=== PATIENT | male | born 1950 | race Caucasian/White ===

== ENCOUNTER 2020-04-17 09:10 | Outpatient (REF) | payer OTHER, SELFPAY ==
[2020-04-17 10:14] LABS: MANUAL DIFF FLAG NO
[2020-04-17 10:16] LABS: Basophils Absolute Auto 0.1 X10*3/uL (0.0-0.2); Basophils Percent Auto 1.1 % (0-2); Eosinophils Absolute Auto 0.2 X10*3/uL (0.0-0.4); Hematocrit 45.9 % (42-52); Hemoglobin 14.8 g/dl (14.0-18.0); Imm Gran Abs Auto 0.05 X10*3/uL (0.00-0.03); Imm Gran Pct Auto 0.6 % (0.0-0.4); Lymphocytes Absolute Auto 2.2 X10*3/uL (1.2-4.9); Lymphocytes Percent Auto 26.3 % (20-40); Mean Corpuscular HGB Conc 32.2 g/dl (31.0-36.0); Mean Platelet Volume 11.9 fL (9.4-12.4); Monocytes Absolute Auto 0.7 X10*3/uL (0.1-1.2); Monocytes Percent Auto 8.4 % (2-11); Neutrophils Absolute Auto 5.1 X10*3/uL (2.0-8.3); Neutrophils Percent Auto 61.6 % (45-73); Platelet Count 199 X10*3/uL (160-400); White Blood Count 8.3 X10*3/uL (4.8-10.8)
[2020-04-17 10:29] LABS: Estimated Average Glucose 128 mg/dL; Hemoglobin A1c % 6.1 %
[2020-04-17 10:37] LABS: Glucose Urine UA NEG (NEG); Leukocyte Esterase Urine NEG (NEG); Nitrite Urine NEG (NEG); PH 5.5 (5.0-8.0); Specific Gravity - Urine 1.025 (1.005-1.025); Urine Blood TRACE (NEG); Urine Ketones NEG (NEG); Urine Protein NEG (NEG-TRACE)
[2020-04-17 10:43] LABS: Appearance Urine CLEAR; Color Urine YELLOW
[2020-04-17 10:47] LABS: Alanine Aminotransferase 17 U/L (0-40); Albumin Level 4.2 g/dL (3.5-5.0); Alkaline Phosphatase 43 U/L (39-117); Anion Gap 12 (12-20); Aspartate Amino Transferase 17 U/L (5-37); Bilirubin Total 0.5 mg/dL (0.0-1.0); Blood Urea Nitrogen 12 mg/dL (9-16); Calcium 9.1 mg/dL (8.4-10.2); Carbon Dioxide 24 mmol/L (22-29); Chloride 106 mmol/L (96-108); Cholesterol 178 mg/dL; Estimated Glomerular Filt Rate > 60; Glucose Fasting 119 mg/dL (60-99); HDL Cholesterol 33 mg/dL; LDL Cholesterol Calculated 111 mg/dl; Potassium 4.4 mmol/l (3.3-5.1); Sodium 138 mmol/L (135-145); Total Protein 7.3 g/dL (6.5-8.0); Triglycerides 172 mg/dL
[2020-04-17 10:48] LABS: Creatinine Urine 141.78 mg/dL; Microalbum/Creatinine Ratio Ur 5.6 ug/mg cr
[2020-04-17 11:05] LABS: RBC Urine 0 /HPF (0); WBC Urine 0 /HPF (0-4)
[2020-04-17 11:06] LABS: Squamous Epithelial Cell Urine TRACE /LPF
[2020-04-17 11:12] LABS: Prostate Specific Antigen 2.71 ng/mL (<0.05-4.0)
== END 2020-04-17 09:11 | disposition home or self-care (01) ==
LOC: HO.LAB 09:10
PROVIDERS: PCP Internal Medicine; Visit Provider Internal Medicine
DX: Z00.00 Encounter for general adult medical examination without abnormal findings (principal); E11.40 Type 2 diabetes mellitus with diabetic neuropathy, unspecified; E78.6 Lipoprotein deficiency; G62.9 Polyneuropathy, unspecified
CPT/HCPCS: 36415; 80053; 80061; 81001; 82043; 83036; 84153; 85025

== ENCOUNTER → 2021-01-03 08:18 | Outpatient (REF) | payer OTHER, SELFPAY ==
--- NOTE | 2021-01-03 08:22 | CA_ITS ---
Transthoracic Echocardiogram Patient (Last, First, Middle): Howard Muniz F Gender: Male Date of : 1950 Age: 70 Procedure Date: 01/03/2021 Procedure Type: Transthoracic Echocardiogram Location: OP Height: 177.8 cm Weight: 86.64 kg BSA: 2.05 m2 Heart Rate: bpm BP: 118 / 60 mmHg Echometer Engineer: Referring MD: Gurjit Gloria MD Roller Coaster Designer: Vinnie Moore MD Symptoms: R01.1 NEWLY RECOGNIZED MURMUR Study Quality: Fair ECG Rhythm: Sinus Conclusions: - 1. Normal LV systolic function with mild LVH with impaired relaxation filling pattern 2. At least mildly dilated left atrium 3. Mild aortic stenosis 4. Mildly dilated ascending aorta and aortic root 5. No gross pericardial effusion Findings Left Ventricle Normal left ventricular size and systolic function. There is mildly increased left ventricular wall thickness. The visually estimated ejection fraction is between 60-65%. Spectral Doppler is indicative of an impaired relaxation filling pattern. E/E prime ratio is between 8 and 15 consistent with indeterminate filling pressures. Right Ventricle Normal right ventricular cavity size and systolic function. Atria The left atrium is mildly dilated. Interatrial shunt cannot be excluded. The right atrium was not well visualized. Aortic Valve The aortic valve was not well visualized. There is mild calcification of the aortic valve. There is mild aortic valve stenosis. There is mild aortic valve regurgitation. Mitral Valve Likely normal mitral valve structure and function. There is trace mitral valve regurgitation. There is no mitral valve stenosis. Pulmonic Valve The pulmonic valve was not well visualized. Tricuspid Valve The tricuspid valve was not well visualized. Tricuspid regurgitation envelope is inadequate for calculation of right ventricular systolic pressure. Great Vessels The pulmonary artery was not well visualized. There is mild dilatation of the sinuses of Valsalva measuring 4.20 cm and mild dilatation of the ascending aorta measuring 3.80 cm. Venous The inferior vena cava is normal in size and collapses greater than 50% with inspiration. Pericardium/Pleural There is no evidence of pericardial effusion. Prior Study Comparison No prior study available for comparison. Measurements 2D Linear Measurements IVSd: 1.28 0.6-0.9/0.6-1.0 cm LVIDd: 5.04 3.9-5.3/4.2-5.9 cm LVIDs: 3.35 2.0-3.6 cm LVPWd: 1.30 0.7-1.1 cm Ao Root: 4.00 2.1-3.5 cm LV Mass: 324.94 67-162/88-224 g LVOT Diam: 2.45 3.0+(-)1.3 cm Mitral Valve MV Pk E: 0.73 MV PK A: 0.87 MV Decel Time: 213.10 E/A: 0.84 E'Lateral: 0.09 E'Medial: 0.05 Decel [place]: 3.45 Aortic Valve AoV Pk [place]aye: 2.55 AoV Mn [place]aye: 1.82 AoV VTI: 0.59 AoV Pk Grad: 26.05 Aov Mn Grad: 14.93 LVOT LVOT Pk [place]: 0.90 LVOT Mn [place]aye: 0.59 LVOT VTI: 0.21 LVOT Pk Grad: 3.22 LVOT Mn Grad: 1.61 LVOT Diam: 2.45 LVOT Area: 4.73 Diastolic Function MV Pk E: 0.73 MV Pk A: 0.87 E/A: 0.84 E'Medial: 0.05 E' Laterial: 0.09 Tricuspid Valve TR Pk [place]aye: 2.10 TR Pk Grad: 17.67 RA Press: 3.00 Great Vessels Aorta Ao Root-2D: 4.00 2.0-3.7 cm Sinus of Valsalva: 4.20 2.0-3.5 cm Ao Asc: 3.80 2.1-3.4 cm Pulmonary Valve PV Pk Tesfaye: 0.90 Peak PV Grad: 3.22 Updated in Other Vendor System with Status of Final Vinnie Moore MD electronically signed on 01/03/2021 5:35:55 PM with status of Final
== END ==
LOC: HO.CARD 08:18
PROVIDERS: PCP Internal Medicine; Visit Provider Internal Medicine
DX: R01.1 Cardiac murmur, unspecified (principal)
CPT/HCPCS: 93306

== ENCOUNTER 2021-04-24 10:33 | Outpatient (REF) | payer OTHER, SELFPAY ==
[2021-04-24 10:36] LABS: MANUAL DIFF FLAG NO
[2021-04-24 10:59] LABS: Basophils Absolute Auto 0.1 X10*3/uL (0.0-0.2); Basophils Percent Auto 1.2 % (0-2); Eosinophils Absolute Auto 0.2 X10*3/uL (0.0-0.4); Eosinophils Percent Auto 2.8 % (0-4); Hemoglobin 14.3 g/dl (14.0-18.0); Imm Gran Abs Auto 0.04 X10*3/uL (0.00-0.03); Imm Gran Pct Auto 0.5 % (0.0-0.4); Lymphocytes Absolute Auto 2.2 X10*3/uL (1.2-4.9); Lymphocytes Percent Auto 30.1 % (20-40); Mean Corpuscular HGB Conc 32.5 g/dl (31.0-36.0); Mean Corpuscular Hemoglobin 29.1 pg (27.0-33.0); Mean Corpuscular Volume 89.6 fL (80-98); Mean Platelet Volume 12.2 fL (9.4-12.4); Monocytes Absolute Auto 0.7 X10*3/uL (0.1-1.2); Monocytes Percent Auto 9.5 % (2-11); Neutrophils Absolute Auto 4.2 X10*3/uL (2.0-8.3); Neutrophils Percent Auto 55.9 % (45-73); Platelet Count 178 X10*3/uL (160-400); Red Blood Count 4.91 X10*6/uL (4.60-5.80); Red Cell Distribution Width 12.9 % (11.0-16.0); White Blood Count 7.5 X10*3/uL (4.8-10.8)
[2021-04-24 11:15] LABS: Estimated Average Glucose 137 mg/dL; Hemoglobin A1c % 6.4 %
[2021-04-24 11:16] LABS: Alanine Aminotransferase 13 U/L (0-40); Albumin Level 3.9 g/dL (3.5-5.0); Alkaline Phosphatase 38 U/L (39-117); Anion Gap 11 (12-20); Aspartate Amino Transferase 15 U/L (5-37); Bilirubin Total 0.5 mg/dL (0.0-1.0); Blood Urea Nitrogen 10 mg/dL (9-16); Calcium 8.7 mg/dL (8.4-10.2); Carbon Dioxide 25 mmol/L (22-29); Chloride 108 mmol/L (96-108); Cholesterol 169 mg/dL; Estimated Glomerular Filt Rate > 60; Glucose Fasting 143 mg/dL (60-99); HDL Cholesterol 29 mg/dL; LDL Cholesterol Calculated 107 mg/dl; Potassium 4.2 mmol/L (3.3-5.1); Sodium 140 mmol/L (135-145); Total Protein 6.7 g/dL (6.5-8.0); Triglycerides 167 mg/dL
[2021-04-24 11:32] LABS: Appearance Urine CLEAR; Color Urine YELLOW; Glucose Urine UA NEG (NEG); Leukocyte Esterase Urine NEG (NEG); Nitrite Urine NEG (NEG); PH 5.5 (5.0-8.0); Specific Gravity - Urine >= 1.030 (1.005-1.025); Urine Blood NEG (NEG); Urine Ketones NEG (NEG); Urine Protein NEG (NEG-TRACE)
[2021-04-24 11:37] LABS: PSA,Total (Free>4and<10) 2.07 ng/mL (0.00-4.00)
[2021-04-24 11:38] LABS: Creatinine Urine 256.39 mg/dL
== END 2021-04-24 10:34 | disposition home or self-care (01) ==
LOC: HO.LNP 10:33
PROVIDERS: Visit Provider Internal Medicine
DX: Z00.00 Encounter for general adult medical examination without abnormal findings (principal); Z12.5 Encounter for screening for malignant neoplasm of prostate; R97.20 Elevated prostate specific antigen [PSA]; E11.40 Type 2 diabetes mellitus with diabetic neuropathy, unspecified; E78.6 Lipoprotein deficiency
CPT/HCPCS: 80053; 80061; 81003; 82043; 83036; 84153; 85025

== ENCOUNTER 2021-08-02 10:31 | Outpatient (REF) | payer OTHER, SELFPAY ==
[2021-08-02 11:37] LABS: Estimated Average Glucose 134 mg/dL; Hemoglobin A1c % 6.3 %
[2021-08-02 11:58] LABS: Alanine Aminotransferase 13 U/L (0-40); Albumin Level 3.9 g/dL (3.5-5.0); Alkaline Phosphatase 46 U/L (39-117); Aspartate Amino Transferase 15 U/L (5-37); Bilirubin Direct 0.4 mg/dL (0.0-0.5); Bilirubin Total 1.1 mg/dL (0.0-1.0); Cholesterol 133 mg/dL; Glucose Fasting 145 mg/dL (60-99); HDL Cholesterol 31 mg/dL; LDL Cholesterol Calculated 74 mg/dl; Total Protein 7.1 g/dL (6.5-8.0); Triglycerides 144 mg/dL
[2021-08-02 12:37] LABS: Reflex LDLD? No
== END 2021-08-02 10:32 | disposition home or self-care (01) ==
LOC: HO.LNP 10:31
PROVIDERS: Visit Provider Internal Medicine
DX: E11.40 Type 2 diabetes mellitus with diabetic neuropathy, unspecified (principal); E78.6 Lipoprotein deficiency
CPT/HCPCS: 80061; 80076; 82947; 83036

== ENCOUNTER 2021-09-13 08:49 | Outpatient (REF) | payer OTHER, MEDICARE, SELFPAY ==
--- NOTE | ~2021-09-13 | XR_ITS ---
EXAMINATION: XR SHOULDER, LEFT CLINICAL INFORMATION: Shoulder pain COMPARISON: None TECHNIQUE: Left shoulder is imaged in 3 views. FINDINGS: There is fine linear and small rounded calcification in region of distal rotator cuff likely involving the infraspinatus and the conjoined tendon. There is mild spurring from the greater tuberosity. There is no fracture or dislocation or destructive process. The glenohumeral joint is unremarkable. The acromioclavicular alignment is normal. XR/XR shoulder LT min 2V IMPRESSION: Calcific tendinosis distal superior rotator cuff.
== END 2021-09-13 08:50 | disposition home or self-care (01) ==
LOC: HO.HOSX 08:49
PROVIDERS: PCP Internal Medicine; Visit Provider Physician Assistant
DX: M12.812 Other specific arthropathies, not elsewhere classified, left shoulder (principal)
CPT/HCPCS: 73030

== ENCOUNTER 2021-10-19 14:00 | Outpatient (RCR) | payer OTHER, MEDICARE, SELFPAY ==
--- NOTE | 2021-09-14 14:50 | MHC.PT.EP ---
[facility] [place] Office [place] Office [place] Office [address] Loki Fierro [address] [phone] F: [phone] F: [phone] F: [phone] F: [phone] Physical Therapy Plan of Care Date of Evaluation: Date of Surgery: n/a Diagnosis: rotator cuff arthropathy of L shoulder Assessment: Patient is a 71 year old male presenting to PT with complaints of pain in his L shoulder. Pt reports onset of pain began 6-7 weeks ago shortly after his covid booster. He presents today with impairments in pain, ROM, and posture. Pt's current occupation is retired, with baseline physical activities including reaching, ADLs, and tennis. 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 Clinical presentation today is most consistent with signs and sx associated with x-ray findings of calcific tendinosis with possible contribution from the RC and pt will benefit from skilled PT to address the following problems and impairments noted upon evaluation: pain, ROM, and posture. These problems limit the patient with the following functional activities: reaching and ADLs. The prescribed treatment plan of care is medically necessary. Co-morbidities of ? of a murmur were identified and taken into considerations of plan of care. Pt was educated on HEP, role of PT, prognosis, POC. Frequency and Duration: The patient will be seen 2 x week x 5 weeks Short Term Goals: Pt will demonstrate improved L flexion and abd AROM by 20 degrees in 3 weeks. Pt will demonstrate improved ER ROM to his spinous process in 3 weeks. Pt will demonstrate improved L shoulder MMT by 1/3 grade in 3 weeks. Pt will demonstrate improved postural awareness by sitting with biomechanically correct posture without cues throughout session to improve overall postural function in 3 weeks. Auto Cleaner Goals: Pt will demonstrate ability to reach [place] in 5 weeks for ability to complete insurance claims representative. Pt will demonstrate ability to complete all ADLs with min to no ROM limitations in 5 weeks for return to PLOF. Treatment Plan: Modalities to reduce pain, spasms and effusion. Manual therapy to restore motion and function. Therapeutic exercise to improve strength and flexibility. Neuromuscular re-education for posture and balance. Therapeutic activities to return to functional activities of daily living. Electronically signed by: Louise Blancas, PT, DPT, ATC Please sign and return to therapist. Thank you for your referral.
--- NOTE | 2021-11-20 10:19 | MHC.PT.DC ---
[facility] [place] Office [place] Office [place] Office [address] Loki Fierro [address] [phone] F: [phone] F: [phone] F: [phone] F: [phone] Physical Therapy Discharge Report Diagnosis: rotator cuff arthropathy of L shoulder Date of Surgery: n/a Date of Evaluation: 09/14/21 Date of Discharge: 11/20/21 Treatments to Date: 11 Cancellations to Date: 0 No Shows to Date: 0 Discharge Status: Independent with HEP Discharge Summary: Pt has completed 30 day hold and has not called to be scheduled. At last appointment he was independent in his HEP and understood to follow up with referring provider if he continues to feel limitations. Electronically signed by: Louise Blancas, PT, DPT, ATC Please sign and return to therapist. Thank you for your referral.
== END 2021-11-20 10:19 | disposition home or self-care (01) ==
LOC: HO.PTCHIC 14:00
PROVIDERS: PCP Internal Medicine; Visit Provider Physician Assistant
DX: M12.812 Other specific arthropathies, not elsewhere classified, left shoulder (principal)
CPT/HCPCS: 97110; 97140; 97161

== ENCOUNTER 2021-11-09 08:14 | Day surgery (SDC) | payer OTHER, MEDICARE, SELFPAY ==
[2021-11-05 11:02] VITALS: BMI 26.6
--- NOTE | 2021-11-08 09:57 | P.CONAN_ITS ---
Documented by User: Jacy Mayes NP 11/08/21 09:59 HPI - Anesthesia Eval Consult details Narrative: 71yo M for Colonoscopy PMFSH Active Problems Active Problems: All Active Problems (Updated 11/05/21 @ 11:02 by Carla Browne RN) Rotator cuff arthropathy of left shoulder (Acute) Past Medical History Medical History (Updated 11/05/21 @ 11:02 by Carla Browne RN) COVID-19 vaccine series completed Diabetes Diabetic neuropathy Elevated cholesterol Glaucoma Surgical History Surgical History (Updated 11/09/21 @ 09:13 by Keshia Diana MD) H/O colonoscopy Hx of hand surgery Social History Social History (Updated 09/13/21 @ 09:10 by NOE Méndez) Are you a primary resident care director to a significant other at home: No Do you presently have visiting nurse or other home services: No Patient Tobacco Use Status: Never used Tobacco Use of substances other than those prescribed or required for medical reasons: No Have you been hit, kicked, punched, or otherwise hurt by someone within the past year? If so, by whom?: No Are you DNR?: No Advance Directives: No Advance Directives Information Provided: Yes (brochure mailed) Advance Directives on File: No Recently lost weight without trying: No Eating poorly because of decreased appetite: No Nutrition Risks: No Nutritional Risk Poor oral hygiene: No Current occupational status: retired Current occupation: rt hand / Meds Allergies Allergy/AdvReac Type Severity Reaction Status Date / Time No Known Allergies Allergy Verified 09/13/21 09:09 Home Medications Medication Instructions Recorded Confirmed Last Taken Type metformin 500 mg tablet 500 mg PO BID 09/13/21 11/05/21 Unknown History atorvastatin 20 mg tablet 1 tab PO DAILY 11/05/21 11/05/21 Unknown History dorzolamide 22.3 mg-timolol 6.8 1 drp OPHTHALMIC (EYE) BID 11/05/21 11/05/21 Unknown History mg/mL eye drops tafluprost (PF) 0.0015 % eye drops 1 drp OPHTHALMIC (EYE) BEDTIME 11/05/21 11/05/21 Unknown History in a dropperette (Zioptan (PF)) Exam Exam Date and Time: November 08, 2021 0957 Height,Weight and Vital Signs: Height 5 ft 11 in Weight 86.636 kg Pertinent Lab Results Pertinent Lab Results: Laboratory Tests 04/24/21 04/24/21 07:10 07:10 WBC 7.5 Hgb 14.3 Hct 44.0 Plt Count 178 Sodium 140 Potassium 4.2 Chloride 108 Carbon Dioxide 25 BUN 10 Creatinine 0.99 Narrative Narrative: ECHO 12/2020 Conclusions: - 1. Normal LV systolic function with mild LVH with impaired ? ? relaxation filling pattern ? 2. At least mildly dilated left atrium ? 3. Mild aortic stenosis? 4. Mildly dilated ascending aorta and aortic root? 5. No gross pericardial effusion ?? Assessment and Plan Assessment Anesthesia Assessment: Chart Reviewed Documented by User: Keshia Diana MD 11/09/21 09:34 [facility] Active Problems Active Problems: All Active Problems (Updated 11/05/21 @ 11:02 by Carla Browne RN) Rotator cuff arthropathy of left shoulder (Acute). Never had rotator cuff surgery. Undergoing physical therapy for now with some improvement in function Denies SOB, chest pain or dizziness Past Medical History Medical History (Updated 11/05/21 @ 11:02 by Carla Browne RN) COVID-19 vaccine series completed Diabetes Diabetic neuropathy Elevated cholesterol Glaucoma Family History Family history of problems with anesthesia: No Surgical History Surgical History (Updated 11/09/21 @ 09:13 by Keshia Diana MD) H/O colonoscopy Hx of hand surgery History of Problems with Anesthesia: No Social History Social History (Updated 09/13/21 @ 09:10 by NOE Méndez) Are you a primary resident care director to a significant other at home: No Do you presently have visiting nurse or other home services: No Patient Tobacco Use Status: Never used Tobacco Use of substances other than those prescribed or required for medical reasons: No Have you been hit, kicked, punched, or otherwise hurt by someone within the past year? If so, by whom?: No Are you DNR?: No Advance Directives: No Advance Directives Information Provided: Yes (brochure mailed) Advance Directives on File: No Recently lost weight without trying: No Eating poorly because of decreased appetite: No Nutrition Risks: No Nutritional Risk Poor oral hygiene: No Current occupational status: retired Current occupation: rt hand / Meds Allergies Allergy/AdvReac Type Severity Reaction Status Date / Time No Known Allergies Allergy Verified 09/13/21 09:09 Home Medications Medication Instructions Recorded Confirmed Last Taken Type metformin 500 mg tablet 500 mg PO BID 09/13/21 11/05/21 Unknown History atorvastatin 20 mg tablet 1 tab PO DAILY 11/05/21 11/05/21 Unknown History dorzolamide 22.3 mg-timolol 6.8 1 drp OPHTHALMIC (EYE) BID 11/05/21 11/05/21 Unknown History mg/mL eye drops tafluprost (PF) 0.0015 % eye drops 1 drp OPHTHALMIC (EYE) BEDTIME 11/05/21 11/05/21 Unknown History in a dropperette (Zioptan (PF)) Exam Height,Weight and Vital Signs: Height 5 ft 11 in Weight 86.636 kg Vital Signs Temp Pulse Resp BP Pulse Ox 11/09/21 08:17 96.9 F 96 17 141/87 H 97 Pertinent Lab Results Pertinent Lab Results: Laboratory Tests 04/24/21 04/24/21 07:10 07:10 WBC 7.5 Hgb 14.3 Hct 44.0 Plt Count 178 Sodium 140 Potassium 4.2 Chloride 108 Carbon Dioxide 25 BUN 10 Creatinine 0.99 Lab Results 11/09/21 Range/Units 08:26 POC Glucose 141 H (60-115) mg/dL Narrative Narrative: ECHO 12/2020 Conclusions: - 1. Normal LV systolic function with mild LVH with impaired ? ? relaxation filling pattern ? 2. At least mildly dilated left atrium ? 3. Mild aortic stenosis? 4. Mildly dilated ascending aorta and aortic root? 5. No gross pericardial effusion ?? EKG 11/09/21 NSR 79 RBBB LAFB Bifascicular block. Cannot r/o IMI masked by fascicular block. No old EKG available to view but stress test from 2004 documents bifascicular block. Stress test 2004 was negative for ischemia. Airway Mallampati Class: III TM Dist: >3cm Neck ROM: Full Loose/Missing/Broken Teeth: Yes (Some broken) Heart: RRR + systolic murmur Lungs: CTAB Assessment and Plan Assessment Anesthesia Assessment: Anesthesia Plan Discussed Final Anesthetic Review Family History of Problems with Anesthesia: No History of Problems with Anesthesia: No NPO: Yes ASA Class: III Final Preanesthetic Review: No Changes in Pt Med Stat, Meds/Allgs Chart Reviewed, Consent Obtained/Reviewed and Anes Risks/Benef Reviewed Patient Risk: Intermediate Procedure Risk: Low Assessment/Block/Sedation in SS: Assess/Block/Sedation-SS Anesthetic Plan Anesthetic Plan: MAC: Disposition: Standard PACU
--- NOTE | 2021-11-09 | ECG_ITS ---
Test Reason : RHYTHM CHANGE Blood Pressure : / mmHG Vent. Rate : 079 BPM Atrial Rate : 079 BPM P-R Int : 182 ms QRS Dur : 140 ms QT Int : 410 ms P-R-T Axes : 006 -56 -20 degrees QTc Int : 470 ms Normal sinus rhythm Right bundle branch block Left anterior fascicular block Bifascicular block Cannot rule out Inferior infarct (masked by fascicular block?) , age undetermined Abnormal ECG No previous ECGs available Referred By: Keshia Diana Electronically Signed By:CANDI LOZANO
[2021-11-09 08:17] VITALS: BP 141/87; PULSE 96; RESP 17; TEMP 36.1; O2SAT 97
[2021-11-09 08:31] LABS: Glucose, Whole Blood 141 mg/dL (60-115)
[2021-11-09] MEDS: Lactated Ringers 1,000 ML 100 ML IVCONT (08:42)
--- NOTE | 2021-11-09 09:41 | MHC.SHP ---
Pre-Procedural Eval Section A Date of Service: 11/09/21 Section B Chief Complaint: screening Details of Present Illness: see h and p no changes Relevant Family History (Specify if Yes): No Relevant Social History: None Present Medications: see Short Stay Collaborative assessment Medical History: No relevant PMH History of Previous Operations: No relevant previous surgery Allergies: Allergies Allergy/AdvReac Type Severity Reaction Status Date / Time No Known Allergies Allergy Verified 09/13/21 09:09 Review of Systems Sugical H&P ROS: Negative: Constitution, Cardiovascular, Respiratory, Neurological, Psychiatric, Hem-Onc, Allergic/Immunologic, Gastrointestinal, Genitourinary, Musculoskeletal, Integumentary, Endocrine and Eyes/Ears/Nose/Throat Exam Surgical H&P Exam: Normal: HEENT, Normal: Heart, Normal: Lungs, Normal: Extremities, Normal: Abdomen, Normal: Skin and Normal: Neurological Plan I have reviewed the history and physical and performed a pertinent physical examination on my patient. No changes have occurred unless specified.
[2021-11-09 10:11] VITALS: BP 127/75; PULSE 80; RESP 16; TEMP 36.3; O2SAT 98
--- NOTE | 2021-11-09 10:14 | PM.OP ---
Brief Operative Note Date of Service: 11/09/21 Pre-op diagnosis: screening Post-op diagnosis: same (colon polyps) Procedure: colonosocpy Surgeon: Raji Mcclendon Was an Hand Ii Thermal Cutter used for this Procedure?: No Estimated blood loss (mL): 2 Pathology: other (polyps x2) Condition: stable Disposition: PACU
[2021-11-09 10:26] VITALS: BP 118/76; PULSE 81; RESP 18; TEMP 36.6; O2SAT 96
--- NOTE | 2021-11-09 12:09 | OP_ITS ---
SURGEON: Raji Mcclendon MD INDICATIONS: Colon cancer screening. PREOPERATIVE DIAGNOSIS: POSTOPERATIVE DIAGNOSIS: PROCEDURE PERFORMED: Colonoscopy to the terminal ileum with biopsy and snare polypectomy. ESTIMATED BLOOD LOSS: COMPLICATIONS: ANESTHESIA: ASSISTANTS: SPECIMENS: MEDICATIONS: Monitored anesthesia care. DESCRIPTION OF PROCEDURE: History and physical were performed. The risks and benefits of the procedure were explained to the patient. An informed consent was obtained. The patient was placed in the left lateral decubitus position. A digital rectal exam was performed and was found to be normal. The Olympus pediatric video colonoscope was introduced into the rectum and advanced to cecum without difficulty. The cecum was identified by transillumination, palpation, and identification of the ileocecal valve. Examination was performed. The scope was removed. He tolerated the procedure well and returned to recovery area in stable condition. FINDINGS: The terminal ileum was normal. The visualized colonic mucosa was normal. The quality of prep was good. Two polyps were identified. The 1st measured less than 5 mm and was located at 70 cm. This was removed with biopsy forceps. The 2nd was located at 50 cm and measured 6 mm. This was removed with a cold snare. The polyp was not recovered for technical reasons. There was mild sigmoid diverticulosis. Retroflexed examination showed small internal hemorrhoids. IMPRESSION: Colon polyps. RECOMMENDATION: 1. Follow up the biopsy results. 2. Repeat colonoscopy in 7-10 years, pending pathology. MD GURPREET Armendariz/BELLA / [id number]
== END 2021-11-09 11:10 | disposition home or self-care (01) ==
PROVIDERS: PCP Internal Medicine; Visit Provider Internal Medicine Gastroenterology
PROC: 0DJD8ZZ Inspection of Lower Intestinal Tract, Via Natural or Artificial Opening Endoscopic (ICD-10-PCS; CPT 45378; principal; 2021-11-09 09:30)
DX: Z12.11 Encounter for screening for malignant neoplasm of colon (principal); Z86.010 Personal history of colon polyps; Z80.0 Family history of malignant neoplasm of digestive organs; D12.4 Benign neoplasm of descending colon; K63.5 Polyp of colon; K57.30 Diverticulosis of large intestine without perforation or abscess without bleeding; K64.8 Other hemorrhoids; H40.9 Unspecified glaucoma; E78.00 Pure hypercholesterolemia, unspecified; E11.40 Type 2 diabetes mellitus with diabetic neuropathy, unspecified; Z79.84 Long term (current) use of oral hypoglycemic drugs; Z79.899 Other long term (current) drug therapy
CPT/HCPCS: 45385; 45380; 82947; 88305; 93005

== ENCOUNTER → 2021-12-27 10:40 | Outpatient (BNVA) | payer OTHER, MEDICARE, SELFPAY | PROVIDERS: PCP Internal Medicine; Visit Provider Orthopaedic Surgery | DX: M25.612 Stiffness of left shoulder, not elsewhere classified (principal); M12.812 Other specific arthropathies, not elsewhere classified, left shoulder; E11.9 Type 2 diabetes mellitus without complications | CPT/HCPCS: 20610; J1100 ==

== ENCOUNTER 2022-01-01 10:26 | Outpatient (REF) | payer OTHER, MEDICARE, SELFPAY ==
[2022-01-01 10:46] LABS: Alanine Aminotransferase 15 U/L (0-40); Albumin Level 3.9 g/dL (3.5-5.0); Alkaline Phosphatase 45 U/L (39-117); Aspartate Amino Transferase 15 U/L (5-37); Bilirubin Direct 0.3 mg/dL (0.0-0.5); Bilirubin Total 0.7 mg/dL (0.0-1.0); Cholesterol 133 mg/dL; Glucose Fasting 157 mg/dL (60-99); HDL Cholesterol 32 mg/dL; LDL Cholesterol Calculated 68 mg/dl; Total Protein 6.7 g/dL (6.5-8.0); Triglycerides 166 mg/dL
[2022-01-01 11:06] LABS: Reflex LDLD? No
[2022-01-01 11:07] LABS: Estimated Average Glucose 148 mg/dL; Hemoglobin A1c % 6.8 %
== END 2022-01-01 10:27 | disposition home or self-care (01) ==
LOC: HO.LNP 10:26
PROVIDERS: PCP Internal Medicine; Visit Provider Internal Medicine
DX: E11.40 Type 2 diabetes mellitus with diabetic neuropathy, unspecified (principal); E78.6 Lipoprotein deficiency
CPT/HCPCS: 80061; 80076; 82947; 83036

== ENCOUNTER 2022-01-07 07:15 | Outpatient (REF) | payer OTHER, MEDICARE, SELFPAY ==
--- NOTE | ~2022-01-07 | MR_ITS ---
EXAMINATION: MRI SHOULDER WITHOUT CONTRAST, LEFT CLINICAL INFORMATION: Left shoulder pain and stiffness. COMPARISON: Left shoulder radiographs dated 09/13/2021. TECHNIQUE: Multisequence MR imaging of the left shoulder was obtained without contrast on a high field strength scanner. FINDINGS: ROTATOR CUFF: Moderate supraspinatus tendinosis with irregular bursal surface partial tearing measuring approximately 1.3 x 1.8 cm (AP by ML). Mild subscapularis tendinosis. No full-thickness rotator cuff tendon tear. No significant muscle atrophy. BICEPS: Flattening of the proximal long head biceps tendon as it drapes over the lesser tuberosity, indicating longitudinal partial tearing. No transverse tendon tear or tendon retraction. CORACOACROMIAL ARCH: The undersurface of the acromion is curved with no subacromial spur. Moderate acromioclavicular osteoarthritis. LABRUM/CAPSULE: Linear fluid signal extending to the undersurface of the anterior and anterior-inferior labrum consistent with a nondisplaced undersurface tear. Intact joint capsule. GLENOHUMERAL JOINT/MARROW: Mild glenohumeral articular cartilage signal heterogeneity with tiny marginal osteophytes. MR/MR shoulder LT wo con IMPRESSION: 1. Moderate supraspinatus tendinosis with irregular bursal surface partial tearing measuring 1.3 x 1.8 cm. Mild subscapularis tendinosis. Previously seen calcific tendinitis not well visualized on MRI examination. 2. Flattening/longitudinal partial tearing of the proximal long head biceps tendon as it drapes over the lesser tuberosity. 3. Moderate acromioclavicular osteoarthritis. 4. Nonspecific undersurface tear of the anterior and anteroinferior labrum. 5. Mild glenohumeral osteoarthritis.
== END 2022-01-07 07:16 | disposition home or self-care (01) ==
LOC: HO.MRI 07:15
PROVIDERS: Visit Provider Orthopaedic Surgery
DX: M25.612 Stiffness of left shoulder, not elsewhere classified (principal); M12.812 Other specific arthropathies, not elsewhere classified, left shoulder
CPT/HCPCS: 73221

== ENCOUNTER 2022-04-25 11:16 | Outpatient (REF) | payer MEDICARE, OTHER, SELFPAY ==
[2022-04-25 11:21] LABS: MANUAL DIFF FLAG NO
[2022-04-25 11:50] LABS: Basophils Absolute Auto 0.1 X10*3/uL (0.0-0.2); Basophils Percent Auto 0.9 % (0-2); Eosinophils Absolute Auto 0.2 X10*3/uL (0.0-0.4); Eosinophils Percent Auto 2.7 % (0-4); Hematocrit 42.5 % (42.0-52.0); Hemoglobin 13.8 g/dl (14.0-18.0); Imm Gran Abs Auto 0.03 X10*3/uL (0.00-0.03); Imm Gran Pct Auto 0.4 % (0.0-0.4); Lymphocytes Absolute Auto 2.6 X10*3/uL (1.2-4.9); Lymphocytes Percent Auto 32.5 % (20-40); Mean Corpuscular HGB Conc 32.5 g/dl (31.0-36.0); Mean Corpuscular Hemoglobin 29.1 pg (27.0-33.0); Mean Corpuscular Volume 89.5 fL (80.0-98.0); Mean Platelet Volume 12.1 fL (9.4-12.4); Monocytes Absolute Auto 0.9 X10*3/uL (0.1-1.2); Monocytes Percent Auto 10.9 % (2-11); Neutrophils Absolute Auto 4.3 x10*3/uL (2.0-8.3); Neutrophils Percent Auto 52.6 % (45-73); Platelet Count 181 X10*3/uL (160-400); Red Blood Count 4.75 X10*6/uL (4.60-5.80); White Blood Count 8.1 X10*3/uL (4.8-10.8)
[2022-04-25 11:51] LABS: Appearance Urine Clear; Color Urine Yellow; Glucose Urine UA Negative (Negative); Leukocyte Esterase Urine Negative (Negative); Nitrite Urine Negative (Negative); PH 5.5 (5.0-9.0); Urine Blood Negative (Negative); Urine Ketones Negative (Negative); Urine Protein Negative (Neg-Trace)
[2022-04-25 11:55] LABS: Bacteria Urine None Seen (None Seen); Hyaline Casts Urine 0-2 /LPF (0-2); RBC Urine 0-2 /HPF (0-2); Squamous Epithelial Cell Urine 0-2 /HPF (0-2); WBC Urine 0-5 /HPF (0-5)
[2022-04-25 11:57] LABS: Estimated Average Glucose 148 mg/dL; Hemoglobin A1c % 6.8 %
[2022-04-25 12:03] LABS: Alanine Aminotransferase 17 U/L (0-40); Albumin Level 3.8 g/dL (3.5-5.0); Alkaline Phosphatase 44 U/L (39-117); Anion Gap 14 (12-20); Aspartate Amino Transferase 19 U/L (5-37); Bilirubin Total 0.8 mg/dL (0.0-1.0); Blood Urea Nitrogen 12 mg/dL (9-16); Calcium 8.7 mg/dL (8.4-10.2); Carbon Dioxide 24 mmol/L (22-29); Chloride 107 mmol/L (96-108); Cholesterol 120 mg/dL; Estimated Glomerular Filt Rate > 60; Glucose Fasting 160 mg/dL (60-99); HDL Cholesterol 29 mg/dL; LDL Cholesterol Calculated 62 mg/dl; Potassium 4.2 mmol/L (3.3-5.1); Sodium 141 mmol/L (135-145); Total Protein 6.6 g/dL (6.5-8.0); Triglycerides 146 mg/dL
[2022-04-25 12:18] LABS: Creatinine Urine 190.93 mg/dL; Microalbum/Creatinine Ratio Ur 4.7 ug/mg cr
[2022-04-25 12:25] LABS: PSA,Total (Free>4and<10) 0.85 ng/mL (0.00-4.00)
== END 2022-04-25 11:17 | disposition home or self-care (01) ==
LOC: HO.LNP 11:16
PROVIDERS: Visit Provider Internal Medicine
DX: E11.40 Type 2 diabetes mellitus with diabetic neuropathy, unspecified (principal); E78.6 Lipoprotein deficiency; R97.20 Elevated prostate specific antigen [PSA]; Z12.5 Encounter for screening for malignant neoplasm of prostate
CPT/HCPCS: 80053; 80061; 81001; 82043; 83036; 84153; 85025

== ENCOUNTER 2022-10-17 12:04 | Emergency (ER) | payer OTHER, MEDICARE, SELFPAY ==
--- NOTE | ~2022-10-17 | CT_ITS ---
EXAMINATION: CT HEAD WITHOUT CONTRAST CLINICAL INFORMATION: Status post fall with head strike. COMPARISON: None available. TECHNIQUE: Contiguous axial imaging was performed from the skull base to vertex without intravenous administration of contrast. Coronal and sagittal reformatted images were obtained. This CT examination was performed using dose optimization techniques as appropriate, variously including the following: *Automated exposure control *Adjustment of mA and/or kV according to patient size (this includes techniques or standardized protocols for targeted exams where dose is matched to indication/reason for exam; i.e. extremities or head) *Use of iterative reconstruction technique DLP: 697 mGy-cm FINDINGS: There is mild widening of the cortical sulci and associated ventriculomegaly. Mild periventricular microvascular changes are seen, most pronounced in the right parietal region. The lateral ventricles are symmetrical. The third and fourth ventricles are in their normal midline position. Mild encephalomalacia is seen in the left occipital occipital lobe. The basilar and prepontine cisterns are unremarkable. There is no acute intra or extracerebral abnormality. There is no mass effect or midline shift. Sections through the bony calvarium are unremarkable. The orbits are intact. The paranasal sinuses are clear. The mastoid air cells are clear. Mild mid nasal septal deviation with right apical spur. CT/CT head/brain wo IV con IMPRESSION: No acute intracranial pathology.
--- NOTE | ~2022-10-17 | XR_ITS ---
EXAMINATION: XR KNEE, LEFT CLINICAL INFORMATION: Left knee pain status post fall. COMPARISON: None available. TECHNIQUE: Four views of the left knee. FINDINGS: Mild tricompartmental degenerative joint changes are seen. There is no acute fracture or dislocation. The soft tissues are unremarkable. Moderate to severe atherosclerosis is noted XR/XR knee LT 4V IMPRESSION: Mild tricompartmental degenerative joint changes suggesting osteoarthritis. No acute fracture.
[2022-10-17 12:16] VITALS: BP 138/75; PULSE 74; RESP 20; TEMP 36.8; O2SAT 97; BMI 27.7
--- NOTE | 2022-10-17 12:16 | ED_ITS ---
HPI - Extremity Injury (Lower) General Chief Complaint: Fall <VIDYA Pugh - Last Filed: 10/17/22 12:21> Stated Complaint: l leg inj fall <VIDYA Pugh - Last Filed: 10/17/22 12:21> Time Seen by Provider: 10/17/22 13:21 <VIDYA Pugh - Last Filed: 10/17/22 12:21> Source: patient <Luis M Zavala - Last Filed: 10/17/22 14:47> Limitations: no limitations <Luis M Zavala - Last Filed: 10/17/22 14:47> History of Present Illness HPI Narrative: 72-year-old male presents with his son complaining of feeling off balance in left knee pain. Patient is followed by his PCP was sent in for CT scan of the head to rule out intracranial pathology secondary to her fall 1 month prior. One month prior patient states he slipped on the ice in the back and fell on his back hitting his head. There was no loss of conscious at that time patient was not evaluated. Patient feels like ever since the fall things have seemed to be going down hill from the left knee pain which she denied injury in the fall to feeling off balance at time. Patient has a history of diabetes which he takes metformin for also has a history of hypercholesterolemia. At this time patient denies chest pain shortness of breath fever chills. Patient denies feeling that the room spinning he just at times feels off balance. Patient does not describe the knee discomfort as pain but rather just not feeling right. <Luis M Zavala - Last Filed: 10/17/22 14:47> Related Data Home Medications: Home Medications Medication Instructions Recorded Confirmed metformin 500 mg tablet 500 mg PO BID 09/13/21 11/05/21 atorvastatin 20 mg tablet 1 tab PO DAILY 11/05/21 11/05/21 dorzolamide 22.3 mg-timolol 6.8 1 drp ophthalmic (eye) BID 11/05/21 11/05/21 mg/mL eye drops tafluprost (PF) 0.0015 % eye drops 1 drp ophthalmic (eye) BEDTIME 11/05/21 11/05/21 in a dropperette (Zioptan (PF)) <VIDYA Pugh - Last Filed: 10/17/22 12:21> Allergies/Adverse Reactions: Allergies Allergy/AdvReac Type Severity Reaction Status Date / Time No Known Allergies Allergy Verified 09/13/21 09:09 <VIDYA Pugh - Last Filed: 10/17/22 12:21> Review of Systems Constitutional: Constitutional: Denies chills, Denies fever(s), Denies headache(s) and Denies malaise <Luis M Zavala - Last Filed: 10/17/22 14:47> Eyes: Eyes: Denies diplopia <Luis M Zavala - Last Filed: 10/17/22 14:47> ENT: Reports dizziness, Denies headache(s), Denies neck pain and Reports other ( Patient states feeling off balance) <Luis M Zavala - Last Filed: 10/17/22 14:47> Cardiovascular: Cardiovascular: Denies chest pain, Denies dyspnea and Reports dyspnea on exertion <Luis M Zavala - Last Filed: 10/17/22 14:47> Respiratory: Respiratory: Denies dyspnea and Reports dyspnea on exertion <Luis M Zavala - Last Filed: 10/17/22 14:47> Gastrointestinal: Gastrointestinal: Denies abdominal pain, Denies nausea and Denies vomiting <Luis M Zavala - Last Filed: 10/17/22 14:47> Genitourinary: Genitourinary: Reports no additional male genitourinary complaints <Luis M Zavala Last Filed: 10/17/22 14:47> Musculoskeletal: Musculoskeletal: Denies neck pain <Luis M Zavala - Last Filed: 10/17/22 14:47> Comments: knee discomfort not feeling right <Luis M Zavala - Last Filed: 10/17/22 14:47> Neurologic: Reports dizziness and Denies headache(s) <Luis M Zavala Last Filed: 10/17/22 14:47> Hematologic/Lymphatic: Hematologic/Lymphatic: Reports no additional hematologic/lymphatic complaints <Luis M Zavala Last Filed: 10/17/22 14:47> PMFSH Past Medical History Attestation statement: The following information was validated with the patient. <Luis M Zavala Last Filed: 10/17/22 14:47> Medical History: Medical History COVID-19 vaccine series completed Diabetes Diabetic neuropathy Elevated cholesterol Glaucoma <VIDYA Pugh - Last Filed: 10/17/22 12:21> Surgical History: Surgical History H/O colonoscopy Hx of hand surgery <VIDYA Pugh - Last Filed: 10/17/22 12:21> Social History Social History: Social History Are you a primary childcare center director to a significant other at home: No Do you presently have visiting nurse or other home services: No Patient Tobacco Use Status: Never used Tobacco Advance Directives: No Current occupational status: retired Current occupation: rt hand / <VIDYA Pugh - Last Filed: 10/17/22 12:21> Physical Exam Vital Signs: Vital Signs: Last Vital Signs Temp 98.3 F 10/17/22 12:16 Pulse 78 10/17/22 13:52 Resp 20 10/17/22 12:16 BP 135/77 10/17/22 13:52 Pulse Ox 97 10/17/22 12:16 O2 Del Method Room Air 10/17/22 12:16 BMI result Body Mass Index 27.7 <VIDYA Pugh - Last Filed: 10/17/22 12:21> Vital Signs: Last Vital Signs Temp 98.3 F 10/17/22 12:16 Pulse 78 10/17/22 13:52 Resp 20 10/17/22 12:16 BP 135/77 10/17/22 13:52 Pulse Ox 97 10/17/22 12:16 O2 Del Method Room Air 10/17/22 12:16 BMI result Body Mass Index 27.7 <Luis M Zavala - Last Filed: 10/17/22 14:47> Const: General: cooperative, well developed, alert, awake and Physically active <Luis M Zavala - Last Filed: 10/17/22 14:47> HEENT: Head: Yes normal to inspection, Yes normocephalic, Yes atraumatic and No abrasion <Luis M Zavala - Last Filed: 10/17/22 14:47> Mouth: Normal oral and palatal mucosa present and moist mucous membranes <Luis M Zavala - Last Filed: 10/17/22 14:47> Eyes: Other: pupils equal round reactive extraocular moves intact visual nava are intact bilaterally <Luis M Zavala Last Filed: 10/17/22 14:47> General: appearance normal, both eyes and all related structures <Luis M Zavala Last Filed: 10/17/22 14:47> Neck: Neck: Yes full ROM, Yes no meningeal signs and Yes trachea midline <Luis M Zavala Last Filed: 10/17/22 14:47> Chest: Chest palpation & inspection: normal inspection of the chest <Luis M Zavala Last Filed: 10/17/22 14:47> Resp: Effort & Inspection: normal respiratory effort <Luis M Zavala Last Filed: 10/17/22 14:47> Auscultation: clear to auscultation bilaterally <Luis M Zavala [facility] Filed: 10/17/22 14:47> Cardio: Rate: regular rate <Luis M Zavala Last Filed: 10/17/22 14:47> Rhythm: regular rhythm <Luis M Zavala Last Filed: 10/17/22 14:47> GI: Inspection: Yes normal to inspection <Luis M Zavala [facility] Filed: 10/17/22 14:47> Back/Spine/Pelvis: Other: full range of motion of the back <Luis M Zavala Last Filed: 10/17/22 14:47> Skin: General skin exam: no rashes or lesions noted and no ecchymosis <Luis M Zavala Last Filed: 10/17/22 14:47> Neuro: Other: Patient alert oriented x3 speech is intact no obvious focal deficit 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 No pronator drift patient walks with a slightly unsteady gait. [id number] touch is intact bilaterally <Luis M Zavala Last Filed: 10/17/22 14:47> General: no meningeal signs <Luis M Zavala Last Filed: 10/17/22 14:47> Coordination: [id number] test normal <Luis M Zavala [place] Last Filed: 10/17/22 14:47> Course Course Course Narrative: RME - 72 yo male presents to the ER from his PCP's office for evaluation of left knee pain after a fall a month ago. He also reports when he fell he hit the back of his head. He is not on blood thinners. He was never evaluated at the time. His doctor is worried he may have had a subdural hematoma. He denies any current or past headache. He does report some balance issues and now walks with a cane. The left knee is slower to move since the fall. Plan: XR left knee and CT head although clinical suspicion is low <VIDYA Pugh - Last Filed: 10/17/22 12:21> Medical Decision Making Medical Decision Making [facility] Narrative: Close head injury Subdural hematoma Left knee pain Left knee arthritis Underlying ligament injury to the left knee Anemia 72-year-old male who was sent in by PCP for CT scan of the head and x-ray of the left knee. CT scan of the head and left knee x-ray are pending. Patient states since a fall about a month ago when he fell on the ice in the backyard things have seemed to change from mother was balance with the knee pain. Patient did not originally injured the knee. Patient is nonorthostatic. Point of care is to overall 5. Case discussed with Dr. Jacobson will get a CBC CMP and wait on imaging results. plan to discharge patient home with follow-up PCP if CT scan of the head and blood work is negative. x-ray left knee IMPRESSION: Mild tricompartmental degenerative joint changes suggesting osteoarthritis. No acute fracture. FINDINGS: There is mild widening of the cortical sulci and associated ventriculomegaly. Mild periventricular microvascular changes are seen, most pronounced in the right parietal region. The lateral ventricles are symmetrical. The third and fourth ventricles are in their normal midline position. Mild encephalomalacia is seen in the left occipital occipital lobe. The basilar and prepontine cisterns are unremarkable. There is no acute intra or extracerebral abnormality. There is no mass effect or midline shift. Sections through the bony calvarium are unremarkable. The orbits are intact. The paranasal sinuses are clear. The mastoid air cells are clear. Mild mid nasal septal deviation with right apical spur. CT/CT head/brain wo IV con IMPRESSION: No acute intracranial pathology. CBC is stable no signs of anemia <Luis M Zavala - Last Filed: 10/17/22 14:47> Lab Data Result Diagrams: 10/17/22 14:12 10/17/22 14:12 <VIDYA Pugh - Last Filed: 10/17/22 12:21> Labs: Lab Results 10/17/22 10/17/22 10/17/22 Range/Units 13:45 14:12 14:12 WBC 7.6 (4.8-10.8) X10*3/uL RBC 5.05 (4.60-5.80) X10*6/uL Hgb 14.9 (14.0-18.0) g/dl Hct 44.3 (42.0-52.0) % MCV 87.7 (80.0-98.0) fL MCH 29.5 (27.0-33.0) pg MCHC 33.6 (31.0-36.0) g/dl RDW 12.9 (11.0-16.0) % Plt Count 171 (160-400) X10*3/uL MPV 12.0 (9.4-12.4) fL Immature Gran % (Auto) 0.4 (0.0-0.4) % Neut % (Auto) 63.0 (45-73) % Lymph % (Auto) 24.3 (20-40) % [place] % (Auto) 9.8 (2-11) % Eos % (Auto) 1.6 (0-4) % Baso % (Auto) 0.9 (0-2) % Lymph # (Auto) 1.8 (1.2-4.9) X10*3/uL [place] # (Auto) 0.7 (0.1-1.2) X10*3/uL Eos # (Auto) 0.1 (0.0-0.4) X10*3/uL Baso # (Auto) 0.1 (0.0-0.2) X10*3/uL Abs Immat Gran (auto) 0.03 (0.00-0.03) X10*3/uL Absolute Neuts (auto) 4.8 (2.0-8.3) x10*3/uL Absolute Nucleated RBC 0.000 (0.0-0.012) X10*3/uL Nucleated RBC % (auto) 0.0 (0.0-0.2) /100WBC Sodium 142 (135-145) mmol/L Potassium 4.4 (3.3-5.1) mmol/L Chloride 110 H (96-108) mmol/L Carbon Dioxide 25 (22-29) mmol/L Anion Gap 11 L (12-20) BUN 15 (9-16) mg/dL Creatinine 0.88 (0.5-1.4) mg/dL Estim Creat Clear Calc 85.7 Estimated GFR > 60 POC Glucose 205 H (60-115) mg/dL Random Glucose 186 H (60-115) mg/dL Calcium 9.4 D (8.4-10.2) mg/dL Total Bilirubin 0.8 (0.0-1.0) mg/dL AST 25 (5-37) U/L ALT 20 (0-40) U/L Alkaline Phosphatase 42 (39-117) U/L Total Protein 6.7 (6.5-8.0) g/dL Albumin 3.8 (3.5-5.0) g/dL <VIDYA Pugh - Last Filed: 10/17/22 12:21> Lab Results 10/17/22 10/17/22 10/17/22 Range/Units 13:45 14:12 14:12 WBC 7.6 (4.8-10.8) X10*3/uL RBC 5.05 (4.60-5.80) X10*6/uL Hgb 14.9 (14.0-18.0) g/dl Hct 44.3 (42.0-52.0) % MCV 87.7 (80.0-98.0) fL MCH 29.5 (27.0-33.0) pg MCHC 33.6 (31.0-36.0) g/dl RDW 12.9 (11.0-16.0) % Plt Count 171 (160-400) X10*3/uL MPV 12.0 (9.4-12.4) fL Immature Gran % (Auto) 0.4 (0.0-0.4) % Neut % (Auto) 63.0 (45-73) % Lymph % (Auto) 24.3 (20-40) % [place] % (Auto) 9.8 (2-11) % Eos % (Auto) 1.6 (0-4) % Baso % (Auto) 0.9 (0-2) % Lymph # (Auto) 1.8 (1.2-4.9) X10*3/uL [place] # (Auto) 0.7 (0.1-1.2) X10*3/uL Eos # (Auto) 0.1 (0.0-0.4) X10*3/uL Baso # (Auto) 0.1 (0.0-0.2) X10*3/uL Abs Immat Gran (auto) 0.03 (0.00-0.03) X10*3/uL Absolute Neuts (auto) 4.8 (2.0-8.3) x10*3/uL Absolute Nucleated RBC 0.000 (0.0-0.012) X10*3/uL Nucleated RBC % (auto) 0.0 (0.0-0.2) /100WBC Sodium 142 (135-145) mmol/L Potassium 4.4 (3.3-5.1) mmol/L Chloride 110 H (96-108) mmol/L Carbon Dioxide 25 (22-29) mmol/L Anion Gap 11 L (12-20) BUN 15 (9-16) mg/dL Creatinine 0.88 (0.5-1.4) mg/dL Estim Creat Clear Calc 85.7 Estimated GFR > 60 POC Glucose 205 H (60-115) mg/dL Random Glucose 186 H (60-115) mg/dL Calcium 9.4 D (8.4-10.2) mg/dL Total Bilirubin 0.8 (0.0-1.0) mg/dL AST 25 (5-37) U/L ALT 20 (0-40) U/L Alkaline Phosphatase 42 (39-117) U/L Total Protein 6.7 (6.5-8.0) g/dL Albumin 3.8 (3.5-5.0) g/dL <Luis M Zavala - Last Filed: 10/17/22 14:47> Discharge Plan Discharge Clinical Impression: Knee osteomyelitis, left <VIDYA Pugh - Last Filed: 10/17/22 12:21> Patient Disposition: Home, Self-Care <VIDYA Pugh - Last Filed: 10/17/22 12:21> Instructions: Knee Pain (ED) <VIDYA Pugh - Last Filed: 10/17/22 12:21> Additional Instructions: X-ray of the knee shows osteoarthritis tricompartmental follow-up with orthopedics for management of underlying knee discomfort is recommended. CT scan of the head shows no intracranial pathology. CBC shows no signs of anemia Electrolytes within normal limits your blood sugar is slightly elevated in the 160s <VIDYA Pugh - Last Filed: 10/17/22 12:21> Prescriptions: No Action atorvastatin 20 mg tablet 1 tab PO DAILY dorzolamide-timolol 22.3-6.8 mg/mL drops 1 drp ophthalmic (eye) BID Zioptan (PF) 0.0015 % dropperette 1 drp ophthalmic (eye) BEDTIME metformin 500 mg tablet 500 mg PO BID <VIDYA Pugh - Last Filed: 10/17/22 12:21>
--- OUTSIDE RECORDS SUMMARY | 2022-10-17 13:19 | XMS_ITS ---
Author Name Raji Mcclendon Jr Address [address] [place] [address] Organization [facility] Address [address] [place] [address] Care Team Providers Care Melting Supervisor Name Role Phone Raji Mcclendon Jr Unavailable PROBLEMS Type Condition ICD9-CM Code AJD90-RO Code Onset Dates Condition Status SNOMED Code Problem Colon cancer screening Z12.11 Active 443834665 Problem half-way (current) use of oral hypoglycemic drugs Z79.84 Active 833363920 Problem Abnormal findings in stool R19.5 Active [id number] ALLERGIES Substance Reaction Event Type Date Status seasonal Unknown Non Drug Allergy 14 Aug, 2021 Active ENCOUNTERS Encounter Location Date Diagnosis [facility] [address] [place] [phone] November, [facility] Outpatient [address] [place] [id number] Oct, Colon cancer screening Z12.11 and Colon polyp K63.5 [facility] [address] [place] [phone] Sep, [facility] [address] [place] [phone] Aug, [facility] [address] [place] [phone] Aug, [facility] [address] [place] [phone] Jul, Colon cancer screening Z12.11 and half-way (current) use of oral hypoglycemic drugs Z79.84 [facility] Outpatient [address], [place] [phone] Mar, [facility] [address] [place] [address] Mar, Abnormal findings in stool R19.5 IMMUNIZATIONS Vaccine Route Administration Date Status Influenza Unknown May 30, 2021 Administered SOCIAL HISTORY Qualifiers Date Never Smoker REASON FOR REFERRAL FUNCTIONAL STATUS PLAN OF CARE Activity Details VITAL SIGNS Weight 191 lbs 2021-08-08 Weight 207 lbs 2017-04-03 Height 71 in 2021-08-08 Height 71 in 2017-04-03 BMI 26.64 kg/m2 2021-08-08 BMI 28.87 kg/m2 2017-04-03 Heart Rate 84 /min 2017-04-03 Temperature 97.7 degrees Fahrenheit Blood pressure systolic 000 mm Hg Blood pressure diastolic 00 mm Hg 2021-07 MEDICATIONS Medication Instructions Dosage Frequency Start Date End Date Duration Status Colyte with Flavor Packs 240 GM Orally Over the specified time. As directed 1 day(s) Active Latanoprost 0.005 % Ophthalmic Once a day INSTILL 1 DROP INTO BOTH EYES AT BEDTIME DIRECTED 24h Active MiraLax (colon prep) 17 GM/SCOOP Orally begin at 5:00 p.m. the day before the procedure mixed with Gatorade or Crystal Light Jul, 1 day Active Dorzolamide HCl-Timolol Mal 22.3-6.8 MG/ML 90 Activ e metFORMIN HCl 500 MG Oral Once a day TAKE 1 TABLET BY MOUTH TWICE A DAY WITH MEALS 24h Active Atorvastatin Calcium 20 MG 90 Active Zioptan 0.0015 % 30 Active PROCEDURES Procedure Date Ordered Result Body Site DOC RSN FOR NOT SCREEN/REC F/U HBP Aug 08, 2021 INTRVL 3+YRS PTS CLNSCP DOCD November 09, 2021 Pt scrn tbco id as non user Aug 08, 2021 COLONOSCOPY AND BIOPSY November 09, 2021 COLORECTAL CA SCREEN DOC REV Aug 08, 2021 LESION REMOVAL COLONOSCOPY November 09, 2021 RESULTS Name Result Date Reference Range Glucose, Whole Blood 2021-11-09 Glucose, Whole Blood 141 60-115 Pathology 2021-11-09 GI BIOPSY 2017-04-11 G.I. BIOPSY REASON FOR VISIT pathology, screening, screening, r/s september 25 appt to november 09. , screening, Please lock ov note, R/S procedure, Patient presents today for a colon screening, heme + stools, Patient presents today for positive stool cards Insurance Providers Health Insurance Type Health Plan Insurance Address Health Plan Insurance Phone Health Plan Insurance Name Health Plan Coverage Dates Member ID Patient Relationship to Subscriber Patient Address Patient Phone Patient Name Patient Date of Subscriber ID Subscriber Name Subscriber Date of Group [facility] [address] [facility] [place] [phone] [place] [address] JEFF ARMENTA [id number] MEDICARE OF [place] [address] [facility] [address] MED[place]ARE OF [place] sven ARMENTA [id number]
[2022-10-17 13:46] VITALS: BP 119/69; PULSE 67
[2022-10-17 13:49] LABS: Glucose, Whole Blood 205 mg/dL (60-115)
[2022-10-17 13:51] VITALS: BP 139/73; PULSE 72
[2022-10-17 13:52] VITALS: BP 135/77; PULSE 78
[2022-10-17 14:23] LABS: MANUAL DIFF FLAG NO
[2022-10-17 14:26] LABS: Basophils Absolute Auto 0.1 X10*3/uL (0.0-0.2); Basophils Percent Auto 0.9 % (0-2); Eosinophils Absolute Auto 0.1 X10*3/uL (0.0-0.4); Eosinophils Percent Auto 1.6 % (0-4); Hematocrit 44.3 % (42.0-52.0); Hemoglobin 14.9 g/dl (14.0-18.0); Imm Gran Abs Auto 0.03 X10*3/uL (0.00-0.03); Imm Gran Pct Auto 0.4 % (0.0-0.4); Lymphocytes Absolute Auto 1.8 X10*3/uL (1.2-4.9); Lymphocytes Percent Auto 24.3 % (20-40); Mean Corpuscular HGB Conc 33.6 g/dl (31.0-36.0); Mean Corpuscular Hemoglobin 29.5 pg (27.0-33.0); Mean Corpuscular Volume 87.7 fL (80.0-98.0); Monocytes Absolute Auto 0.7 X10*3/uL (0.1-1.2); Monocytes Percent Auto 9.8 % (2-11); Neutrophils Absolute Auto 4.8 x10*3/uL (2.0-8.3); Platelet Count 171 X10*3/uL (160-400); Red Blood Count 5.05 X10*6/uL (4.60-5.80); Red Cell Distribution Width 12.9 % (11.0-16.0); White Blood Count 7.6 X10*3/uL (4.8-10.8)
[2022-10-17 14:42] LABS: Alanine Aminotransferase 20 U/L (0-40); Albumin Level 3.8 g/dL (3.5-5.0); Alkaline Phosphatase 42 U/L (39-117); Anion Gap 11 (12-20); Aspartate Amino Transferase 25 U/L (5-37); Bilirubin Total 0.8 mg/dL (0.0-1.0); Blood Urea Nitrogen 15 mg/dL (9-16); Calcium 9.4 mg/dL (8.4-10.2); Carbon Dioxide 25 mmol/L (22-29); Chloride 110 mmol/L (96-108); Creatinine Clr Calc Pharmacy 85.7; Estimated Glomerular Filt Rate > 60; Glucose Random 186 mg/dL (60-115); Potassium 4.4 mmol/L (3.3-5.1); Sodium 142 mmol/L (135-145); Total Protein 6.7 g/dL (6.5-8.0)
[2022-10-17 14:50] VITALS: BP 129/83; PULSE 67; RESP 19; TEMP 36.6; O2SAT 97
== END 2022-10-17 15:00 | disposition home or self-care (01) ==
PROVIDERS: Physician Assistant; Emergency Provider Emergency Medicine; PCP Internal Medicine
DX: M86.662 Other chronic osteomyelitis, left tibia and fibula (principal); M25.562 Pain in left knee; R51.9 Headache, unspecified; M54.2 Cervicalgia; Z79.899 Other long term (current) drug therapy
CPT/HCPCS: 36415; 70450; 73564; 80053; 82947; 85025; 99283; 99284

== ENCOUNTER 2022-10-25 08:55 | Inpatient (IN) | payer MEDICARE, OTHER, SELFPAY ==
--- NOTE | ~2022-10-25 | MR_ITS ---
EXAMINATION: BRAIN MRI WITHOUT CONTRAST CLINICAL INFORMATION: Question cerebrovascular accident. Ataxia. COMPARISON: CT head 10/18/2019. TECHNIQUE: Multiplanar MR imaging of the brain was performed without contrast. FINDINGS: There are multiple tiny foci of restricted diffusion primarily distributed between the major vascular territories of both cerebral hemisphere best visualized on axial image 24 of 64 series 4. In addition to these acute findings there are a few small foci of cortical encephalomalacia for instance within the right parietal lobe and the left occipital lobe and scattered chronic small vessel ischemic changes within the periventricular white matter. No pathological magnetic susceptibility artifact. The right internal carotid artery vascular flow void is absent indicating slow flow or occlusion of blood within the vessel. There is no intracranial mass effect or midline shift. No abnormal extra-axial collection. Lateral and third ventricles are normal. No hydrocephalus. Midline structures including the cervicomedullary junction are normal. No acute bone marrow signal changes. There is no mastoid or middle ear effusion. Trivial mucosal thickening within ethmoid air cells. Globes and orbits are symmetric. MR/MR head/brain wo con IMPRESSION: There are acute watershed infarcts between the major vascular territories of both cerebral hemispheres. These findings are superimposed upon chronic changes including a relatively small old cortical infarct within the right parietal lobe and the left occipital lobe. Numerous chronic small vessel ischemic changes are visualized within the periventricular white matter. Of note there is either slow flow or occlusion of blood within the right internal carotid artery. A dedicated CT angiogram of the neck can be obtained for better anatomic characterization of the vascular anatomy.
--- NOTE | ~2022-10-25 | CT_ITS ---
EXAMINATION: CT angio head neck CLINICAL INFORMATION: Stroke on MRI. COMPARISON: Brain MRI 10/25/2022. TECHNIQUE: Audiovisual Tech images were obtained. A CT angiogram of the head and neck was performed in the arterial phase after the intravenous administration of 70 mL Omnipaque 350. Delayed postcontrast images of the head were also obtained. MIP reconstructions were generated in multiple orientations at the acquisition workstation. Multiple three-dimensional surface rendered images and maximum intensity projection images were generated on a dedicated 3-D lab workstation. Arterial stenoses are measured in accordance with NASCET criteria or similar method if applicable. This CT examination was performed using dose optimization techniques as appropriate, including one or more of the following: Automated exposure control, iterative reconstruction, and adjustment of technique factors (mA and/or kVp) according to patient size (this includes techniques or standardized protocols for targeted exams where dose is matched to indication/reason for exam). Fleischner Society criteria for the followup of incidental pulmonary nodules was implemented if appropriate. Total exam dose-length product 1537 mGy-cm FINDINGS: Head: Postcontrast images reveal no abnormal intracranial mass or enhancement. Again there are chronic cortical infarct within the right parietal lobe and the left occipital lobe. Numerous chronic small vessel ischemic changes are also visualized within the periventricular white matter. Acute white matter infarcts are better demonstrated on recent MR imaging of the brain. There is no intracranial mass effect or midline shift. No abnormal extra-axial collection. Lateral and third ventricles are normal. No hydrocephalus. The calvarium and skull base are intact. Mastoid air cells and middle ear cavities are well aerated. Incidentally there is a perforation of the membranous nasal septum measuring approximately 1.[address] angiogram neck: The aortic arch apex is normal. Origins of the major aortic branches are widely patent. Common carotid arteries are normal. Partially calcified atheromatous plaque involves both carotid bifurcations. The right internal carotid arteries. Occluded at its origin and there is eccentric plaque causing 90% stenosis of the left internal carotid artery at its origin. Cervical vertebral arteries are patent. CT angiogram head: There is atheromatous calcification involving the left cavernous internal carotid artery. The left intracranial internal carotid artery is otherwise normal. There is reconstitution of the occluded right internal carotid artery within the supraclinoid segment that appears to be at least partially related to retrograde filling via the ophthalmic vein. The intradural vertebral artery segments and basilar artery are widely patent. Anterior, middle, and posterior cerebral artery complexes are normal. No intracranial large vessel occlusion. The timing of contrast injection provides adequate opacification of the dural venous sinuses which are patent. Other: Soft tissues of the neck including the thyroid gland are normal. Grossly no pathologically enlarged cervical lymph nodes. Lung apices are clear. No acute osseous finding. Specifically no worrisome lytic or blastic osseous lesion. CT/CT angio head neck IMPRESSION: The right internal carotid artery is occluded at its origin and there is eccentric plaque causing 90% stenosis of the left internal carotid artery at its origin. The left intracranial internal carotid artery is patent with no evidence of tandem stenosis. There is reconstitution of the occluded right internal carotid artery within the supraclinoid segment that appears to be at least partially related to retrograde filling via the ophthalmic vein. Otherwise no intracranial large vessel occlusion. The posterior circulation including the vertebrobasilar system are widely patent. Again there are chronic cortical infarcts within the right parietal lobe and the left occipital lobe. Numerous chronic small vessel ischemic changes are also visualized within the periventricular white matter. No intracranial mass or enhancement.
[2022-10-25 09:00] VITALS: BP 140/89; PULSE 82; RESP 18; TEMP 36.4; O2SAT 96; BMI 34.9
[2022-10-25 09:14] VITALS: BP 125/70; PULSE 71; RESP 18; TEMP 36.4; O2SAT 99
--- NOTE | 2022-10-25 09:16 | ECG_ITS ---
Test Reason : WEAKNESS Blood Pressure : / mmHG Vent. Rate : 070 BPM Atrial Rate : 070 BPM P-R Int : 180 ms QRS Dur : 148 ms QT Int : 442 ms P-R-T Axes : 009 -58 -23 degrees QTc Int : 477 ms Normal sinus rhythm Right bundle branch block Left anterior fascicular block Bifascicular block T wave abnormality, consider lateral ischemia Abnormal ECG When compared with ECG of 09-NOV-2021 09:19, Inverted T waves have replaced nonspecific T wave abnormality in Anterolateral leads Referred By: Luis M Jacobson Electronically Signed By:KI GAR MD
--- NOTE | 2022-10-25 09:18 | ED_ITS ---
HPI - General Adult General Chief complaint: Weakness Stated complaint: Unsteady on Feet Time Seen by Provider: 10/25/22 09:04 Source: patient and family Mode of arrival: ambulatory Limitations: no limitations History of Present Illness HPI narrative: Pt was referred by PCP because unsteady gait,was sen [address] negative ,denies fever/vomiting/SOB any other systemic symtoms Onset (ago): week(s) (1) Location: head Radiation: non-radiation Severity: mild Related Data Home Medications Medication Instructions Recorded Confirmed metformin 500 mg tablet 500 mg PO BID 09/13/21 10/25/22 atorvastatin 20 mg tablet 1 tab PO DAILY 11/05/21 10/25/22 dorzolamide 22.3 mg-timolol 6.8 1 drp ophthalmic (eye) BID 11/05/21 10/25/22 mg/mL eye drops tafluprost (PF) 0.0015 % eye drops 1 drp ophthalmic (eye) BEDTIME 11/05/21 10/25/22 in a dropperette (Zioptan (PF)) Allergies Allergy/AdvReac Type Severity Reaction Status Date / Time No Known Allergies Allergy Verified 09/13/21 09:09 Review of Systems Constitutional: Constitutional: Reports no additional constitutional complaints ENT: Reports system reviewed and no additional complaints, except as documented Cardiovascular: Cardiovascular: Reports no additional cardiovascular complaints Neurologic: Reports system reviewed and no additional complaints, except as documented [facility] Past Medical History Medical History COVID-19 vaccine series completed Diabetes Diabetic neuropathy Elevated cholesterol Glaucoma Surgical History H/O colonoscopy Hx of hand surgery Social History Social History Are you a primary pet care associate to a significant other at home: No Do you presently have visiting nurse or other home services: No Patient Tobacco Use Status: Never used Tobacco Advance Directives: No Current occupational status: retired Current occupation: rt hand / Physical Exam ED Vital Signs: Vital Signs - 24 hr 10/25/22 09:00 10/25/22 09:14 10/25/22 12:12 Temperature 97.6 F 97.6 F Pulse Rate 82 71 71 Respiratory Rate 18 18 16 Blood Pressure 140/89 H 125/70 122/64 Pulse Oximetry 96 99 99 Oxygen Delivery Method Room Air Room Air Room Air BMI result Body Mass Index 34.9 Const General: cooperative Nutritional Appearance: average body habitus and well nourished Orientation/consciousness: patient oriented x3 HENMT Head: Yes normal to inspection Ears: hearing grossly normal bilaterally General nose exam: Normal external nose present Face and sinus: Yes normal facial exam Mouth: Normal oral and palatal mucosa present Teeth and gingiva: dentition normal Throat: Yes posterior oropharynx normal Neck Neck: Yes normal visual inspection and Yes full ROM Carotids: normal carotid upstroke Chest Chest palpation & inspection: normal inspection of the chest Resp Effort & Inspection: normal respiratory effort Auscultation: clear to auscultation bilaterally Cardio Palpation: normal PMI Rhythm: regular rhythm GI Inspection: Yes normal to inspection Palpation (GI): Soft to palpation, not firm, nontender and no guarding Percussion: Yes normal to percussion Auscultation: normal bowel sounds Skin General skin exam: no rashes or lesions noted Lesions: no lesions Rashes: no rashes Wounds: no wounds Neuro General: patient oriented x3 Cranial nerves: Yes CN's II-XII intact bilaterally Course Reevaluation(s) Reevaluation #1: MRI showed acute cva will admit out of window for TPA,spoke with Dr Hernandez neurology Time: 12:30 Reevaluation #2: spoke with Dr Nuñez because 90 % stenosis rt carotid artery ,he reccomend to add plavix Time: 14:32 Medications Administered Discontinued Medications Generic Name Dose Route Start Last Admin Trade Name Clarita PRN Reason Stop Dose Admin Aspirin 324 mg 10/25/22 12:12 10/25/22 12:18 Aspirin 81 Mg Tab.Chew PO 10/25/22 12:13 324 mg ONCE ONE Administration Aspirin 81 mg 10/25/22 13:43 10/25/22 14:13 Aspirin 81 Mg Tab.Chew PO 10/25/22 13:44 Not Given DAILY ONE Iohexol 70 ml 10/25/22 13:03 10/25/22 13:04 Iohexol 350 Mg/Ml 100 Ml Infus..Btl IV 10/25/22 13:04 70 ml ONCE ONE Administration Medical Decision Making Medical Decision Making MDM Narrative: pt presented with unsteady gait,he already phan ct head 1 Week ago will do MRI Differential Diagnosis Differential Diagnoses: The differential diagnosis associated with the presentation includes CVA/ lytes abnormalities Consult Healthcare Provider Management of the patient was discussed with: Hospitalist and Auditing Clerk spoke with Dr Nuñez and neurologist Dr Hernandez Lab Data MDM Lab Attestation statement: I reviewed the patient's lab results. 10/25/22 09:29 10/25/22 09:29 Labs: Lab Results 10/25/22 10/25/22 10/25/22 Range/Units 09:29 09:29 09:29 WBC 9.2 (4.8-10.8) X10*3/uL RBC 5.15 (4.60-5.80) X10*6/uL Hgb 15.0 (14.0-18.0) g/dl Hct 44.8 (42.0-52.0) % MCV 87.0 (80.0-98.0) fL MCH 29.1 (27.0-33.0) pg MCHC 33.5 (31.0-36.0) g/dl RDW 12.7 (11.0-16.0) % Plt Count 160 (160-400) X10*3/uL MPV 11.9 (9.4-12.4) fL Immature Gran % (Auto) 0.3 (0.0-0.4) % Neut % (Auto) 67.8 (45-73) % Lymph % (Auto) 20.9 (20-40) % [place] % (Auto) 9.5 (2-11) % Eos % (Auto) 0.8 (0-4) % Baso % (Auto) 0.7 (0-2) % Lymph # (Auto) 1.9 (1.2-4.9) X10*3/uL [place] # (Auto) 0.9 (0.1-1.2) X10*3/uL Eos # (Auto) 0.1 (0.0-0.4) X10*3/uL Baso # (Auto) 0.1 (0.0-0.2) X10*3/uL Abs Immat Gran (auto) 0.03 (0.00-0.03) X10*3/uL Absolute Neuts (auto) 6.3 (2.0-8.3) x10*3/uL Absolute Nucleated RBC 0.000 (0.0-0.012) X10*3/uL Nucleated RBC % (auto) 0.0 (0.0-0.2) /100WBC Sodium 141 (135-145) mmol/L Potassium 4.1 (3.3-5.1) mmol/L Chloride 111 H (96-108) mmol/L Carbon Dioxide 23 (22-29) mmol/L Anion Gap 11 L (12-20) BUN 18 H (9-16) mg/dL Creatinine 1.04 (0.5-1.4) mg/dL Estim Creat Clear Calc 58.9 Estimated GFR > 60 Random Glucose 161 H (60-115) mg/dL Calcium 9.1 (8.4-10.2) mg/dL Total Bilirubin 1.0 (0.0-1.0) mg/dL AST 24 (5-37) U/L ALT 23 (0-40) U/L Alkaline Phosphatase 43 (39-117) U/L Total Creatine Kinase 87 (38-174) U/L Troponin I High Sens 14.6 (<3.5-35.0) ng/L Total Protein 6.5 (6.5-8.0) g/dL Albumin 3.8 (3.5-5.0) g/dL Independent Interpretation I performed an independent interpretation of an: EKG Radiology Impression Discussion of test interpretation with radiology: I have reviewed the radiologist's reading. Radiologist Impression: ry vascular flow void is absent indicating slow flow or occlusion of blood within the vessel. There is no intracranial mass effect or midline shift. No abnormal extra-axial collection. Lateral and third ventricles are normal. No hydrocephalus. Midline structures including the cervicomedullary junction are normal. No acute bone marrow signal changes. There is no mastoid or middle ear effusion. Trivial mucosal thickening within ethmoid air cells. Globes and orbits are symmetric. MR/MR head/brain wo con IMPRESSION: There are acute watershed infarcts between the major vascular territories of both cerebral hemispheres. These findings are superimposed upon chronic changes including a relatively small old cortical infarct within the right parietal lobe and the left occipital lobe. Numerous chronic small vessel ischemic changes are visualized within the periventricular white matter. Of note there is either slow flow or occlusion of blood within the right internal carotid artery. A dedicated CT angiogram of the neck can be obtained for better anatomic characterization of the vascular anatomy. Independent Historian Clinical information obtained from an independent historian. History obtained from or confirmed by: Spouse and Other (PCP DR Gloria) External Record Review External record reviewed: Inpatient record Discharge Plan Discharge Clinical Impression: Acute CVA (cerebrovascular accident), Carotid artery stenosis Patient Disposition: Admitted As Inpatient
[2022-10-25 09:41] LABS: MANUAL DIFF FLAG NO
[2022-10-25 09:50] LABS: Basophils Absolute Auto 0.1 X10*3/uL (0.0-0.2); Basophils Percent Auto 0.7 % (0-2); Eosinophils Absolute Auto 0.1 X10*3/uL (0.0-0.4); Eosinophils Percent Auto 0.8 % (0-4); Hematocrit 44.8 % (42.0-52.0); Imm Gran Abs Auto 0.03 X10*3/uL (0.00-0.03); Imm Gran Pct Auto 0.3 % (0.0-0.4); Lymphocytes Absolute Auto 1.9 X10*3/uL (1.2-4.9); Lymphocytes Percent Auto 20.9 % (20-40); Mean Corpuscular HGB Conc 33.5 g/dl (31.0-36.0); Mean Corpuscular Hemoglobin 29.1 pg (27.0-33.0); Mean Platelet Volume 11.9 fL (9.4-12.4); Monocytes Absolute Auto 0.9 X10*3/uL (0.1-1.2); Monocytes Percent Auto 9.5 % (2-11); Neutrophils Absolute Auto 6.3 x10*3/uL (2.0-8.3); Neutrophils Percent Auto 67.8 % (45-73); Platelet Count 160 X10*3/uL (160-400); Red Blood Count 5.15 X10*6/uL (4.60-5.80); Red Cell Distribution Width 12.7 % (11.0-16.0); White Blood Count 9.2 X10*3/uL (4.8-10.8)
[2022-10-25 10:06] LABS: Alanine Aminotransferase 23 U/L (0-40); Albumin Level 3.8 g/dL (3.5-5.0); Alkaline Phosphatase 43 U/L (39-117); Anion Gap 11 (12-20); Aspartate Amino Transferase 24 U/L (5-37); Blood Urea Nitrogen 18 mg/dL (9-16); Calcium 9.1 mg/dL (8.4-10.2); Carbon Dioxide 23 mmol/L (22-29); Chloride 111 mmol/L (96-108); Creatinine Clr Calc Pharmacy 58.9; Estimated Glomerular Filt Rate > 60; Glucose Random 161 mg/dL (60-115); Potassium 4.1 mmol/L (3.3-5.1); Sodium 141 mmol/L (135-145); Total Protein 6.5 g/dL (6.5-8.0)
[2022-10-25 10:13] LABS: Troponin-I High Sensitivity 14.6 ng/L (<3.5-35.0)
[2022-10-25 12:12] VITALS: BP 122/64; PULSE 71; RESP 16; O2SAT 99
[2022-10-25] MEDS: Aspirin 81 MG TAB.CHEW 324 MG PO (12:18)
--- NOTE | 2022-10-25 12:43 | PHA.MEDREC ---
Pharmacy Consult ? Medication Reconciliation Pharmacy has completed the medication reconciliation.
[2022-10-25] MEDS: iohexoL 350 MG/ML 100 ML INFUS..BTL 70 ML IV (13:04)
--- NOTE | 2022-10-25 14:25 | PM.IMHP ---
History of Present Illness Date of Service: 10/25/22 Chief Complaint: Ataxia 72-year-old male presents with 2-3 weeks of ataxic gait worse this a.m.. He also noticed changes in his fine motor skills (writing) over the last several days. Seen in ER this a.m. (sent from PCP office); MRI consistent with acute watershed infarcts between the major vascular territories of both cerebral hemispheres these findings were superimposed on chronic changes including small cortical infarcts and right parietal lobe and occipital lobe. CTA of the head and neck demonstrated a total occlusion of the right carotid at its origin and a 90% stenosis of the left carotid at its origin. Review of Systems Review of Systems: Denies chest pain Denies shortness of breath Denies nausea vomiting diarrhea Denies fever chills Admits to difficulty ambulation and difficulty with writing [facility] Medical History COVID-19 vaccine series completed Diabetes Diabetic neuropathy Elevated cholesterol Glaucoma Surgical History H/O colonoscopy Hx of hand surgery Social History Are you a primary health care recruiter to a significant other at home: No Do you presently have visiting nurse or other home services: No Patient Tobacco Use Status: Never used Tobacco Advance Directives: No Current occupational status: retired Current occupation: rt hand / Meds Allergies Allergy/AdvReac Type Severity Reaction Status Date / Time No Known Allergies Allergy Verified 09/13/21 09:09 Active Medications: Current Medications Acetaminophen (Acetaminophen 325 Mg Tablet) 650 mg PO Q6H PRN PRN Reason: Pain, Mild (Pain Scale 1-3) Atorvastatin Calcium (Atorvastatin Calcium 80 Mg Tablet) 80 mg PO DAILY GERARDO Dorzolamide/Timolol (Dorzolamide/Timolo 2.23%/0.68% 10 Ml Drbtl) 1 drop EYE-BOTH BID GERARDO Glucose (Glucose Gel 15 Gm Gel..Gram.) 15 gm PO Q15M PRN; Protocol PRN Reason: per Hypoglycemia Standing Ord. Dextrose (D10) 250 mls @ 750 mls/hr IV Q15M PRN; Protocol PRN Reason: per Hypoglycemia Standing Ord. Insulin Human Lispro (Insulin Lispro 100 Unit/Ml 3 Ml Vial) 0 unit SUBCUT QIDACHS [facility]; Protocol Metformin HCl (Metformin Hcl 500 Mg Tablet) 500 mg PO BID [facility] Non-Formulary Medication (Tafluprost (Pf) [Zioptan (Pf)]) 1 drop EYE-BOTH BEDTIME [facility] Pharmacy Consult (Consult Rx Perform Med Rec) 1 each MISCELLANE ONCE PRN PRN Reason: Consult order Sodium Chloride (0.9 % Sodium Chloride Flush 3 Ml Syringe) 3 ml IVFLUSH QSHIFT [facility] Home Medications Medication Instructions Recorded Confirmed Last Taken Type metformin 500 mg tablet 500 mg PO BID 09/13/21 10/25/22 Unknown History atorvastatin 20 mg tablet 1 tab PO DAILY 11/05/21 10/25/22 Unknown History dorzolamide 22.3 mg-timolol 6.8 1 drp ophthalmic (eye) BID 11/05/21 10/25/22 Unknown History mg/mL eye drops tafluprost (PF) 0.0015 % eye drops 1 drp ophthalmic (eye) BEDTIME 11/05/21 10/25/22 Unknown History in a dropperette (Zioptan (PF)) Physical Exam Vital Signs and Narrative: Vital Signs: Last Vital Signs Temp 97.6 F 10/25/22 09:14 Pulse 71 10/25/22 12:12 Resp 16 10/25/22 12:12 BP 122/64 10/25/22 12:12 Pulse Ox 99 10/25/22 12:12 O2 Del Method Room Air 10/25/22 12:12 BMI result Body Mass Index 34.9 Const: Other: Awake alert; difficulty with word finding Resp: Other: Clear to auscultation bilaterally no rales rhonchi wheezes Cardio: Other: No S4; positive S1-S2; no S3 murmurs rubs or gallops GI: Other: Soft nontender nondistended normoactive bowel sounds x4 Neuro: Other: Cranial nerves 2-12 grossly intact as tested. Motor is 5/5 all extremities. Sensation is intact. Gait ataxic. Mild confusion (discussed baseline with PCP) Extrem: Other: No edema bilaterally Results Labs 10/25/22 09:29 10/25/22 09:29 Labs: Laboratory Results - last 24 hr 10/25/22 10/25/22 10/25/22 09:29 09:29 09:29 MCV 87.0 MCH 29.1 MCHC 33.5 RDW 12.7 Plt Count 160 MPV 11.9 Immature Gran % (Auto) 0.3 Neut % (Auto) 67.8 Lymph % (Auto) 20.9 [place] % (Auto) 9.5 Eos % (Auto) 0.8 Baso % (Auto) 0.7 Lymph # (Auto) 1.9 [place] # (Auto) 0.9 Eos # (Auto) 0.1 Baso # (Auto) 0.1 Abs Immat Gran (auto) 0.03 Absolute Neuts (auto) 6.3 Absolute Nucleated RBC 0.000 Nucleated RBC % (auto) 0.0 Anion Gap 11 L Estim Creat Clear Calc 58.9 Estimated GFR > 60 Random Glucose 161 H Calcium 9.1 Total Bilirubin 1.0 AST 24 ALT 23 Alkaline Phosphatase 43 Total Creatine Kinase 87 Troponin I High Sens 14.6 Total Protein 6.5 Albumin 3.8 Imaging Radiologist's Impressions: Impressions Brain MRI 10/25/22 11:29 IMPRESSION: There are acute watershed infarcts between the major vascular territories of both cerebral hemispheres. These findings are superimposed upon chronic changes including a relatively small old cortical infarct within the right parietal lobe and the left occipital lobe. Numerous chronic small vessel ischemic changes are visualized within the periventricular white matter. Of note there is either slow flow or occlusion of blood within the right internal carotid artery. A dedicated CT angiogram of the neck can be obtained for better anatomic characterization of the vascular anatomy. Head/Neck CTA 10/25/22 13:08 IMPRESSION: The right internal carotid artery is occluded at its origin and there is eccentric plaque causing 90% stenosis of the left internal carotid artery at its origin. The left intracranial internal carotid artery is patent with no evidence of tandem stenosis. There is reconstitution of the occluded right internal carotid artery within the supraclinoid segment that appears to be at least partially related to retrograde filling via the ophthalmic vein. Otherwise no intracranial large vessel occlusion. The posterior circulation including the vertebrobasilar system are widely patent. Again there are chronic cortical infarcts within the right parietal lobe and the left occipital lobe. Numerous chronic small vessel ischemic changes are also visualized within the periventricular white matter. No intracranial mass or enhancement. Assessment and Plan (1) Acute CVA (cerebrovascular accident): Status: Acute (2) Carotid artery stenosis: Status: Acute Plan 72-year-old male presents from PCPs office with worsening ataxia. Discussed with PCP who states symptoms presented approximately /; sent to ER where CT of the head was unremarkable as well as x-ray of knee. Patient returned to PCPs office today for follow-up and noted to be more ataxic holding onto salmon with cane. Sent to ER for evaluation; MRI demonstrated acute watershed infarcts between the major vascular territories of both cerebral hemispheres. Subsequent CTA of head and neck demonstrated 100% occlusion of the right internal carotid at the origin as well as 90% of the left internal carotid at origin 1. Acute CVA (acute watershed infarcts of both hemispheres) -admit telemetry -neurology and vascular surgery consult -ASA/high dose statin/Plavix -PT/OT consult 2. Bilateral carotid stenosis -ASA/high-dose statin/Plavix -vascular consult 3. DMII -will hold metformin for 48 hours given contrast load -restart when appropriate -lispro correctional scale -adjust as indicated Full code Patient will require 2 midnights going forward of inpatient stay for vascular consult with likely carotid intervention. This can not be achieved a lesser acute facility Time Spent With Patient Time: Total time managing care of this patient today ____ minutes. Quality Stroke Does the patient have a stroke diagnosis?: Yes Reason for No Anti-thrombotic by Day Two: N/A - Med Ordered VTE Prior VTE?: No VTE Risk Level:: Medical - moderate - high VTE Device Contraindication: N/A - Device Ordered VTE Drug Contraindication: Patient Refused
[2022-10-25 14:30] VITALS: BP 113/59; PULSE 80; RESP 12; O2SAT 96
[2022-10-25] MEDS: 0.9 % Sodium Chloride Flush 3 ML SYRINGE IVFLUSH (14:42)
[2022-10-25] MEDS: Clopidogrel Bisulfate 75 MG TABLET PO ×2 (14:42)
[2022-10-25] MEDS: Atorvastatin Calcium 80 MG TABLET PO (14:42)
--- NOTE | 2022-10-25 15:00 | MHC.STROKE ---
10/25/22 0855 WALK-IN, ADVISED TO COME IN BY HIS PCP. SEEN BY PROVIDER AT 0904, NIHSS = 2 ATAXIA. MRI DONE AT 1107, + FOR ACUTE ISCHEMIC STROKES (SEE REPORT), DR. TOURE NOTIFIED, HE IS RECOMMENDING A CTA H/N. DONE AT 1255. (SEE REPORT). PATIENT WILL BE ADMITTED, SEE DR. CADENA'S NOTE AND DR. PEÑA'S NOTE, NEUROLOGY AND VASCULAR IS CONSULTED. AVOID HYPOTENSION. I WILL CHECK WITH DR. TOURE TO OBTAIN BP PARAMETERS. I PERFORMED NURSING SWALLOW SCREEN PRIOR TO HIS PO ASPIRIN AND HE PASSED. I HAVE INITIATED STROKE EDUCATION WITH THE PATIENT AND HIS . SHE IS A NURSE. I REVIEWED HIS MRI RESULTS AND BRIEFLY DISCUSSED THE CAROTID STENOSIS. I ADVISED THE PATIENT TO NOTIFY THE NURSE IF ANY SYMPTOMS RETURN. I REVIEWED THE PLAN OF CARE AND EXPLAINED THAT HE WILL REMAIN IN THE HOSPITAL FOR SEVERAL DAYS. I ANSWERED ALL OF THEIR QUESTIONS.
--- NOTE | 2022-10-25 15:48 | PM.EVENT ---
Event Note Date of Service: 10/25/22 Event Note: CT scan reviewed along with MRI. High-grade carotid stenosis with carotid occlusion noted on CTA. MRI notes to have areas of stroke in watershed areas. Will need full workup. No acute surgical intervention required. Will follow with you. Case discussed with the ER and hospitalist staff. Time Spent With Patient Time: Total time managing care of this patient today ____ minutes.
--- NOTE | 2022-10-25 16:21 | PC.NURSE ---
PLAN FOR PT TO BE TRANSFERRED TO [facility] FOR [facility]
--- NOTE | 2022-10-25 16:30 | PM.DS ---
DS: Providers Provider Date of Service: 10/25/22 Date of admission: 10/25/22 13:38 Date of discharge: 10/25/22 Primary care physician: Gurjit Gloria MD Consults: 10/25/22 14:24 Consult to Vascular Surgery Routine Consulting Provider: [facility] Reason for consultation: carotid stenosis Has provider been notified: Yes DS: Transfer Hospital Acceptance Reason for Transfer: Severe carotid stenosis Name of Facility: [facility] Accepting Provider: Dr. Verma DS: Diagnosis Discharge Diagnosis (1) Acute CVA (cerebrovascular accident): Status: Acute (2) Carotid artery stenosis: Status: Acute DS: Summary Hospital Course Hospital Course: 72-year-old male presents with 2-3 weeks of ataxic gait worse this a.m..? He also noticed changes in his fine motor skills (writing) over the last several days.? Seen in ER this a.m. (sent from PCP office); MRI consistent with acute watershed infarcts between the major vascular territories of both cerebral hemispheres these findings were superimposed on chronic changes including small cortical infarcts and right parietal lobe and occipital lobe.? CTA of the head and neck demonstrated a total occlusion of the right carotid at its origin and a 90% stenosis of the left carotid at its origin. Discussed with Neurology; discussed with PCP. Case discussed with Dr. Verma who has accepted patient. Patient is medically acceptable for transfer and will be transferred [place] [address] room 64. Family inpatient updated in agreement Time Spent with Patient Time attestation: Total time managing care of this patient today ____ minutes. Discharge coordination time: Greater than 30 minutes Quality: Safe Use of Opioids Does Pt have an Active Cancer Diagnosis on the Problem List?: No Quality: Stroke Does the patient have a stroke diagnosis?: Yes Reason for No Anti-thrombotic at DC: N/A - Med Ordered Reason for No Anticoagulant at DC: N/A - Med Ordered Reason Not Initiating IV-Tpa: Not indicated Reason for No Anti-thrombotic by Day Two: N/A - Med Ordered Reason for No Statin at DC: N/A - Med Ordered Physical Exam Vital Signs: Vital Signs: Last Vital Signs Temp 97.6 F 10/25/22 09:14 Pulse 80 10/25/22 14:30 Resp 12 10/25/22 14:30 BP 113/59 L 10/25/22 14:30 Pulse Ox 96 10/25/22 14:30 O2 Del Method Room Air 10/25/22 14:30 BMI result Body Mass Index 34.9 Const: Other: Awake alert; difficulty with word finding Resp: Other: Clear to auscultation bilaterally no rales rhonchi wheezes Cardio: Other: No S4; positive S1-S2; no S3 murmurs rubs or gallops GI: Other: Soft nontender nondistended normoactive bowel sounds x4 Neuro: Other: Cranial nerves 2-12 grossly intact as tested. Motor is 5/5 all extremities. Sensation is intact. Gait ataxic. Mild confusion (discussed baseline with PCP) Extrem: Other: No edema bilaterally DS: Data Data Completed and Pending Labs on day of discharge: Laboratory Results - last 24 hr 10/25/22 10/25/22 10/25/22 09:29 09:29 09:29 WBC 9.2 RBC 5.15 Hgb 15.0 Hct 44.8 MCV 87.0 MCH 29.1 MCHC 33.5 RDW 12.7 Plt Count 160 MPV 11.9 Immature Gran % (Auto) 0.3 Neut % (Auto) 67.8 Lymph % (Auto) 20.9 [place] % (Auto) 9.5 Eos % (Auto) 0.8 Baso % (Auto) 0.7 Lymph # (Auto) 1.9 [place] # (Auto) 0.9 Eos # (Auto) 0.1 Baso # (Auto) 0.1 Abs Immat Gran (auto) 0.03 Absolute Neuts (auto) 6.3 Absolute Nucleated RBC 0.000 Nucleated RBC % (auto) 0.0 Sodium 141 Potassium 4.1 Chloride 111 H Carbon Dioxide 23 Anion Gap 11 L BUN 18 H Creatinine 1.04 Estim Creat Clear Calc 58.9 Estimated GFR > 60 Random Glucose 161 H Calcium 9.1 Total Bilirubin 1.0 AST 24 ALT 23 Alkaline Phosphatase 43 Total Creatine Kinase 87 Troponin I High Sens 14.6 Total Protein 6.5 Albumin 3.8 Discharge Plan Discharge Anticipated Discharge Date/Time: 10/25/22 16:35 Patient Disposition: Xfer Acute Care Hospital Discharge Diagnosis: Acute CVA with critical bilateral carotid stenosis Referrals: Gurjit Gloria MD [Primary Care Provider] - 1 Week Discharge Medications: New atorvastatin 80 mg Tablet 80 mg PO DAILY Qty: 30 0RF clopidogrel 75 mg Tablet 75 mg PO DAILY Qty: 30 0RF Continued atorvastatin 20 mg tablet 1 tab PO DAILY dorzolamide-timolol 22.3-6.8 mg/mL drops 1 drp ophthalmic (eye) BID tafluprost (PF) [Zioptan (PF)] 0.0015 % dropperette 1 drp ophthalmic (eye) BEDTIME Held metformin 500 mg tablet 500 mg PO BID Hold Instructions: Resume on 10/27/22. Received IV contrast. Held for 48 hours Discharge Orders: Discharge Order (Routine); Ordered 10/25/22 Ordered By: Alexis Campos Diet: Advance to usual diet Activity on Discharge: As tolerated Stand Alone Forms: Patient Portal Discharge page Care Plan Goals: As per the receiving team Health Concerns: As per receiving team Plan of Treatment: As per receiving team Assessment: See discharge summary
[2022-10-25 16:37] VITALS: BP 138/82; PULSE 79; RESP 18; TEMP 36.8; O2SAT 97
--- NOTE | 2022-10-25 16:39 | PC.NURSE ---
ATTEMPT TO GIVE REPORT X 2 TO MARK
--- NOTE | 2022-10-25 17:06 | PC.NURSE ---
report given to chato
== END 2022-10-25 18:10 | disposition short-term general hospital (02) | DRG 66 ==
LOC: HO.ED 12:20 → HO.EDOVER 13:43 → HO.IMC 15:07 → HO.EDOVER 16:25
PROVIDERS: Admitting Provider Hospitalist; Emergency Provider Emergency Medicine; PCP Internal Medicine; Visit Provider Hospitalist
DX: I63.233 Cerebral infarction due to unspecified occlusion or stenosis of bilateral carotid arteries (principal); R29.702 NIHSS score 2; R26.0 Ataxic gait; E11.40 Type 2 diabetes mellitus with diabetic neuropathy, unspecified; E78.00 Pure hypercholesterolemia, unspecified; Z79.02 Long term (current) use of antithrombotics/antiplatelets; Z79.84 Long term (current) use of oral hypoglycemic drugs; Z79.899 Other long term (current) drug therapy
CPT/HCPCS: 36415; 70496; 70498; 70551; 80053; 80061; 80076; 82550; 82947; 83036; 84484; 85025; 93005; 99285; Q9967

== ENCOUNTER 2022-10-25 11:43 | Outpatient (REF) | payer MEDICARE, OTHER, SELFPAY ==
[2022-10-25 12:02] LABS: Alanine Aminotransferase 23 U/L (0-40); Alkaline Phosphatase 46 U/L (39-117); Aspartate Amino Transferase 25 U/L (5-37); Bilirubin Direct 0.3 mg/dL (0.0-0.5); Bilirubin Total 0.9 mg/dL (0.0-1.0); Cholesterol 115 mg/dL; Glucose Fasting 170 mg/dL (60-99); HDL Cholesterol 28 mg/dL; LDL Cholesterol Calculated 66 mg/dl; Total Protein 6.8 g/dL (6.5-8.0); Triglycerides 105 mg/dL
[2022-10-25 12:35] LABS: Estimated Average Glucose 160 mg/dL; Hemoglobin A1c % 7.2 %
[2022-10-25 14:57] LABS: Reflex LDLD? No
== END 2022-10-25 11:44 | disposition home or self-care (01) ==
LOC: HO.LNP 11:43
PROVIDERS: Visit Provider Internal Medicine
DX: Z13.89 Encounter for screening for other disorder (principal)
CPT/HCPCS: 80061; 80076; 82947; 83036

== ENCOUNTER → 2023-01-27 14:35 | Outpatient (REF) | payer OTHER, MEDICARE, SELFPAY ==
--- NOTE | 2023-01-27 14:40 | CA_ITS ---
Transthoracic Echocardiogram Patient (Last, First, Middle): Howard Muniz F Gender: Male Date of : 1950 Age: 72 Procedure Date: 01/27/2023 Procedure Type: Transthoracic Echocardiogram Location: OP Height: 180.34 cm Weight: 79.38 kg BSA: 1.99 m2 Heart Rate: bpm BP: 110 / 65 mmHg Marble Polisher Hand: MARQUEZ Referring MD: Gurjit Gloria MD Administrative And Program Specialist: Vinnie Moore MD Symptoms: I35.0 MID AORTIC STENOSIS Study Quality: Fair ECG Rhythm: Sinus Conclusions: - 1. Normal LV ejection fraction 55-60% with upper limits of normal wall thickness with grade 1 diastolic dysfunction 2. Mildly dilated left atrium 3. Mild aortic stenosis and regurgitation 4. Mildly dilated ascending aorta at 4.1 cm 5. Normal RV systolic pressure 6. No pericardial effusion Findings Left Ventricle Normal left ventricular size, thickness, and systolic function. The visually estimated ejection fraction is between 55-60%. Spectral Doppler is indicative of an impaired relaxation filling pattern. E/E prime ratio is <8, consistent with normal filling pressures. Evidence suggests grade I (mild) diastolic dysfunction. Right Ventricle Normal right ventricular cavity size and systolic function. Atria The left atrium is mildly dilated. Interatrial shunt cannot be excluded. The right atrium is normal in size. Aortic Valve There is mild calcification of the aortic valve. There is moderate thickening of the aortic valve. There is mild aortic valve stenosis. The peak aortic gradient is 32 mmHg.The mean gradient is 20 mmHg. The aortic valve area is 1.49 cm2. There is mild aortic valve regurgitation. Mitral Valve There is mild anterior and posterior mitral leaflet thickening. There is mild mitral annular calcification. There is trace mitral valve regurgitation. There is no mitral valve stenosis. Pulmonic Valve The pulmonic valve was not well visualized. Tricuspid Valve Likely normal tricuspid valve structure and function. There is trace tricuspid valve regurgitation. The right ventricular systolic pressure is normal. The right ventricular systolic pressure is 18 mmHg. Normal right atrial pressure. There is no evidence of pulmonary hypertension. Great Vessels The pulmonary artery was not well visualized. There is mild dilatation of the ascending aorta measuring 4.10 cm. Venous The inferior vena cava is normal in size and collapses greater than 50% with inspiration. Pericardium/Pleural There is no evidence of pericardial effusion. Prior Study Comparison No significant change compared to prior study dated: 01/03/2021. Measurements 2D Linear Measurements IVSd: 1.07 0.6-0.9/0.6-1.0 cm LVIDd: 5.10 3.9-5.3/4.2-5.9 cm LVIDd Index: 2.56 2.4-3.2/2.2-3.1 cm/m2 LVIDs: 3.70 2.0-3.6 cm LVPWd: 0.99 0.7-1.1 cm LA Diam: 3.50 2.7-3.8/3.0-4.0 cm LAIDs Index: 1.76 1.5-2.3 cm/m2 LV Mass: 244.27 67-162/88-224 g LV Mass Index: 122.75 43-95/49-115 g/m2 LVOT Diam: 2.50 3.0+(-)1.3 cm 2D Systolic Function EF 4C: 55.70 >55% Mitral Valve MV Pk E: 0.40 MV PK A: 1.02 MV Decel Time: 229.00 E/A: 0.40 E'Lateral: 5.87 E'Medial: 4.13 E/E' Med: 9.80 E/E' Lat: 6.90 PHT: 67.00 MVA PHT: 3.28 Decel Kinney: 1.76 Aortic Valve AoV Pk Tesfaye: 2.84 AoV Mn Tesfaye: 2.16 AoV VTI: 0.64 AoV Pk Grad: 32.00 Aov Mn Grad: 20.00 JUANITA Cont.VTI: 1.49 LVOT LVOT Pk Tesfaye: 0.90 LVOT Mn Tesfaye: 0.60 LVOT VTI: 0.19 LVOT Pk Grad: 3.00 LVOT Mn Grad: 2.00 LVOT Diam: 2.50 LVOT Area: 4.91 Diastolic Function MV Pk E: 0.40 MV Pk A: 1.02 E/A: 0.40 E'Medial: 4.13 E/E' Med: 9.80 E' Laterial: 5.87 E/E' Lat: 6.90 Right Ventricle TAPSE (mm): 21.70 TVS' Tesfaye: 9.90 Tricuspid Valve TR Pk Tesfaye: 1.93 TR Pk Grad: 15.00 RA Press: 3.00 RVSP: 18.00 Great Vessels Aorta Sinus of Valsalva: 4.83 2.0-3.[address] Ridge: 3.58 1.7-3.4 cm Ao Asc: 4.10 2.1-3.4 cm Updated in Other Vendor System with Status of Final Vinnie Moore MD electronically signed on 01/27/2023 4:38:00 PM with status of Final
== END ==
LOC: HO.CARD 14:35
PROVIDERS: PCP Internal Medicine; Visit Provider Internal Medicine
DX: I35.0 Nonrheumatic aortic (valve) stenosis (principal)
CPT/HCPCS: 93306

== ENCOUNTER → 2023-01-27 14:40 | Outpatient (BNV) | payer OTHER, MEDICARE, SELFPAY | PROVIDERS: PCP Internal Medicine; Visit Provider Internal Medicine Cardiovascular Disease | DX: I35.0 Nonrheumatic aortic (valve) stenosis (principal) | CPT/HCPCS: 93306 ==

== ENCOUNTER 2023-04-29 11:30 | Outpatient (REF) | payer OTHER, MEDICARE, SELFPAY ==
[2023-04-29 11:35] LABS: MANUAL DIFF FLAG NO
[2023-04-29 12:27] LABS: Basophils Absolute Auto 0.1 X10*3/uL (0.0-0.2); Basophils Percent Auto 1.1 % (0-2); Eosinophils Absolute Auto 0.2 X10*3/uL (0.0-0.4); Hemoglobin 13.6 g/dl (14.0-18.0); Imm Gran Abs Auto 0.04 X10*3/uL (0.00-0.03); Imm Gran Pct Auto 0.6 % (0.0-0.4); Lymphocytes Percent Auto 26.9 % (20-40); Mean Corpuscular HGB Conc 31.6 g/dl (31.0-36.0); Mean Corpuscular Hemoglobin 29.5 pg (27.0-33.0); Mean Corpuscular Volume 93.3 fL (80.0-98.0); Mean Platelet Volume 11.9 fL (9.4-12.4); Monocytes Absolute Auto 0.7 X10*3/uL (0.1-1.2); Monocytes Percent Auto 9.9 % (2-11); Neutrophils Absolute Auto 4.2 x10*3/uL (2.0-8.3); Neutrophils Percent Auto 58.5 % (45-73); Platelet Count 161 X10*3/uL (160-400); Red Blood Count 4.61 X10*6/uL (4.60-5.80); Red Cell Distribution Width 13.2 % (11.0-16.0); White Blood Count 7.2 X10*3/uL (4.8-10.8)
[2023-04-29 12:35] LABS: Appearance Urine Clear; Color Urine Yellow; Glucose Urine UA Negative (Negative); Leukocyte Esterase Urine Negative (Negative); Nitrite Urine Negative (Negative); PH 6.5 (5.0-9.0); Specific Gravity - Urine 1.015 (1.005-1.025); Urine Blood Negative (Negative); Urine Ketones Negative (Negative); Urine Protein Negative (Neg-Trace)
[2023-04-29 12:41] LABS: Bacteria Urine None Seen (None Seen); Hyaline Casts Urine 0-2 /LPF (0-2); RBC Urine 0-2 /HPF (0-2); Squamous Epithelial Cell Urine 0-2 /HPF (0-2); WBC Urine 0-5 /HPF (0-5)
[2023-04-29 12:46] LABS: Estimated Average Glucose 126 mg/dL
[2023-04-29 13:01] LABS: Alanine Aminotransferase 15 U/L (0-40); Albumin Level 3.8 g/dL (3.5-5.0); Alkaline Phosphatase 37 U/L (39-117); Anion Gap 10 (12-20); Aspartate Amino Transferase 19 U/L (5-37); Bilirubin Total 0.6 mg/dL (0.0-1.0); Blood Urea Nitrogen 9 mg/dL (9-16); Calcium 8.8 mg/dL (8.4-10.2); Carbon Dioxide 24 mmol/L (22-29); Chloride 109 mmol/L (96-108); Cholesterol 98 mg/dL (<200); Estimated Glomerular Filt Rate > 60; Glucose Fasting 137 mg/dL (60-99); HDL Cholesterol 35 mg/dL (>40); LDL Cholesterol Calculated 47 mg/dL (<100); Potassium 4.4 mmol/L (3.3-5.1); Sodium 139 mmol/L (135-145); Total Protein 6.6 g/dL (6.5-8.0); Triglycerides 83 mg/dL (<150)
[2023-04-29 13:14] LABS: Creatinine Urine 137.33 mg/dL; Microalbum/Creatinine Ratio Ur 3.6 ug/mg cr (<30); PSA,Total (Free>4and<10) 1.02 ng/mL (0.00-4.00)
== END 2023-04-29 11:31 | disposition home or self-care (01) ==
LOC: HO.LNP 11:30
PROVIDERS: Visit Provider Internal Medicine
DX: Z12.5 Encounter for screening for malignant neoplasm of prostate (principal); E11.40 Type 2 diabetes mellitus with diabetic neuropathy, unspecified; E78.6 Lipoprotein deficiency; R97.20 Elevated prostate specific antigen [PSA]
CPT/HCPCS: 80053; 80061; 81001; 82043; 82570; 83036; 84153; 85025

== ENCOUNTER 2023-10-31 10:44 | Outpatient (REF) | payer OTHER, MEDICARE, SELFPAY ==
[2023-10-31 12:00] LABS: Alanine Aminotransferase 14 U/L (0-40); Albumin Level 3.9 g/dL (3.5-5.0); Alkaline Phosphatase 36 U/L (39-117); Aspartate Amino Transferase 19 U/L (5-37); Bilirubin Direct 0.3 mg/dL (0.0-0.5); Bilirubin Total 0.6 mg/dL (0.0-1.0); Cholesterol 86 mg/dL (<200); Glucose Fasting 137 mg/dL (60-99); HDL Cholesterol 29 mg/dL (>40); LDL Cholesterol Calculated 42 mg/dL (<100); Total Protein 6.8 g/dL (6.5-8.0); Triglycerides 78 mg/dL (<150)
[2023-10-31 12:12] LABS: Estimated Average Glucose 134 mg/dL; Hemoglobin A1c % 6.3 % (<6.0)
[2023-10-31 14:16] LABS: Reflex LDLD? No
== END 2023-10-31 10:45 | disposition home or self-care (01) ==
LOC: HO.LNP 10:44
PROVIDERS: Visit Provider Internal Medicine
DX: E11.40 Type 2 diabetes mellitus with diabetic neuropathy, unspecified (principal); E78.6 Lipoprotein deficiency
CPT/HCPCS: 80061; 80076; 82947; 83036

== ENCOUNTER 2024-05-04 11:43 | Outpatient (REF) | payer OTHER, MEDICARE, SELFPAY ==
[2024-05-04 11:47] LABS: MANUAL DIFF FLAG NO
[2024-05-04 11:58] LABS: Basophils Absolute Auto 0.1 X10*3/uL (0.0-0.2); Basophils Percent Auto 1.1 % (0-2); Eosinophils Absolute Auto 0.3 X10*3/uL (0.0-0.4); Eosinophils Percent Auto 3.4 % (0-4); Hematocrit 42.6 % (42.0-52.0); Imm Gran Abs Auto 0.03 X10*3/uL (0.00-0.03); Imm Gran Pct Auto 0.4 % (0.0-0.4); Lymphocytes Absolute Auto 2.1 X10*3/uL (1.2-4.9); Lymphocytes Percent Auto 27.8 % (20-40); Mean Corpuscular HGB Conc 32.9 g/dl (31.0-36.0); Mean Corpuscular Volume 91.2 fL (80.0-98.0); Mean Platelet Volume 12.3 fL (9.4-12.4); Monocytes Absolute Auto 0.7 X10*3/uL (0.1-1.2); Monocytes Percent Auto 8.6 % (2-11); Neutrophils Absolute Auto 4.5 x10*3/uL (2.0-8.3); Neutrophils Percent Auto 58.7 % (45-73); Platelet Count 174 X10*3/uL (160-400); Red Blood Count 4.67 X10*6/uL (4.60-5.80); Red Cell Distribution Width 13.4 % (11.0-16.0); White Blood Count 7.6 X10*3/uL (4.8-10.8)
[2024-05-04 12:11] LABS: Estimated Average Glucose 131 mg/dL; Hemoglobin A1C 151.0368 umol/L; Hemoglobin A1c % 6.2 % (<6.0); Total Hemoglobin (HGBA1C) 3391.7581 umol/L
[2024-05-04 12:28] LABS: Alanine Aminotransferase 12 U/L (0-40); Albumin Level 3.8 g/dL (3.5-5.0); Alkaline Phosphatase 35 U/L (39-117); Anion Gap 10 (12-20); Aspartate Amino Transferase 22 U/L (5-37); Bilirubin Total 0.7 mg/dL (0.0-1.0); Blood Urea Nitrogen 15 mg/dL (9-16); Calcium 9.2 mg/dL (8.4-10.2); Carbon Dioxide 26 mmol/L (22-29); Chloride 110 mmol/L (96-108); Cholesterol 92 mg/dL (<200); Estimated Glomerular Filt Rate > 60; Glucose Fasting 135 mg/dL (60-99); HDL Cholesterol 32 mg/dL (>40); LDL Cholesterol Calculated 43 mg/dL (<100); Potassium 4.3 mmol/L (3.3-5.1); Sodium 142 mmol/L (135-145); Total Protein 6.5 g/dL (6.5-8.0); Triglycerides 88 mg/dL (<150)
[2024-05-04 12:56] LABS: PSA,Total (Free>4and<10) 1.07 ng/mL (0.00-4.00)
== END 2024-05-04 11:44 | disposition home or self-care (01) ==
LOC: HO.LNP 11:43
PROVIDERS: Visit Provider Internal Medicine
DX: Z00.00 Encounter for general adult medical examination without abnormal findings (principal); E11.40 Type 2 diabetes mellitus with diabetic neuropathy, unspecified; E78.6 Lipoprotein deficiency; R97.20 Elevated prostate specific antigen [PSA]; I25.10 Atherosclerotic heart disease of native coronary artery without angina pectoris; Z12.5 Encounter for screening for malignant neoplasm of prostate
CPT/HCPCS: 80053; 80061; 83036; 84153; 85025

== ENCOUNTER 2024-05-11 11:53 | Outpatient (REF) | payer OTHER, MEDICARE, SELFPAY ==
[2024-05-11 12:22] LABS: Appearance Urine Clear; Color Urine Yellow; Glucose Urine UA Negative (Negative); Leukocyte Esterase Urine Negative (Negative); Nitrite Urine Negative (Negative); Urine Blood Negative (Negative); Urine Ketones Negative (Negative); Urine Protein Negative (Neg-Trace)
[2024-05-11 12:27] LABS: Bacteria Urine None Seen (None Seen); Hyaline Casts Urine 0-2 /LPF (0-2); RBC Urine 0-2 /HPF (0-2); Squamous Epithelial Cell Urine 0-2 /HPF (0-2); WBC Urine 0-5 /HPF (0-5)
[2024-05-11 12:47] LABS: Creatinine Urine 63.33 mg/dL; Microalbumin Urine < 5.0 mg/L
== END 2024-05-11 11:54 | disposition home or self-care (01) ==
LOC: HO.LNP 11:53
PROVIDERS: Visit Provider Internal Medicine
DX: E11.40 Type 2 diabetes mellitus with diabetic neuropathy, unspecified (principal)
CPT/HCPCS: 81001; 82043; 82570

== ENCOUNTER 2024-10-26 11:14 | Outpatient (REF) | payer OTHER, MEDICARE, SELFPAY ==
[2024-10-26 11:45] LABS: Alanine Aminotransferase 12 U/L (0-40); Albumin Level 3.9 g/dL (3.5-5.0); Alkaline Phosphatase 39 U/L (39-117); Aspartate Amino Transferase 21 U/L (5-37); Bilirubin Direct 0.5 mg/dL (0.0-0.5); Cholesterol 107 mg/dL (<200); Glucose Fasting 141 mg/dL (60-99); HDL Cholesterol 29 mg/dL (>40); LDL Cholesterol Calculated 50 mg/dL (<100); Total Protein 6.7 g/dL (6.5-8.0); Triglycerides 141 mg/dL (<150)
[2024-10-26 11:55] LABS: Estimated Average Glucose 131 mg/dL; Hemoglobin A1C 167.0128 umol/L; Hemoglobin A1c % 6.2 % (<6.0)
--- OUTSIDE RECORDS SUMMARY | 2024-10-26 13:52 | XMS_ITS ---
Author Organization Gurjit Gloria MD Address [address] [place], [place] [id number] Care Team Providers Care Transit Operator Name Role Phone Gurjit Gloria Primary Care Provider Allergies Allergen (clinical drug ingredient) Drug/Non Drug Allergy documented on EMR Reaction Allergy Type Onset Date Status brimonidine / timolol Combigan blood shot eyes Drug Allergy Active Results Component Value Reference Range Notes Microalbumin, Random Reviewed date:05/11/2024 04:23:31 PM Interpretation: Performing Lab:[facility], [address] [place] [phone] Notes/Report: Creatinine Urine 63.33 Microalbumin Urine < 5.0 Microalbum/Creatinine Ratio Ur TNP <30 ug/mg cr Unable to calculate albumin/creatinine ratio due to low microalbumin or creatinine result. UA ClnCatch+Micro w/rflx Cul t Reviewed date:05/11/2024 12:37:07 PM Interpretation: Performing Lab:[facility], [address] [place] [phone] Notes/Report: Urine, Clean Catch Color Urine Yellow Appearance Urine Clear PH 6.0 5.0-9.0 Glucose Urine UA Negative Negative mg/dL Urine Blood Negative Negative Specific [place] - Urine 1.010 1.005-1.025 Urine Protein Negative [...] Location Date Provider Diagnosis Gurjit Gloria MD [address] [place] [address] Drive [address] [place], [place] [phone] 05/11/2024 Gurjit Gloria Type 2 diabetes mellitus [...] Moderate aortic stenosis (ICD-10 - I35.0) sees returned materials inspector in [facility] 05/11/2024 Cerebrovascular accident (CVA) due [...] Moderate aortic stenosis sees cardiologi st in [facility] Cerebrovascular accident (CV A) due to occlusion of right carotid artery doing well with good recovery. sees the surgeon Low HDL (under 40) stable, will continu e current regiment Colon cancer screening guaiac negative Depression screening negative screen Next Appt Details Follow Up: 6 Months, Reason: Provider Name:Gurjit almazan, 11/02/2024 09:00:00 AM, [address] [place] [address], [address], [place], [place], [phone], Provider Name:Gurjit almazan, 05/06/2025 08:00:00 AM, [address] [place] [address], [address], [place], [place], [phone], Provider Name:Gurjit almazan, 05/13/2025 09:30:00 AM, [address] [place] [address], [address], [place], [phone], Progress Notes * Howard MUNIZ FDOB:[birth year] (73 yo M)Acc No.[id number]:05/11/2024 Progress Notes Patient:Howard Turner Provider:?Gurjit Gloria MD :1950???Age:73 Y???Sex:Male Adam e:05/11/2024 Address:[address] [place] [address] [address] [id number] Subjective: * Chief Complaints: * ???Annual visit * HPI: ???Depression Screening:?PHQ-9?Little interest or pleasure in doing things?Not at all,?Feeling down, depressed, or hopeless?Not at all,?Trouble falling or staying asleep, or sleeping too much?Not at all,?Feeling tired or having little energy?Not at all,?Poor appetite or overeating?Not at all,?Feeling bad about yourself or that you are a failure, or have let yourself or your family down?Not at all,?Trouble concentrating on things, such as reading the newspaper or watching television?Not at all,?Moving or speaking so slowly that other people could have noticed; or the opposite, being so fidgety or restless that you have been moving around a lot more than usual?Not at all,?Thoughts that you would be better off or of hurting yourself in some way?Not at all,?Total Score?0.?Interpretation and Intervention?Depression Screening Findings?Negative,?Follow-Up for Depression?: review of PHQ-9 found negative result, no follow-up needed.?Communication Needs:?Communication Needs?Does the patient have a hearing impairment?No,?Does the patient have a vision impairment??Yes,?If yes, what is the vision impairment??Glasses,?Does the patient have a cognition impairment??No.?Fall Risk:?History?Have you had any falls with injury in the past year??No,?Have you had two or more falls in the past year??No.?SDOH Questions:?SDOH Questions?In the past year have you been worried about losing housing??No,?In the past year have you or any family members you live with been unable to get any of the following when it was really needed? Check all that apply:?None.?Symptom(s):? patient is a 73 yo male here for annual follow up with review of recent labs and follow up of chronic issues. . still left leg doesn't work well. balance still off. is year and half since stroke. * ROS:?General/Constitutional:?Change in appetite?denies.?Chills?denies.?Fever?denies.?Ophthalmologic:?Blurred vision?denies.?Discharge?denies.?Pain?denies.?ENT:?Decreased hearing?denies.?Sore throat?denies.?Swollen glands?denies.?Endocrine:?Cold intolerance?denies.?Excessive thirst?denies.?Heat intolerance?denies.?Weight loss?denies.?Respiratory:?Cough?denies.?Shortness of breath at rest?denies.?Shortness of breath with exertion?denies.?Wheezing?denies.?Cardiovascular:?Chest pain at rest?denies.?Chest pain with exertion?denies.?Irregular heartbeat?denies.?Shortness of breath?denies.?Gastrointestinal:?Abdominal pain?denies.?Change in bowel habits?denies.?Diarrhea?denies.?Nausea?denies.?Rectal bleeding?denies.?Vomiting?denies .?Genitourinary:?Blood in urine?denies.?Difficulty urinating?denies.?Frequent urination?denies.?Musculoskeletal:?Painful joints?denies.?Weakness?denies.?Skin:?Dry skin?denies.?Itching?denies.?Denies?Mole(s),? changes in moles, new moles or any lesions of concern.?Denies?Photosensitivity.?Rash?denies.?Neurologic:?Dizziness?denies.?Fainting?denies.?Headache?denies.? * Medical History:? * Surgical History:? * Hospitalization/Major Diagno stic Procedure:? * Family History:?Father: dece ased, colon cancer, diagnosed with Cancer.?Mother: , colon cancer, diagnosed with Cancer.?1 son(s) , 1 daughter(s) . .? Father- unknown Mother- unknown, Denies mental health/substance abuse family history, Denies mental health/substance abuse family history, Denies mental health Father was an alcoholic. * Social History:?Tobacco Use:?Tobacco Use/Smoking?Patient is a?nonsmoker,?Additional Findings: Tobacco Non-User?Current non-smoker, currently using no form of tobacco.?Drugs/Alcohol:?Alcohol Screen?Did you have a drink containing alcohol in the past year??No,?Points?0,?Interpretation?Negative.?Miscellaneous:?Caffeine: yes, iced tea. Children: yes. no Community involvements. Exercise: yes, yard work. Housing: owning. Living with: spouse, and one adult child. Marital status: . Occupation: retired. Pets: bird. no Travel outside of the [place]. * Medications:?TakingZioptan 0 .0015 % Solution 1 drop into affected eye [...] reviewed and reconciled with the patient * Allergies:?Combigan: blood s hot eyes - Side Effectsyes[Allergies Verified] Objective: * Vitals:?Ht: 70, BP:90/60. * ???Past Orders: ???Lab:Complete Blood Count Auto Diff (Order Date - 05/04/2024) (Collection Date - 05/04/2024) ? Value Reference Range ?White Blood Count 7.6 4. 8-10.8 - X10*3/uL ?Red Blood Count 4.67 4.60 -5.80 - X10*6/uL ?Hemoglobin 14.0 14.0-18.0 - g/dl ?Hematocrit 42.6 42.0-52.0 - % ?Mean Corpuscular Volume 91.2 80.0-98.0 - fL ?Mean Corpuscular Hemoglobin 30.0 27.0-33.0 - pg ?Mean Corpuscular HGB Conc 32.9 31.0-36.0 - g/dl ?Red Cell Distribution Width 13.4 11.0-16.0 - % ?Platelet Count 174 160-4 00 - X10*3/uL ?Mean Platelet Volume 12.3 9.4-12.4 - fL ?Neutrophils Percent Auto 58.7 45-73 - % ?Imm Gran Pct Auto 0.4 0. 0-0.4 - % ?Lymphocytes Percent Auto 27.8 20-40 - % ?Monocytes Percent Auto 8.6 2-11 - % ?Eosinophils Percent Auto 3.4 0-4 - % ?Basophils Percent Auto 1.1 0-2 - % ?NRBC Pct Auto 0.0 0.0-0. 2 - /100WBC ?Neutrophils Absolute Auto 4.5 2.0-8.3 - x10*3/uL ?Imm Gran Abs Auto 0.03 0. 00-0.03 - X10*3/uL ?Lymphocytes Absolute Auto 2.1 1.2-4.9 - X10*3/uL ?Monocytes Absolute Auto 0.7 0.1-1.2 - X10*3/uL ?Eosinophils Absolute Auto 0.3 0.0-0.4 - X10*3/uL ?Basophils Absolute Auto 0.1 0.0-0.2 - X10*3/uL ?NRBC Abs Auto 0.000 0.0-0. 012 - X10*3/uL ???Lab:Comprehensive [place]. P roxann Fast (Order Date - 05/04/2024) (Collection Date - 05/04/2024) ? Value Reference Range ?Sodium 142 135-145 - mmo l/L ?Bilirubin Total 0.7 0.0- 1.0 - mg/dL ?Aspartate Amino Transferase 22 5-37 - U/L ?Alanine Aminotransferase 12 0-40 - U/L ?Total Protein 6.5 6.5-8. 0 - g/dL ?Albumin Level 3.8 3.5-5. 0 - g/dL ?Alkaline Phosphatase 35 L 39-117 - U/L ?Potassium 4.3 3.3-5.1 - mmol/L ?Chloride 110 H 96-108 - mm ol/L ?Carbon Dioxide 26 22-29 - mmol/L ?Anion Gap 10 L 12-20 - ?Blood Urea Nitrogen 15 9-16 - mg/dL ?Creatinine 0.88 0.5-1.4 - mg/dL ?Estimated Glomerular Filt Rate > 60 - ?Glucose Fasting 135 H 60-9 9 - mg/dL ?Calcium 9.2 8.4-10.2 - m g/dL ???Lab:Lipid Panel (Order Da 05/04/2024) (Collection Date - 05/04/2024) ? Value Reference Range ?Triglycerides 88 <150 - mg/dL ?Cholesterol 92 <200 - m g/dL ?LDL Cholesterol Calculated 43 <100 - mg/dL ?HDL Cholesterol 32 L >40 - mg/dL ???Lab:PSA,Total (Free>4and< 10) (Order Date 05/04/2024) (Collection Date - 05/04/2024) ? Value Reference Range ?PSA,Total (Free>4and<10) 1.07 0.00-4.00 - ng/mL ???Lab:Hemoglobin A1c (Order Date - 05/04/2024) (Collection Date - 05/04/2024) ? Value Reference Range ?Hemoglobin A1c % 6.2 H <6. 0 - % ?Estimated Average Glucose 131 - mg/dL * Examination: ???General Examination: ?GENERAL APPEARANCE:?well developed, well nourished, in no acute distress.?HEAD:?normocephalic, atraumatic.?EYES:?pupils equal, round, reactive to light and accommodation, sclera non-icteric.?EARS:?normal.?ORAL CAVITY:?mucosa moist.?THROAT:?clear.?NECK/THYROID:?neck supple, full range of motion, no cervical lymphadenopathy, no bruits.?SKIN:?warm and dry, no suspicious lesions.?HEART:?regular rate and rhythm, S1, S2 normal, , abnormal 2/6 PATY heard over the entire precordium.?LUNGS:?clear to auscultation bilaterally.?ABDOMEN:?soft, nontender, nondistended, bowel sounds present, normal, no organomegaly , no masses palpable.?RECTAL EXAM:?normal tone, no external hemorrhoids, no masses palpable, prostate normal, stool guaiac negative.?MALE GENITOURINARY:?abnormal left testical atrophied.?EXTREMITIES:?no clubbing, cyanosis, or edema.?NEUROLOGIC:?nonfocal, motor strength normal upper and lower extremities, sensory exam intact.?PODIATRIC:?diminished pinprick, normal pulse, normal light touch.?FOOT EXAM:?.? Assessment: * Assessment: 1.?Annual physical exam - Z0 0.00 (Primary)?2.?Type 2 diabetes mellitus with diabetic neuropathy - E11.40?3.?Rising PSA level - R97.20?4.?Moderate aortic stenosis - I35.0?5.?Cerebrovascular accident (CVA) due to occlusion of right carotid artery - I63.231?6.?Low HDL (under 40) - E78.6?7.?Colon cancer screening - Z12.11?8.?Depression screening - Z13.31? Plan: * Treatment: 2.?Type 2 diabetes mellitus with diabetic neuropathy? Continue metFORMIN HCl Tablet, 500 MG, TAKE 2 TABLETS BY MOUTH TWICE A DAY.?LAB: Microalbumin, Random ?LAB: UA ClnCatch+Micro w/rflx Cult Notes: doing well with good a1c, will continue currentregiment?? 3.?Rising PSA level? Notes: is good at present, will continue to monitor?? 4.?Moderate aortic stenosis? Notes: sees returned materials inspector in [place]?? 5.?Cerebrovascular accident (CVA) due to occlusion of right carotid artery? Notes: doing well with good recovery. sees the surgeon?? 6.?Low HDL (under 40)? Continue Atorvastatin Calcium Tablet, 80 MG, TAKE 1 TABLET BY MOUTH EVERY DAY FOR 90 DAYS.?? Notes: stable, will continue current regiment?? 7.?Colon cancer screening? Notes: guaiac negative?? 8.?Depression screening? Notes: negative screen?? * Procedure Codes:? * Preventive Medicine:? ??Counseling:?Care goal follow-up plan:?Counseling for abnormal BMI provided?Yes,?Above Normal BMI Follow-up?Giving encouragement to exercise.? ??Diabetes Care Plan:?Patient Lifestyle Goals?Needs to maintain diet control.?Treatment Goals?A1C< 7.?Barriers ?No specific barriers, doing well.?Self-Managment Plan?Increase light exercise to 3 times a week for 30 minutes.? * Follow Up:?6 Months * * Sign off status: Completed true * Provider:?Gurjit Gloria MD Date:?1 Generated for Janel del cid/Judd/Wilma on:?10/26/2024 01:52 PM EDT History and Physical Notes * [...] had two or more falls in the st year?: No Communication Needs Communication Needs Does the patient have a hearing impairment: No Does the patient have a vision impairmen t?: Yes ?If yes, what is the vision impairment?: Glasses [...]
--- OUTSIDE RECORDS SUMMARY | 2024-10-26 13:52 | XMS_ITS | Patient Health Record ---
Author Organization [facility] Address [address] [place] [address] Care Team Providers Care Case Planner Name Role Phone Juani HEREDIA, Gurjit Primary Care Provider Raji Loya Jr Unavailable Allergies Allergen (clinical drug ingredient) Drug/Non Drug Allergy documented on EMR Reaction Allergy Type Onset Date Status seasonal (uncoded) Unknown Allergy A ctive Reason For Referral No Information Medications Medication SIG (Take, Route, Frequency, Duration) Notes Start Date End Date Status MiraLax (colon prep) 17 GM/SCOOP mixed with Gatorade or Crystal Light Orally begin at 5:00 p.m. the day before the procedure for 1 day 08/08/2021 Active Atorvastatin Calcium 20 MG Oral for 90 Active Colyte with Flavor Packs 240 GM As directed Orally Over the specified time. for 1 day(s) Active Latanoprost 0.005 % INSTILL 1 DROP INTO BOTH EYES AT BEDTIME DIRECTED Ophthalmic Once a day Active Zioptan 0.0015 % Ophthalmic for 30 Active Dorzolamide HCl-Timolol Mal 22.3-6.8 MG/ML Ophthalmic for 90 Active metFORMIN HCl 500 MG TAKE 1 TABLET BY [facility] TWICE A DAY WITH MEALS Oral Once a day Active Immunizations Vaccine Route Administration Date Status Comme nts Influenza Unknown 05/30/2021 Administered Social History Tobacco Use: Social History Observation Description Date Details (start date - stop date) Never Smoker NA - NA Tobacco Use/Smoking Question Answer Notes Patient is a nonsmoker Alcohol Screen Question Answer Notes Did you have a drink containing alcohol in the p ast year? No Points 0 Interpretation Negative Problems Problem Type SNOMED Code ICD Code Onset Dates Problem Status W/U Status Risk Notes Problem 785817735 Colon cancer screening (Z12.11) Active confirmed Problem 939738890 Abnormal findings in stool (R19.5) Active confirmed Problem 993776236468505 half-way (current) use of oral hypoglycemic drugs (Z79.84) Active confirmed Plan Of Treatment Future Test Test Name Order Date COLONOSCOPY 04/03/2017 COLONOSCOPY 08/08/2021 Insurance Providers Payer Name Payer Address Payer Phone Subscriber Number Group Number Insured Name Patient Relationship to Insured Coverage Start Date Coverage End Date [facility] [address] [place] [phone] [id number] JEFF ARMENTA Self - patient is the insured MEDICARE OF [place] [address] [facility] [place] [id number] JEFF ARMENTA Self - patient is the insured Medical (General) History Medical History History ICD Code diabetes mellitus diabetic neuropathy glaucoma Elevated cholesterol Surgical History Surgery Date(Month/Year) Left index finger tendon repair 1979 Rotator cuff surgery, or left
--- OUTSIDE RECORDS SUMMARY | 2024-10-26 13:53 | XMS_ITS ---
Author Organization Gurjit Gloria MD Address [address] [place] [phone] Care Team Providers Care Automotive Quality Manager Name Role Phone Gurjit Gloria Primary Care Provider Results Component Value Reference Range Notes Hemoglobin A1c Reviewed date:10/26/2024 01:06:24 PM Interpretation: Performing Lab:[facility], [address] [place] [phone] Notes/Report: Hemoglobin A1c % 6.2 <6.0 % [...] average glucose, using the formula of the [id number] Average Glucose study (ADAG), Diabetes Care, Vol.31,#8, Feb. 2007 REASON FOR VISIT fasting lipids Encounters Encounter Location Date Provider Diagnosis Gurjit Gloria MD [address] [place] [phone] 10/26/2024 Gurjit Gloria Type 2 diabetes mellitus with diabetic neuropathy E11.40 and Arteriosclerotic coronary artery disease I25.10 Assessments Encounter Date Diagnosis (ICD Code) Assessment Notes Treatment Notes Treatment Clinical Notes Section Notes 10/26/2024 Type 2 diabetes mellitus with diabetic neuropathy (ICD-10 - E11.40) 10/26/2024 Arteriosclerotic coronary artery disease (ICD-10 - I25.10) Plan Of Treatment Pending Test Test Name Order Date Liver Panel 10/26/2024 Glucose Fasting 10/26/2024 Lipid Panel with Reflex 10/26/2024 Next Appt Details Provider Name:Gurjit Suggs ier, 11/02/2024 09:00:00 AM, [address] [place] [address], [address], [place], [place], [phone], Provider Name:Gurjit Suggs ier, 05/06/2025 08:00:00 AM, [address] [place] [address], [address], [place], [place], [phone], Provider Name:Gurjit Suggs ier, 05/13/2025 09:30:00 AM, [address] [place] [address], [address], [place], [place], [phone], Progress Notes * Howard MUNIZ FDOB:[birth year] (74 yo M)Acc No.[id number]:10/26/2024 Progress Note Patient:?GEOVANYIrvinHoward David Provider:?Gurjit Gloria MD :1950???Age:74 Y???Sex:Male Adam e:10/26/2024 Address:[address] [place], [place] [phone] Subjective: * Chief Complaints: * ???1. Fasting lipids. * Medical History:? Objective: * Vitals:? Assessment: * Assessment: 1.?Type 2 diabetes mellitus with diabetic neuropathy - E11.40 (Primary)???2.?Arteriosclerotic coronary artery disease - I25.10??? Plan: * Treatment: 2.?Arteriosclerotic coronary artery disease?LAB: Liver Panel ?LAB: Glucose Fasting ?LAB: Lipid Panel with Reflex ?LAB: Hemoglobin A1c (Collection Date & Time - 10/26/2024 07:45 AM) * Procedure Codes:?00834 VENIP UNCT, ROUTINE* * * The named appointment provid er may or may not be the originator of this progress note, and it is not deemed complete until electronically signed by the appointment provider. Sign off status: Pending * Provider:?Gurjit Gloria MD Date:?0 10/26/2024 Generated for Janel del cid/Judd/Carlositting on:?10/26/2024 01:53 PM EDT
--- OUTSIDE RECORDS SUMMARY | 2024-10-26 13:53 | XMS_ITS | Clinical Summary ---
Author Organization [facility] Address [address] [place] [address] Care Team Providers Care Shear Operator Helper Name Role Phone Gurjit Gloria MD Primary Care Provider [phone] Paige Colbert MD Unavailable [phone] Allergies Active Allergy Reactions Criticality Noted Date Comments Brimonidine Tartrate-Timolol Other (See Comments) 11/18/2022 Medications Medication Sig Dispensed Refills Start Date End Date Status dorzolamide-timolo l (COSOPT) 22.3-6.8 MG/ML ophthalmic solution 1 drop into affected eye Active latanoprost (XALATAN) 0.005 % ophthalmic solution 1 drop into affected eye in the evening Active metFORMIN (GLUCOPHAGE) 500 MG tablet Take 2 tablets (1,000 mg total) by mouth 2 (two) times a day with meals. Active tafluprost (ZIOPTAN) 0.0015 % Solution INSTILL 1 DROP INTO BOTH EYES AT BEDTIME DIRECTED 10/07/2022 Active atorvastatin (LIPITOR) 80 MG tabletIndications: Stroke determined by clinical assessment ([facility]) Take 1 tablet (80 mg total) by mouth nightly. 30 tablet 10/30/2022 07/09/2025 Active acetaminophen (TYLENOL) 325 MG tabletIndications: Stroke determined by clinical assessment ([facility]) Take 3 tablets (975 mg total) by mouth 4 times daily (every 6 hours) as needed for mild pain, moderate pain, fever or headaches. 10/30/2022 07/09/2025 Active aspirin 81 MG chewable tabletIndications: Stroke determined by clinical assessment ([facility]) Chew 1 tablet (81 mg total) daily. Do not start before October 31, 2022. 10/31/2022 Active timolol (TIMOPTIC) 0.5 % ophthalmic solutionIndication s:Stroke determined by clinical assessment ([facility]) Administer 1 drop to both eyes 2 (two) times a day. 10/30/2022 07/09/2025 Active clopidogrel (PLAVIX) 75 MG tabletIndications: Stroke determined by clinical assessment ([facility]) Take 1 tablet (75 mg total) by mouth daily. 30 tablet 3 12/02/2022 Active Rocklatan 0.02-0.005 % Solution INSTILL 1 DROP INTO BOTH EYES EVERY NIGHT AT BEDTIME DIRECTED 11/03/2023 Active dorzolamide (TRUSOPT) 2 % ophthalmic solution INSTILL 1 DROP INTO BOTH EYES TWICE A DAY DIRECTED 12/15/2023 Active Active Problems Problem Noted Date Diagnosed Date Diabetes mellitus due to und erlying condition with hyperglycemia, without long-term current use of insulin 12/30/2023 Carotid stenosis, left 12/02/2022 Stroke determined by clinical assessment 023 T2DM (type 2 diabetes mellitus) Family History Medical History Relation Name Comments Cancer, colon Other Relation Name Status Comments Other Alive Social History Tobacco Use Types Packs/Day Years Used Date Smoking Tobacco: Never Smokeless Tobacco: Never Tobacco Cessation:Counseling Given: Yes Alcohol Use Standard Drinks/Week Comments Not Currently 0 (1 standard drink = 0.6 oz pur e alcohol) AUDIT-C Answer Date Recorded Q1: How often do you have a drink containing alcohol? Never 10/25/2022 Q2: How many drinks containi ng alcohol do you have on a typical day when you are drinking? Patient does not drink Q3: How often do you have si x or more drinks on one occasion? Never 10/25/2022 Hunger Vital Sign Answer Date Recorded Within the past 12 months, y ou worried that your food would run out before you got the money to buy more. Never true 10/29/19 23 Within the past 12 months, t he food you bought just didn't last and you didn't have money to get more. Never true 10/28/2022 Housing Stability Vital Sign Answer Adam e Recorded In the last 12 months, was t here a time when you were not able to pay the mortgage or rent on time? No 10/28/2022 Number of Places Lived in the Last Year Not on f ile 10/28/2022 In the last 12 months, was t here a time when you did not have a steady place to sleep or slept in a [place] [facility] [place] (including now)? No 10/28/2022 Sex and Gender Information Value Date Recorded Sex Assigned at Male 10/26/2022 1:24 PM EDT Gender Identity Male 10/26/2022 1:24 PM EDT Sexual Orientation Heterosexual (straight) 10/26 1:24 PM EDT Last Filed Vital Signs Vital Sign Reading Time Taken Comments Blood Pressure 112/72 12/30/2023 11:18 AM EDT Pulse 70 12/30/2023 11:18 AM EDT Temperature 36.8 ??C (98.3 ??F) 10/30/2022 3:06 PM ED T Respiratory Rate 18 12/24/2022 1:36 PM EDT Oxygen Saturation 96% 12/30/2023 11:18 AM EDT Inhaled Oxygen Concentration - - Weight 82.1 kg (181 lb) 12/30/2023 11:18 AM EDT Height 180.3 cm (5' 11 ) 12/30/2023 11:18 AM EDT Body Mass Index 25.24 12/30/2023 11:18 AM EDT Plan of Treatment Upcoming Encounters Date Type Department Care Team (Late st Contact Info) Description 11/05/2024 10:00 AM EDT Ancillary Procedure [facility] [address] [place] [phone] Fabian Galindo MD [address] [place] [id number] 11/05/2024 10:30 AM EDT Office Visit [facility] [address] [place] [address] Fabian Galindo MD [address] [place] [phone] 12/29/2024 11:40 AM EDT Office Visit [facility] [address] [place] [address] Paige Colbert MD [address] [place] [phone] 12/29/2024 1:30 PM EDT Appointment [facility] [address] [address] Paige Colbert MD [address] [place] [phone] Health Maintenance Due Date Last Done Comments Hepatitis C Virus Screening 1950 Foot Exam 1960 Ophthalmology Exam 1960 Microalbumin/Creatinine Rati o Urine 1968 DTaP/Tdap/Td Vaccines (1 - Tdap) 1969 Pneumococcal Vaccines 50+ (1 of 2 - PCV) 1969 Colonoscopy 1995 Zoster (Shingles) Vaccine (1 of 2) 2000 RSV Vaccine 60 years and old er and Patients (1 - Risk 60-74 years 1-dose series) 2010 Hemoglobin A1C 04/27/2023 10/26/2022 Lipid Panel 10/27/2023 10/26/2022 Creatinine with GFR 10/30/2023 10/29/2022, 10/27/2022 Influenza Vaccine 02/12/2024 07/18/2014, 06/03/2013 COVID-19 Vaccine (3 - 2023-2 5 season) 2024 07/31/2021, 11/14/2020 Hepatitis B Vaccines Aged Out No long er eligible based on patient's age to complete this topic Medical Devices Implanted Type Area Sales Route Driver Helper Device Identifier Shelf Expiration Date Model / Serial / Lot [id number] Patch Vasc 8x.8cm Xenosure Bvn Pericard Tissue Sterl - [id number] Implanted:Qty : 1 on 10/29/2022 by Fabian Galindo MD at [facility] Tissue Left: Neck [employer] [id number] 05/10/2028 E0.8P8 / 0000 / [id number] Procedures Procedure Name Priority Date/Time Associated Diagnosis Comments BASIC METABOLIC PANEL Routine 10/29/2022 7:28 AM EDT HEMOGLOBIN A1C WITH ESTIMATED AVERAGE GLUCOSE Routine 10/26/2022 7:09 AM EDT LIPID PANEL Routine 10/26/2022 7:09 AM EDT from Last 3 Months or Most Recently Relevant to Health Maintenance Results * (ABNORMAL) Basic Metabolic Panel (Early AM) (10/29/2022 7:28 AM EDT) Glucose 148(H) 65 - 99 mg/dL 10/29/2022 8:26 AM [facility] Comment:Fasting: <100 mg/dL, Non-Fasting: <200 mg/dL (ADA 2004) Blood Urea Nitrogen (BUN) 12 8 - 21 mg/dL 10/29/2022 8:26 AM [facility] Creatinine 0.9 0.5 - 1.3 mg/dL 10/29/2022 8:26 AM [facility] eGFR >90 >59 10/29/2022 8:26 AM [facility] Comment: CKD-EPI (2020) in mL/min/1.73 sq meters. Reported eGFR is based on the CKD-EPI equation that does not use a race coefficient as of 09/17/2022 Sodium 140 136 - 145 mmol/L 10/29/2022 8:26 AM [facility] Potassium 4.4 3.4 - 5.3 mmol/L 10/29/2022 8:26 AM [facility] Chloride 105 98 - 107 mmol/L 10/29/2022 8:26 AM [facility] CO2 24 22 - 33 mmol/L 10/29/2022 8:26 AM [facility] Anion Gap 11 7 - 17 10/29/2022 8:26 AM [facility] Calcium 9.9 8.7 - 10.5 mg/dL 10/29/2022 8:26 AM [facility] BUN/Creatinine Ratio 13 10.0 - 25.0 Ratio 10/29/2022 8:26 AM EDT [facility] Blood specimen (specimen) (Plasma/Serum) 10/29/2022 7:28 AM EDT 10/29/2022 7:34 AM EDT Philip Anderson PA-C LAB BLOOD ORDERA BLES Performing Organization Address [facility] Co de Phone Number HOSPITAL LAB See Below [address] [address] * (ABNORMAL) Hemoglobin A1c with Estimated Average Glucose (10/26/2022 7:09 AM EDT) Hemoglobin A1C 7.5(H) <5.7 % 10/26/2022 10:49 AM EDT [facility] Comment: A1c% ? Interpretation 5.7 - 6.0 ?Increase risk of diabetes 6.1 - 6.4 ?Higher risk of diabetes > or = 6.5 ?? Consistent with diabetes Diabetes Care, 33(Supp 1):S1-S61, 2009 Estimated Average Glucose 169 mg/dL 10/26/2022 10:49 AM EDT [facility] Blood specimen (specimen) Blood specimen / Unknown 10/26/2022 7:09 AM EDT 10/26/2022 8:26 AM EDT Corwin Verma DO LAB BLOOD ORDERABLES Performing Organization Address [facility] Co de Phone Number HOSPITAL LAB See Below [facility] [address] [place] [address] * (ABNORMAL) Lipid Panel (10/26/2022 7:09 AM EDT) Cholesterol, Total 96 <200 mg/dL 2022 8:59 AM EDT [facility] Triglycerides 158(H) <150 mg/dL 10/26/2022 8:59 AM EDT [facility] Cholesterol, HDL 27(L) >39 mg/dL 10/27/19 8:59 AM EDT [facility] Estimated LDL 37 <130 mg/dL 10/26/2022 8:59 AM EDT [facility] Comment: NCEP Guidelines: ?< 100 mg/dL ??Optimal 100 - 129 mg/dL ??Near Optimal/Above Optimal 130 - 159 mg/dL ??Borderline High 160 - 189 mg/dL ??High ??>/= 190 mg/dL ??Very High Cholesterol/HDL Ratio 3.6 0.0 - 5.0 Ratio 10/26/2022 8:59 AM EDT [facility] Comment: Relative Risk ? Ratio - Male ? Ratio - Female ?0.5 ?3.4 ?3.3 ?1.0 ?5.0 ?4.4 ?2.0 ?9.6 ?7.1 ?3.0 ? 23.4 ? 11.0 Blood specimen (specimen) (Plasma/Serum) 10/26/2022 7:09 AM EDT 10/26/2022 8:26 AM EDT Corwin Verma DO LAB BLOOD ORDERABLES HOSPITAL LAB See Below [facility] [address] [place] [address] from Last 3 Months or Most Recently Relevant to Health Maintenance Advance Directives * Full Code (Latest Code Status on File) Date Activated Date Inactivated Comments 10/29/2022 5:56 PM * Full Code Date Activated Date Inactivated Comments 10/25/2022 7:09 PM 10/29/2022 5:56 PM Healthcare Agents on File Name Relationship Healthcare Agent Peng marie Communication Marie Muniz Spouse 4. Next of Kin ( Spouse, Adult Child, Parent, Adult Sibling, Grandparent) Care Teams Shear Operator Helper Relationship Specialty Start Date End Date Gurjit Gloria MD [address] [place] [address] [place] [address] PCP - General Internal Medicine 10/25/22 Paige Colbert MD [address] [place] [address] Primary Activity Specialist Cardiovascular Disease 12/04/22
--- OUTSIDE RECORDS SUMMARY | 2024-10-26 13:53 | XMS_ITS ---
Author Organization Gurjit Gloria MD Address [address] [place], [place] [id number] Care Team Providers Care Retail Loan Originator Name Role Phone Gurjit Gloria Primary Care Provider Results Component Value Reference Range Notes Complete Blood Count Auto Di ff Reviewed date:05/04/2024 08:43:48 PM Interpretation: Performing Lab:[facility], [address] [place] [phone] Notes/Report: White Blood Count 7.6 4.8-10.8 X10*3/uL [...] NRBC Abs Auto 0.000 0.0-0.012 X10*3/uL Comprehensive [place]. Panel Fa st Reviewed date:05/04/2024 08:44:07 PM Interpretation: Performing Lab:[facility], [address] [place] [phone] Notes/Report: Sodium 142 135-145 mmol/L Potassium 4.3 3.3-5.1 mmol/L Chloride 110 96-108 mmol/L Carbon Dioxide 26 22-29 mmol/L Anion Gap 10 12-20 Blood Urea Nitrogen 15 9-16 mg/dL Creatinine 0.88 0.5-1.4 mg/dL Estimated Glomerular Filt Rate > 60 NOTE: For -Irish individuals, multiply the result by 1.210. Chronic [...] Panel Reviewed date:05/04/2024 08:34:21 PM Interpretation: Performing Lab:[address] [address] Notes/Report: Triglycerides 88 <150 mg/dL Desirable Triglyceride: [...] (Free>4and<10) Reviewed date:05/04/2024 08:35:01 PM Interpretation: Performing Lab:[address] [address] Notes/Report: PSA,Total (Free>4and<10) 1.07 0.00-4.00 ng/mL A [...] A1c Reviewed date:05/04/2024 08:35:20 PM Interpretation: Performing Lab:[address] [address] Notes/Report: Hemoglobin A1c % 6.2 <6.0 % [...] average glucose, using the formula of the Q9Y-Eaclknd Average Glucose study (ADAG), Diabetes Care, Vol.31,#8, Feb. 2007 REASON FOR VISIT yearly fasting labs Immunizations Vaccine Route Administration Date Status Comme nts Influenza High Dose IM Intramuscular 05/04/2024 Administer ed Encounters Encounter Location Date Provider Diagnosis Gurjit Gloria MD [address] [place] [address] [place] [phone] 05/04/2024 Gurjit Gloria Blood tests for rout [...] Treatment Pending Test Test Name Order Date Microalbumin, Random 05/04/2024 UA ClnCatch+Micro w/rflx Cult 05/04/2024 Next Appt Details Provider Name:Gurjit almazan, 11/02/2024 09:00:00 AM, [address] [place] [address], [place] [address], [place], [place], [phone], Provider Name:Gurjit almazan, 05/06/2025 08:00:00 AM, [address] [place] [address], [address], [phone], Provider Name:Gurjit almazan, 05/13/2025 09:30:00 AM, [address] [facility], [address], [place], [place], [phone], Progress Notes * Howard MUNIZ FDOB:[birth year] (73 yo M)Acc No.[id number]:05/04/2024 Progress Note Patient:?Howard Muniz Provider:?Gurjit Gloria MD :1950???Age:73 Y???Sex:Male Adam e:05/04/2024 Address:[address] [place] [address] [facility] Subjective: * Chief Complaints: * ???Yearly fasting labs * Medical History:? * Surgical History:? * Hospitalization/Major Diagno stic Procedure:? * Medications:? Objective: Assessment: * Assessment: 1.?Encounter for immunizatio n - Z23 (Primary)?2.?Blood tests for routine general physical examination - Z00.00?3.?Type 2 diabetes mellitus with diabetic neuropathy - E11.40?4.?Low HDL (under 40) - E78.6?5.?Rising PSA level - R97.20?6.?Arteriosclerotic coronary artery disease - I25.10? Plan: * Treatment: 2.?Type 2 diabetes mellitus with diabetic neuropathy?LAB: Microalbumin, Random ?LAB: UA ClnCatch+Micro w/rflx Cult ?LAB: Complete Blood Count Auto Diff ?LAB: Comprehensive [place]. Panel Fast ?LAB: Lipid Panel ?LAB: PSA,Total (Free>4and<10) ?LAB: Hemoglobin A1c 3.?Low HDL (under 40)?LAB: Microalbumin, Random ?LAB: UA ClnCatch+Micro w/rflx Cult ?LAB: Complete Blood Count Auto Diff ?LAB: Comprehensive [place]. Panel Fast ?LAB: Lipid Panel ?LAB: PSA,Total (Free>4and<10) ?LAB: Hemoglobin A1c 4.?Rising PSA level?LAB: Microalbumin, Random ?LAB: UA ClnCatch+Micro w/rflx Cult ?LAB: Complete Blood Count Auto Diff ?LAB: Comprehensive [place]. Panel Fast ?LAB: Lipid Panel ?LAB: PSA,Total (Free>4and<10) ?LAB: Hemoglobin A1c 5.?Arteriosclerotic coronary artery disease?LAB: Microalbumin, Random ?LAB: UA ClnCatch+Micro w/rflx Cult ?LAB: Complete Blood Count Auto Diff ?LAB: Comprehensive [place]. Panel Fast ?LAB: Lipid Panel ?LAB: PSA,Total (Free>4and<10) ?LAB: Hemoglobin A1c * Immunizations:? Influenza High Dose : 0.5 mL (Dose No:1) (Route: Intramuscular) given by Ela Graham on Left Deltoid * Procedure Codes:?44378 FLU V ACC PRSV FREE INC [id number] IMMUNIZATION [id number] VENIPUNCT, ROUTINE* * * Sign off status: Completed true * Provider:?Gurjit Gloria MD Date:?1 Generated for Janel del cid/Judd/eTransmitting on:?10/26/2024 01:52 PM EDT
--- OUTSIDE RECORDS SUMMARY | 2024-10-26 13:53 | XMS_ITS | Patient Health Record ---
Author Organization Gurjit Gloria MD Address [address] [place], [place] [id number] Care Team Providers Care Payloader Operator Name Role Phone Gurjit Gloria Primary Care Provider Allergies Allergen (clinical drug ingredient) Drug/Non Drug Allergy documented on EMR Reaction Allergy Type Onset Date Status brimonidine / timolol Combigan blood shot eyes Drug Allergy Active Results Component Value Reference Range Notes Liver Panel Reviewed date:10/31/2023 04:45:13 PM Interpretation: Performing Lab:[facility], [address] [place] [phone] Notes/Report: Bilirubin Total 0.6 0.0-1.0 mg/dL Bilirubin Direct 0.3 0.0-0.5 mg/dL Aspartate Amino Transferase 19 5-37 U/L Alanine Aminotransferase 14 0-40 U/L Total Protein 6.8 6.5-8.0 g/dL Albumin Level 3.9 3.5-5.0 g/dL Alkaline Phosphatase 36 39-117 U/L Glucose Fasting Reviewed date:10/31/2023 04:45:22 PM Interpretation: Performing Lab:[facility], [address] [place] [phone] Notes/Report: Glucose Fasting 137 60-99 mg/dL A fasting glucose of 126 mg/dl or greater on more than one occasion is considered diagnostic of diabetes. Lipid Panel with Reflex Reviewed date:10/31/2023 04:51:53 PM Interpretation: Performing Lab:[facility], [address] [place] [phone] Notes/Report: Triglycerides 78 <150 mg/dL Desirable Triglyceride: less than 150 mg/dL Borderline High Triglyceride 150-199 mg/dL High Triglyceride: 200-499 mg/dL Very High Triglyceride: greater than or equal to 5OO mg/dL Cholesterol 86 <200 mg/dL Desirable Cholesterol: less than 200 mg/dL Borderline High Cholesterol: 200-239 mg/dL High Cholesterol: greater than 239 mg/dL LDL Cholesterol Calculated 42 <100 mg/dL Desirable LDL: less than 100 mg/dL Near Optimal/Above Optimal LDL: 110-129 mg/dL Borderline High LDL: 130-159 mg/dL High LDL: 160-189 mg/dL Very High LDL: greater than or equal to 190 mg/dL HDL Cholesterol 29 >40 mg/dL Desirable HDL: greater than 40 mg/dL Note: This HDL assay may give artificially low results in patients with liver disease. Hemoglobin A1c Reviewed date:10/31/2023 12:43:13 PM Interpretation: Performing Lab:[facility], [address] [place] [phone] Notes/Report: Hemoglobin A1c % 6.3 <6.0 % Hemoglobin A1C Reference Range Adults: 4.8 - 6.0 % Non diabetic: < 6.0 % Goal: < 7.0 % Additional Action Suggested: > 8.0 % Note: Hemoglobin A1c results are invalid for patients with abnormal amounts of HbF. Blood transfusions may impact the HbA1c concentration in the patient sample. Estimated Average Glucose 134 eAG = Estimated average glucose which is %A1C expressed as average glucose, using the formula of the W3N-Iepjrsm Average Glucose study (ADAG), Diabetes Care, Vol.31,#8, Feb. 2007 Hemoglobin A1c Reviewed date:10/26/2024 01:06:24 PM Interpretation: Performing Lab:[facility], [address] [place] [phone] Notes/Report: Hemoglobin A1c % 6.2 <6.0 % [...] average glucose, using the formula of the D2A-Xitfcgu Average Glucose study (ADAG), Diabetes Care, Vol.31,#8, Feb. 2007 Complete Blood Count Auto Di ff Reviewed date:05/04/2024 08:43:48 PM Interpretation: Performing Lab:[facility], [address] [place] [phone] Notes/Report: White Blood Count 7.6 4.8-10.8 X10*3/uL [...] NRBC Abs Auto 0.000 0.0-0.012 X10*3/uL Comprehensive [place]. Panel Fa Reviewed date:05/04/2024 08:44:07 PM Interpretation: Performing Lab:[facility], [address] [place] [address] Notes/Report: Sodium 142 135-145 mmol/L Potassium 4.3 3.3-5.1 mmol/L Chloride 110 96-108 mmol/L Carbon Dioxide 26 22-29 mmol/L Anion Gap 10 12-20 Blood Urea Nitrogen 15 9-16 mg/dL Creatinine 0.88 0.5-1.4 mg/dL Estimated Glomerular Filt Rate > 60 NOTE: For -[place] individuals, multiply the result by 1.210. Chronic [...] Panel Reviewed date:05/04/2024 08:34:21 PM Interpretation: Performing Lab:[facility], [address] [place] [phone] Notes/Report: Triglycerides 88 <150 mg/dL Desirable Triglyceride: [...] (Free>4and<10) Reviewed date:05/04/2024 08:35:01 PM Interpretation: Performing Lab:[address] [phone] Notes/Report: PSA,Total (Free>4and<10) 1.07 0.00-4.00 ng/mL A [...] A1c Reviewed date:05/04/2024 08:35:20 PM Interpretation: Performing Lab:[address] [phone] Notes/Report: Hemoglobin A1c % 6.2 <6.0 % [...] average glucose, using the formula of the H8L-Warrfmm Average Glucose study (ADAG), Diabetes Care, Vol.31,#8, Feb. 2007 Microalbumin, Random Reviewed date:05/11/2024 04:23:31 PM Interpretation: Performing Lab:[address] [phone] Notes/Report: Creatinine Urine 63.33 Microalbumin Urine < 5.0 Microalbum/Creatinine Ratio Ur TNP <30 ug/mg cr Unable to calculate albumin/creatinine ratio due to low microalbumin or creatinine result. UA ClnCatch+Micro w/rflx Cul t Reviewed date:05/11/2024 12:37:07 PM Interpretation: Performing Lab:[facility], [address] [place] [phone] Notes/Report: Urine, Clean Catch Color Urine Yellow Appearance Urine Clear PH 6.0 5.0-9.0 Glucose Urine UA Negative Negative mg/dL Urine Blood Negative Negative Specific [place] - Urine 1.010 1.005-1.025 Urine Protein Negative Neg-Trace mg/dL Urine Ketones Negative Negative mg/dL Nitrite Urine Negative Negative Leukocyte Esterase Urine Negative Negative RBC Urine 0-2 0-2 /HPF WBC Urine 0-5 0-5 /HPF Squamous Epithelial Cell Urine 0-2 0-2 /HPF Bacteria Urine None Seen None Seen Hyaline Casts Urine 0-2 0-2 /LPF Sarita Bean Reviewed date:10/31/2023 12:43:05 PM Interpretation: Performing Lab:[facility], [address] [place] [phone] Notes/Report: Sarita Bean See Note Specimen held untested for 24 hours; Call to request Chemistry testing. Sarita Bean Reviewed date:10/26/2024 01:05:01 PM Interpretation: Performing Lab:[facility], [address] [place] [phone] Notes/Report: Sarita Bean See Note Specimen held untested for 24 hours; Call to request Chemistry testing. Reason For Referral No Information Medications Medication SIG (Take, Route, Frequency, Duration) Notes Start Date End Date Status Atorvastatin Calcium 80 MG TAKE 1 TABLET BY MOUTH EVERY DAY for 90 Active Dorzolamide-Timolol [address] 1 drop in both eyes twice a day Not-Taking metFORMIN HCl 500 MG TAKE 2 TABLETS BY M OUTH TWICE A DAY for 90 Active Ventolin HFA * 108 (90 Base) [...] the evening Ophthalmic Once a day Active Immunizations Vaccine Route Administration Date Status Comme nts Flu Vaccine IM Intramuscular 06/03/2013 Administered TDaP IM Intramuscular 01/13/2014 Administered Flu Vaccine IM Intramuscular 07/18/2014 Administered PPSV23 (Pnemovax) IM Intramuscular 02/06/2015 Administered Fluarix Quadrivalent IM Intramuscular 05/09/2015 Administe red Fluarix Quadrivalent IM Intramuscular 08/20/2016 Administe red Prevnar 13 IM Intramuscular 02/25/2017 Administered Fluarix Quadrivalent IM Intramuscular 03/20/2017 Administe red Fluarix Quadrivalent IM Intramuscular 04/06/2018 Administe red Fluarix Quadrivalent IM Intramuscular 04/12/2019 Administe red Fluarix Quadrivalent Unknown 04/09/[address] [facility] Fluarix Quadrivalent Unknown 04/09/[address] [facility] Covid Vaccine Unknown 10/17/2020 Administered Moderna SARS-COV-2 Moderna Unknown 11/14/2020 Administered Influenza High Dose Unknown 04/02/2021 Administered SARS-COV-2 Moderna Unknown 07/31/2021 Administered Influenza High Dose IM Intramuscular 04/25/2022 Administer ed Influenza High Dose IM Intramuscular 04/29/2023 Administer ed Influenza High Dose IM Intramuscular 05/04/2024 Administer ed Shingrix Unknown 04/19/2019 Refused Tetanus Unknown 01/13/2014 Pending Social History Tobacco Use: Social History Observation [...] Problem Status W/U Status Risk Notes Problem 916599946 Neuropathy (G62.9) Active confirmed Problem 830601958 Tubular adenoma (D36.9) Active confirmed Problem 25144933 Type 2 diabetes mellitus with diabetic neuropathy (E11.40) Active confirmed Problem 700247434 Low HDL (under 4 0) (E78.6) Active confirmed Problem Ophthalmic migraine (35046574) 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) Active confirmed Problem 28911624 Coronary artery disease involving [place] coronary artery of [place] heart without angina pectoris (I25.10) Active confirmed Problem 350698928 Seborrheic keratosis (L82.1) Active confirmed Problem 782946746 Incoordination (R27.9) Active confirmed Problem 889407220 Rising PSA level (R97.20) Active confirmed Problem 363806451 Moderate aortic stenosis (I35.0) Active confirmed Problem 689293217 Lesion of left ulnar nerve (G56.22) Active confirmed Problem 92590942 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 Problem 40875674169121756 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) Active confirmed Problem 343328368519357 Occlusion of rig ht carotid artery (I65.21) Active confirmed Problem 65857992 Arteriosclerotic coronary artery disease (I25.10) Active confirmed Vital Signs Blood pressure diastolic 60 mm Hg 05/11/2024 Height 70 in 05/11/2024 Blood pressure systolic 90 mm Hg 05/11/2024 Weight 179 lbs 11/07/2023 weight is down 2 pounds since 08-11-23 BMI 25.68 kg/m2 11/07/2023 weight is down 2 pounds since 08-11-23 Encounters Encounter Location Date Provider Diagnosis Gurjit Gloria MD [address] [place] [id number] 10/31/2023 Gurjit Gloria Type 2 diabetes mellitus with diabetic neuropathy E11.40 and Low HDL (under 40) E78.6 Gurjit Gloria MD [address] [place] [id number] 10/26/2024 Gurjit Gloria Type 2 diabetes mellitus with diabetic neuropathy E11.40 and Arteriosclerotic coronary artery disease I25.10 Gurjit Gloria MD [address] [place] [id number] 11/07/2023 Gurjit Gloria Type 2 diabetes mellitus with diabetic neuropathy E11.40 ; Cerebrovascular accident (CVA) due to occlusion of right carotid artery I63.231 ; Arteriosclerotic coronary artery disease I25.10 and Moderate aortic stenosis I35.0 Gurjit Gloria MD [address] [place] [address] Drive [address] [place] [id number] 05/04/2024 Gurjit Gloria Blood tests for rout ine general physical examination Z00.00 ; Encounter for immunization Z23 ; Type 2 diabetes mellitus with diabetic neuropathy E11.40 ; Low HDL (under 40) E78.6 ; Rising PSA level R97.20 and Arteriosclerotic coronary artery disease I25.10 Gurjit Gloria MD [address] [place] [address] Drive [address] [place], [place] [id number] 05/11/2024 Gurjit Gloria Type 2 diabetes mellitus [...] Treatment Notes Treatment Clinical Notes Section Notes 10/31/2023 Type 2 diabetes mellitus with diabetic neuropathy (ICD-10 - E11.40) 10/31/2023 Low HDL (under 40) (ICD-10 - E78.6) 10/26/2024 Type 2 diabetes mellitus with diabetic neuropathy (ICD-10 - E11.40) 11/07/2023 Type 2 diabetes mellitus with diabetic neuropathy (ICD-10 - E11.40) is going to have eval in [place] in one month. is doing well, will continue current regiment 11/07/2023 Cerebrovascular accident (CVA) due to occlusion of right carotid artery (ICD-10 - I63.231) going to be evaluated in [place] next month 05/04/2024 Blood tests for routine general physical examination (ICD-10 - Z00.00) 05/04/2024 Encounter for immunization (ICD-10 - Z23) 05/11/2024 Type 2 diabetes mellitus with diabetic neuropathy (ICD-10 - E11.40) doing well with good a1c, will continue currentregiment 05/11/2024 Annual physical exam (ICD-10 - Z00.00) labs reviewed and discussed with patient 10/26/2024 Arteriosclerotic coronary artery disease (ICD-10 - I25.10) 11/07/2023 Arteriosclerotic coronary artery disease (ICD-10 - I25.10) had a negative stress test, will continue current regiment 05/04/2024 Type 2 diabetes mellitus with diabetic neuropathy (ICD-10 - E11.40) 05/11/2024 Rising PSA level (ICD-10 - R97.20) is good at present, will continue to monitor 11/07/2023 Moderate aortic stenosis (ICD-10 - I35.0) 05/04/2024 Low HDL (under 40) (ICD-10 - E78.6) 05/11/2024 Moderate aortic stenosis (ICD-10 - I35.0) sees brand strategy manager in [place] 05/04/2024 Rising PSA level (ICD-10 - R97.20) 05/11/2024 Cerebrovascular accident (CVA) due to occlusion of right carotid artery (ICD-10 - I63.231) doing well with good recovery. sees the surgeon 05/04/2024 Arteriosclerotic coronary artery disease (ICD-10 - I25.10) 05/11/2024 Low HDL (under 40) (ICD-10 - E78.6) stable, will continue current regiment 05/11/2024 Colon cancer screening (ICD-10 - Z12.11) guaiac negative 05/11/2024 Depression screening (ICD-10 - Z13.31) negative screen Plan Of Treatment Pending Test Test Name Order Date Electrocardiogram (EKG) 02/20/2016 Electrocardiogram (EKG) 03/06/2017 CT BRAIN W&WO CONTRAST 10/17/2022 ECHO 01/25/2021 ECHO 10/26/2020 Liver Panel 10/26/2024 Glucose Fasting 10/26/2024 Lipid Panel with Reflex 10/26/2024 Microalbumin, Random 05/04/2024 UA ClnCatch+Micro w/rflx Cult 05/04/2024 Next Appt Details Provider Name:Gurjit kiddr, 11/02/2024 09:00:00 AM, [address] [place] [address], [address], [phone], Provider Name:Gurjit Suggs ier, 05/06/2025 08:00:00 AM, [address] [place] [address], [place] [address], [place], [place], [phone], Provider Name:Gurjit kiddr, 05/13/2025 09:30:00 AM, [address] [place] [address], [place] [address], [place], [place], [phone], Insurance Providers Payer Name Payer Address Payer Phone Subscriber Number Group Number Insured Name Patient Relationship to Insured Coverage Start Date Coverage End Date [facility] [address] [facility] [address] [facility] [place] [phone] [id number] Howard Muniz Self - patient is the insured MEDICARE [address] [place] [address] [id number] Howard Muniz Self - patient is the insured Medical (General) History Medical History History ICD Code prostate biopsy 2002 psa was 4.6 and inf lammation found refuses colonoscopy 2012; re fused 2013; refused 07/22/15refused 2016 aware of risk with mother and father; colonoscopy done 04/11/[address] Mcclendon; next colonoscopy due 03/2020 Asthmatic bronchitis refuses to be on statins after discussio n as to the need abnormal ecg which goes over 15 years an d had a negative stress test
--- OUTSIDE RECORDS SUMMARY | 2024-10-26 13:53 | XMS_ITS ---
Author Name [facility] Organization Unknown History of Medication Use Medication Directions Dispensed Refills Start Date End Date Stat aspirin 81 MG chewable tablet Chew 1 tablet (81 mg total) daily. Do not start before October 31, 2022. 10/31/2022 active latanoprost (XALATAN) 0.005 % ophthalmic solution 1 drop into affected eye in the evening active Rocklatan 0.02-0.005 % Solution INSTILL 1 DROP INTO BOTH EYES EVERY NIGHT AT BEDTIME DIRECTED 11/03/2023 active atorvastatin (LIPITOR) 80 MG tablet Take 1 tablet (80 mg total) by mouth nightly. 10/30/2022 11/30/2022 active Problems Problem Status Onset Date Problem Type Date of Resoluti on Source T2DM (type 2 diabetes mellitus) active [facility] Carotid stenosis, left active 2022-12-02 ProblemAct [facility] Stroke determined by clinical assessment active 2022-10-25 ProblemAct [facility] Encounters Encounter Type Encounter Reason Primary Diagnosis Location Date Ambulatory Atherosclerotic hear t disease of [place] coronary artery without angina pectoris Atherosclerotic heart disease of [place] coronary artery without angina pectoris [facility] 12/30/2023 Ambulatory Occlusion and stenos is of left carotid artery Occlusion and stenosis of left carotid artery [facility] 11/17/2023 Ambulatory Occlusion and stenos is of left carotid artery Occlusion and stenosis of left carotid artery [facility] 11/17/2023 Ambulatory Occlusion and stenos is of left carotid artery Occlusion and stenosis of left carotid artery [facility] 08/08/2023 Ambulatory Occlusion and stenos is of left carotid artery Occlusion and stenosis of left carotid artery [facility] 07/09/2023 Ambulatory Follow-up Follow-up [facility] 05/19/2023 Ambulatory Occlusion and stenos is of left carotid artery Occlusion and stenosis of left carotid artery [facility] 05/19/2023 Ambulatory Unspecified sequ elae of cerebral infarction [facility] 12/24/2022 Ambulatory Occlusion and stenosis of left carotid artery [facility] 12/10/2022 Ambulatory Occlusion and stenosis of left carotid artery [facility] 12/02/2022 Ambulatory Occlusion and stenosis of left carotid artery [facility] 12/02/2022 Inpatient Cerebral infarct ion, unspecified [facility] 10/25/2022 Ambulatory [facility] 10/25/2022 Ambulatory [facility] 10/25/2022 Care Team Organization Name Specialty Phone Email Start Date End Da te [facility] ALYCIA MICHEL Primary [facility] 12/02/20222024 [facility] MORENO GUERRERO Primary Care 10/25/2022 10/26/19 23 [facility] ALYCIA MICHEL Primary [facility] 10/25/20222022 [facility] MORENO GUERRERO Primary Care 10/25/2022 09/30/19 25
--- OUTSIDE RECORDS SUMMARY | 2024-10-26 13:53 | XMS_ITS | Encounter Summary ---
Author Organization [facility] Address [address] [place] [address] Care Team Providers Care Finishing Pan Operator Name Role Phone Gurjit Gloria MD Primary Care Provider [phone] Paige Colbert MD Unavailable [phone] Reason for Visit * Reason Comments Medication Refill Medication refill/Pl avix 75mg/ Encounter Details Date Type Department Care Team (Late st Contact Info) Description 03/18/2023 Telephone [facility] [address] [place] [phone] Fabian Galindo MD [address] [facility] [place] [address] [place] [phone] Medication Refill (Medication refill/Plavix 75mg/ ) Social History Tobacco Use Types Packs/Day Years Used Date Smoking Tobacco: Never Smokeless Tobacco: Never Alcohol Use Standard Drinks/Week Comments Not Currently [...] place to sleep or slept in a senior care (including now)? No 10/28/2022 Sex and Gender Information Value Date Recorded Sex Assigned at Male 10/26/2022 1:24 PM EDT Gender Identity Male 10/26/2022 1:24 PM EDT Sexual Orientation Heterosexual (straight) 10/26 1:24 PM EDT documented as of this encounter Miscellaneous Notes * Telephone Encounter - Teresa Rosales RN - 03/18/2023 2:02 PM EDT After speaking with Dr. Galindo the patient was informed that he does not need to continue Plavix anymore, and does not require a refill. Informed patient that he should still continue his Aspirin. Patient verbalized understanding. No further questions or concerns. Teresa Rosales RN * Telephone Encounter - Ashvin Wheeler - 03/18/2023 9:37 AM EDTSummary: Medication refill/Plavix 75mg/ Patient called in and is requesting a medication refill on plavix 75mg. Before his request is completed he would like to confirm that wants him to continue the medication documented in this encounter Plan of Treatment Upcoming Encounters Date Type Department Care Team (Late st Contact Info) Description 11/05/2024 10:00 AM EDT Ancillary Procedure [facility] [address] [place] [phone] Fabian Galindo MD [address] [phone] 11/05/2024 10:30 AM EDT Office Visit [facility] [place] [address] [facility] [address] [place] [phone] Fabian Galindo MD [address] [address] 12/29/2024 11:40 AM EDT Office Visit [facility] [place] [address] [place] [phone] Paige Colbert MD [address] [place] [address] 12/29/2024 1:30 PM EDT Appointment [facility] [place] [address] [phone] Paige Colbert MD [address] [place] [phone] documented as of this encounter Visit Diagnoses Not on filedocumented in this encounter Care Teams Finishing Pan Operator Relationship Specialty Start Date End Date Gurjit Gloria MD [address] [place] [address] Dr [address] [place] [id number] PCP - General Internal Medicine 10/25/22 Paige Colbert MD [address] [place] [phone] Primary Male Infertility Specialist Cardiovascular Disease 12/04/22 documented as of this encounter
[2024-10-26 14:40] LABS: Reflex LDLD? No
== END 2024-10-26 11:15 | disposition home or self-care (01) ==
LOC: HO.LNP 11:14
PROVIDERS: Visit Provider Internal Medicine
DX: E11.40 Type 2 diabetes mellitus with diabetic neuropathy, unspecified (principal); I25.10 Atherosclerotic heart disease of native coronary artery without angina pectoris
CPT/HCPCS: 80061; 80076; 82947; 83036

== ENCOUNTER 2025-05-06 11:21 | Outpatient (REF) | payer OTHER, MEDICARE, SELFPAY ==
--- OUTSIDE RECORDS SUMMARY | 2023-11-07 06:00 | XMS_ITS ---
Author Organization Gurjit Gloria MD Address [address] [place], [place] [id number] Care Team Providers Care Chuck Wagon Driver Name Role Phone Gurjit Gloria Primary Care Provider Allergies Allergen (clinical drug ingredient) Drug/Non Drug Allergy documented on EMR Reaction Allergy Type Onset Date Status brimonidine / timolol Combigan blood shot eyes Drug Allergy Active REASON FOR VISIT 6 month, No Covid symptoms Medications Medication SIG (Take, Route, Frequency, Duration) Notes Start Date End Date Status Dorzolamide-Timolol [address] 1 drop in both eyes twice a day Not-Taking metFORMIN HCl 500 MG TAKE 2 TABLETS BY M OUTH TWICE A DAY Active Ventolin HFA * 108 (90 Base) MCG/ACT 2 puffs as needed Inhalation every 4 hrs for 30 day(s) 09/23/2014 Not-Taking Zioptan 0.0015 % 1 drop into affected eye in the evening Ophthalmic Once a day Active Dorzolamide HCl-Timolol Mal 22.3-6.8 MG/ML 1 drop into affected eye Ophthalmic Twice a day Active Atorvastatin Calcium 80 MG TAKE 1 TABLET BY MOUTH EVERY DAY FOR 90 DAYS Active Aspir-Low 81 MG 1 tablet Orally Once a day Active Latanoprost 0.005 % 1 drop into affected eye in the evening Ophthalmic Once a day Active Problems Problem Type SNOMED Code ICD Code Onset Dates Problem Status W/U Status Risk Notes Problem [id number] Arteriosclerotic coronary artery disease (I25.10) Active confirmed Vital Signs Blood pressure systolic 124 mm Hg 11/07/19 Blood pressure diastolic 66 mm Hg 024 Height 70 in 11/07/2023 Weight 179 lbs 11/07/2023 BMI 25.68 kg/m2 11/07/2023 weight is down 2 pounds sin e 08-11-23 Encounters Encounter Location Date Provider Diagnosis Gurjit Gloria MD [address] [place], [place] [id number] 11/07/2023 Gurjit Gloria Type 2 diabetes mellitus with diabetic neuropathy E11.40 ; Cerebrovascular accident (CVA) due to occlusion of right carotid artery I63.231 ; Arteriosclerotic coronary artery disease I25.10 and Moderate aortic stenosis I35.0 Assessments Encounter Date Diagnosis (ICD Code) Assessment Notes Treatment Notes Treatment Clinical Notes Section Notes 11/07/2023 Type 2 diabetes mellitus with diabetic neuropathy (ICD-10 - E11.40) is going to have eval in [place] in one month. is doing well, will continue current regiment 11/07/2023 Cerebrovascular accident (CVA) due to occlusion of right carotid artery (ICD-10 - I63.231) going to be evaluated in [place] next month 11/07/2023 Arteriosclerotic coronary artery disease (ICD-10 - I25.10) had a negative stress test, will continue current regiment 11/07/2023 Moderate aortic stenosis (ICD-10 - I35.0) Plan Of Treatment Medication Medication Name Sig Start Date Stop Date Notes metFORMIN HCl 500 MG TAKE 2 TABLETS BY M OUTH TWICE A DAY Atorvastatin Calcium 80 MG TAKE 1 TABLET BY MOUTH EVERY DAY FOR 90 DAYS Treatment Notes Assessment Notes Type 2 diabetes mellitus wit h diabetic neuropathy is going to have eval in [place] in one month. is doing well, will continue current regiment Cerebrovascular accident (CV A) due to occlusion of right carotid artery going to be evaluated in [place] next month Arteriosclerotic coronary artery disease had a negative stress test, will continue current regiment Next Appt Details Provider Name:Gurjit almazan, 05/13/2025 09:30:00 AM, [address], [address], [place], [place], [id number], Progress Notes * Howard MUNIZ FDOB:[birth year] (73 yo M)Acc No.[id number]:11/07/2023 Progress Notes Patient: Howard Hicks Provider: Jannet Gloria MD :1950 A ge:73 Y S ex:Male Date:11/07/2023 Address[facility] [place], [place] [id number] Subjective: * Chief Complaints: * 6 monthNo Covid symptoms * HPI: S ymptom(s): patient is a 73 yo male here for 6 month follow up of cva. left leg still with limp/ is not getting better. * ROS: G eneral/Constitutional: Denies C hills. D enies F atigue. D enies F ever. D enies H eadache. E NT: Patient denies d ecreased sense of smell , any loss of taste , sore throat. D enies S ore throat. R espiratory: Denies C ough. D enies S hortness of breath at rest. D enies S hortness of breath with exertion. G astrointestinal: Denies D iarrhea. D enies N ausea. M usculoskeletal: Patient denies m uscle aches. P eripheral Vascular: Patient denies r ed and blue toes. * Medical History: * Surgical History: * Hospitalization/Major Diagno stic Procedure: * Medications: T akingZioptan 0.0015 % Solution 1 drop into affected eye in the evening Ophthalmic Once a dayDorzolamide HCl-Timolol Mal 22.3-6.8 MG/ML Solution 1 drop into affected eye Ophthalmic Twice a dayLatanoprost 0.005 % Solution 1 drop into affected eye in the evening Ophthalmic Once a dayAspir-Low 81 MG Tablet Delayed Release 1 tablet Orally Once a dayAtorvastatin Calcium 80 MG Tablet TAKE 1 TABLET BY MOUTH EVERY DAY FOR 90 DAYS metFORMIN HCl 500 MG Tablet TAKE 2 TABLETS BY MOUTH TWICE A DAY Taking Zioptan 0.0015 % Solution 1 drop into affected eye in the evening Ophthalmic Once a dayTaking Dorzolamide HCl-Timolol Mal 22.3-6.8 MG/ML Solution 1 drop into affected eye Ophthalmic Twice a dayTaking Latanoprost 0.005 % Solution 1 drop into affected eye in the evening Ophthalmic Once a dayTaking Aspir-Low 81 MG Tablet Delayed Release 1 tablet Orally Once a dayTaking Atorvastatin Calcium 80 MG Tablet TAKE 1 TABLET BY MOUTH EVERY DAY FOR 90 DAYS Taking metFORMIN HCl 500 MG Tablet TAKE 2 TABLETS BY MOUTH TWICE A DAY Not-Taking/PRNDorzolamide-Timolol drops [address] 1 drop in both eyes twice a dayVentolin HFA * 108 (90 Base) MCG/ACT Aerosol Solution 2 puffs as needed Inhalation every 4 hrsMedication List reviewed and reconciled with the patientNot-Taking/PRN Dorzolamide-Timolol drops [address] 1 drop in both eyes twice a dayNot-Taking/PRN Ventolin HFA * 108 (90 Base) MCG/ACT Aerosol Solution 2 puffs as needed Inhalation every 4 hrsMedication List reviewed and reconciled with the patient * Allergies: C ombigan: blood shot eyes - Side Effectsyes[Allergies Verified] Objective: * Vitals: H t: 70, Wt:179, BMI:25.68, BP:124/66 weight is down 2 pounds since 08-11-23. * P ast Orders: L ab:Liver Panel (Order Date - 10/31/2023) (Collection Date - 10/31/2023) Value Reference Range Bilirubin Total 0.6 0.0-1.0 - mg/dL Bilirubin Direct 0.3 0.0-0.5 - mg/dL Aspartate Amino Transferase 19 5-37 - U/L Alanine Aminotransferase 14 0-40 - U/L Total Protein 6.8 6.5-8.0 - g/dL Albumin Level 3.9 3.5-5.0 - g/dL Alkaline Phosphatase 36 L 39-117 - U/L L ab:Hemoglobin A1c (Order Date - 10/31/2023) (Collection Date - 10/31/2023) Value Reference Range Hemoglobin A1c % 6.3 H <6.0 - % Estimated Average Glucose 134 - mg/dL L ab:Lipid Panel with Reflex (Order Date - 10/31/2023) (Collection Date - 10/31/2023) Value Reference Range Triglycerides 78 <150 - mg/dL Cholesterol 86 <200 - mg/dL LDL Cholesterol Calculated 42 <100 - mg/dL HDL Cholesterol 29 L >40 - mg/dL L ab:Glucose Fasting (Order Date - 10/31/2023) (Collection Date - 10/31/2023) Value Reference Range Glucose Fasting 137 H 60-99 - mg/dL * Examination: G eneral Examination: GENERAL APPEARANCE: alert, well hydrated, in no distress . HEAD: normocephalic. SKIN: good turgor. HEART: grade 3/6 systolic murmur at left sternal border.? LUNGS: no wheezes, rales, rhonchi, good air movement, clear to auscultation bilaterally. Assessment: * Assessment: 1. T ype 2 diabetes mellitus with diabetic neuropathy - E11.40 (Primary) 2 . C erebrovascular accident (CVA) due to occlusion of right carotid artery - I63.231 3 . A rteriosclerotic coronary artery disease - I25.10 4 . M oderate aortic stenosis - I35.0 Plan: * Treatment: 2. C erebrovascular accident (CVA) due to occlusion of right carotid artery Notes: going to be evaluated in [place] next month. 3. A rteriosclerotic coronary artery disease Continue Atorvastatin Calcium Tablet, 80 MG, TAKE 1 TABLET BY MOUTH EVERY DAY FOR 90 DAYS. ? Notes: had a negative stress test, will continue current regiment. * Procedure Codes: * * Sign off status: Completed true * Provider: Jannet Gloria MD Date: 0 11/07/2023 Generated for Janel del cid/Judd/Carlositting on: 1 01:44 PM EDT History and Physical Notes * HPI (History of Present Illness) Category Sub-Category Detail Notes Category Not es Symptom(s) patient is a 73 yo male here for 6 month follow up of cva. left leg still with limp/ is not getting better. Examination Category Sub-Category Detail Notes Category Not es General Examination GENERAL APPEARANCE: alert, w ell hydrated, in no distress HEAD: normocephalic HEART: grade 3/6 systolic m urmur at left sternal border LUNGS: no wheezes, rales, r honchi, good air movement, clear to auscultation bilaterally SKIN: good turgor
--- OUTSIDE RECORDS SUMMARY | 2024-05-04 03:15 | XMS_ITS ---
Author Organization Gurjit Gloria MD Address [address] [place], [place] [id number] Care Team Providers Care Weatherization Field Technician Name Role Phone Gurjit Gloria Primary Care Provider Results Component Value Reference Range Notes Complete Blood Count Auto Di ff Reviewed date:05/04/2024 08:43:48 PM Interpretation: Performing Lab:[facility], [address] [place] [phone] Notes/Report: White Blood Count 7.6 4.8-10.8 X10*3/uL [...] NRBC Abs Auto 0.000 0.0-0.012 X10*3/uL Comprehensive [place]. Panel Fa st Reviewed date:05/04/2024 08:44:07 PM Interpretation: Performing Lab:[facility], [address] [place] [phone] Notes/Report: Sodium 142 135-145 mmol/L Potassium 4.3 3.3-5.1 mmol/L Chloride 110 96-108 mmol/L Carbon Dioxide 26 22-29 mmol/L Anion Gap 10 12-20 Blood Urea Nitrogen 15 9-16 mg/dL Creatinine 0.88 0.5-1.4 mg/dL Estimated Glomerular Filt Rate > 60 NOTE: For -Syrian individuals, multiply the result by 1.210. Chronic [...] Panel Reviewed date:05/04/2024 08:34:21 PM Interpretation: Performing Lab:[address] [phone] Notes/Report: Triglycerides 88 <150 mg/dL Desirable Triglyceride: [...] (Free>4and<10) Reviewed date:05/04/2024 08:35:01 PM Interpretation: Performing Lab:[address] [phone] Notes/Report: PSA,Total (Free>4and<10) 1.07 0.00-4.00 ng/mL A [...] A1c Reviewed date:05/04/2024 08:35:20 PM Interpretation: Performing Lab:[address] [phone] Notes/Report: Hemoglobin A1c % 6.2 <6.0 % [...] average glucose, using the formula of the U9K-Nkkrxld Average Glucose study (ADAG), Diabetes Care, Vol.31,#8, Feb. 2007 REASON FOR VISIT yearly fasting labs Immunizations Vaccine Route Administration Date Status Comme nts Influenza High Dose IM Intramuscular 05/04/2024 Administer ed Encounters Encounter Location Date Provider Diagnosis Gurjit Gloria MD [address] [place] [address] [place] [phone] 05/04/2024 Gurjit Gloria Blood tests for rout [...] Of Treatment Next Appt Details Provider Name:Gurjit Suggs ier, 05/13/2025 09:30:00 AM, [address] [place] [address], Suite [facility], [place], [place], [phone], Progress Notes * GEOVANY Howard FDOB:[birth year] (73 yo M)Acc No.[id number]:05/04/2024 Progress Note Patient: Howard Hicks Provider: Jannet Gloria MD :1950 A ge:73 Y S ex:Male Date:05/04/2024 Address:[address] [place] [address], [id number] Subjective: * Chief Complaints: * Y early [...] Blood Count Auto Diff L AB: Comprehensive [place]. Panel Fast L AB: Lipid Panel L AB: PSA,Total (Free>4and<10) L AB: Hemoglobin A1c 3. L ow HDL (under 40) L AB: Microalbumin, Random L AB: UA ClnCatch+Micro w/rflx Cult L AB: Complete Blood Count Auto Diff L AB: Comprehensive [place]. Panel Fast L AB: Lipid Panel L AB: PSA,Total (Free>4and<10) L AB: Hemoglobin A1c 4. R ising PSA level L AB: Microalbumin, Random L AB: UA ClnCatch+Micro w/rflx Cult L AB: Complete Blood Count Auto Diff L AB: Comprehensive [place]. Panel Fast L AB: Lipid Panel L AB: PSA,Total (Free>4and<10) L AB: Hemoglobin A1c 5. A rteriosclerotic coronary artery disease L AB: Microalbumin, Random L AB: UA ClnCatch+Micro w/rflx Cult L AB: Complete Blood Count Auto Diff L AB: Comprehensive [place]. Panel Fast L AB: Lipid Panel L AB: PSA,Total (Free>4and<10) L AB: Hemoglobin A1c * Immunizations: Influenza High Dose : 0.5 mL (Dose No:1) (Route: Intramuscular) given by Ela Graham on Left Deltoid * Procedure Codes: 9 0662 FLU VACC PRSV FREE INC [id number] IMMUNIZATION [id number] VENIPUNCT, ROUTINE* * * Sign off status: Completed true * Provider: Jannet Gloria MD Date: Generated for Janel del cid/Judd/Wilma on: 01:45 PM EDT
--- OUTSIDE RECORDS SUMMARY | 2024-05-11 05:30 | XMS_ITS ---
Author Organization Gurjit Gloria MD Address [address] [place], [place] [id number] Care Team Providers Care Money Examiner Name Role Phone Gurjit Gloria Primary Care Provider [phone] Allergies Allergen (clinical drug ingredient) Drug/Non Drug Allergy documented on EMR Reaction Allergy Type Onset Date Status brimonidine / timolol Combigan blood shot eyes Drug Allergy Active Results Component Value Reference Range Notes Microalbumin, Random Reviewed date:05/11/2024 04:23:31 PM Interpretation: Performing Lab:[facility], [address] [place] [phone] Notes/Report: Creatinine Urine 63.33 Microalbumin Urine < 5.0 Microalbum/Creatinine Ratio Ur TNP <30 ug/mg cr Unable to calculate albumin/creatinine ratio due to low microalbumin or creatinine result. UA ClnCatch+Micro w/rflx Cul t Reviewed date:05/11/2024 12:37:07 PM Interpretation: Performing Lab:[facility], [address] [place] [phone] Notes/Report: Urine, Clean Catch Color Urine Yellow Appearance Urine Clear PH 6.0 5.0-9.0 Glucose Urine UA Negative Negative mg/dL Urine Blood Negative Negative Specific [place] - Urine 1.010 1.005-1.025 Urine Protein Negative [...] Location Date Provider Diagnosis Gurjit Gloria MD [address] [place] [address] Drive [address] [place], [place] [phone] 05/11/2024 Gurjit Gloria Type 2 diabetes mellitus [...] Moderate aortic stenosis (ICD-10 - I35.0) sees tax services professional in [facility] 05/11/2024 Cerebrovascular accident [...] Up: 6 Months, Reason: Provider Name:Gurjit almazan, 05/13/2025 09:30:00 AM, [address], [address], [place], [place], [phone], Progress Notes * Howard MUNIZ FDOB:[birth year] (73 yo M)Acc No.[id number]:05/11/2024 Progress Notes Patient: Howard Hicks Provider: Jannet Gloria MD :1950 A ge:73 Y S ex:Male Date:05/11/2024 Address:[id number] Subjective: * Chief Complaints: * A nnual [...] Pets: bird. no Travel outside of the [place]. * Medications: T akingZioptan 0.0015 % [...] Auto 0.000 0.0-0.012 - X10*3/uL L ab:Comprehensive [place]. Panel Fast (Order Date - 05/04/2024) (Collection [...] 4. M oderate aortic stenosis Notes: sees tax services professional in [place]. C erebrovascular accident (CVA) [...] plan: C ounseling for abnormal BMI provided?Yes, A anam Normal BMI Follow-up Jannet vinson encouragement to [...] Date: Generated for Janel del cid/Judd/Wilma on: 01:43 PM EDT History and Physical Notes * [...]
--- OUTSIDE RECORDS SUMMARY | 2024-10-26 03:45 | XMS_ITS ---
Author Organization Gurjit Gloria MD Address [address] [place], [place] [phone] Care Team Providers Care Christmas Tree [employer] Crew Boss Name Role Phone Gurjit Gloria Primary Care Provider Results Component Value Reference Range Notes Liver Panel Reviewed date:10/27/2024 11:50:46 AM Interpretation: Performing Lab:[address] [phone] Notes/Report: Bilirubin Total 1.0 0.0-1.0 mg/dL Bilirubin Direct 0.5 0.0-0.5 mg/dL Aspartate Amino Transferase 21 5-37 U/L Alanine Aminotransferase 12 0-40 U/L Total Protein 6.7 6.5-8.0 g/dL Albumin Level 3.9 3.5-5.0 g/dL Alkaline Phosphatase 39 39-117 U/L Glucose Fasting Reviewed date:10/27/2024 11:49:29 AM Interpretation: Performing Lab:[address] [phone] Notes/Report: Glucose Fasting 141 60-99 mg/dL A fasting glucose of 126 mg/dl or greater on more than one occasion is considered diagnostic of diabetes. Lipid Panel with Reflex Reviewed date:10/27/2024 11:51:08 AM Interpretation: Performing Lab:[facility], [address] [place] [phone] Notes/Report: Triglycerides 141 <150 mg/dL Desirable Triglyceride: [...] A1c Reviewed date:10/26/2024 01:06:24 PM Interpretation: Performing Lab:[facility], [address] [place] [phone] Notes/Report: Hemoglobin A1c % 6.2 <6.0 % [...] average glucose, using the formula of the P4W-Xuopzdc Average Glucose study (ADAG), Diabetes Care, Vol.31,#8, Feb. 2007 REASON FOR VISIT fasting lipids Encounters Encounter Location Date Provider Diagnosis Gurjit Gloria MD [address] [place] [address] [address] [place], [place] [phone] 10/26/2024 Gurjit Gloria Type 2 diabetes mellitus [...] Provider Name:Gurjit Suggs ier, 05/13/2025 09:30:00 AM, [address], [address], [place], [place], [phone], Progress Notes * Howard MUNIZ FDOB:[birth year] (74 yo M)Acc No.[id number]:10/26/2024 Progress Note Patient: Howard BECK Provider: Jannet Gloria MD :1950 A ge:74 Y S ex:Male Date:10/26/2024 Address:[address] [place], [place] [phone] Subjective: * Chief Complaints: * 1 . [...] Gloria MD Date: 0 10/26/2024 Generated for Crispini nehemias/Judd/eTransmitting on: 1 01:44 PM EDT
--- OUTSIDE RECORDS SUMMARY | 2024-11-02 05:00 | XMS_ITS ---
Author Organization Gurjit Gloria MD Address [address] [place], [place] [phone] Care Team Providers Care Mushroom Farmer Name Role Phone Gurjit Gloria Primary Care [...] Location Date Provider Diagnosis Gurjit Gloria MD [address] [place] [address] Drive [address] [place], [place] [phone] 11/02/2024 Gurjit Gloria Type 2 diabetes mellitus [...] current regiment Next Appt Details Provider Name:Gurjit Suggs ier, 05/13/2025 09:30:00 AM, [address] [place] [address], [address], [place], [place], [phone], Progress Notes * GEOVANYHoward FDOB:[birth year] (74 yo M)Acc No.[id number]:11/02/2024 Progress Notes Patient: Howard BECK Provider: Jannet Gloria MD :1950 A ge:74 Y S ex:Male Date:11/02/2024 Address:[address] [place] [address] [facility] Subjective: * Chief Complaints: * 6 month [...] Orders: L ab:Liver Panel (Order Date - 10/26/2024) (Collection Date & [...] ab:Lipid Panel with Reflex (Order Date - 10/26/2024) (Collection Date & [...] Date: 0 11/02/2024 Generated for Janel del cid/Judd/Wilma on: 1 01:44 PM EDT History and [...]
--- OUTSIDE RECORDS SUMMARY | 2025-03-31 10:02 | XMS_ITS ---
Author Organization Gurjit Gloria MD Address [address] [place], [place] [phone] Care Team Providers Care Yard Stocker Name Role Phone Gurjit Gloria Primary Care Provider REASON FOR VISIT schedule f/u Encounters Encounter Location Date Provider Diagnosis Gurjit Gloria MD [address] [place], [place] [phone] 03/31/2025 Gurjit Gloria Plan Of Treatment Next Appt Details Provider Name:Gurjit Suggs ier, 05/13/2025 09:30:00 AM, [address], [address], [place], [place], [phone], Progress Notes * Howard MUNIZ FDOB:[birth year] (74 yo M)Acc No.[id number]:03/31/2025 Patient: Howard BECK :1950 A ge:74 Y S ex:Male Address:[place] [address] * true * Date: Generated for Printi ng/Faxing/eTransmitting on: 01:43 PM EDT
--- OUTSIDE RECORDS SUMMARY | 2025-04-04 05:16 | XMS_ITS ---
Author Organization Gurjit Gloria MD Address [address] [place], [place] [phone] Care Team Providers Care Administrative Personal Assistant Name Role Phone Gurjit Gloria Primary Care Provider REASON FOR VISIT Discharge summary rec'd Encounters Encounter Location Date Provider Diagnosis Gurjit Gloria MD [address] [place], [place] [phone] 04/04/2025 Gurjit Gloria Plan Of Treatment Next Appt Details Provider Name:Gurjit Suggs ier, 05/13/2025 09:30:00 AM, [address], [address], [place], [place], [phone], Progress Notes * Howard MUNIZ FDOB:[birth year] (74 yo M)Acc No.[id number]:04/04/2025 Patient: Howard BECK :1950 A ge:74 Y S ex:Male Address:[place] [address] * true * Date: Generated for Printi ng/Faxing/eTransmitting on: 01:45 PM EDT
--- OUTSIDE RECORDS SUMMARY | 2025-04-12 09:45 | XMS_ITS ---
Author Organization Gurjit Gloria MD Address [address] [place], [place] [phone] Care Team Providers Care Youth Leader Name Role Phone Gurjit Gloria Primary Care [...] MD [address] [place], [place] [phone] 04/12/2025 Gurjit Gloria Plan Of Treatment Next Appt Details Provider Name:Gurjit Suggs ier, 05/13/2025 09:30:00 AM, [address], [address], [place], [place], [phone], Progress Notes * Howard MUNIZ FDOB:[birth year] (74 yo M)Acc No.[id number]:04/12/2025 Patient: Howard BECK Provider: Jannet Gloria MD :1950 A ge:74 Y S ex:Male Date:04/12/2025 Address:[address] [place], [place] [address] [facility] Subjective: * Chief Complaints: * 1 . [...] Date: 0 04/12/2025 Generated for Janel del cid/Judd/Wilma on: 01:45 PM EDT History and Physical Notes * HPI (History of Present Illness) Category Sub-Category Detail Notes Category Not es Symptom(s) patient is a 74 yo male here in follow up to recent cardiac surgery
--- OUTSIDE RECORDS SUMMARY | 2025-04-28 09:09 | XMS_ITS ---
Author Organization Gurjit Gloria MD Address [address] [place], [place] [phone] Care Team Providers Care Eligibility Worker Name Role Phone Gurjit Gloria Primary Care Provider [phone] REASON FOR VISIT rectal bleeding Encounters Encounter Location Date Provider Diagnosis Gurjit Gloria MD [address] [place], [place] [phone] 04/28/2025 Gurjit Gloria Plan Of Treatment Next Appt Details Provider Name:Gurjit Suggs ier, 05/13/2025 09:30:00 AM, [address], [address], [place], [place], [phone], Progress Notes * Howard MUNIZ FDOB:[birth year] (74 yo M)Acc No.[id number]:04/28/2025 Patient: Howard BECK :1950 A ge:74 Y S ex:Male Address:[place] [address] * true * Date: Generated for Printi ng/Faxing/eTransmitting on: 01:46 PM EDT
--- OUTSIDE RECORDS SUMMARY | 2025-05-02 12:30 | XMS_ITS | Encounter Summary ---
Author Organization [facility] Address [address] [place] [address] Care Team Providers Care Catapult And Arresting Gear Officer Name Role Phone Gurjit Gloria MD Primary Care Provider [phone] Paige Colbert MD Unavailable [phone] Grace Lo Unavailable [phone] Annie Macdonald MD Unavailable Reason for Referral * Cardiovascular Test (Routine) - Closed Specialty Diagnoses / Procedures Referred By Debra madrigal Referred To Contact Diagnoses Shortness of breath Procedures Echocardiogram (TTE) Limited (Contrast PRN) Annie Macdonald MD [address] [place] [address] Phone: tel: fax: Referral ID Status Reason Start Date Expiration Date Visits Re quested Visits Authorized [id number] Closed 04/01/2025 04/02/2026 1 1 Reason for Visit * Cardiovascular Test (Routine) - Closed Specialty Diagnoses / Procedures Referred By Debra madrigal Referred To Contact Diagnoses Shortness of breath Procedures Echocardiogram (TTE) Limited (Contrast PRN) Annie Macdonald MD [address] [place] [address] Phone: tel: fax: Referral ID Status Reason Start Date Expiration Date Visits Re quested Visits Authorized [id number] Closed 04/01/2025 04/02/2026 1 1 Encounter Details Date Type Department Care Team (Latest Contact Info) Description 05/02/2025 12:30 PM EDT - 05/02/2025 11:59 PM EDT Hospital Encounter [facility] Heart [facility] V[facility] [place] [facility] - Echocardiography Laboratory [address] [place] [address] Annie Macdonald MD 85 [facility] [address] [place] [address] Arrived Discharge Disposition: Home or Self Care Social History Tobacco Use Types Packs/Day Years Used Date Smoking Tobacco: Never Smokeless Tobacco: Never Alcohol Use Standard Drinks/Week Comments Never 0 (1 standard drink = 0.6 oz pur e alcohol) [facility] Utilities Answer Date Recorded In the past 12 months has th e [employer] gas, oil, or water [place] threatened to shut off services in your home? No 03/25/2025 AUDIT-C Answer Date Recorded Q1: How often do you have a drink containing alcohol? Never 03/02/2025 Q2: How many drinks containi ng alcohol do you have on a typical day when you are drinking? Patient does not drink Q3: How often do you have si x or more drinks on one occasion? Never 03/02/2025 Hunger Vital Sign Answer Date Recorded Within the past 12 months, y ou worried that your food would run out before you got the money to buy more. Never true 03/25/20 25 Within the past 12 months, t he food you bought just didn't last and you didn't have money to get more. Never true 03/25/2025 PRAPARE - Transportation Answer Date Re corded In the past 12 months, has l ack of transportation kept you from medical appointments or from getting medications? No 03/14 In the past 12 months, has l ack of transportation kept you from meetings, work, or from getting things needed for daily living? No 03/25/2025 Housing Stability Vital Sign Answer Adam e [...] place to sleep or slept in a mcc (including now)? No 10/28/2022 Housing Stability Vital Sign Answer Adam e Recorded In the last 12 months, was t here a time when you were not able to pay the mortgage or rent on time? No 03/25/2025 In the past 12 months, how m any times have you moved where you were living? 0 03/25/2025 At any time in the past 12 m [facility], were you homeless or living in a mcc (including now)? No 03/25/2025 Sex and Gender Information Value Date Recorded Sex Assigned at Male 10/26/2022 1:24 PM EDT Legal Sex Male 4:00 PM EDT Gender Identity Male 10/26/2022 1:24 PM EDT Sexual Orientation Heterosexual (straight) 10/26 1:24 PM EDT documented as of this encounter Medications at Time of Discharge atorvastatin (LIPITOR) 80 MG tabletIndication s:Stroke determined by clinical assessment (HCC) Take 1 tablet (80 mg total) by mouth nightly. 30 tablet 10/30/2022 5 dorzolamide-swapna lol (COSOPT) 22.3-6.8 MG/ML ophthalmic solution 2 (two) times a day. multivitamin Tab tablet Take 1 tablet by mouth daily. Rocklatan 0.02-0.005 % Solution INSTILL 1 DROP INTO BOTH EYES EVERY NIGHT AT BEDTIME DIRECTED 11/03/2023 amiODARONE (PACERONE) 200 MG tabletIndication s:S/P CABG (coronary artery bypass graft) Take 2 tablets (400 mg total) by mouth this evening on 03/31/25 and then continue to take 1 tablet (200 mg total) by mouth daily starting on Friday04/01/25 30 tablet 1 03/31/2025 apixaban (ELIQUIS) 5 MG tabletIndication s:S/P CABG (coronary artery bypass graft) Take 1 tablet (5 mg total) by mouth every 12 (twelve) hours around the clock. 60 tablet 1 03/31/2025 aspirin enteric coated (ECOTRIN LOW STRENGTH) 81 MG EC tabletIndication s:S/P CABG (coronary artery bypass graft) Take 1 tablet (81 mg total) by mouth daily. 03/31/2025 linagliptin (TRADJENTA) 5 MG TabIndications:S /P CABG (coronary artery bypass graft) Take 1 tablet (5 mg total) by mouth daily. 30 tablet 1 04/01/2025 metFORMIN (GLUCOPHAGE) 1000 MG tabletIndication s:S/P CABG (coronary artery bypass graft) Take 1 tablet (1,000 mg total) by mouth 2 (two) times a day with breakfast and dinner. 60 tablet 1 03/31/2025 metoPROLOL TARTRATE (LOPRESSOR) 25 MG tabletIndication s:S/P CABG (coronary artery bypass graft) Take 1 tablet (25 mg total) by mouth every 12 (twelve) hours around the clock. 60 tablet 1 03/31/2025 documented as of this encounter Progress Notes * Bea Baird APRN - 05/02/2025 1:00 PM EDT Patient will Follow up with kennel aide regarding his TTE results. Patient informed. documented in this encounter Plan of Treatment Upcoming Encounters Date Type Department Care Team (Late st Contact Info) Description 09/09/2025 2:40 PM EST Office Visit [facility] [place] [address] [phone] Paige Colbert MD [address] [place] [address] 12/02/2025 10:00 AM EDT Ancillary Procedure [facility] Vascular & Endovascular Surgery [address] [place] [phone] Fabian Galindo MD [address] [address] 12/02/2025 10:30 AM EDT Office Visit [facility] Vascular & Endovascular Surgery [address] [place] [address] Fabian Galindo MD 85 [facility] [address] [place], [place] [phone] documented as of this encounter Procedures Procedure Name Priority Date/Time Associated Diagnosis Comments ECHOCARDIOGRAM LIMITED WITH CONTRAST Routine 05/02/2025 1:35 PM EDT Shortness of breath documented in this encounter Results * ECHOCARDIOGRAM LIMITED WITH CONTRAST (05/02/2025 1:35 PM EDT) Heart Rate 72 bpm BP Systolic 116 mmHg BP Diastolic 62 mmHg Height 71.00 inches Weight 155.00 lbs BSA 1.89 m2 LV Diastolic Volume 100 mL LV Systolic Volume 63 mL LVOT diameter 2.1 cm LVOT diameter mean 2.1 cm LVOT mn grad mean 1.0 mmHg LVOT VTI MEAN 15.1 cm LVOT mn grad 1.0 mmHg LVOT VTI 15.1 cm LVOT peak brandy 0.8 m/s LVOT peak brandy mean 0.8 m/s AV mean gradient 3.0 mmHg Ao VTI 20.7 cm Ao peak brandy 1.3 m/s Ao peak brandy mean 1.3 m/s Ascending aorta 4.2 cm Ascending aorta mean 4.2 cm Jenkins BP EF (55-75) 37 % LVOT stroke volume 52 mL SVI 28 mL/m2 Left Ventricular Cardiac Index 2.0 L/min/m2 Left Ventricular Cardiac Output 3.8 L/min LV Diastolic Volume Index (F:29-61, M:35-75) 52.8 mL/m2 LV Systolic Volume Index (F:8-24, M:11-31) 33.3 mL/m2 AV LVOT peak gradient 2.6 mmHg AV peak gradient 6.8 mmHg AV area by cont VTI 2.5 cm2 Valve area - Index 1.3 cm2/m2 LVOT area 3.5 cm2 Dimensionless Index 0.73 Ascending aorta Index 2.2 cm/m2 LVOT SI 27.62 mL/m2 Anatomical Region Laterality Modality Heart Ultrasound Narrative 05/02/2025 2:20 PM EDT This was a limited study. Left ventricular systolic function is moderately decreased. The quantitative EF by 2D Jenkins biplane is 37%. Right ventricular systolic function is normal. 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 The calculated valve area is 2.5 cm2, with a peak velocity of 1.3 m/s, a mean gradient of 3.0 mmHg, and a dimensionless index of 0.73. The aortic root is moderately dilated at cm ( cm/m2). Compared to previous study on 03/29/2025, a ROSALIA, LV systolic function has declined. Technical Details Definity contrast was used during the study. Left Ventricle The left ventricle is normal in size. Left ventricular systolic function is moderately decreased. The quantitative EF by 2D Jenkins biplane is 37%. There is global hypokinesis without regional variation. Diastolic function could not be accurately assessed. Right Ventricle The right ventricle is normal in size. Right ventricular systolic function is normal. Left Atrium The left atrial cavity is dilated. Right Atrium Right atrial size is normal. Based on IVC diameter and collapse, right atrial pressure is estimated to be normal (3 mmHg). Mitral Valve There is mild mitral annular calcification. There is no mitral regurgitation. Tricuspid Valve The tricuspid valve is structurally normal. There is no tricuspid regurgitation. The absence of sufficient tricuspid regurgitation precludes estimation of right ventricular systolic pressure. Aortic Valve A 29 mm Inspiris bioprosthetic valve is in place across the aortic annulus. There is no aortic regurgitation. The calculated valve area is 2.5 cm2, with a peak velocity of 1.3 m/s, a mean gradient of 3.0 mmHg, and a dimensionless index of 0.73. Pulmonic Valve The pulmonic valve is structurally normal. There is trace pulmonic regurgitation. Ascending Aorta The aortic root is moderately dilated at cm ( cm/m2). Pericardium There is no pericardial effusion. Prior Study Compared to previous study on 03/29/2025, a ROSALIA, LV systolic function has declined. us Annie Macdonald MD CV ECHO ORDERABLES Final Result documented in this encounter Visit Diagnoses Diagnosis Shortness of breath documented in this encounter Administered Medications Inactive Administered Medications - up to 1 most recent administrations Medication Order MAR Action Action Date Dose Rate Site perflutren lipid microsphere (DEFINITY) 1.3 mL in sodium chloride (NS) 0.9 % 10 mL 0.5-8 mL, Intravenous, Once in imaging, other, Starting on 05/02/25 at 1304, For 1 dose, Document total dose administered per policy Given 05/02/2025 1:35 PM EDT 3 mL documented in this encounter Care Teams Catapult And Arresting Gear Officer Relationship Specialty Start Date End Date Gurjit Gloria MD [address] [place] [address] [place] [address] PCP - General Internal Medicine 10/25/22 Paige Colbert MD [address] [place] [address] Primary Emt Paramedic Cardiovascular Disease 12/04/22 Grace Lo PA [address] [place] [address] Physician Electrical Appliance Repairer Cardiovascular Disease 01/19/25 Annie Macdonald MD [address] [address] Consulting Provider Surgery, Cardiac 02/02/25 documented as of this encounter
--- OUTSIDE RECORDS SUMMARY | 2025-05-06 04:00 | XMS_ITS ---
Author Organization Gurjit Gloria MD Address [address] [place], [place] [phone] Care Team Providers Care Earth Burner Name Role Phone Gurjit Gloria Primary Care Provider Results Component Value Reference Range Notes Lipid Panel (Not yet reviewe d by provider) Interpretation: Performing Lab:[address] [phone] Notes/Report: Triglycerides 94 <150 mg/dL Desirable Triglyceride: [...] low results in patients with liver disease. Complete Blood Count Auto Di ff Reviewed date:05/06/2025 12:20:57 PM Interpretation: Performing Lab:[facility], [address] [place] [phone] Notes/Report: White Blood Count 6.5 4.8-10.8 X10*3/uL [...] 0.000 0.0-0.012 X10*3/uL CORRECTED REPORT CORRECTED REPORT PSA,Total (Free>4and<10) Reviewed date:05/06/2025 01:44:03 PM Interpretation: Performing Lab:[facility], [address] [place] [phone] Notes/Report: PSA,Total (Free>4and<10) 1.17 0.00-4.00 ng/mL A [...] A1c Reviewed date:05/06/2025 12:20:17 PM Interpretation: Performing Lab:[facility], [address] [place] [phone] Notes/Report: Hemoglobin A1c % 5.8 <6.0 % [...] average glucose, using the formula of the T8B-Whbsvwn Average Glucose study (ADAG), Diabetes Care, Vol.31,#8, Feb. 2007 REASON FOR VISIT yearly fasting labs Immunizations Vaccine Route Administration Date Status Comme nts Influenza High Dose IM Intramuscular 05/06/2025 Administer ed Encounters Encounter Location Date Provider Diagnosis Gurjit Gloria MD [address] [place] [address] [place], [place] [phone] 05/06/2025 Gurjit Gloria Blood tests for routine general physical examination Z00.00 ; Type 2 diabetes mellitus with diabetic neuropathy E11.40 ; Low HDL (under 40) E78.6 ; Rising PSA level R97.20 and Encounter for administration of vaccine Z23 Assessments Encounter Date Diagnosis (ICD Code) Assessment Notes Treatment Notes Treatment Clinical Notes Section Notes 05/06/2025 Blood tests for routine general physical examination (ICD-10 - Z00.00) 05/06/2025 Type 2 diabetes mellitus with diabetic neuropathy (ICD-10 - E11.40) 05/06/2025 Low HDL (under 40) (ICD-10 - E78.6) 05/06/2025 Rising PSA level (ICD-10 - R97.20) 05/06/2025 Encounter for administration of vaccine (ICD-10 - Z23) Plan Of Treatment Pending Test Test Name Order Date Comprehensive [place]. Panel Fast Lipid Panel 05/06/2025 Microalbumin, Random 05/06/2025 UA ClnCatch+Micro w/rflx Cult 05/06/2025 Next Appt Details Provider Name:Gurjit Suggs ier, 05/13/2025 09:30:00 AM, [address] [place] [address], [address], [place], [place], [phone], Progress Notes * Howard MUNIZ FDOB:[birth year] (74 yo M)Acc No.[id number]:05/06/2025 Progress Note Patient: Howard BECK Provider: Jannet Gloria MD :1950 A ge:74 Y S ex:Male Date:05/06/2025 Address:[address] [place], [place] [phone] Subjective: * Chief Complaints: * 1 . Yearly fasting labs. * Medical History: Objective: * Vitals: Assessment: * Assessment: 1. B lood tests for routine general physical examination - Z00.00 (Primary) 2 .?Type 2 diabetes mellitus with diabetic neuropathy - E11.40 3 . L ow HDL (under 40) - E78.6 4 . R ising PSA level - R97.20 5 . E ncounter for administration of vaccine - Z23 Plan: * Treatment: 2. T ype 2 diabetes mellitus with diabetic neuropathy L AB: Comprehensive [place]. Panel Fast L AB: Lipid Panel (Collection Date & Time - 05/06/2025 08:00 AM) L AB: Microalbumin, Random L AB: UA ClnCatch+Micro w/rflx Cult L AB: Complete Blood Count Auto Diff (Collection Date & Time - 05/06/2025 08:00 AM) L AB: PSA,Total (Free>4and<10) (Collection Date & Time - 05/06/2025 08:00 AM) L AB: Hemoglobin A1c (Collection Date & Time - 05/06/2025 08:00 AM) 3. L ow HDL (under 40) L AB: Comprehensive [place]. Panel Fast L AB: Lipid Panel (Collection Date & Time - 05/06/2025 08:00 AM) L AB: Microalbumin, Random L AB: UA ClnCatch+Micro w/rflx Cult L AB: Complete Blood Count Auto Diff (Collection Date & Time - 05/06/2025 08:00 AM) L AB: PSA,Total (Free>4and<10) (Collection Date & Time - 05/06/2025 08:00 AM) L AB: Hemoglobin A1c (Collection Date & Time - 05/06/2025 08:00 AM) 4. R ising PSA level L AB: Comprehensive [place]. Panel Fast L AB: Lipid Panel (Collection Date & Time - 05/06/2025 08:00 AM) L AB: Microalbumin, Random L AB: UA [...] * Procedure Codes: 3 6415 VENIPUNCT, ROUTINE*, 07695 FLU VACC PRSV FREE INC ANTIG, 888[address] IMMUNIZATION ADMIN * * The named appointment provid er may or may not be the originator of this progress note, and it is not deemed complete until electronically signed by the appointment provider. Sign off status: Pending * Provider: Jannet Gloria MD Date: Generated for Janel del cid/Judd/Carlositting on: 01:46 PM EDT
[2025-05-06 11:41] LABS: Hematocrit 40.3 % (42.0-52.0); Hemoglobin 12.4 g/dl (14.0-18.0); Imm Gran Abs Auto 0.03 X10*3/uL (0.00-0.03); Imm Gran Pct Auto 0.5 % (0.0-0.4); Lymphocytes Absolute Auto 1.4 X10*3/uL (1.2-4.9); MANUAL DIFF FLAG SCAN; Mean Corpuscular HGB Conc 30.8 g/dl (31.0-36.0); Mean Corpuscular Hemoglobin 27.9 pg (27.0-33.0); Mean Corpuscular Volume 90.6 fL (80.0-98.0); NRBC Abs Auto 0.000 X10*3/uL (0.0-0.012); NRBC Pct Auto 0.0 /100WBC (0.0-0.2); PLT CLUMP 1; Red Blood Count 4.45 X10*6/uL (4.60-5.80); SCAN SMEAR FLAG 1
[2025-05-06 12:06] LABS: Platelet Count 157 X10*3/uL (160-400); White Blood Count 6.5 X10*3/uL (4.8-10.8)
[2025-05-06 12:29] LABS: PSA,Total (Free>4and<10) 1.17 ng/mL (0.00-4.00)
[2025-05-06 12:32] LABS: Alanine Aminotransferase 7 U/L (0-40); Albumin Level 3.5 g/dL (3.5-5.0); Alkaline Phosphatase 52 U/L (39-117); Anion Gap 13 (12-20); Aspartate Amino Transferase 27 U/L (5-37); Blood Urea Nitrogen 16 mg/dL (9-16); Calcium 8.9 mg/dL (8.4-10.2); Carbon Dioxide 22 mmol/L (22-29); Chloride 109 mmol/L (96-108); Cholesterol 113 mg/dL (<200); Estimated Glomerular Filt Rate > 60; HDL Cholesterol 28 mg/dL (>40); Potassium 4.5 mmol/L (3.3-5.1); Sodium 139 mmol/L (135-145); Total Protein 6.9 g/dL (6.5-8.0); Triglycerides 94 mg/dL (<150)
--- OUTSIDE RECORDS SUMMARY | 2025-05-06 13:43 | XMS_ITS | Patient Health Record ---
Author Organization [facility] Address [address] [place] [address] Care Team Providers Care Director Utilization Management Name Role Phone Juani HEREDIA, Gurjit Primary [...] at 5:00 p.m. the day before the procedure; Duration: 1 day 08/08/2021 Active Atorvastatin Calcium 20 MG Oral; Duration: 90 Active Colyte with Flavor Packs 240 GM As directed Orally Over the specified time.; Duration: 1 day(s) Active Latanoprost 0.005 % INSTILL 1 DROP INTO BOTH EYES AT BEDTIME DIRECTED Ophthalmic Once a day Active Zioptan 0.0015 % Ophthalmic; Duration: 30 Active Dorzolamide HCl-Timolol Mal 22.3-6.8 MG/ML Ophthalmic; Duration: 90 A ctive metFORMIN HCl 500 MG TAKE 1 TABLET BY [facility] TWICE A DAY WITH MEALS Oral Once [...] Problem Status W/U Status Risk Notes Problem Colon cancer screening (931129450) Colon cancer screening (Z12.11) Active confirmed Problem Abnormal feces (018294553) Abnormal findings in stool (R19.5) Active confirmed Problem Long-term current use of drug therapy (282846725) longterm (current) use of oral hypoglycemic drugs (Z79.84) Active confirmed Plan Of Treatment Future Test Test Name Order Date COLONOSCOPY 04/03/2017 COLONOSCOPY 08/08/2021 Insurance Providers Payer Name Payer Address Payer Phone Subscriber Number Group Number Insured Name Patient Relationship to Insured Coverage Start Date Coverage End Date [facility] [address] [place] [phone] [id number] JEFF ARMENTA Self - patient is the insured MEDICARE OF [place] [address] [place], [place] [phone] [id number] JEFF ARMENTA Self - patient is the insured Medical (General) History Medical History History ICD Code diabetes mellitus diabetic neuropathy glaucoma Elevated cholesterol Surgical History Surgery Date(Month/Year) Left index finger tendon repair 1979 Rotator cuff surgery, or left
--- OUTSIDE RECORDS SUMMARY | 2025-05-06 13:45 | XMS_ITS | Patient Health Record ---
Author Organization Gurjit Gloria MD Address [address] [place], [place] [id number] Care Team Providers Care Forest Ranger Technician Name Role Phone Gurjit Gloria Primary Care Provider [phone] Allergies Allergen (clinical drug ingredient) Drug/Non Drug Allergy documented on EMR Reaction Allergy Type Onset Date Status brimonidine / timolol Combigan blood shot eyes Drug Allergy Active Results Component Value Reference Range Notes Liver Panel Reviewed date:10/27/2024 11:50:46 AM Interpretation: Performing Lab:[facility], [address] [place] [phone] Notes/Report: Bilirubin Total 1.0 0.0-1.0 mg/dL Bilirubin Direct 0.5 0.0-0.5 mg/dL Aspartate Amino Transferase 21 5-37 U/L Alanine Aminotransferase 12 0-40 U/L Total Protein 6.7 6.5-8.0 g/dL Albumin Level 3.9 3.5-5.0 g/dL Alkaline Phosphatase 39 39-117 U/L Glucose Fasting Reviewed date:10/27/2024 11:49:29 AM Interpretation: Performing Lab:[facility], [address] [place] [phone] Notes/Report: Glucose Fasting 141 60-99 mg/dL A fasting glucose of 126 mg/dl or greater on more than one occasion is considered diagnostic of diabetes. Lipid Panel with Reflex Reviewed date:10/27/2024 11:51:08 AM Interpretation: Performing Lab:[facility], [address] [place] [phone] Notes/Report: Triglycerides 141 <150 mg/dL Desirable Triglyceride: [...] A1c Reviewed date:10/26/2024 01:06:24 PM Interpretation: Performing Lab:[facility], [address] [place] [phone] Notes/Report: Hemoglobin A1c % 6.2 <6.0 % [...] average glucose, using the formula of the P5K-Wtntydl Average Glucose study (ADAG), Diabetes Care, Vol.31,#8, Feb. 2007 Lipid Panel (Not yet reviewe d by provider) Interpretation: Performing Lab:[facility], [address] [place] [phone] Notes/Report: Triglycerides 94 <150 mg/dL Desirable Triglyceride: [...] ff Reviewed date:05/06/2025 12:20:57 PM Interpretation: Performing Lab:[facility], [address] [place] [phone] Notes/Report: White Blood Count 6.5 4.8-10.8 X10*3/uL [...] (Free>4and<10) Reviewed date:05/06/2025 01:44:03 PM Interpretation: Performing Lab:[address] [phone] Notes/Report: PSA,Total (Free>4and<10) 1.17 0.00-4.00 ng/mL A [...] A1c Reviewed date:05/06/2025 12:20:17 PM Interpretation: Performing Lab:[address] [phone] Notes/Report: Hemoglobin A1c % 5.8 <6.0 % [...] average glucose, using the formula of the D2E-Ajmlwnd Average Glucose study (ADAG), Diabetes Care, Vol.31,#8, Feb. 2007 Microalbumin, Random Reviewed date:05/11/2024 04:23:31 PM Interpretation: Performing Lab:[address] [phone] Notes/Report: Creatinine Urine 63.33 Microalbumin Urine < 5.0 Microalbum/Creatinine Ratio Ur TNP <30 ug/mg cr Unable to calculate albumin/creatinine ratio due to low microalbumin or creatinine result. UA ClnCatch+Micro w/rflx Cul t Reviewed date:05/11/2024 12:37:07 PM Interpretation: Performing Lab:[facility], [address] [place] [phone] Notes/Report: Urine, Clean Catch Color Urine Yellow Appearance Urine Clear PH 6.0 5.0-9.0 Glucose Urine UA Negative Negative mg/dL Urine Blood Negative Negative Specific [place] - Urine 1.010 1.005-1.025 Urine Protein Negative Neg-Trace mg/dL Urine Ketones Negative Negative mg/dL Nitrite Urine Negative Negative Leukocyte Esterase Urine Negative Negative RBC Urine 0-2 0-2 /HPF WBC Urine 0-5 0-5 /HPF Squamous Epithelial Cell Urine 0-2 0-2 /HPF Bacteria Urine None Seen None Seen Hyaline Casts Urine 0-2 0-2 /LPF Hold Gold Reviewed date:10/26/2024 01:05:01 PM Interpretation: Performing Lab:[facility], [address] [place] [phone] Notes/Report: Hold Gold See Note Specimen held untested for 24 hours; Call to request Chemistry testing. Comprehensive Met. Panel (No t yet reviewed by provider) Interpretation: Performing Lab:[facility], [address] [place] [phone] Notes/Report: Sodium 139 135-145 mmol/L Potassium 4.5 3.3-5.1 mmol/L Slight Hemolysis.Interpret result with caution. Chloride 109 96-108 mmol/L Carbon Dioxide 22 22-29 mmol/L Anion Gap 13 12-20 Blood Urea Nitrogen 16 9-16 mg/dL Creatinine 0.90 0.5-1.4 mg/dL Estimated Glomerular Filt Rate > 60 Chronic Kidney Disease: Estimated GFR < 60 mL/min/1.73m2 Severe Kidney Disease: Estimated GFR < 15 mL/min/1.73m2 Glucose Random 130 60-115 mg/dL Calcium 8.9 8.4-10.2 mg/dL Bilirubin Total 0.5 0.0-1.0 mg/dL Aspartate Amino Transferase 27 5-37 U/L Slight Hemolysis.Interpret result with caution. Alanine Aminotransferase 7 0-40 U/L Total Protein 6.9 6.5-8.0 g/dL Albumin Level 3.5 3.5-5.0 g/dL Alkaline Phosphatase 52 39-117 U/L SLIDE REVIEW Reviewed date:05/06/2025 12:19:43 PM Interpretation: Performing Lab:[facility], [address] [facility] [place] [address] Notes/Report: SLIDE REVIEW VERIFIED Reason For Referral No Information Medications Medication [...] High Dose IM Intramuscular 05/04/2024 Administer ed Influenza High Dose IM Intramuscular 05/06/2025 Administer ed Shingrix Unknown 04/19/2019 Refused Tetanus [...] Problem Status W/U Status Risk Notes Problem 243535445 Neuropathy (G62.9) Active confirmed Problem 901553976 Tubular adenoma (D36.9) Active confirmed Problem 15875488 Type 2 diabetes mellitus with diabetic neuropathy (E11.40) Active confirmed Problem 701659834 Low HDL (under 4 0) (E78.6) Active confirmed Problem Ophthalmic migraine (02797451) 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) Active confirmed Problem 21323059 Coronary artery disease involving campo coronary artery of campo heart without angina pectoris (I25.10) Active confirmed Problem 052182226 Seborrheic keratosis (L82.1) Active confirmed Problem 237797087 Incoordination (R27.9) Active confirmed Problem 334442288 Rising PSA level (R97.20) Active confirmed Problem 063916012 Moderate aortic stenosis (I35.0) Active confirmed Problem 824037189 Lesion of left ulnar nerve (G56.22) Active confirmed Problem 64076039 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 Problem [id number] 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) Active confirmed Problem 044590818622965 Occlusion of rig ht carotid artery (I65.21) Active confirmed Problem 64661572 Arteriosclerotic coronary artery disease (I25.10) Active confirmed Vital Signs Blood pressure diastolic 66 mm Hg 11/02/2024 Height 70 in 11/02/2024 Blood pressure systolic 104 mm Hg 11/02/2024 Weight 179 lbs 11/02/2024 BMI 25.68 kg/m2 11/02/2024 Encounters Encounter Location Date Provider Diagnosis Gurjit Gloria MD [address] [place] [id number] 10/26/2024 Gurjit Gloria Type 2 diabetes mellitus with diabetic neuropathy E11.40 and Arteriosclerotic coronary artery disease I25.10 Gurjit Gloria MD [address] [place] [id number] 05/06/2025 Gurjit Gloria Blood tests for rout ine general physical examination Z00.00 ; Type 2 diabetes mellitus with diabetic neuropathy E11.40 ; Low HDL (under 40) E78.6 ; Rising PSA level R97.20 and Encounter for administration of vaccine Z23 Gurjit Gloria MD [address] [place] [id number] 05/11/2024 Gurjit Gloria Type 2 diabetes mellitus with diabetic neuropathy E11.40 ; Annual physical exam Z00.00 ; Rising PSA level R97.20 ; Moderate aortic stenosis I35.0 ; Cerebrovascular accident (CVA) due to occlusion of right carotid artery I63.231 ; Low HDL (under 40) E78.6 ; Colon cancer screening Z12.11 and Depression screening Z13.31 Gurjit Gloria MD [address] [place] [id number] 11/02/2024 Gurjit Gloria Type 2 diabetes mellitus with diabetic neuropathy E11.40 and Arteriosclerotic coronary artery disease I25.10 Gurjit Gloria MD [address] [id number] 03/31/2025 Gurjit Gloria MD [address] [place] [address] [address] [id number] 04/04/2025 Gurjit Gloria MD [address] [place] [id number] 04/28/2025 Gurjit Gloria Assessments Encounter Date Diagnosis (ICD Code) Assessment Notes Treatment Notes Treatment Clinical Notes Section Notes 10/26/2024 Type 2 diabetes mellitus with diabetic neuropathy (ICD-10 - E11.40) 05/06/2025 Blood tests for routine general physical examination (ICD-10 - Z00.00) 05/06/2025 Type 2 diabetes mellitus with diabetic neuropathy (ICD-10 - E11.40) 05/11/2024 Type 2 diabetes mellitus with diabetic neuropathy (ICD-10 - E11.40) doing well with good a1c, will continue currentregiment 05/11/2024 Annual physical exam (ICD-10 - Z00.00) labs reviewed and discussed with patient 11/02/2024 Type 2 diabetes mellitus with diabetic neuropathy (ICD-10 - E11.40) is stable and having good a1c's, will continue current regiment 10/26/2024 Arteriosclerotic coronary artery disease (ICD-10 - I25.10) 05/06/2025 Low HDL (under 40) (ICD-10 - E78.6) 05/11/2024 Rising PSA level (ICD-10 - R97.20) is good at present, will continue to monitor 11/02/2024 Arteriosclerotic coronary artery disease (ICD-10 - I25.10) stable, will continue current regiment 05/06/2025 Rising PSA level (ICD-10 - R97.20) 05/11/2024 Moderate aortic stenosis (ICD-10 - I35.0) sees quantometer operator in conn 05/06/2025 Encounter for administration of vaccine (ICD-10 - Z23) 05/11/2024 Cerebrovascular accident (CVA) due to occlusion [...] 03/06/2017 CT BRAIN W&WO CONTRAST 10/17/2022 ECHO 10/26/2020 ECHO 01/25/2021 Comprehensive Met. Panel 05/06/2025 Comprehensive [place]. Panel Fast Lipid Panel 05/06/2025 Microalbumin, Random 05/06/2025 UA ClnCatch+Micro w/rflx Cult 05/06/2025 Next Appt Details Provider Name:Gurjit almazan, 05/13/2025 09:30:00 AM, [address] [facility], [address], [place], [place], [id number], Insurance Providers Payer Name Payer Address Payer Phone Subscriber Number Group Number Insured Name Patient Relationship to Insured Coverage Start Date Coverage End Date [facility] [address] [facility] [facility] [address] [facility] [place] [phone] [id number] Flavio IrvinHoward Self - patient is the insured [employer] [address] [place] [address] [id number] Howard Muniz Self - patient is the [...]
--- OUTSIDE RECORDS SUMMARY | 2025-05-06 13:45 | XMS_ITS | Encounter Summary ---
Author Organization [facility] Address [address] [place] [address] Care Team Providers Care Curriculum And Instruction Director Name Role Phone Gurjit Gloria MD Primary Care Provider [phone] Paige Colbert MD Unavailable [phone] Grace Lo Unavailable [phone] Annie Macdonald MD Unavailable Encounter Details Date Type Department Care Team (Latest Contact Info) Description 05/02/2025 Travel Social History Tobacco Use Types Packs/Day Years Used Date Smoking Tobacco: Never Smokeless Tobacco: Never Alcohol Use Standard Drinks/Week Comments Never 0 (1 standard drink = 0.6 oz pur e alcohol) [facility] Utilities Answer Date Recorded In the past 12 months has [employer], gas, oil, or water [employer] threatened to shut off services in your [...] place to sleep or slept in a usp (including now)? No 10/28/2022 Housing Stability Vital Sign Answer Adam e Recorded In the last 12 months, was t here a time when you were not able to pay the mortgage or rent on time? No 03/25/2025 In the past 12 months, how m any times have you moved where you were living? 0 03/25/2025 At any time in the past 12 m [facility], were you homeless or living in a usp (including now)? No 03/25/2025 Sex and Gender Information Value Date Recorded Sex Assigned at Male 10/26/2022 1:24 PM EDT Legal Sex Male 4:00 PM EDT Gender Identity Male 10/26/2022 1:24 PM EDT Sexual Orientation Heterosexual (straight) 10/26 1:24 PM EDT documented as of this encounter Plan of Treatment Upcoming Encounters Date Type Department Care Team (Late st Contact Info) Description 09/09/2025 2:40 PM EST Office Visit [facility] [place] [address] [place] [phone] Paige Colbert MD [address] [place] [id number] 12/02/2025 10:00 AM EDT Ancillary Procedure [facility] [address] [place] [phone] Fabian Galindo MD [address] [id number] 12/02/2025 10:30 AM EDT Office Visit [facility] [place] [address] [facility] 2nd [address] [place] [phone] Fabian Galindo MD [address] [id number] documented as of this encounter Visit Diagnoses Not on filedocumented in this encounter Care Teams Curriculum And Instruction Director Relationship Specialty Start Date End Date Gurjit Gloria MD [address] [place] [phone] PCP - General Internal Medicine 10/25/22 Paige Colbert MD [address] [place] [address] Primary Manager Business Continuity Cardiovascular Disease 12/04/22 Grace Lo PA [address] [place] [address] Physician Cloth Baler Cardiovascular Disease 01/19/25 Annie Macdonald MD [address] [place] [id number] Consulting Provider Surgery, Cardiac 02/02/25 documented as of this encounter
--- OUTSIDE RECORDS SUMMARY | 2025-05-06 13:45 | XMS_ITS | Clinical Summary ---
Author Organization Formerly [facility] Address [address] [place] [address] Care Team Providers Care Home [facility] [employer] Name Role Phone Alycia Michel MD Primary Care Provider [phone] Paige Colbert MD Unavailable [phone] Grace Lo Unavailable [phone] Annie Macdonald MD Unavailable Allergies Active Allergy Reactions Criticality Noted Date Comments Brimonidine Tartrate-Timolol Other (See Comments) 11/18/2022 Medications dorzolamide-chano olol (COSOPT) 22.3-6.8 MG/ML ophthalmic solution 2 (two) times a day. Active atorvastatin (LIPITOR) 80 MG tabletIndicatio ns:Stroke determined by clinical assessment ([facility]) Take 1 tablet (80 mg total) by mouth nightly. 30 tablet 3 07/09/20 25 Active Rocklatan 0.02-0.005 % Solution INSTILL 1 DROP INTO BOTH EYES EVERY NIGHT AT BEDTIME DIRECTED 4 Active multivitamin Tab tablet Take 1 tablet by mouth daily. Active acetaminophen (TYLENOL) 325 MG tabletIndicatio ns:S/P CABG (coronary artery bypass graft) Take 2 tablets (650 mg total) by mouth 4 times daily (every 6 hours) as needed for moderate pain. 5 Active Additional Information Patient not taking.Reported on 04/15/2025 amiODARONE (PACERONE) 200 MG tabletIndicatio ns:S/P CABG (coronary artery bypass graft) Take 2 tablets (400 mg total) by mouth this evening on 03/31/25 and then continue to take 1 tablet (200 mg total) by mouth daily starting on Friday04/01/25 30 tablet 1 5 Active apixaban (ELIQUIS) 5 MG tabletIndicatio ns:S/P CABG (coronary artery bypass graft) Take 1 tablet (5 mg total) by mouth every 12 (twelve) hours around the clock. 60 tablet 1 5 Active linagliptin (TRADJENTA) 5 MG TabIndications: S/P CABG (coronary artery bypass graft) Take 1 tablet (5 mg total) by mouth daily. 30 tablet 1 5 Active metFORMIN (GLUCOPHAGE) 1000 MG tabletIndicatio ns:S/P CABG (coronary artery bypass graft) Take 1 tablet (1,000 mg total) by mouth 2 (two) times a day with breakfast and dinner. 60 tablet 1 5 Active metoPROLOL TARTRATE (LOPRESSOR) 25 MG tabletIndicatio ns:S/P CABG (coronary artery bypass graft) Take 1 tablet (25 mg total) by mouth every 12 (twelve) hours around the clock. 60 tablet 1 5 05/30/20 25 Active senna (SENOKOT) 8.6 MG Tab tabletIndicatio ns:S/P CABG (coronary artery bypass graft) Take 2 tablets by mouth 2 (two) times a day as needed for constipation. 5 Active aspirin enteric coated (ECOTRIN LOW STRENGTH) 81 MG EC tabletIndicatio ns:S/P CABG (coronary artery bypass graft) Take 1 tablet (81 mg total) by mouth daily. 5 Active Active Problems Problem Noted Date Diagnosed Date Aortic aneurysm, intrathoracic 03/24/2025 Aortic root dilatation 02/24/2025 Diabetes mellitus due to und erlying condition with hyperglycemia, without long-term current use of insulin 12/30/2023 Carotid stenosis, left 12/02/2022 Stroke determined by clinical assessment 023 T2DM (type 2 diabetes mellitus) Encounters Date Type Department Care Team Description 05/02/2025 12:30 PM EDT - 05/02/2025 11:59 PM EDT Hospital Encounter [facility] Heart & V[facility] [place] [facility] - Echocardiography Laboratory [address] [place] [address] Annie Macdonald MD Arrived Discharge Disposition: Home or Self Care 05/02/2025 Travel 04/29/2025 Telephone [facility] Vascular [address] [address] Paige Colbert MD 04/28/2025 Telephone [facility] Vascular [address] [address] Paige Colbert MD Medical Complaint 04/28/2025 Orders Only [facility] Cardiothoracic Surgery [address] [address] Annie Macdonald MD S/P CABG (coronary artery bypass graft) (Primary Dx); S/P AVR 04/28/2025 Telephone [facility] Cardiooracic [address] [address] Annie Macdonald MD 04/15/2025 2:00 PM EDT Office Visit [address] [address] Grace Lo PA Coronary artery disease due to lipid rich plaque (Primary Dx); S/P AVR (aortic valve replacement); Nonrheumatic aortic valve stenosis; Dyslipidemia; Hypotension, unspecified hypotension type 04/15/2025 Travel 04/07/2025 9:30 AM EDT Office Visit [facility] Cardiothoracic [address] [address] Bea Baird APRN S/P AVR (aortic valve replacement) (Primary Dx); S/P CABG x 1 04/07/2025 Orders Only [facility] Cardiothoracic Surgery [address] [address] Bea Baird, RN IV THERAPY S/P AVR (Primary Dx); S/P CABG (coronary artery bypass graft) 04/07/2025 Telephone [facility] Cardiothoracic Surgery [address] [address] Bea Baird, RN IV THERAPY Referral 04/07/2025 Orders Only [facility] Cardiothoracic Surgery [address] [address] Annie Macdonald MD S/P CABG (coronary artery bypass graft) (Primary Dx); S/P AVR 04/07/2025 Travel 04/06/2025 Orders Only [facility] Cardiothoracic Surgery [address] [address] Annie Macdonald MD S/P CABG (coronary artery bypass graft) (Primary Dx); S/P AVR 04/06/2025 Telephone [facility] Cardiothoracic Surgery [address] [address] Annie Macdonald MD 04/01/2025 Telephone [facility] Cardiothoracic Surgery [address] [address] Annie Macdonald MD 03/29/2025 8:49 AM EDT Anesthesia Event [facility] Heart & V[facility] [place] [facility] - Echocardiography Laboratory [address] [place] [address] Alexis Overton MD 03/24/2025 8:30 AM EDT - 03/24/2025 4:30 PM EDT Surgery [facility] Perioperative Surgical Services [address] [place] [address] Annie Macdonald MD [place] REPLACEMENT AORTIC VALVE WITH 29 mm INSPIRUS VALVE 03/24/2025 8:30 AM EDT Anesthesia Event [facility] Perioperative Surgical Services [address] [place] [address] Jermaine Jimenez DO Luong, Lucas M, DO 03/24/2025 6:35 AM EDT - 03/31/2025 12:46 PM EDT Hospital Encounter [facility] [address] [place] [address] Annie Macdonald MD S/P CABG (coronary artery bypass graft) (Primary Dx) Discharge Disposition: Home with Health Care Services 03/24/2025 Travel 03/03/2025 Telephone [facility] Cardiothoracic Surgery [address] [address] Annie Macdonald MD 03/02/2025 Documentation [facility] Cardiothoracic Surgery [address] [address] Edie Gavin, [place] Pre op education session 03/02/2025 Travel 02/24/2025 9:40 AM EDT Office Visit [facility] Heart & [facility] [place] [address] [address] Paige Colbert MD Coronary artery disease due to lipid rich plaque (Primary Dx); Aortic root dilatation; S/P carotid endarterectomy; Ischemic cardiomyopathy ; Carotid stenosis, left; Nonrheumatic aortic valve stenosis; Mixed hyperlipidemia ; PAD (peripheral artery disease) 02/24/2025 Telephone [facility] Cardiothoracic Surgery [address] [address] Bea Baird, ABIGAIL 02/24/2025 Telephone [facility] Cardiothoracic Surgery [address] [address] Annie Macdonald MD 02/24/2025 Travel 02/21/2025 Telephone [facility] Cardiothoracic Surgery [address] [address] Annie Macdonald MD 02/18/2025 Documentation [facility] Cardiothoracic Surgery [address] [address] Trisha Velásquez RN Pre-Op Medication Instructions 02/08/2025 11:00 AM EDT Consult [facility] Cardiothoracic Surgery [address] [address] Annie Macdonald MD Aneurysm of aortic root (Primary Dx); Coronary artery disease involving [place] coronary artery of [place] heart without angina pectoris ; Nonrheumatic aortic valve stenosis 02/08/2025 Telephone [facility] Cardiooracic Surgery [address] [address] Annie Macdonald MD Form Completion 02/08/2025 Orders Only [facility] Cardiothoracic Surgery [address] [address] Annie Macdonald MD Preoperative testing (Primary Dx); Atherosclerosis of [place] coronary artery of [place] heart with angina pectoris ; Aortic root aneurysm 02/08/2025 Travel from Last 3 Months Family History Medical History Relation Name Comments Stroke Mother Briana Muniz Cancer, colon Other Relation Name Status Comments Mother Briana Muniz Alive Other Alive Social History Tobacco Use Types Packs/Day Years Used Date Smoking Tobacco: Never Smokeless Tobacco: Never Tobacco Cessation:Counseling Given: Not Answered Alcohol Use Standard Drinks/Week Comments Never 0 (1 standard drink = 0.6 oz pur e alcohol) [facility] Utilities Answer Date Recorded In the past 12 months has [employer], gas, oil, or water [employer] threatened to shut off services in your [...] place to sleep or slept in a fdc (including now)? No 10/28/2022 Housing Stability Vital [...] in the past 12 m [facility], were you homeless or living in a fdc (including now)? No 03/25/2025 Sex and Gender Information Value Date Recorded Sex Assigned at Male 10/26/2022 1:24 PM EDT Legal Sex Male 4:00 PM EDT Gender Identity Male 10/26/2022 1:24 PM EDT Sexual Orientation Heterosexual (straight) 10/26 1:24 PM EDT Last Filed Vital Signs Vital Sign Reading Time Taken Comments Blood Pressure 112/70 04/15/2025 1:52 PM EDT Pulse 77 04/15/2025 1:52 PM EDT Temperature 35.8 C (96.4 F) 03/31/2025 8:02 AM EDT Respiratory Rate 18 03/31/2025 8:02 AM EDT Oxygen Saturation 98% 04/07/2025 9:17 AM EDT Inhaled Oxygen Concentration - - Weight 72.3 kg (159 lb 6.4 oz) 04/15/2025 1:52 P M EDT Height 180.3 cm (5' 11 ) 04/15/2025 1:52 PM EDT Body Mass Index 22.23 04/15/2025 1:52 PM EDT Plan of Treatment Upcoming Encounters Date Type Department Care Team (Late st Contact Info) Description 09/09/2025 2:40 PM EST Office Visit [facility] Heart [facility] [place] [address] [phone] Paige Colbert MD [address] [place] [address] 12/02/2025 10:00 AM EDT Ancillary Procedure [facility] Vascular & Endovascular Surgery [address] [place] [phone] Fabian Galindo MD [address] [place] [address] 12/02/2025 10:30 AM EDT Office Visit [facility] Vascular & Endovascular Surgery [address] [place] [phone] Fabian Galindo MD [address] [place] [address] Health Maintenance Due Date Last Done Comments Hepatitis C Virus Screening 1950 Foot Exam 1960 Ophthalmology Exam 1960 Microalbumin/Creatinine Ratio Urine 1968 DTaP/Tdap/Td Vaccines (1 - Tdap) 1969 Pneumococcal Vaccines 50+ (1 of 2 - PCV) 1969 Colonoscopy 1995 RSV Vaccine 50 years and older and Patients (1 - Risk 50-74 years 1-dose series) 2000 Zoster (Shingles) Vaccine (1 of 2) 2000 Lipid Panel 10/27/2023 10/26/2022 Influenza Vaccine 02/11/2025 05/04/2024, , 04/25/2022, Additional history exists COVID-19 Vaccine ( season) 2025 07/31/2021, 11/14/2020 Hemoglobin A1C 09/22/2025 03/25/2025, 10/26/2022 Creatinine with GFR 03/31/2026 03/31/2025, 03/30/2025, 03/29/2025, Additional history exists Advance Care Planning Completed 04/01/2025 Hepatitis B Vaccines Aged Out No long er eligible based on patient's age to complete this topic Medical Devices Implanted Type Area [employer]ing [employer] Demonstrator Device Identifier Shelf Expiration Date Model / Serial / Lot E0.8p8 Patch Vasc 8x.8cm Xenosure Bvn Pericard Tissue Sterl - [id number] Implanted:Qty : 1 on 10/29/2022 by Fabian Galindo MD at [facility] Tissue Left: Neck [employer] [id number] 05/10/2028 E0.8P8 / 0000 / [id number] Valve Aortic Inspiris 29mm Resilia - [id number] Implanted:Qty : 1 on 03/24/2025 by Annie Macdonald MD at [facility] Valve N/A: Heart [employer] [id number] 10/06/2029 [id number] / [id number] / Procedures Procedure Name Priority Date/Time Associated Diagnosis Comments ECHOCARDIOGRAM LIMITED WITH CONTRAST Routine 05/02/2025 1:35 PM EDT Shortness of breath ECG 12-LEAD Routine 04/15/2025 1:50 PM EDT Coronary artery disease due to lipid rich plaque ECG 12-LEAD Routine 04/07/2025 10:01 AM EDT S/P AVR S/P CABG (coronary artery bypass graft) POCT GLUCOSE, FINGERSTICK (CHARGE) Routine 03/31/2025 8:05 AM EDT PHOSPHORUS Routine 03/31/2025 6:14 AM EDT MAGNESIUM Routine 03/31/2025 6:14 AM EDT BASIC METABOLIC PANEL Routine 03/31/2025 6:14 AM EDT ECG 12-LEAD Routine 03/31/2025 5:02 AM EDT POCT GLUCOSE, FINGERSTICK (CHARGE) Routine 03/30/2025 8:40 PM EDT XR CHEST 1 VIEW-PORTABLE Routine 025 5:12 PM EDT POCT GLUCOSE, FINGERSTICK (CHARGE) Routine 03/30/2025 4:57 PM EDT POCT GLUCOSE, FINGERSTICK (CHARGE) Routine 03/30/2025 12:14 PM EDT POCT GLUCOSE, FINGERSTICK (CHARGE) Routine 03/30/2025 8:19 AM EDT MAGNESIUM Routine 03/30/2025 6:00 AM EDT COMPLETE BLOOD COUNT, WITHOUT DIFFERENTIAL Routine 03/30/2025 6:00 AM EDT BASIC METABOLIC PANEL Routine 03/30/2025 6:00 AM EDT POCT GLUCOSE, FINGERSTICK (CHARGE) Routine 03/29/2025 8:24 PM EDT POCT GLUCOSE, FINGERSTICK (CHARGE) Routine 03/29/2025 5:05 PM EDT VAS VENOUS DUPLEX ARM (DVT)-RIGHT Routine 03/29/2025 3:47 PM EDT ECG 12-LEAD Routine 03/29/2025 1:59 PM EDT POCT GLUCOSE, FINGERSTICK (CHARGE) Routine 03/29/2025 11:34 AM EDT ECHOCARDIOGRAM TRANSESOPHAGEAL WITH CARDIOVERSION Routine 03/29/2025 9:22 AM EDT POCT GLUCOSE, FINGERSTICK (CHARGE) Routine 03/29/2025 7:52 AM EDT COMPLETE BLOOD COUNT, WITHOUT DIFFERENTIAL Routine 03/29/2025 5:22 AM EDT BASIC METABOLIC PANEL Routine 03/29/2025 5:22 AM EDT MAGNESIUM Routine 03/29/2025 5:22 AM EDT POCT GLUCOSE, FINGERSTICK (CHARGE) Routine 03/28/2025 9:02 PM EDT POCT GLUCOSE, FINGERSTICK (CHARGE) Routine 03/28/2025 5:08 PM EDT POCT GLUCOSE, FINGERSTICK (CHARGE) Routine 03/28/2025 4:48 PM EDT POCT GLUCOSE, FINGERSTICK (CHARGE) Routine 03/28/2025 12:42 PM EDT XR CHEST 2 VIEWS Routine 03/28/2025 10:2 9 AM EDT POCT GLUCOSE, FINGERSTICK (CHARGE) Routine 03/28/2025 8:19 AM EDT MAGNESIUM Routine 03/28/2025 5:12 AM EDT BASIC METABOLIC PANEL Routine 03/28/2025 5:12 AM EDT COMPLETE BLOOD COUNT, WITHOUT DIFFERENTIAL Routine 03/28/2025 5:12 AM EDT POCT GLUCOSE, FINGERSTICK (CHARGE) Routine 03/27/2025 9:48 PM EDT POCT GLUCOSE, FINGERSTICK (CHARGE) Routine 03/27/2025 5:23 PM EDT BASIC METABOLIC PANEL Routine 03/27/2025 12:46 PM EDT POCT GLUCOSE, FINGERSTICK (CHARGE) Routine 03/27/2025 12:21 PM EDT POCT GLUCOSE, FINGERSTICK (CHARGE) Routine 03/27/2025 8:17 AM EDT XR CHEST 1 VIEW-PORTABLE Routine 025 7:42 AM EDT COMPLETE BLOOD COUNT, WITHOUT DIFFERENTIAL Routine 03/27/2025 5:30 AM EDT BASIC METABOLIC PANEL Routine 03/27/2025 5:30 AM EDT MAGNESIUM Routine 03/27/2025 5:30 AM EDT ECG 12-LEAD Routine 03/27/2025 4:15 AM EDT POCT GLUCOSE, FINGERSTICK (CHARGE) Routine 03/27/2025 1:24 AM EDT POCT GLUCOSE, FINGERSTICK (CHARGE) Routine 03/26/2025 8:57 PM EDT XR CHEST 1 VIEW-PORTABLE STAT 025 8:49 PM EDT POCT GLUCOSE, FINGERSTICK (CHARGE) Routine 03/26/2025 5:26 PM EDT POCT GLUCOSE, FINGERSTICK (CHARGE) Routine 03/26/2025 12:02 PM EDT XR CHEST 1 VIEW-PORTABLE Routine 025 8:40 AM EDT POCT GLUCOSE, FINGERSTICK (CHARGE) Routine 03/26/2025 8:16 AM EDT ECG 12-LEAD STAT 03/26/2025 7:13 AM EDT MAGNESIUM Routine 03/26/2025 4:56 AM EDT COMPLETE BLOOD COUNT, WITHOUT DIFFERENTIAL Routine 03/26/2025 4:56 AM EDT BASIC METABOLIC PANEL Routine 03/26/2025 4:56 AM EDT POCT GLUCOSE, FINGERSTICK (CHARGE) Routine 03/25/2025 9:30 PM EDT POCT GLUCOSE, FINGERSTICK (CHARGE) Routine 03/25/2025 5:12 PM EDT ECG 12-LEAD Routine 03/25/2025 12:36 PM EDT POCT GLUCOSE, FINGERSTICK (CHARGE) Routine 03/25/2025 12:28 PM EDT POCT GLUCOSE, FINGERSTICK (CHARGE) Routine 03/25/2025 12:28 PM EDT POCT GLUCOSE, FINGERSTICK (CHARGE) Routine 03/25/2025 8:57 AM EDT XR CHEST 1 VIEW-PORTABLE Routine 025 6:14 AM EDT POCT GLUCOSE, FINGERSTICK (CHARGE) Routine 03/25/2025 5:50 AM EDT POTASSIUM Routine 03/25/2025 5:06 AM EDT POCT GLUCOSE, FINGERSTICK (CHARGE) Routine 03/25/2025 5:05 AM EDT POCT GLUCOSE, FINGERSTICK (CHARGE) Routine 03/25/2025 4:16 AM EDT POCT GLUCOSE, FINGERSTICK (CHARGE) Routine 03/25/2025 3:26 AM EDT POCT GLUCOSE, FINGERSTICK (CHARGE) Routine 03/25/2025 1:47 AM EDT POCT GLUCOSE, FINGERSTICK (CHARGE) Routine 03/25/2025 12:40 AM EDT HEMOGLOBIN A1C WITH ESTIMATED AVERAGE GLUCOSE Routine 03/25/2025 12:38 AM EDT MAGNESIUM Routine 03/25/2025 12:38 AM EDT COMPLETE BLOOD COUNT, WITHOUT DIFFERENTIAL Routine 03/25/2025 12:38 AM EDT BASIC METABOLIC PANEL Routine 03/25/2025 12:38 AM EDT POCT GLUCOSE, FINGERSTICK (CHARGE) Routine 03/24/2025 10:51 PM EDT POCT GLUCOSE, FINGERSTICK (CHARGE) Routine 03/24/2025 9:13 PM EDT BLOOD GAS, ARTERIAL Routine 03/24/2025 7 :19 PM EDT POCT GLUCOSE, FINGERSTICK (CHARGE) Routine 03/24/2025 7:17 PM EDT POTASSIUM Routine 03/24/2025 6:59 PM EDT HEMATOCRIT Routine 03/24/2025 6:59 PM EDT EXTUBATION Routine 03/24/2025 6:34 PM EDT POCT GLUCOSE, FINGERSTICK (CHARGE) Routine 03/24/2025 6:07 PM EDT BLOOD GAS, ARTERIAL Routine 03/24/2025 5 :27 PM EDT POCT GLUCOSE, FINGERSTICK (CHARGE) Routine 03/24/2025 5:01 PM EDT POCT GLUCOSE, FINGERSTICK (CHARGE) Routine 03/24/2025 3:37 PM EDT XR CHEST 1 VIEW-PORTABLE Routine 025 3:24 PM EDT BLOOD GAS, ARTERIAL Routine 03/24/2025 2 :43 PM EDT BASIC METABOLIC PANEL Routine 03/24/2025 2:43 PM EDT COMPLETE BLOOD COUNT, WITHOUT DIFFERENTIAL Routine 03/24/2025 2:43 PM EDT ECG 12-LEAD STAT 03/24/2025 2:39 PM EDT POCT GLUCOSE, FINGERSTICK (CHARGE) Routine 03/24/2025 2:26 PM EDT ISTAT HEMOGLOBIN (ACTIVE) (NO CHARGE) Routine 03/24/2025 1:44 PM EDT ISTAT HEMATOCRIT (ACTIVE) (NO CHARGE) Routine 03/24/2025 1:44 PM EDT ISTAT GLUCOSE (NO CHARGE) Routine 2024 1:44 PM EDT ISTAT ARTERIAL BLOOD GAS (ABG) (NO CHARGE) Routine 03/24/2025 1:44 PM EDT ISTAT CALCIUM, IONIZED (ICA) (NO CHARGE) Routine 03/24/2025 1:44 PM EDT ISTAT POTASSIUM (K) (NO CHARGE) Routine 03/24/2025 1:44 PM EDT ISTAT SODIUM (NA) (NO CHARGE) Routine 03/24/2025 1:44 PM EDT ISTAT ACTIVATED CLOTTING TIME, KAOLIN (CHARGE) Routine 03/24/2025 1:10 PM EDT ISTAT HEMOGLOBIN (ACTIVE) (NO CHARGE) Routine 03/24/2025 1:09 PM EDT ISTAT HEMATOCRIT (ACTIVE) (NO CHARGE) Routine 03/24/2025 1:09 PM EDT ISTAT GLUCOSE (NO CHARGE) Routine 2024 1:09 PM EDT ISTAT ARTERIAL BLOOD GAS (ABG) (NO CHARGE) Routine 03/24/2025 1:09 PM EDT ISTAT CALCIUM, IONIZED (ICA) (NO CHARGE) Routine 03/24/2025 1:09 PM EDT ISTAT POTASSIUM (K) (NO CHARGE) Routine 03/24/2025 1:09 PM EDT ISTAT SODIUM (NA) (NO CHARGE) Routine 03/24/2025 1:09 PM EDT ISTAT ACTIVATED CLOTTING TIME, KAOLIN (CHARGE) Routine 03/24/2025 12:43 PM EDT ISTAT HEMOGLOBIN (ACTIVE) (NO CHARGE) Routine 03/24/2025 12:38 PM EDT ISTAT HEMATOCRIT (ACTIVE) (NO CHARGE) Routine 03/24/2025 12:38 PM EDT ISTAT GLUCOSE (NO CHARGE) Routine 2024 12:38 PM EDT ISTAT ARTERIAL BLOOD GAS (ABG) (NO CHARGE) Routine 03/24/2025 12:38 PM EDT ISTAT CALCIUM, IONIZED (ICA) (NO CHARGE) Routine 03/24/2025 12:38 PM EDT ISTAT POTASSIUM (K) (NO CHARGE) Routine 03/24/2025 12:38 PM EDT ISTAT SODIUM (NA) (NO CHARGE) Routine 03/24/2025 12:38 PM EDT THROMBOELASTOGRAPH (TEG) Routine 025 12:24 PM EDT PLATELET COUNT Routine 03/24/2025 12:24 PM EDT HEMATOCRIT Routine 03/24/2025 12:24 PM EDT ANES LINE - CENTRAL, DOUBLE LUMEN Routine 03/24/2025 12:16 PM EDT ANES ROSALIA Routine 03/24/2025 12:15 PM EDT ANES LINE - ARTERIAL Routine 03/24/2025 12:15 PM EDT ISTAT ACTIVATED CLOTTING TIME, KAOLIN (CHARGE) Routine 03/24/2025 12:07 PM EDT ISTAT HEMOGLOBIN (ACTIVE) (NO CHARGE) Routine 03/24/2025 12:01 PM EDT ISTAT HEMATOCRIT (ACTIVE) (NO CHARGE) Routine 03/24/2025 12:01 PM EDT ISTAT GLUCOSE (NO CHARGE) Routine 2024 12:01 PM EDT ISTAT ARTERIAL BLOOD GAS (ABG) (NO CHARGE) Routine 03/24/2025 12:01 PM EDT ISTAT CALCIUM, IONIZED (ICA) (NO CHARGE) Routine 03/24/2025 12:01 PM EDT ISTAT POTASSIUM (K) (NO CHARGE) Routine 03/24/2025 12:01 PM EDT ISTAT SODIUM (NA) (NO CHARGE) Routine 03/24/2025 12:01 PM EDT ISTAT ACTIVATED CLOTTING TIME, KAOLIN (CHARGE) Routine 03/24/2025 11:36 AM EDT ISTAT HEMOGLOBIN (ACTIVE) (NO CHARGE) Routine 03/24/2025 11:32 AM EDT ISTAT HEMATOCRIT (ACTIVE) (NO CHARGE) Routine 03/24/2025 11:32 AM EDT ISTAT GLUCOSE (NO CHARGE) Routine 2024 11:32 AM EDT ISTAT ARTERIAL BLOOD GAS (ABG) (NO CHARGE) Routine 03/24/2025 11:32 AM EDT ISTAT CALCIUM, IONIZED (ICA) (NO CHARGE) Routine 03/24/2025 11:32 AM EDT ISTAT POTASSIUM (K) (NO CHARGE) Routine 03/24/2025 11:32 AM EDT ISTAT SODIUM (NA) (NO CHARGE) Routine 03/24/2025 11:32 AM EDT ISTAT ACTIVATED CLOTTING TIME, KAOLIN (CHARGE) Routine 03/24/2025 11:18 AM EDT ISTAT HEMOGLOBIN (ACTIVE) (NO CHARGE) Routine 03/24/2025 11:11 AM EDT ISTAT HEMATOCRIT (ACTIVE) (NO CHARGE) Routine 03/24/2025 11:11 AM EDT ISTAT GLUCOSE (NO CHARGE) Routine 2024 11:11 AM EDT ISTAT ARTERIAL BLOOD GAS (ABG) (NO CHARGE) Routine 03/24/2025 11:11 AM EDT ISTAT CALCIUM, IONIZED (ICA) (NO CHARGE) Routine 03/24/2025 11:11 AM EDT ISTAT POTASSIUM (K) (NO CHARGE) Routine 03/24/2025 11:11 AM EDT ISTAT SODIUM (NA) (NO CHARGE) Routine 03/24/2025 11:11 AM EDT ISTAT ACTIVATED CLOTTING TIME, KAOLIN (CHARGE) Routine 03/24/2025 10:56 AM EDT ANES INTUBATION Routine 03/24/2025 10:36 AM EDT ISTAT ACTIVATED CLOTTING TIME, KAOLIN (CHARGE) Routine 03/24/2025 10:29 AM EDT ISTAT HEMOGLOBIN (ACTIVE) (NO CHARGE) Routine 03/24/2025 10:24 AM EDT ISTAT HEMATOCRIT (ACTIVE) (NO CHARGE) Routine 03/24/2025 10:24 AM EDT ISTAT GLUCOSE (NO CHARGE) Routine 2024 10:24 AM EDT ISTAT ARTERIAL BLOOD GAS (ABG) (NO CHARGE) Routine 03/24/2025 10:24 AM EDT ISTAT CALCIUM, IONIZED (ICA) (NO CHARGE) Routine 03/24/2025 10:24 AM EDT ISTAT POTASSIUM (K) (NO CHARGE) Routine 03/24/2025 10:24 AM EDT ISTAT SODIUM (NA) (NO CHARGE) Routine 03/24/2025 10:24 AM EDT ISTAT ACTIVATED CLOTTING TIME, KAOLIN (CHARGE) Routine 03/24/2025 8:45 AM EDT ISTAT HEMOGLOBIN (ACTIVE) (NO CHARGE) Routine 03/24/2025 8:44 AM EDT ISTAT HEMATOCRIT (ACTIVE) (NO CHARGE) Routine 03/24/2025 8:44 AM EDT ISTAT GLUCOSE (NO CHARGE) Routine 2024 8:44 AM EDT ISTAT ARTERIAL BLOOD GAS (ABG) (NO CHARGE) Routine 03/24/2025 8:44 AM EDT ISTAT CALCIUM, IONIZED (ICA) (NO CHARGE) Routine 03/24/2025 8:44 AM EDT ISTAT POTASSIUM (K) (NO CHARGE) Routine 03/24/2025 8:44 AM EDT ISTAT SODIUM (NA) (NO CHARGE) Routine 03/24/2025 8:44 AM EDT THROMBOELASTOGRAPH (TEG) Routine 025 8:40 AM EDT MI NDSC SURG W/VIDEO-ASSISTED HARVEST VEIN CABG 03/24/2025 8:11 AM EDT Ascending aortic aneurysm, unspecified whether ruptured Coronary artery disease involving [place] coronary artery of [place] heart, unspecified whether angina present [place] CORONARY ARTERY BYP W/VEIN & ARTERY GRAFT 1 VEIN 03/24/2025 8:11 AM EDT Ascending aortic aneurysm, unspecified whether ruptured Coronary artery disease involving [place] coronary artery of [place] heart, unspecified whether angina present [place] REPLACEMENT AORTIC VALVE 03/24/2025 8:11 AM EDT Ascending aortic aneurysm, unspecified whether ruptured Coronary artery disease involving [place] coronary artery of [place] heart, unspecified whether angina present TRANSESOPHAGEAL ECHO-ANESTHESIA Routine 03/24/2025 7:59 AM EDT TYPE AND SCREEN Routine 03/24/2025 7:40 AM EDT POCT GLUCOSE, FINGERSTICK (CHARGE) Routine 03/24/2025 7:27 AM EDT PREPARE RBC'S Routine 03/24/2025 7:13 AM EDT PATHOLOGY REPORT Routine 03/24/2025 12:0 0 AM EDT ECG 12-LEAD Routine 02/24/2025 9:25 AM EDT Coronary artery disease due to lipid rich plaque CT THORAX W/O CONTRAST Routine 10:50 AM EDT Atherosclerosis of [place] coronary artery of [place] heart with angina pectoris Aortic root aneurysm Preoperative testing LIPID PANEL Routine 10/26/2022 7:09 AM EDT from Last 3 Months or Most Recently Relevant to Health Maintenance Results * ECHOCARDIOGRAM LIMITED WITH CONTRAST (05/02/2025 [...] a ROSALIA, LV systolic function has declined. Annie Macdonald MD CV ECHO ORDERABLES Final Result * ECG 12 lead (04/15/2025 1:50 PM EDT) Only the most recent of9 resultswithin the time period is included. [facility] Ventricular rate 77 BPM EKG [facility] Atrial rate 77 BPM EKG [facility] P-R interval 226 ms EKG [facility] QRS duration 142 ms [facility] Q-T interval 452 ms [facility] QTC calculation (Bazett) 511 ms EKG [facility] P axis 2 degrees EKG [facility] R axis -76 degrees EKG [facility] T axis -9 degrees [facility] 04/15/2025 1:50 PM EDT Narrative EKG [facility] - 05/03/2025 1:23 PM EDT Sinus rhythm with 1st degree A-V block Left axis deviation Right bundle branch block Abnormal ECG When compared with ECG of 07-Apr-2025 10:01, Sinus rhythm has replaced Atrial fibrillation Criteria for Septal infarct are no longer Present Confirmed by VIDYA Lo Erin () on 05/03/2025 1:23:19 PM Procedure Note Grace Lo PA - 05/03/2025 Sinus rhythm with 1st degree A-V block Left axis deviation Right bundle branch block Abnormal ECG When compared with ECG of 07-Apr-2025 10:01, Sinus rhythm has replaced Atrial fibrillation Criteria for Septal infarct are no longer Present Confirmed by VIDYA Lo Erin () on 05/03/2025 1:23:19 PM Grace DASILVA ECG ORDERABLES Final Result [facility] * (ABNORMAL) POCT Glucose, Fingerstick (03/31/2025 8:05 AM EDT) Only the most recent of42 resultswithin the time period is included. POC Glucose 127(H) 65 - 99 mg/dL 03/31/2025 8:19 AM EDT Blood specimen / Unknown 03/31/2025 8:05 AM EDT 03/31/2025 8:19 AM EDT us Annie Macdonald MD POINT OF CARE TEST ORDERABLES Fi nal Result Performing Organization Address City/[facility]/ZIP Co de Phone Number HOSPITAL LAB See Below * Phosphorus (03/31/2025 6:14 AM EDT) Pathologist [facility] Phosphorus 3.2 2.7 - 4.5 mg/dL 03/31/2025 8:21 AM EDT [facility] Blood Blood specimen / Unknown 03/31/2025 6:14 AM EDT 03/31/2025 7:44 AM EDT Tarsha Michelle APRN LAB BLOOD ORDERABLES Final R esult Performing Organization Address [facility] [place] [address], [place] [address] * Magnesium (03/31/2025 6:14 AM EDT) Only the most recent of7 resultswithin the time period is included. [facility] Magnesium 2.0 1.6 - 2.7 mg/dL 03/31/2025 8:21 AM EDT [facility] Blood Blood specimen / Unknown 03/31/2025 6:14 AM EDT 03/31/2025 7:44 AM EDT Tarsha Michelle RN IV THERAPY LAB BLOOD ORDERABLES Final R esult Performing Organization Address [facility] [place] [address], [place] [address] * (ABNORMAL) Basic Metabolic Panel (03/31/2025 6:14 AM EDT) Only the most recent of9 resultswithin the time period is included. Glucose 105(H) 65 - 99 mg/dL 03/31/2025 8:21 AM [facility] Comment:Fasting: <100 mg/dL, Non-Fasting: <200 mg/dL (ADA 2004) Blood Urea Nitrogen (BUN) 16 8 - 21 mg/dL 03/31/2025 8:21 AM [facility] Creatinine 0.75 0.50 - 1.30 mg/dL 03/31/2025 8:21 AM [facility] eGFR >90 >59 03/31/2025 8:21 AM [facility] Comment:CKD-EPI (2020) in mL /min/1.73 sq meters. Sodium 140 136 - 145 mmol/L 03/31/2025 8:21 AM [facility] Potassium 4.1 3.4 - 5.3 mmol/L 03/31/2025 8:21 AM [facility] Chloride 105 98 - 107 mmol/L 03/31/2025 8:21 AM [facility] CO2 21(L) 22 - 33 mmol/L 03/31/2025 8:21 AM [facility] Anion Gap 14 7 - 17 03/31/2025 8:21 AM [facility] Calcium 8.4(L) 8.7 - 10.5 mg/dL 03/31/2025 8:21 AM [facility] BUN/Creatinine Ratio 21 10.0 - 25.0 Ratio 03/31/2025 8:21 AM [facility] Blood Blood specimen / Unknown 03/31/2025 6:14 AM EDT 03/31/2025 7:44 AM EDT us Tarsha Michelle APRN LAB BLOOD ORDERABLES Final R esult [address] [address], [address] [address] * XR Chest 1 view-Portable (03/30/2025 5:12 PM EDT) Only the most recent of6 resultswithin the time period is included. Anatomical Region Laterality Modality Chest Computed Radiogr aphy 03/30/2025 3:50 PM EDT Impressions 04/02/2025 11:14 AM EDT Improved aeration at the left lung base retrocardiac region compared to last x-ray of 03/28/2025 with persistent streaky opacities favoring atelectasis. No new airspace opacities. Trace right and small left pleural effusions are unchanged. No evidence of pulmonary edema. Narrative 04/02/2025 11:14 AM EDT EXAMINATION: XR CHEST CLINICAL INFORMATION: Shortness of breath COMPARISON: Chest x-rays of 03/28/2025, 03/27/2025, 03/24/[address] of 02/18/2025 TECHNIQUE: Frontal view of the chest was obtained. FINDINGS: Intrathoracic postsurgical changes with intact appearing sternotomy wires, prosthetic cardiac valve and multiple mediastinal surgical clips are new compared to previous CT of 02/18/2025 and similar to chest x-ray of 03/24/2025. Trace right and small left pleural effusions are similar to that seen on the chest x-ray of 03/28/2025. Cardiomediastinal silhouette is stable. Aortic arch calcifications are redemonstrated. Lungs are symmetrically adequately expanded. There is improved aeration at the left lung base retrocardiac region with residual streaky retrocardiac densities. No new airspace opacities are noted. No evidence of changes of pulmonary edema or pneumothorax. Multiple EKG leads and wires overlie the chest and upper abdomen. Procedure Note Kelly Pedersen MD - 04/02/2025 EXAMINATION: XR CHEST CLINICAL INFORMATION: Shortness of breath COMPARISON: Chest x-rays of 03/28/2025, 03/27/2025, 03/24/[address] of 02/18/2025 TECHNIQUE: Frontal view of the chest was obtained. FINDINGS: Intrathoracic postsurgical changes with intact appearing sternotomy wires, prosthetic cardiac valve and multiple mediastinal surgical clips are new compared to previous CT of 02/18/2025 and similar to chest x-ray of 03/24/2025. Trace right and small left pleural effusions are similar to that seen on the chest x-ray of 03/28/2025. Cardiomediastinal silhouette is stable. Aortic arch calcifications are redemonstrated. Lungs are symmetrically adequately expanded. There is improved aeration at the left lung base retrocardiac region with residual streaky retrocardiac densities. No new airspace opacities are noted. No evidence of changes of pulmonary edema or pneumothorax. Multiple EKG leads and wires overlie the chest and upper abdomen. IMPRESSION: Improved aeration at the left lung base retrocardiac region compared to last x-ray of 03/28/2025 with persistent streaky opacities favoring atelectasis. No new airspace opacities. Trace right and small left pleural effusions are unchanged. No evidence of pulmonary edema. Tarsha Michelle APRN IMG DIAGNOSTIC IMAGING ORDER ADRIEN Final Result * (ABNORMAL) COMPLETE BLOOD COUNT, WITHOUT DIFFERENTIAL (03/30/2025 6:00 AM EDT) Only the most recent of7 resultswithin the time period is included. White Blood Cell Count 9.0 4.0 - 11.0 Thou/uL 03/30/2025 8:16 AM [facility] Platelet Count 206 150 - 450 Thou/uL 03/30/2025 8:16 AM [facility] Hemoglobin 10.1(L) 13.0 - 17.7 g/dL 03/30/2025 8:16 AM [facility] Hematocrit 31.2(L) 39.0 - 54.0 % 03/30/2025 8:16 AM [facility] Red Blood Cell Count 3.41(L) 4.50 - 6.20 Mil/uL 03/30/2025 8:16 AM [facility] MCV 92 80 - 100 fL 03/30/2025 8:16 AM [facility] MCH 29.6 27.0 - 31.0 pg 03/30/2025 8:16 AM [facility] MCHC 32.4 30.0 - 36.0 g/dL 03/30/2025 8:16 AM [facility] RDW 13.2 11.5 - 14.5 % 03/30/2025 8:16 AM [facility] MPV 11.7 7.5 - 12.5 fL 03/30/2025 8:16 AM EDT [facility] Blood Blood specimen / Unknown 03/30/2025 6:00 AM EDT 03/30/2025 8:09 AM EDT Aundrea Jose SPANGLER LAB BLOOD ORDERABLES Final Result [address] [address], [address] [address] * VAS VENOUS DUPLEX ARM (DVT)-RIGHT (03/29/2025 3:47 PM EDT) Anatomical Region Laterality Modality Ultrasound 03/29/2025 3:00 PM EDT Narrative 03/29/2025 5:34 PM EDT Table formatting from the original result was not included. Department: [facility] Vascular Lab Patient: [id number] (JEFF MUNIZ) Patient Location: ..[id number] CPT Code: 52998 ICD-9: Referring Physician: AUNDREA RIVERA Impression Right upper extremity venous duplex ultrasound exam demonstrates acute superficial thrombus involving the cephalic vein in the distal forearm to the antecubital fossa. Diagnosis of acute thrombosis is supported by the low level of echogenicity of the thrombus in the distended vein. The cephalic vein becomes patent in the distal upper arm. Indications Right Swelling of Limb [M79.89]. Right Limb Pain [M79.609]. 74 year old male history of stroke, carotid stenosis, T2DM, aortic aneurysm. Presents with right upper extremity pain and swelling. Findings: Right Impression Spont Phasic Compress Internal Jugular Vein Normal Yes Yes Complete Innominate Vein Normal Yes Yes Proximal Subclavian Vein Normal Yes Yes Distal Subclavian Vein Normal Yes Yes Complete Axillary Normal Yes Yes Complete Brachial Normal Complete Cephalic Acute Complete Thrombus Non-compressible Basilic Normal Complete Left Impression Spont Phasic Distal Subclavian Vein Normal Yes Yes Electronically Signed by: Teresa Bailey on 2025-03-29 05:34:13 PM End of Report Procedure Note Teresa Bailey MD - 03/29/2025 Department: [facility] V[facility] Lab Patient: [id number] (JEFF MUNIZ) Patient [id number] CPT Code: 83553 ICD-9: Referring Physician: AUNDREA RIVERA Impression Right upper extremity venous duplex ultrasound exam demonstrates acutesuperficial thrombus involving the cephalic vein in the distal forearm tothe antecubital fossa. Diagnosis of acute thrombosis is supported by thelow level of echogenicity of the thrombus in the distended vein. Thecephalic vein becomes patent in the distal upper arm. Indications Right Swelling of Limb [M79.89]. Right Limb Pain [M79.609]. 74 year old male history of stroke, carotid stenosis, T2DM, aorticaneurysm. Presents with right upper extremity pain and swelling. Findings: Right Impression Spont Phasic Compress Internal Jugular Vein Normal Yes Yes Complete Innominate Vein Normal Yes Yes Proximal Subclavian Vein Normal Yes Yes Distal Subclavian Vein Normal Yes Yes Complete Axillary Normal Yes Yes Complete Brachial Normal Complete Cephalic Acute Complete Thrombus Non-compressible Basilic Normal Complete Left Impression Spont Phasic Distal Subclavian Vein Normal Yes Yes Electronically Signed by: Teresa Bailey on 2025-03-29 05:34:13 PM End of Report Aundrea Garcia PA-C VASCULAR LAB ORDERABLES Fi nal Result * ECHOCARDIOGRAM TRANSESOPHAGEAL WITH CARDIOVERSION (03/29/2025 9:22 AM EDT) LVOT diameter 2.4 cm LVOT diameter mean 2.4 cm Heart Rate 88 bpm BP Systolic 118 mmHg BP Diastolic 65 mmHg Height 71.00 inches Weight 169.00 lbs LVOT area 4.5 cm2 BSA 1.96 m2 LVOT stroke volume 64 mL SVI 33 mL/m2 Left Ventricular Cardiac Index 2.9 L/min/m2 Left Ventricular Cardiac Output 5.6 L/min LVOT peak brandy 0.9 m/s AV LVOT peak gradient 3.2 mmHg Ao peak brandy 1.3 m/s AV peak gradient 6.8 mmHg AV mean gradient 2.8 mmHg Ao VTI 21.9 cm LVOT VTI 14.1 cm AV area by cont VTI 2.9 cm2 Valve area - Index 1.5 cm2/m2 Dimensionless Index 0.64 Sinuses of Valsalva 4.0 cm Sinuses of Valsalva Index 2.0 cm/m2 LVOT SI 32.47 mL/m2 Anatomical Region Laterality Modality Heart Ultrasound Narrative 03/29/2025 12:44 PM EDT Post-procedure the patient was cardioverted to sinus rhythm with 120 joules of biphasic current. The left ventricle is normal in size. Left ventricular systolic function is mildly decreased with an estimated ejection fraction of 45-49%. The right ventricle is mildly dilated. Right ventricular systolic function is mildly reduced. A bioprosthetic valve is in place across the aortic annulus. There is trace transvalvular aortic regurgitation. The gradient recorded across the prosthetic aortic valve is within the expected range. The calculated valve area is 2.9 cm2, with a peak velocity of 1.3 m/s, a mean gradient of 2.8 mmHg, and a dimensionless index of 0.64. The prosthetic aortic valve appears to be functioning normally. Valve leaflet motion is normal. There is mild mitral regurgitation. There is no thrombus in the left atrial appendage. There is a patent foramen ovale with predominant left to right shunting indicated by color Doppler. An atrial septal aneurysm is present. There is a minimal pericardial effusion.There is a left pleural effusion. Compared to previous study on 12/29/2024, s/p AVR-CABG. Technical Details Doppler color flow mapping and pulsed wave and/or continuous wave with spectral doppler interrogation, complete, were performed during the study. Moderate sedation was given. Overall the study quality was adequate. Sedation was performed by anesthesiology. Left Ventricle The left ventricle is normal in size. Left ventricular systolic function is mildly decreased with an estimated ejection fraction of 45-49%. Right Ventricle The right ventricle is mildly dilated. Right ventricular systolic function is mildly reduced. Left Atrium The pulmonary veins exhibit diastolic dominant flow. Appendage velocity is reduced at less than 40 cm/sec. There is no thrombus in the left atrial appendage. Right Atrium There is a patent foramen ovale with predominant left to right shunting indicated by color Doppler. An atrial septal aneurysm is present. Mitral Valve The mitral leaflets are mildly thickened. There is mild mitral regurgitation. Tricuspid Valve The tricuspid valve was not well visualized. There is trace tricuspid regurgitation. The absence of sufficient significant tricuspid regurgitation precludes estimation of right ventricular systolic pressure. Aortic Valve A bioprosthetic valve is in place across the aortic annulus. There is trace transvalvular aortic regurgitation. The gradient recorded across the prosthetic aortic valve is within the expected range. The calculated valve area is 2.9 cm2, with a peak velocity of 1.3 m/s, a mean gradient of 2.8 mmHg, and a dimensionless index of 0.64.The prosthetic aortic valve appears to be functioning normally. Valve leaflet motion is normal. Pulmonic Valve The pulmonic valve is structurally normal. There is mild pulmonic regurgitation. There is no pulmonic valve stenosis. Ascending Aorta The aortic root is mildly dilated at 4.0 cm. The ascending aorta was not well-visualized. Pericardium There is a minimal pericardial effusion.There is a left pleural effusion. Study Details Consent was obtained for transesophageal echocardiography. Sedation was provided by anesthesia (see their flowsheet for details). The transesophageal probe was inserted atraumatically into the esophagus by the kick boxer. With the patient in a supine position the probe was advanced to approximately 40 cm and the echocardiographic examination was completed. At the end of the examination the ROSALIA probe was removed and the patient was then monitored by anesthesia. No apparent complications were noted from the procedure. Post-procedure the patient was cardioverted to sinus rhythm with 120 joules of biphasic current. Prior Study Compared to previous study on 12/29/2024, s/p AVR-CABG.. us Beatriz Méndez PA-C CV ECHO ORDERABLES Final Result * XR Chest 2 views (03/28/2025 10:29 AM EDT) Anatomical Region Laterality Modality Chest Computed Radiogr aphy 03/28/2025 10:2 9 AM EDT Impressions 03/29/2025 11:38 AM EDT 1. Persistent consolidation left lower lung unchanged. 2. Persistent small bilateral pleural effusions. Narrative 03/29/2025 11:38 AM EDT EXAMINATION: XR CHEST CLINICAL INFORMATION: s/p cardiac surgery COMPARISON: Chest x-ray March 27, 2025 TECHNIQUE: PA and lateral radiographs of the chest were obtained. FINDINGS: Postoperative changes with sternotomy wires and valve replacement noted. Cardiac mediastinal silhouette unchanged. Persistent consolidation left lower lung unchanged. Persistent small bilateral pleural effusions. No pneumothorax Procedure Note Solitario Rowley MD - 03/29/2025 EXAMINATION: XR CHEST CLINICAL INFORMATION: s/p cardiac surgery COMPARISON: Chest x-ray March 27, 2025 TECHNIQUE: PA and lateral radiographs of the chest were obtained. FINDINGS: Postoperative changes with sternotomy wires and valve replacement noted. Cardiac mediastinal silhouette unchanged. Persistent consolidation left lower lung unchanged. Persistent small bilateral pleural effusions. No pneumothorax IMPRESSION: 1. Persistent consolidation left lower lung unchanged. 2. Persistent small bilateral pleural effusions. Fransisco Pacheco PA-C IMG DIAGNOSTIC IMAGING OR DERABLES Final Result * Potassium (03/25/2025 5:06 AM EDT) Only the most recent of2 resultswithin the time period is included. Potassium 4.5 3.4 - 5.3 mmol/L 03/25/2025 5:45 AM EDT [facility] Blood Blood specimen / Unknown 03/25/2025 5:06 AM EDT 03/25/2025 5:20 AM EDT Flora Morris PA-C LAB BLOOD ORDERABLES [place] [address], [place] [address] * (ABNORMAL) Hemoglobin A1c with Estimated Average Glucose (Early AM) (03/25/2025 12:38 AM EDT) Hemoglobin A1C 6.5(H) <5.7 % 03/25/2025 1:37 AM EDT [facility] Comment: A1c% Interpretation 5.7 - 6.0 Increase risk of diabetes 6.1 - 6.4 Higher risk of diabetes > or = 6.5 Consistent with diabetes Diabetes Care, 33(Supp 1):S1-S61, 2009 Estimated Average Glucose 140 mg/dL 03/25/2025 1:37 AM EDT [facility] Blood Blood specimen / Unknown 03/25/2025 12:38 AM EDT 03/25/2025 12:54 AM EDT us Everardo Ruiz DO LAB BLOOD ORDERABLES Final Resu lt Performing Organization Address [facility] Co de Phone Number [address] [address], [address] [address] * (ABNORMAL) Blood Gas, Arterial (STAT) (03/24/2025 7:19 PM EDT) Only the most recent of3 resultswithin the time period is included. pH, Arterial 7.33(L) 7.35 - 7.45 03/24/2025 8:09 PM EDT [facility] pCO2, Arterial 40 32 - 45 mmHG 03/24/2025 8:09 PM EDT [facility] pO2, Arterial 120(H) 75 - 95 mmHG 03/24/2025 8:09 PM EDT [facility] CO2, Total 22 22 - 28 mmol/L 03/24/2025 8:09 PM EDT [facility] Respiratory Info NASAL 4 L/MIN 03/24/2025 7:19 PM EDT [facility] Base Deficiency 4.8 mmol/L 8:09 PM EDT [facility] Comment:Reference Range: Neg ative 2 to Positive 3 Blood Blood specimen / Unknown 03/24/2025 7:19 PM EDT 03/24/2025 7:31 PM EDT us Annie Macdonald MD LAB BLOOD ORDERABLES Final Resul t Performing Organization Address City/[facility]/ZIP Co de Phone Number [address] [address], [address] [address] * (ABNORMAL) Hematocrit (03/24/2025 6:59 PM EDT) Only the most recent of2 resultswithin the time period is included. Hematocrit 38.2(L) 39.0 - 54.0 % 03/24/2025 7:56 PM EDT [facility] Blood Blood specimen / Unknown 03/24/2025 6:59 PM EDT 03/24/2025 7:39 PM EDT us Sary Steele PA-C LAB BLOOD ORDERABLES Final Result Performing Organization Address [facility] Co de Phone Number [address] [address], [address] [address] * (ABNORMAL) ISTAT Hemoglobin (03/24/2025 1:44 PM EDT) Only the most recent of8 resultswithin the time period is included. Hemoglobin, I-STAT 10.2(L) 13.0 - 17.7 gm/dL 03/24/2025 7:01 PM EDT Blood specimen / Unknown 03/24/2025 1:44 PM EDT 03/24/2025 7:00 PM EDT us Annie Macdonald MD POCT ORDERABLES - DEVICE Final R esult Performing Organization Address [facility] de Phone Number [facility] LAB See Below * (ABNORMAL) ISTAT Hematocrit (03/24/2025 1:44 PM EDT) Only the most recent of8 resultswithin the time period is included. Hematocrit, I-STAT 30.0(L) 39.0 - 54.0 % 03/24/2025 7:01 PM EDT Blood specimen / Unknown 03/24/2025 1:44 PM EDT 03/24/2025 7:00 PM EDT us Annie Macdonald MD POCT ORDERABLES - DEVICE Final R esult Performing Organization Address [facility] de Phone Number [facility] LAB See Below * (ABNORMAL) ISTAT Calcium, Ionized (ICA) (03/24/2025 1:44 PM EDT) Only the most recent of8 resultswithin the time period is included. Ionized Calcium, I-STAT 1.13(L) 1.17 - 1.33 mmol/L 03/24/2025 7:01 PM EDT Blood specimen / Unknown 03/24/2025 1:44 PM EDT 03/24/2025 7:00 PM EDT us Annie Macdonald MD POINT OF CARE TEST ORDERABLES Fi nal Result Performing Organization Address [facility] LAB See Below * ISTAT Potassium (K) (03/24/2025 1:44 PM EDT) Only the most recent of8 resultswithin the time period is included. Potassium, I-STAT 3.9 3.4 - 5.3 mmol/L 03/24/2025 7:01 PM EDT Blood specimen / Unknown 03/24/2025 1:44 PM EDT 03/24/2025 7:00 PM EDT us Annie Macdonald MD POINT OF CARE TEST ORDERABLES Fi nal Result Performing Organization Address [facility] LAB See Below * ISTAT Sodium (Na) (03/24/2025 1:44 PM EDT) Only the most recent of8 resultswithin the time period is included. Sodium, I-STAT 143 136 - 145 mmol/L 03/24/2025 7:01 PM EDT Blood specimen / Unknown 03/24/2025 1:44 PM EDT 03/24/2025 7:00 PM EDT us Annie Macdonald MD POINT OF CARE TEST ORDERABLES Fi nal Result Performing Organization Address [facility] LAB See Below * (ABNORMAL) ISTAT Glucose (03/24/2025 1:44 PM EDT) Only the most recent of8 resultswithin the time period is included. Glucose, I-STAT 103(H) 65 - 99 mg/dL 03/24/2025 7:01 PM EDT Blood specimen / Unknown 03/24/2025 1:44 PM EDT 03/24/2025 7:00 PM EDT us Annie Macdonald MD POCT ORDERABLES - DEVICE Final R esult Performing Organization Address [facility] de Phone Number HOSPITAL LAB See Below * (ABNORMAL) ISTAT Arterial Blood Gas (ABG) (03/24/2025 1:44 PM EDT) Only the most recent of8 resultswithin the time period is included. PH Arterial, I-STAT 7.31(L) 7.35 - 7.45 03/24/2025 7:01 PM EDT PCO2 Arterial, I-STAT 41.1 32.0 - 45.0 mmHg 03/24/2025 7:01 PM EDT PO2 Arterial, I-STAT 339(H) 75 - 95 mmHg 03/24/2025 7:01 PM EDT HCO3 Arterial, I-STAT 20.5(L) 22.0 - 26.0 mmol/L 03/24/2025 7:01 PM EDT TCO2 Arterial Calc, I-STAT 22 22 - 28 mmol/L 03/24/2025 7:01 PM EDT Base Excess, I-STAT -6 mmol/L 03/24/2025 7:01 PM EDT Comment:Reference Range: Neg ative 2 to Positive 3 SO2, I-STAT 100.0(H) 94.0 - 97.0 % 03/24/2025 7:01 PM EDT Sample Type, I-STAT Arterial 03/24/2025 7:01 PM EDT Blood specimen / Unknown 03/24/2025 1:44 PM EDT 03/24/2025 7:00 PM EDT us Annie Macdonald MD POCT ORDERABLES - DEVICE Final R esult Performing Organization Address City/[facility] Co de Phone Number HOSPITAL LAB See Below * ISTAT Activated Clotting Time, Kaolin (03/24/2025 1:10 PM EDT) Only the most recent of8 resultswithin the time period is included. Activated Clotting Time (Kaolin, I-STAT 118 74 - 137 seconds 03/24/2025 7:00 PM EDT Blood specimen / Unknown 03/24/2025 1:10 PM EDT 03/24/2025 7:00 PM EDT us Annie Macdonald MD POCT ORDERABLES - DEVICE Final R esult HOSPITAL LAB See Below * Thromboelastograph (TEG) (03/24/2025 12:24 PM EDT) Only the most recent of2 resultswithin the time period is included. Reaction Time,Heparinized 8.9 5 - 10 minutes 03/24/2025 2:42 PM EDT [facility] Fibrin Function,Heparin ized 1.7 1 - 3 minutes 03/24/2025 2:42 PM EDT [facility] Angle, Heparinized 66.1 53 - 72 degrees 03/24/2025 2:42 PM EDT [facility] Max Amplitude,Hepari nized 67.8 50 - 70 mm 03/24/2025 2:42 PM EDT [facility] %Lysis 30 min,Heparinized 0.0 0 - 8 % 03/24/2025 2:42 PM EDT [facility] Anticoagulant Information not given 03/24/2025 2:40 PM EDT [facility] 03/24/2025 12:2 4 PM EDT 03/24/2025 12:27 PM EDT us Annie Macdonald MD LAB BLOOD ORDERABLES Final Resul t Performing Organization Address [facility]/ZIP Co de Phone Number [address] [address], [address] [address] * (ABNORMAL) Platelet Count (03/24/2025 12:24 PM EDT) Platelet Count 132(L) 150 - 450 Thou/uL 03/24/2025 12:49 PM EDT [facility] Comment: Test ordered from operating room Called to LR/TRS 1306 Blood specimen / Unknown 03/24/2025 12:24 PM EDT 03/24/2025 12:42 PM EDT Annie Macdonald MD LAB BLOOD ORDERABLES Final Resul t [address] [address], [address] [address] * ANES LINE - CENTRAL, DOUBLE LUMEN (03/24/2025 12:16 PM EDT) Narrative Dimitry Greenwood DO - 03/24/2025 12:16 PM EDT Dimitry Greenwood DO 03/24/2025 12:16 PM Anesthesia Procedure Note - central line Insertion -right internal jugular Patient Name: Jeff Muniz : 1950 Patient location: OR Indications: vascular access, central pressure monitoring, blood gases, frequent lab draws and hemodynamic monitoring Procedure diagnosis: Anesthesia Performed by: Other anesthesia staff DO Dimitry Russell DO Preanesthetic Checklist monitors and equipment checked. Patient's pre-procedure mental status: awake The patient was sedated prior to procedure. Current level of sedation: general anesthesia Procedure Preparation Skin prep: 2% chlorhexidine - completely dried prior to procedure Hand hygeine performed prior to needle/catheter insertion Sterile barriers in place: cap, gloves, gown, large sterile sheet and mask No medical exclusion documented for following all elements of maximal sterile barrier technique Procedure Details Local anesthetic: not applicable Patient position: Trendelenburg Pre-procedure landmarks identified, Ultrasound guidance utilized, sterile gel and probe cover used Catheter: 9 Frdouble lumen Antiseptic used during central venous catheter insertion Number of attempts: 1 Post Procedure Post-procedure care: dressing applied, line sutured and biopatch applied Assessment: blood return through all ports and free fluid flow Guidewire: utilized and removed with entire length intact and undamaged No complications Additional Comments: 9 Luxembourgish double lumen MAC catheter placed with double lumen slick. us Jermaine Jimenez DO [place] ANESTHESIA Final Result * ANES ROSALIA (03/24/2025 12:15 PM EDT) Dimitry Yates DO - 03/24/2025 12:15 PM EDT Dimitry Greenwood DO 03/24/2025 12:16 PM Anesthesia Procedure Note - Transesophageal Echocardiogram (ROSALIA) Procedure Order: Transesophageal Echo-Anesthesia [id number] Patient Name: Jeff Muniz : 1950 Patient location: OR Indications: ischemia detection, volume assessment, regional and global function and valvular function Procedure diagnosis: Anesthesia Performed by: Anesthesiologist and Other anesthesia staff DO Dimitry Russell DO Preanesthetic Checklist monitors and equipment checked. Patient's pre-procedure mental status: awake The patient was sedated prior to procedure. Current level of sedation: general anesthesia Procedure Details A transesophageal echocardiogram procedure for diagnostic and monitoring was performed with doppler guidance. Images were stored appropriately on dining room server. Jermaine Jimenez DO [place] ANESTHESIA Final Result * ANES LINE - ARTERIAL (03/24/2025 12:15 PM EDT) Dimitry Yates DO - 03/24/2025 12:15 PM EDT Dimitry Greenwood DO 03/24/2025 12:15 PM Anesthesia Procedure Note - Arterial Line Insertion- L radial Patient Name: Jeff Muniz : 1950 Patient location: pre-op Indications: hemodynamic monitoring, blood gases, frequent lab draws and vascular access Procedure diagnosis: Anesthesia Performed by: Other anesthesia staff DO Dimitry Russell DO Procedure Preparation Skin prep: 2% chlorhexidine - completely dried prior to procedure Hand hygeine performed prior to needle/catheter insertion Sterile barriers in place: cap, gloves, gown, large sterile sheet and mask Procedure Details Warren's test normal? normal Needle: 20 g Seldinger technique used Number of attempts: 2 Ultrasound guidance utilized, sterile gel and probe cover used Post Procedure Post-procedure: stablization device applied Jermaine Jimenez DO [place] ANESTHESIA Final Result * ANES INTUBATION (03/24/2025 10:36 AM EDT) Dimitry Yates DO - 03/24/2025 10:36 AM EDT Dimitry Greenwood DO 03/24/2025 10:37 AM Anesthesia Procedure Note - Elective intubation Patient Name: Jeff Muniz : 1950 Patient location: OR Procedure indications: airway protection Procedure diagnosis: Anesthesia Performed by: Other anesthesia staff DO Dimitry Russell DO Chart Verification Airway: airway not difficult Preanesthetic Checklist monitors and equipment checked. Patient's pre-procedure mental status: awake The patient was sedated prior to procedure. Current level of sedation: general anesthesia Airway not difficult - NPO status: > 8 hours Procedure Details Intubation route: oral Intubation method: direct laryngoscopy Mac 3 Number of attempts: 1 Patient status for intubation: paralyzed, sedated and unresponsive Patient position: supine Preoxygenation: BVM Quality of BVM: easy, 1 person and oral airway Tube size: 8.0 mm Tube: standard - cuffed, cuff inflated and minimal leak test Cord visualization: Grade IIa Placement confirmation method: chest rise and ETCO2 monitor Breath sounds: equal bilaterally ETT to lip: 24 cm Dentition: same as baseline Complications: no complications us Jermaine Jimenez DO [place] ANESTHESIA Final Result * Transesophageal Echo-Anesthesia (03/24/2025 7:59 AM EDT) LV kaye vol 3D 139.7 mL LV Diastolic Volume 139 mL LV sys vol 3D 81.4 mL LV Systolic Volume 77 mL LVIDD (F:3.8-5.2, M:4.2-5.8) 6.0 cm LVIDD Mean (F:3.8-5.2, M:4.2-5.8) 6.0 cm LVIDS (F:2.2-3.5, M:2.5-4.0) 4.6 cm LVIDS (F:2.2-3.5, M:2.5-4.0) 4.6 cm LVOT diameter 2.5 cm LVOT diameter mean 2.5 cm LVOT mn grad mean 1.0 mmHg LVOT VTI MEAN 16.2 cm LVOT mn grad 1.0 mmHg LVOT VTI 16.2 cm LVOT peak brandy 0.7 m/s LVOT peak brandy mean 0.7 m/s PW (F:0.6-0.9, M:0.6-1.0) 0.7 cm PW Mean (F:0.6-0.9, M:0.6-1.0) 0.7 cm MV E' Lateral Velocity 5.25 cm/s MV E' Lateral Velocity Mean 5.25 cm/s AV P Half Time 458 ms AV P Half Time Mean 458 ms Ao peak brandy 2.4 m/s Ao peak brandy mean 2.4 m/s AV mean gradient mean 14.0 mmHg Ao VTI Mean 59.9 cm AV mean gradient 14.0 mmHg Ao VTI 59.9 cm Ascending aorta 3.8 cm Ascending aorta mean 3.8 cm Vn Nyquist 38.5 cm/s MR PISA Radius 0.3 cm MR PISA Radius Mean 0.3 cm Mitral Regurgitant Velocity Time Integral Mean 178.0 cm MV mean gradient mean 1.0 mmHg MV VTI MEAN 26.2 cm MV mean gradient 1.0 mmHg Mitral Regurgitant Velocity Time Integral 178.0 cm MV VTI 26.2 cm Mr max brandy 4.8 m/s Mr max brandy mean 4.8 m/s MV peak gradient 3.0 mmHg E wave decelartion time 209 ms E wave decelartion time mean 209 ms MV stenosis pressure 1/2 time mean 61 ms MV stenosis pressure 1/2 time 61 ms MV Peak A-Wave 43.9 cm/s MV Peak A-Wave Mean 43.9 cm/s MV Peak E-Wave 86.8 cm/s MV Peak E-Wave Mean 86.8 cm/s MV ERO 0.1 cm2 MR Int Pk Flow PISA 21.9 mL/s Jenkins BP EF (55-75) 45 % EF - 3D Echo 42 % LVOT stroke volume 79 mL LV RWT 0.23 E/A ratio 1.98 E/E' Lateral 16.5 AV LVOT peak gradient 2.0 mmHg AV peak gradient 23.0 mmHg AV area by cont VTI 1.3 cm2 LVOT area 4.9 cm2 Dimensionless Index 0.27 MV valve area p 1/2 method 3.61 cm2 MV valve area by continuity eq 3.0 cm2 MR PISA EROA 0.0 cm2 E/E' ratio 16.53 Anatomical Region Laterality Modality Ultrasound Narrative 05/05/2025 10:53 AM EDT The left ventricle is mildly dilated. Wall thickness is normal. Left ventricular systolic function is mildly decreased. The quantitative EF by 3D imaging is 42%. There is global hypokinesis without regional variation. There is grade 2 diastolic dysfunction, with elevated left atrial filling pressure. The right ventricle is mildly dilated. Right ventricular systolic function is normal. Wall thickness is normal. There is no thrombus in the left atrial appendage. Right atrial size is normal. There is a patent foramen ovale. An atrial septal aneurysm is present. The aortic valve is tricuspid. The aortic valve leaflets are moderately thickened and exhibit moderately reduced excursion.The aortic valve leaflets are moderately calcified. There is mild to moderate aortic regurgitation. The aortic valve pressure half time is 458 ms. There is moderate to severe aortic stenosis. The calculated valve area is 1.3 cm2, with a peak velocity of 2.4 m/s, a mean gradient of 14.0 mmHg, and a dimensionless index of 0.27. The aortic root dimension is normal. There is a sessile atheroma protruding less than 5 mm into the lumen (Grade 3) in the aortic arch and descending aorta. There is no evidence for aortic dissection. The pulmonic valve was not well visualized. There is mild pulmonic regurgitation. POST PROCEDURE CONCLUSIONS S/p CABG x1 with SVG to OM and aortic valve replacement with a 29 mm Inspiris bioprosthetic valve Reduced post-CPB left ventricular function without any visualized new regional wall motion abnormalities. LVEF by Jenkins's biplane method 44.7% on inotropic support. (0.04 mcg/kg/min epinephrine, 2 mcg/min norepinephrine) Right ventricular function is normal, unchanged from pre bypass findings. Bioprosthetic valve visualized in the aortic position. The sewing ring is stable, the leaflets open fully and symmetrically. There is no discernable paravalvular leak. Mean transvalvular gradient is 2 mmHg. All other valves as previously described. No evidence of aortic dissection visualized in the post decannulation aorta. No evidence of pericardial/pleural effusions visualized. Findings discussed with surgeon. Technical Details General anesthesia was given. Overall the study quality was good. Sedation was performed by anesthesiology. Left Ventricle The left ventricle is mildly dilated. Wall thickness is normal. Left ventricular systolic function is mildly decreased. The quantitative EF by 3D imaging is 42%. There is global hypokinesis without regional variation. There is grade 2 diastolic dysfunction, with elevated left atrial filling pressure. Right Ventricle The right ventricle is mildly dilated. Right ventricular systolic function is normal. Wall thickness is normal. Left Atrium Left atrial size is normal. No spontaneous echo contrast present. The left atrial appendage is normal. Appendage velocity is normal at greater than 40 cm/sec. There is no thrombus in the left atrial appendage. Right Atrium Right atrial size is normal. There is a patent foramen ovale. An atrial septal aneurysm is present. Mitral Valve There is Sergio Class 1 mitral regurgitation with normal leaflet mobility.There is no prolapse. There are no flail leaflets. There is trace mitral regurgitation.There is no mitral valve stenosis. Tricuspid Valve The tricuspid valve is structurally normal. The tricuspid valve leaflets exhibit normal excursion. There is trace tricuspid regurgitation. Aortic Valve The aortic valve is tricuspid. The aortic valve leaflets are moderately thickened and exhibit moderately reduced excursion.The aortic valve leaflets are moderately calcified. There is mild to moderate aortic regurgitation. The aortic valve pressure half time is 458 ms.There is moderate to severe aortic stenosis. The calculated valve area is 1.3 cm2, with a peak velocity of 2.4 m/s, a mean gradient of 14.0 mmHg, and a dimensionless index of 0.27. Pulmonic Valve The pulmonic valve was not well visualized. There is mild pulmonic regurgitation. Ascending Aorta The aortic root dimension is normal. There is a sessile atheroma protruding less than 5 mm into the lumen (Grade 3) in the aortic arch and descending aorta. There is no evidence for aortic dissection. Pericardium There is no pericardial effusion.There is no evidence of pleural effusion. Study Details ROSALIA was performed at Dr. Macdonald's request. Prior the procedure, informed consent was discussed with and obtained from the patient. A time-out was done in the operating room to confirm the patient and procedure. After introduction of general anesthesia, endotracheal intubation, and OG decompression, the ROSALIA probe was placed atraumatically in the esophagus. ROSALIA was performed for pre-surgical evaluation of aortic valve disease, Coronary artery disease, cardiac structure, and cardiac function, and post-surgical evaluation of aortic valve replacement, CABG, and ventricular function. Pre- and post-CPB 2D imaging, Doppler, and color flow evaluation were performed. At the end of the surgical procedure the probe was removed, and no apparent complications were noted. The patient was transported to the ICU with oxygen and full ASA monitoring. All pre- and post-bypass echo findings were discussed with the surgeon intraoperatively. Wall Scoring Baseline Score Index: 2.00 The left ventricular wall motion is globally hypokinetic. Flora Morris PA-C CV ECHO ORDERABLES Final Resul t * Type and Screen (03/24/2025 7:40 AM EDT) ABO/Rh A POSITIVE 03/24/2025 9:09 AM [facility] Antibody Screen NEGATIVE 03/24/2025 9:09 AM [facility] Specimen Expiration 03/27/2025 03/24/2025 9:09 AM [facility] Unit Number [id number] 03/24/2025 9:28 AM [facility] Blood Component Type LEUKOREDUCED RED CELLS 03/24/2025 9:28 AM [facility] Unit Division 00 03/24/2025 9:28 AM [facility] Unit Status REL FROM ALLOC 9:51 PM [facility] Transfusion Status OK TO TRANSFUSE 03/24/2025 9:28 AM [facility] Crossmatch Result Electronically Compatible 03/24/2025 9:28 AM [facility] Unit Number [id number] 03/24/2025 9:28 AM [facility] Blood Component Type LEUKOREDUCED RED CELLS 03/24/2025 9:28 AM [facility] Unit Division 00 03/24/2025 9:28 AM [facility] Unit Status REL FROM ALLOC 9:51 PM [facility] Transfusion Status OK TO TRANSFUSE 03/24/2025 9:28 AM [facility] Crossmatch Result Electronically Compatible 03/24/2025 9:28 AM [facility] Blood Blood specimen / Unknown 03/24/2025 7:40 AM EDT 03/24/2025 7:59 AM EDT Comment:Blood Mark DASILVA BLOOD BANK TEST ORDERABLES F inal Result Performing Organization Address [facility] Co de Phone Number HOSPITAL LAB See Below [address] [address] * Prepare RBC's:Prepare in: Units; Number of Units: 2; Transfusion Indications: Hemoglobin less than 7 gm/dl or HCT less than 21% (03/24/2025 7:13 AM EDT) Units Ordered 2 03/24/2025 7:13 AM EDT 03/24/2025 7:13 AM EDT 03/24/2025 9:27 AM EDT us Mark DASILVA BLOOD BANK PRODUCT ORDERABLE S Final Result Performing Organization Address 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 tx/03/31/2025 Electronically Signed Out GITA ZULETA MD COMMENT [id number] Clinical Information and History: Aortic valve stenosis TRT 11:19 A TIF 12:54 A Tissue(s) Submitted: A: AORTIC VALVE LEAFLETS #[id number] Gross Description: Specimen A is received in formalin labeled per the requisition as aortic valve leaflets and consists of 3 panchal-white crescent-shaped valvular tissues ranging from 2.7 x 1.3 x 0.3 cm to 3.0 x 1.5 x 0.2 cm. The leaflets have a reconstructed circumference of 8.7 cm. The surfaces are predominantly panchal-white, smooth, and are remarkable for yellow-white calcifications, some of which abut the valvular free edge. There are no mass lesions or vegetations seen. Sporting Goods Sales Associate sections are submitted in A1. CLS HOSPITAL LAB 03/24/2025 03/24/2025 1:5 7 PM EDT Comment:AORTIC VALVE LEAFLET S #[id number] us Annie Macdonald MD PATHOLOGY/CYTOLOGY ORDERABLES Fi nal Result HOSPITAL LAB See Below * CT Thorax w/o contrast (02/18/2025 10:50 AM EDT) Anatomical Region Laterality Modality Chest Computed Tomogra phy 02/18/2025 11:3 0 AM EDT 02/18/2025 11:30 AM EDT Impressions 02/23/2025 3:31 PM EDT 1. No evidence of aortic aneurysm. 2. Heavily calcified coronary arteries. Fleischner guidelines were followed. Electronically signed by: Caity Muñoz MD 02/23/2025 03:31 PM EDT Thank you for referring your patient to us, Caity Muñoz MD [phone] (Electronically Signed - 02/23/2025 15:31) Copy: ALYCIA MICHEL MD [address] [place] [address] PATIENT , Narrative 02/23/2025 3:31 PM EDT EXAMINATION: CT CHEST WITHOUT CONTRAST CLINICAL INFORMATION: Congenital aneurysmal aorta. Atherosclerotic heart disease. Pre CABG COMPARISON: CT of coronary arteries from January 02, 2023 TECHNIQUE: Multidetector volumetric CT imaging of the chest was done. Axial MIP volume rendering provided. Sagittal and coronal reformatted images were obtained. This CT examination was performed using dose optimization techniques as appropriate, variously including the following: *Automated exposure control *Adjustment of mA and/or kV according to patient size (this includes techniques or standardized protocols for targeted exams where dose is matched to indication/reason for exam; i.e. extremities or head) *Use of iterative reconstruction technique DLP: 139.40mGycm FINDINGS: COMPUTER APPLICATIONS ENGINEER: Unremarkable LUNGS: The lungs are clear with no evidence of inflammation or nodules. MEDIASTINUM: There is no mediastinal or hilar lymphadenopathy seen. Thyroid gland is unremarkable. Ascending aorta is not dilated measured 3.8 x 3.8 cm. There is no pericardial effusion. CORONARY ARTERY CALCIFICATION: Heavily calcified PLEURA: There is no pleural effusion. No pleural mass or thickening. AXILLA: No lymphadenopathy UPPER ABDOMEN: Unremarkable OSSEOUS STRUCTURES: Unremarkable Procedure Note Caity Muñoz MD - 02/23/2025 EXAMINATION: CT CHEST WITHOUT CONTRAST CLINICAL INFORMATION: Congenital aneurysmal aorta. Atherosclerotic heart disease. Pre CABG COMPARISON: CT of coronary arteries from January 02, 2023 TECHNIQUE: Multidetector volumetric CT imaging of the chest was done. Axial MIPvolume rendering provided. Sagittal and coronal reformatted images wereobtained. This CT examination was performed using dose optimization techniques asappropriate, variously including the following: *Automated exposure control *Adjustment of mA and/or kV according to patient size (this includestechniques or standardized protocols for targeted exams where dose ismatched to indication/reason for exam; i.e. extremities or head) *Use of iterative reconstruction technique DLP: 139.40mGycm FINDINGS: COMPUTER APPLICATIONS ENGINEER: Unremarkable LUNGS: The lungs are clear with no evidence of inflammation or nodules. MEDIASTINUM: There is no mediastinal or hilar lymphadenopathy seen.Thyroid gland is unremarkable. Ascending aorta is not dilated measured 3.8x 3.8 cm. There is no pericardial effusion. CORONARY ARTERY CALCIFICATION: Heavily calcified PLEURA: There is no pleural effusion. No pleural mass or thickening. AXILLA: No lymphadenopathy UPPER ABDOMEN: Unremarkable OSSEOUS STRUCTURES: Unremarkable IMPRESSION: 1. No evidence of aortic aneurysm. 2. Heavily calcified coronary arteries. Fleischner guidelines were followed. Electronically signed by: Caity Muñoz MD 02/23/2025 03:31 PM EDT RPWorkstation: [id number] Thank you for referring your patient to us, Caity Muñoz MD [phone] (Electronically Signed - 02/23/2025 15:31) Copy: ALYCIA MICHEL MD [address] [place], [place] [address] PATIENT , us Bea Baird RN IV THERAPY IMG CT ORDERABLES Final Resul t * (ABNORMAL) Lipid Panel (10/26/2022 7:09 AM EDT) Cholesterol, Total 96 <200 mg/dL 2022 8:59 AM EDT [facility] Triglycerides 158(H) <150 mg/dL 10/26/2022 8:59 AM EDT [facility] Cholesterol, HDL 27(L) >39 mg/dL 10/27/19 8:59 AM EDT [facility] Estimated LDL 37 <130 mg/dL 10/26/2022 8:59 AM EDT [facility] Comment: NCEP Guidelines: < 100 mg/dL Optimal 100 - 129 mg/dL Near Optimal/Above Optimal 130 - 159 mg/dL Borderline High 160 - 189 mg/dL High >/= 190 mg/dL Very High Cholesterol/HDL Ratio 3.6 0.0 - 5.0 Ratio 10/26/2022 8:59 AM EDT [facility] Comment: Relative Risk Ratio - Male Ratio - Female 0.5 3.4 3.3 1.0 5.0 4.4 2.0 9.6 7.1 3.0 23.4 11.0 Blood specimen (specimen) (Plasma/Serum) 10/26/2022 7:09 AM EDT 10/26/2022 8:26 AM EDT us Corwin Verma DO LAB BLOOD ORDERABLES Final Resu lt HOSPITAL LAB See Below [facility] [address] [place] [address] from Last 3 Months or Most Recently Relevant to Health Maintenance Insurance MEDICARE PART A & B [facility] Advance Directives Documents on File Type Date Recorded Patient [employer] Sales [employer] Expl anation Power of Assessment Manager-Scan 04/01/2025 12:38 PM 03/24/2025 HH Advance Directive-Scan 04/01/2025 12:38 PM LIVING WILL 03/24/20 25 HH * Full Code (Latest Code Status on File) Date Activated Date Inactivated Comments 03/24/2025 2:38 PM * Full Code Date Activated Date Inactivated Comments 01/27/2025 12:50 PM 03/24/2025 6:35 AM * Full Code Date Activated Date Inactivated Comments 10/29/2022 5:56 PM 01/27/2025 11:44 AM * Full Code Date Activated Date Inactivated Comments 10/25/2022 7:09 PM 10/29/2022 5:56 PM Healthcare Agents on File Name Relationship Healthcare Agent Relationship Communication Marie Muniz Spouse 4. Next of Kin ( Spouse, Adult Child, Parent, Adult Sibling, Grandparent) Care Teams Home Vis[employer] Relationship Specialty Start Date End Date Alycia Michel MD [address] [place] [address] [place] [address] PCP - General Internal Medicine 10/25/22 Paige Colbert MD [employer] [address] [place] [id number] Primary Water Tester Cardiovascular Disease 12/04/22 Grace Lo PA [employer] [address] [place] [id number] Physician Splicing Machine Operator Cardiovascular Disease 01/19/25 Annie Macdonald MD [address] [address] Consulting Provider Surgery, Cardiac 02/02/25
--- OUTSIDE RECORDS SUMMARY | 2025-05-06 13:45 | XMS_ITS ---
Author Name [facility] Organization Unknown Results Test Name/Text Value Interpretation Date Range Source POC Glucose 127.0 mg/dL Above high normal 03/31/2025 65 - 99 HHCCT Phosphate SerPl-mCnc 3.2 mg/dL 03/31/2025 2.7 - 4. 5 HHCCT Magnesium SerPl-mCnc 2.0 mg/dL 03/31/2025 1.6 - 2. 7 HHCCT CO2 SerPl-sCnc 21.0 mmol/L Below low normal 03/31/2025 22 - 33 HHCCT Glucose SerPl-mCnc 105.0 mg/dL Above high normal 03/31/2025 65 - 99 HHCCT Creat SerPl-mCnc 0.75 mg/dL 03/31/2025 0.5 - 1.3 H HCCT Sodium SerPl-sCnc 140.0 mmol/L 03/31/2025 136 - 14 5 HHCCT Calcium SerPl-mCnc 8.4 mg/dL Below low normal 03/31/2025 8.7 - 10.5 HHCCT Potassium SerPl-sCnc 4.1 mmol/L 03/31/2025 3.4 - 5 .3 HHCCT Chloride SerPl-sCnc 105.0 mmol/L 03/31/2025 98 - 1 07 HHCCT BUN SerPl-mCnc 16.0 mg/dL 03/31/2025 8 - [address] GFR/BSA.pred SerPlBld JKZ-TDO-BpFRtx >90.0 03/31/2025 59 - HHCCT Anion Gap Bld-sCnc 14.0 03/31/2025 7 - 17 HHCCT BUN/Creat SerPl 21.0 Ratio 03/31/2025 10 - 25 HH CCT POC Glucose 119.0 mg/dL Above high normal 03/31/2025 65 - 99 HHCCT POC Glucose 131.0 mg/dL Above high normal 03/30/2025 65 - 99 HHCCT POC Glucose 171.0 mg/dL Above high normal 03/30/2025 65 - 99 HHCCT POC Glucose 128.0 mg/dL Above high normal 03/30/2025 65 - 99 HHCCT Glucose SerPl-mCnc 97.0 mg/dL 03/30/2025 65 - 99 HHCCT Chloride SerPl-sCnc 105.0 mmol/L 03/30/2025 98 - 1 07 HHCCT BUN SerPl-mCnc 21.0 mg/dL 03/30/2025 8 - [address] BUN/Creat SerPl 24.0 Ratio 03/30/2025 10 - 25 HH CCT GFR/BSA.pred SerPlBld TNQ-NST-MvRQtd >90.0 03/30/2025 59 - HHCCT Anion Gap Bld-sCnc 11.0 03/30/2025 7 - 17 HHCCT CO2 SerPl-sCnc 24.0 mmol/L 03/30/2025 22 - 33 HH CCT Calcium SerPl-mCnc 8.2 mg/dL Below low normal 03/30/2025 8.7 - 10.5 HHCCT Creat SerPl-mCnc 0.88 mg/dL 03/30/2025 0.5 - 1.3 H HCCT Potassium SerPl-sCnc 4.1 mmol/L 03/30/2025 3.4 - 5 .3 HHCCT Sodium SerPl-sCnc 140.0 mmol/L 03/30/2025 136 - 14 5 HHCCT Magnesium SerPl-mCnc 2.0 mg/dL 03/30/2025 1.6 - 2. 7 HHCCT RBC num Bld Auto 3.41 Mil/uL Below low normal 03/30/2025 4.5 - 6.2 HHCCT Hgb Bld-mCnc 10.1 g/dL Below low normal 03/30/2025 13 - 17.7 HHCCT Platelet num Bld Auto 206.0 Thou/uL 03/30/2025 150 - 450 HHCCT MCV RBC Auto 92.0 fL 03/30/2025 80 - 100 HHCCT MCH RBC Qn Auto 29.6 pg 03/30/2025 27 - [address] Hct VFr Bld Auto 31.2 % Below low normal 03/30/2025 39 - 54 HHCCT WBC num Bld Auto 9.0 Thou/uL 03/30/2025 4 - 11 HHCCT PMV Bld Auto 11.7 fL 03/30/2025 7.5 - 12.5 HHCCT RDW RBC Auto-Rto 13.2 % 03/30/2025 11.5 - 14.5 HHCCT MCHC RBC Auto-mCnc 32.4 g/dL 03/30/2025 30 - 36 HHCCT POC Glucose 143.0 mg/dL Above high normal 03/30/2025 65 - 99 HHCCT POC Glucose 109.0 mg/dL Above high normal 03/29/2025 65 - 99 HHCCT POC Glucose 101.0 mg/dL Above high normal 03/29/2025 65 - 99 HHCCT POC Glucose 104.0 mg/dL Above high normal 03/29/2025 65 - 99 HHCCT Anion Gap Bld-sCnc 13.0 03/29/2025 7 - 17 HHCCT Potassium SerPl-sCnc 3.8 mmol/L 03/29/2025 3.4 - 5 .3 HHCCT BUN/Creat SerPl 34.0 Ratio Above high normal 03/29/2025 10 - 25 HHCCT Chloride SerPl-sCnc 102.0 mmol/L 03/29/2025 98 - 1 07 HHCCT CO2 SerPl-sCnc 22.0 mmol/L 03/29/2025 22 - 33 HH CCT Creat SerPl-mCnc 0.83 mg/dL 03/29/2025 0.5 - 1.3 H HCCT Glucose SerPl-mCnc 96.0 mg/dL 03/29/2025 65 - 99 HHCCT BUN SerPl-mCnc 28.0 mg/dL Above high normal 03/29/2025 8 - 2 1 HHCCT Sodium SerPl-sCnc 137.0 mmol/L 03/29/2025 136 - 14 5 HHCCT Calcium SerPl-mCnc 8.1 mg/dL Below low normal 03/29/2025 8.7 - 10.5 HHCCT GFR/BSA.pred SerPlBld QRN-HPA-IsWKtf >90.0 03/29/2025 59 - HHCCT Magnesium SerPl-mCnc 2.1 mg/dL 03/29/2025 1.6 - 2. 7 HHCCT Hgb Bld-mCnc 10.4 g/dL Below low normal 03/29/2025 13 - 17.7 HHCCT RBC num Bld Auto 3.46 Mil/uL Below low normal 03/29/2025 4.5 - 6.2 HHCCT RDW RBC Auto-Rto 13.1 % 03/29/2025 11.5 - 14.5 HHCCT MCHC RBC Auto-mCnc 33.1 g/dL 03/29/2025 30 - 36 HHCCT WBC num Bld Auto 9.8 Thou/uL 03/29/2025 4 - 11 HHCCT Platelet num Bld Auto 192.0 Thou/uL 03/29/2025 150 - 450 HHCCT Hct VFr Bld Auto 31.4 % Below low normal 03/29/2025 39 - 54 HHCCT MCH RBC Qn Auto 30.1 pg 03/29/2025 27 - [address] MCV RBC Auto 91.0 fL 03/29/2025 80 - 100 HHCCT PMV Bld Auto 12.2 fL 03/29/2025 7.5 - 12.5 HHCCT POC Glucose 122.0 mg/dL Above high normal 03/29/2025 65 - 99 HHCCT POC Glucose 119.0 mg/dL Above high normal 03/28/2025 65 - 99 HHCCT POC Glucose 117.0 mg/dL Above high normal 03/28/2025 65 - 99 HHCCT POC Glucose 88.0 mg/dL 03/28/2025 65 - 99 HHCCT POC Glucose 148.0 mg/dL Above high normal 03/28/2025 65 - 99 HHCCT Magnesium SerPl-mCnc 2.1 mg/dL 03/28/2025 1.6 - 2. 7 HHCCT Chloride SerPl-sCnc 101.0 mmol/L 03/28/2025 98 - 1 07 HHCCT Creat SerPl-mCnc 0.9 mg/dL 03/28/2025 0.5 - 1.3 HH CCT Potassium SerPl-sCnc 3.6 mmol/L 03/28/2025 3.4 - 5 .3 HHCCT Calcium SerPl-mCnc 8.0 mg/dL Below low normal 03/28/2025 8.7 - 10.5 HHCCT BUN/Creat SerPl 30.0 Ratio Above high normal 03/28/2025 10 - 25 HHCCT Sodium SerPl-sCnc 137.0 mmol/L 03/28/2025 136 - 14 5 HHCCT BUN SerPl-mCnc 27.0 mg/dL Above high normal 03/28/2025 8 - 2 1 HHCCT GFR/BSA.pred SerPlBld SFT-QTM-GhTSln 90.0 03/28/2025 59 - HHCCT Glucose SerPl-mCnc 105.0 mg/dL Above high normal 03/28/2025 65 - 99 HHCCT CO2 SerPl-sCnc 24.0 mmol/L 03/28/2025 22 - 33 HH CCT Anion Gap Bld-sCnc 12.0 03/28/2025 7 - 17 HHCCT Platelet num Bld Auto 145.0 Thou/uL Below low normal 03/28/2025 150 - 450 HHCCT PMV Bld Auto 12.6 fL Above high normal 03/28/2025 7.5 - 12 .5 HHCCT Hct VFr Bld Auto 29.6 % Below low normal 03/28/2025 39 - 54 HHCCT MCHC RBC Auto-mCnc 32.4 g/dL 03/28/2025 30 - 36 HHCCT RDW RBC Auto-Rto 13.1 % 03/28/2025 11.5 - 14.5 HHCCT MCH RBC Qn Auto 28.8 pg 03/28/2025 27 - [address] RBC num Bld Auto 3.33 Mil/uL Below low normal 03/28/2025 4.5 - 6.2 HHCCT WBC num Bld Auto 11.8 Thou/uL Above high normal 03/28/2025 4 - 11 HHCCT Hgb Bld-mCnc 9.6 g/dL Below low normal 03/28/2025 13 - 17.7 HHCCT MCV RBC Auto 89.0 fL 03/28/2025 80 - 100 HHCCT POC Glucose 135.0 mg/dL Above high normal 03/28/2025 65 - 99 HHCCT POC Glucose 144.0 mg/dL Above high normal 03/27/2025 65 - 99 HHCCT CO2 SerPl-sCnc 26.0 mmol/L 03/27/2025 22 - 33 HH CCT Sodium SerPl-sCnc 139.0 mmol/L 03/27/2025 136 - 14 5 HHCCT Calcium SerPl-mCnc 8.7 mg/dL 03/27/2025 8.7 - 10.5 HHCCT Anion Gap Bld-sCnc 11.0 03/27/2025 7 - 17 HHCCT Glucose SerPl-mCnc 126.0 mg/dL Above high normal 03/27/2025 65 - 99 HHCCT GFR/BSA.pred SerPlBld LSY-OTV-WdZWjf 90.0 03/27/2025 59 - HHCCT Creat SerPl-mCnc 0.9 mg/dL 03/27/2025 0.5 - 1.3 HH CCT BUN/Creat SerPl 22.0 Ratio 03/27/2025 10 - 25 HH CCT Chloride SerPl-sCnc 102.0 mmol/L 03/27/2025 98 - 1 07 HHCCT BUN SerPl-mCnc 20.0 mg/dL 03/27/2025 8 - [address] Potassium SerPl-sCnc 3.8 mmol/L 03/27/2025 3.4 - 5 .3 HHCCT POC Glucose 137.0 mg/dL Above high normal 03/27/2025 65 - 99 HHCCT POC Glucose 141.0 mg/dL Above high normal 03/27/2025 65 - 99 HHCCT Magnesium SerPl-mCnc 1.9 mg/dL 03/27/2025 1.6 - 2. 7 HHCCT Chloride SerPl-sCnc 102.0 mmol/L 03/27/2025 98 - 1 07 HHCCT Calcium SerPl-mCnc 8.0 mg/dL Below low normal 03/27/2025 8.7 - 10.5 HHCCT Glucose SerPl-mCnc 148.0 mg/dL Above high normal 03/27/2025 65 - 99 HHCCT Sodium SerPl-sCnc 139.0 mmol/L 03/27/2025 136 - 14 5 HHCCT BUN SerPl-mCnc 19.0 mg/dL 03/27/2025 8 - [address] Potassium SerPl-sCnc 3.3 mmol/L Below low normal 03/27/2025 3.4 - 5.3 HHCCT Creat SerPl-mCnc 0.8 mg/dL 03/27/2025 0.5 - 1.3 HH CCT GFR/BSA.pred SerPlBld COS-LYV-FcUTce >90.0 03/27/2025 59 - HHCCT Anion Gap Bld-sCnc 12.0 03/27/2025 7 - 17 HHCCT CO2 SerPl-sCnc 25.0 mmol/L 03/27/2025 22 - 33 HH CCT BUN/Creat SerPl 24.0 Ratio 03/27/2025 10 - 25 HH CCT Hct VFr Bld Auto 28.8 % Below low normal 03/27/2025 39 - 54 HHCCT MCV RBC Auto 89.0 fL 03/27/2025 80 - 100 HHCCT Platelet num Bld Auto 108.0 Thou/uL Below low normal 03/27/2025 150 - 450 HHCCT Hgb Bld-mCnc 9.7 g/dL Below low normal 03/27/2025 13 - 17.7 HHCCT WBC num Bld Auto 13.3 Thou/uL Above high normal 03/27/2025 4 - 11 HHCCT MCHC RBC Auto-mCnc 33.7 g/dL 03/27/2025 30 - 36 HHCCT Immature Platelet Fraction 10.9 % Above high normal 03/27/2025 1.2 - 8.6 HHCCT RBC num Bld Auto 3.25 Mil/uL Below low normal 03/27/2025 4.5 - 6.2 HHCCT PMV Bld Auto 13.0 fL Above high normal 03/27/2025 7.5 - 12 .5 HHCCT MCH RBC Qn Auto 29.8 pg 03/27/2025 27 - [address] RDW RBC Auto-Rto 13.1 % 03/27/2025 11.5 - 14.5 HHCCT POC Glucose 162.0 mg/dL Above high normal 03/27/2025 65 - 99 HHCCT POC Glucose 207.0 mg/dL Above high normal 03/27/2025 65 - 99 HHCCT POC Glucose 218.0 mg/dL Above high normal 03/26/2025 65 - 99 HHCCT POC Glucose 241.0 mg/dL Above high normal 03/26/2025 65 - 99 HHCCT POC Glucose 177.0 mg/dL Above high normal 03/26/2025 65 - 99 HHCCT BUN SerPl-mCnc 16.0 mg/dL 03/26/2025 8 - [address] CO2 SerPl-sCnc 24.0 mmol/L 03/26/2025 22 - 33 HH CCT Calcium SerPl-mCnc 8.2 mg/dL Below low normal 03/26/2025 8.7 - 10.5 HHCCT Sodium SerPl-sCnc 137.0 mmol/L 03/26/2025 136 - 14 5 HHCCT Anion Gap Bld-sCnc 8.0 03/26/2025 7 - 17 HHCCT Chloride SerPl-sCnc 105.0 mmol/L 03/26/2025 98 - 1 07 HHCCT Creat SerPl-mCnc 0.9 mg/dL 03/26/2025 0.5 - 1.3 HH CCT GFR/BSA.pred SerPlBld UEM-FZD-XbZRaq 90.0 03/26/2025 59 - HHCCT BUN/Creat SerPl 18.0 Ratio 03/26/2025 10 - 25 HH CCT Potassium SerPl-sCnc 4.2 mmol/L 03/26/2025 3.4 - 5 .3 HHCCT Glucose SerPl-mCnc 161.0 mg/dL Above high normal 03/26/2025 65 - 99 HHCCT Magnesium SerPl-mCnc 1.9 mg/dL 03/26/2025 1.6 - 2. 7 HHCCT MCH RBC Qn Auto 30.0 pg 03/26/2025 27 - [address] PMV Bld Auto 12.4 fL 03/26/2025 7.5 - 12.5 HHCCT MCHC RBC Auto-mCnc 32.9 g/dL 03/26/2025 30 - 36 HHCCT RBC num Bld Auto 3.37 Mil/uL Below low normal 03/26/2025 4.5 - 6.2 HHCCT Platelet num Bld Auto 97.0 Thou/uL Below low normal 03/26/2025 150 - 450 HHCCT Immature Platelet Fraction 11.6 % Above high normal 03/26/2025 1.2 - 8.6 HHCCT WBC num Bld Auto 14.7 Thou/uL Above high normal 03/26/2025 4 - 11 HHCCT MCV RBC Auto 91.0 fL 03/26/2025 80 - 100 HHCCT Hct VFr Bld Auto 30.7 % Below low normal 03/26/2025 39 - 54 HHCCT RDW RBC Auto-Rto 13.3 % 03/26/2025 11.5 - 14.5 HHCCT Hgb Bld-mCnc 10.1 g/dL Below low normal 03/26/2025 13 - 17.7 HHCCT POC Glucose 172.0 mg/dL Above high normal 03/26/2025 65 - 99 HHCCT POC Glucose 160.0 mg/dL Above high normal 03/25/2025 65 - 99 HHCCT POC Glucose 174.0 mg/dL Above high normal 03/25/2025 65 - 99 HHCCT POC Glucose 174.0 mg/dL Above high normal 03/25/2025 65 - 99 HHCCT POC Glucose 133.0 mg/dL Above high normal 03/25/2025 65 - 99 HHCCT POC Glucose 103.0 mg/dL Above high normal 03/25/2025 65 - 99 HHCCT Potassium SerPl-sCnc 4.5 mmol/L 03/25/2025 3.4 - 5 .3 HHCCT POC Glucose 119.0 mg/dL Above high normal 03/25/2025 65 - 99 HHCCT POC Glucose 124.0 mg/dL Above high normal 03/25/2025 65 - 99 HHCCT POC Glucose 127.0 mg/dL Above high normal 03/25/2025 65 - 99 HHCCT POC Glucose 143.0 mg/dL Above high normal 03/25/2025 65 - 99 HHCCT POC Glucose 138.0 mg/dL Above high normal 03/25/2025 65 - 99 HHCCT Hgb A1c MFr Bld 6.5 % Above high normal 03/25/2025 - 5.7 HHCCT Est. average glucose Bld gHb Est-mCnc 140.0 mg/dL 03/25/2025 HHCCT Sodium SerPl-sCnc 140.0 mmol/L 03/25/2025 136 - 14 5 HHCCT BUN/Creat SerPl 16.0 Ratio 03/25/2025 10 - 25 HH CCT Glucose SerPl-mCnc 146.0 mg/dL Above high normal 03/25/2025 65 - 99 HHCCT Calcium SerPl-mCnc 7.8 mg/dL Below low normal 03/25/2025 8.7 - 10.5 HHCCT BUN SerPl-mCnc 11.0 mg/dL 03/25/2025 8 - [address] CO2 SerPl-sCnc 21.0 mmol/L Below low normal 03/25/2025 22 - 33 HHCCT GFR/BSA.pred SerPlBld TLR-NAN-NqHRzb >90.0 03/25/2025 59 - HHCCT Potassium SerPl-sCnc 4.9 mmol/L 03/25/2025 3.4 - 5 .3 HHCCT Chloride SerPl-sCnc 108.0 mmol/L Above high normal 98 - 107 HHCCT Creat SerPl-mCnc 0.7 mg/dL 03/25/2025 0.5 - 1.3 HH CCT Anion Gap Bld-sCnc 11.0 03/25/2025 7 - 17 HHCCT Magnesium SerPl-mCnc 2.1 mg/dL 03/25/2025 1.6 - 2. 7 HHCCT Hgb Bld-mCnc 11.3 g/dL Below low normal 03/25/2025 13 - 17.7 HHCCT RBC num Bld Auto 3.77 Mil/uL Below low normal 03/25/2025 4.5 - 6.2 HHCCT MCH RBC Qn Auto 30.0 pg 03/25/2025 27 - [address] Hct VFr Bld Auto 33.5 % Below low normal 03/25/2025 39 - 54 HHCCT MCHC RBC Auto-mCnc 33.7 g/dL 03/25/2025 30 - 36 HHCCT WBC num Bld Auto 13.0 Thou/uL Above high normal 03/25/2025 4 - 11 HHCCT PMV Bld Auto 12.1 fL 03/25/2025 7.5 - 12.5 HHCCT RDW RBC Auto-Rto 13.0 % 03/25/2025 11.5 - 14.5 HHCCT MCV RBC Auto 89.0 fL 03/25/2025 80 - 100 HHCCT Platelet num Bld Auto 109.0 Thou/uL Below low normal 03/25/2025 150 - 450 HHCCT POC Glucose 150.0 mg/dL Above high normal 03/25/2025 65 - 99 HHCCT POC Glucose 131.0 mg/dL Above high normal 03/25/2025 65 - 99 HHCCT pH, Arterial 7.33 Below low normal 03/25/2025 7.35 - 7. 45 HHCCT pO2, Arterial 120.0 mmHG Above high normal 03/25/2025 75 - 9 5 HHCCT Total CO2, Arterial 22.0 mmol/L 03/25/2025 22 - 28 HHCCT Base deficit BldA-sCnc 4.8 mmol/L 03/25/2025 HHCCT pCO2, Arterial 40.0 mmHG 03/25/2025 32 - 45 HHCC T Respiratory Information NASAL 4 L/MIN 03/24/2025 HHCCT POC Glucose 131.0 mg/dL Above high normal 03/24/2025 65 - 99 HHCCT Potassium SerPl-sCnc 4.4 mmol/L 03/25/2025 3.4 - 5 .3 HHCCT Hct VFr Bld Auto 38.2 % Below low normal 03/24/2025 39 - 54 HHCCT POC Glucose 114.0 mg/dL Above high normal 03/24/2025 65 - 99 HHCCT P/F Ratio 340.0 03/24/2025 HHCCT Total CO2, Arterial 21.0 mmol/L Below low normal 03/24/2025 22 - 28 HHCCT pO2, Arterial 136.0 mmHG Above high normal 03/24/2025 75 - 9 5 HHCCT pCO2, Arterial 40.0 mmHG 03/24/2025 32 - 45 HHCC T Base deficit BldA-sCnc 5.3 mmol/L 03/24/2025 HHCCT pH, Arterial 7.32 Below low normal 03/24/2025 7.35 - 7. 45 HHCCT Respiratory Information VENT 40% 03/24/2025 HHCCT POC Glucose 123.0 mg/dL Above high normal 03/24/2025 65 - 99 HHCCT POC Glucose 133.0 mg/dL Above high normal 03/24/2025 65 - 99 HHCCT Platelet num Bld Auto 134.0 Thou/uL Below low normal 03/24/2025 150 - 450 HHCCT MCHC RBC Auto-mCnc 33.3 g/dL 03/24/2025 30 - 36 HHCCT Hgb Bld-mCnc 11.6 g/dL Below low normal 03/24/2025 13 - 17.7 HHCCT PMV Bld Auto 11.9 fL 03/24/2025 7.5 - 12.5 HHCCT MCH RBC Qn Auto 30.1 pg 03/24/2025 27 - [address] RDW RBC Auto-Rto 12.8 % 03/24/2025 11.5 - 14.5 HHCCT MCV RBC Auto 90.0 fL 03/24/2025 80 - 100 HHCCT Immature Platelet Fraction 8.6 % 03/24/2025 1.2 - 8.6 HHCCT WBC num Bld Auto 18.2 Thou/uL Above high normal 03/24/2025 4 - 11 HHCCT RBC num Bld Auto 3.85 Mil/uL Below low normal 03/24/2025 4.5 - 6.2 HHCCT Hct VFr Bld Auto 34.8 % Below low normal 03/24/2025 39 - 54 HHCCT Anion Gap Bld-sCnc 10.0 03/24/2025 7 - 17 HHCCT BUN/Creat SerPl 11.0 Ratio 03/24/2025 10 - 25 HH CCT Potassium SerPl-sCnc 4.4 mmol/L 03/24/2025 3.4 - 5 .3 HHCCT GFR/BSA.pred SerPlBld CKT-QZL-XfDVcn >90.0 03/24/2025 59 - HHCCT Creat SerPl-mCnc 0.7 mg/dL 03/24/2025 0.5 - 1.3 HH CCT Calcium SerPl-mCnc 7.5 mg/dL Below low normal 03/24/2025 8.7 - 10.5 HHCCT Chloride SerPl-sCnc 110.0 mmol/L Above high normal 98 - 107 HHCCT BUN SerPl-mCnc 8.0 mg/dL 03/24/2025 8 - 21 HHCC T CO2 SerPl-sCnc 21.0 mmol/L Below low normal 03/24/2025 22 - 33 HHCCT Sodium SerPl-sCnc 141.0 mmol/L 03/24/2025 136 - 14 5 HHCCT Glucose SerPl-mCnc 114.0 mg/dL Above high normal 03/24/2025 65 - 99 HHCCT pH, Arterial 7.29 Below low normal 03/24/2025 7.35 - 7. 45 HHCCT pCO2, Arterial 46.0 mmHG Above high normal 03/24/2025 32 - 4 5 HHCCT P/F Ratio 112.0 03/24/2025 HHCCT pO2, Arterial 112.0 mmHG Above high normal 03/24/2025 75 - 9 5 HHCCT Base deficit BldA-sCnc 5.0 mmol/L 03/24/2025 HHCCT Total CO2, Arterial 23.0 mmol/L 03/24/2025 22 - 28 HHCCT Respiratory Information VENT 100% 03/24/2025 HHCCT POC Glucose 102.0 mg/dL Above high normal 03/24/2025 65 - 99 HHCCT ISTAT Arterial Total CO2 22.0 mmol/L 03/24/2025 22 - 28 HHCCT ISTAT Arterial PCO2 41.1 mmHg 03/24/2025 32 - 45 HHCCT ISTAT Base Excess -6 03/24/2025 H HCCT ISTAT Arterial pH 7.31 Below low normal 03/24/2025 7.35 - 7.45 HHCCT ISTAT Sample Type Arterial 03/24/2025 H HCCT ISTAT Arterial HCO3 20.5 mmol/L Below low normal 03/24/2025 22 - 26 HHCCT ISTAT Arterial PO2 339.0 mmHg Above high normal 03/24/2025 7 5 - 95 HHCCT ISTAT O2 Saturation 100.0 % Above high normal 03/24/2025 9 4 - 97 HHCCT ISTAT Sodium 143.0 mmol/L 03/24/2025 136 - [address] [facility] [address] ISTAT Hematocrit 30.0 % Below low normal 03/24/2025 39 - 54 HHCCT ISTAT Hemoglobin 10.2 gm/dL Below low normal 03/24/2025 13 - 17.7 HHCCT ISTAT Ionized Calcium 1.13 mmol/L Below low normal 03/24/2025 1.17 - 1.33 HHCCT ISTAT Potassium 3.9 mmol/L 03/24/2025 3.4 - 5.3 HH CCT ISTAT Glucose 103.0 mg/dL Above high normal 03/24/2025 65 - 99 HHCCT ISTAT Activated Clotting Time,Kaolin 118.0 seconds 03/24/2025 74 - 137 HHCCT ISTAT Potassium 4.2 mmol/L 03/24/2025 3.4 - 5.3 HH CCT ISTAT Hemoglobin 8.8 gm/dL Below low normal 03/24/2025 13 - 17.7 HHCCT ISTAT Arterial PO2 302.0 mmHg Above high normal 03/24/2025 7 5 - 95 HHCCT ISTAT O2 Saturation 100.0 % Above high normal 03/24/2025 9 4 - 97 HHCCT ISTAT Arterial pH 7.34 Below low normal 03/24/2025 7.35 - 7.45 HHCCT ISTAT Arterial PCO2 36.8 mmHg 03/24/2025 32 - 45 HHCCT ISTAT Arterial Total CO2 21.0 mmol/L Below low normal 03/24/2025 22 - 28 HHCCT ISTAT Base Excess -6 03/24/2025 H HCCT ISTAT Sample Type Arterial 03/24/2025 H HCCT ISTAT Arterial HCO3 20.1 mmol/L Below low normal 03/24/2025 22 - 26 HHCCT ISTAT Hematocrit 26.0 % Below low normal 03/24/2025 39 - 54 HHCCT ISTAT Glucose 117.0 mg/dL Above high normal 03/24/2025 65 - 99 HHCCT ISTAT Ionized Calcium 1.16 mmol/L Below low normal 03/24/2025 1.17 - 1.33 HHCCT ISTAT Sodium 142.0 mmol/L 03/24/2025 136 - [address] ISTAT Activated Clotting Time,Kaolin 469.0 seconds Above high normal 03/24/2025 74 - 137 H HCCT ISTAT Hemoglobin 8.8 gm/dL Below low normal 03/24/2025 13 - 17.7 HHCCT ISTAT Sodium 138.0 mmol/L 03/24/2025 136 - [address] ISTAT Glucose 137.0 mg/dL Above high normal 03/24/2025 65 - 99 HHCCT ISTAT O2 Saturation 100.0 % Above high normal 03/24/2025 9 4 - 97 HHCCT ISTAT Arterial PO2 282.0 mmHg Above high normal 03/24/2025 7 5 - 95 HHCCT ISTAT Arterial Total CO2 22.0 mmol/L 03/24/2025 22 - 28 HHCCT ISTAT Arterial PCO2 34.5 mmHg 03/24/2025 32 - 45 HHCCT ISTAT Arterial HCO3 21.2 mmol/L Below low normal 03/24/2025 22 - 26 HHCCT ISTAT Arterial pH 7.4 03/24/2025 7.35 - 7.45 CCT ISTAT Sample Type Arterial 03/24/2025 H HCCT ISTAT Base Excess -4 03/24/2025 H HCCT ISTAT Hematocrit 26.0 % Below low normal 03/24/2025 39 - 54 CCT ISTAT Ionized Calcium 1.72 mmol/L Above high normal 03/24/2025 1.17 - 1.33 HHCCT ISTAT Potassium 5.6 mmol/L Above high normal 03/24/2025 3.4 - 5.3 HHCCT Fibrin Function,Heparinized 1.7 minutes 03/24/2025 1 - 3 CCT %Lysis 30 min,Heparinized 0.0 % 03/24/2025 0 - 8 HHCCT Max Amplitude,Heparinize d 67.8 mm 03/24/2025 50 - 70 HHCCT Reaction Time,Heparinized 8.9 minutes 03/24/2025 5 - 10 HHCCT Angle, Heparinized 66.1 degrees 03/24/2025 53 - 72 HHCCT Anticoagulant Information not given 03/24/2025 HHCCT Hct VFr Bld Auto 30.0 % Below low normal 03/24/2025 39 - 54 HHCCT Platelet num Bld Auto 132.0 Thou/uL Below low normal 03/24/2025 150 - 450 HHCCT ISTAT Activated Clotting Time,Kaolin 602.0 seconds Above high normal 03/24/2025 74 - 137 H HCCT ISTAT Base Excess -3 03/24/2025 H HCCT ISTAT Sample Type Arterial 03/24/2025 H HCCT ISTAT Arterial HCO3 22.4 mmol/L 03/24/2025 22 - 26 HHCCT ISTAT O2 Saturation 100.0 % Above high normal 03/24/2025 9 4 - 97 [facility] ISTAT Arterial PO2 345.0 mmHg Above high normal 03/24/2025 7 5 - 95 [facility] ISTAT Arterial PCO2 42.4 mmHg 03/24/2025 32 - 45 [facility] ISTAT Arterial Total CO2 24.0 mmol/L 03/24/2025 22 - 28 [facility] ISTAT Arterial pH 7.33 Below low normal 03/24/2025 7.35 - 7.45 [facility] ISTAT Glucose 154.0 mg/dL Above high normal 03/24/2025 65 - 99 [facility] ISTAT Ionized Calcium 1.03 mmol/L Below low normal 03/24/2025 1.17 - 1.33 [facility] ISTAT Sodium 140.0 mmol/L 03/24/2025 136 - [address] ISTAT Potassium 5.5 mmol/L Above high normal 03/24/2025 3.4 - 5.3 [facility] ISTAT Hemoglobin 9.5 gm/dL Below low normal 03/24/2025 13 - 17.7 [facility] ISTAT Hematocrit 28.0 % Below low normal 03/24/2025 39 - 54 [facility] ISTAT Activated Clotting Time,Kaolin 400.0 seconds Above high normal 03/24/2025 74 - 137 H [facility] ISTAT Ionized Calcium 1.01 mmol/L Below low normal 03/24/2025 1.17 - 1.33 [facility] ISTAT Sodium 139.0 mmol/L 03/24/2025 136 - [address] ISTAT Hemoglobin 8.5 gm/dL Below low normal 03/24/2025 13 - 17.7 [facility] ISTAT Potassium 5.8 mmol/L Above high normal 03/24/2025 3.4 - 5.3 [facility] ISTAT Hematocrit 25.0 % Below low normal 03/24/2025 39 - 54 [facility] ISTAT Glucose 163.0 mg/dL Above high normal 03/24/2025 65 - 99 [facility] ISTAT Arterial pH 7.23 Below low normal 03/24/2025 7.35 - 7.45 [facility] ISTAT Base Excess -4 03/24/2025 [facility] ISTAT Arterial PO2 357.0 mmHg Above high normal 03/24/2025 7 5 - 95 [facility] ISTAT Arterial PCO2 56.4 mmHg Above high normal 03/24/2025 3 2 - 45 [facility] ISTAT Arterial HCO3 23.6 mmol/L 03/24/2025 22 - 26 [facility] ISTAT Sample Type Arterial 03/24/2025 [facility] ISTAT O2 Saturation 100.0 % Above high normal 03/24/2025 9 4 - 97 [facility] ISTAT Arterial Total CO2 25.0 mmol/L 03/24/2025 22 - 28 [facility] ISTAT Activated Clotting Time,Kaolin 573.0 seconds Above high normal 03/24/2025 74 - 137 [facility] ISTAT Ionized Calcium 1.1 mmol/L Below low normal 03/24/2025 1.17 - 1.33 [facility] ISTAT Base Excess -6 03/24/2025 H [facility] ISTAT Sample Type Arterial 03/24/2025 H [facility] ISTAT Arterial Total CO2 25.0 mmol/L 03/24/2025 22 - 28 [facility] ISTAT Arterial PO2 399.0 mmHg Above high normal 03/24/2025 7 5 - 95 [facility] ISTAT Arterial PCO2 67.6 mmHg Above high normal 03/24/2025 3 2 - 45 [facility] ISTAT Arterial pH 7.14 Below low normal 03/24/2025 7.35 - 7.45 [facility] ISTAT Arterial HCO3 23.2 mmol/L 03/24/2025 22 - 26 [facility] ISTAT O2 Saturation 100.0 % Above high normal 03/24/2025 9 4 - 97 [facility] ISTAT Hematocrit 31.0 % Below low normal 03/24/2025 39 - 54 [facility] ISTAT Potassium 4.7 mmol/L 03/24/2025 3.4 - 5.3 [facility] ISTAT Sodium 141.0 mmol/L 03/24/2025 136 - [address] ISTAT Hemoglobin 10.5 gm/dL Below low normal 03/24/2025 13 - 17.7 [facility] ISTAT Glucose 165.0 mg/dL Above high normal 03/24/2025 65 - 99 [facility] ISTAT Activated Clotting Time,Kaolin 435.0 seconds Above high normal 03/24/2025 74 - 137 [facility] ISTAT Activated Clotting Time,Kaolin 469.0 seconds Above high normal 03/24/2025 74 - 137 [facility] ISTAT Glucose 148.0 mg/dL Above high normal 03/24/2025 65 - 99 [facility] ISTAT Hemoglobin 10.9 gm/dL Below low normal 03/24/2025 13 - 17.7 [facility] ISTAT Ionized Calcium 1.15 mmol/L Below low normal 03/24/2025 1.17 - 1.33 [facility] ISTAT Sample Type Arterial 03/24/2025 H [facility] ISTAT Arterial Total CO2 25.0 mmol/L 03/24/2025 22 - 28 [facility] ISTAT Arterial pH 7.18 Below low normal 03/24/2025 7.35 - 7.45 [facility] ISTAT O2 Saturation 100.0 % Above high normal 03/24/2025 9 4 - 97 [facility] ISTAT Arterial HCO3 23.3 mmol/L 03/24/2025 22 - 26 [facility] ISTAT Arterial PO2 486.0 mmHg Above high normal 03/24/2025 7 5 - 95 [facility] ISTAT Arterial PCO2 62.4 mmHg Above high normal 03/24/2025 3 2 - 45 [facility] ISTAT Base Excess -5 03/24/2025 H [facility] ISTAT Potassium 4.2 mmol/L 03/24/2025 3.4 - 5.3 [facility] ISTAT Hematocrit 32.0 % Below low normal 03/24/2025 39 - 54 [facility] ISTAT Sodium 141.0 mmol/L 03/24/2025 136 - [address] ISTAT Activated Clotting Time,Kaolin 129.0 seconds 03/24/2025 74 - 137 [facility] ISTAT Hemoglobin 12.2 gm/dL Below low normal 03/24/2025 13 - 17.7 [facility] ISTAT Arterial PCO2 26.7 mmHg Below low normal 03/24/2025 32 - 45 [facility] ISTAT Arterial pH 7.43 03/24/2025 7.35 - 7.45 [facility] ISTAT Base Excess -6 03/24/2025 H [facility] ISTAT Arterial PO2 99.0 mmHg Above high normal 03/24/2025 75 - 95 [facility] ISTAT Arterial Total CO2 19.0 mmol/L Below low normal 03/24/2025 22 - 28 [facility] ISTAT Sample Type Arterial 03/24/2025 H [facility] ISTAT Arterial HCO3 17.9 mmol/L Below low normal 03/24/2025 22 - 26 [facility] ISTAT O2 Saturation 98.0 % Above high normal 03/24/2025 9 4 - 97 [facility] ISTAT Potassium 4.2 mmol/L 03/24/2025 3.4 - 5.3 [facility] ISTAT Sodium 141.0 mmol/L 03/24/2025 136 - [address] ISTAT Glucose 136.0 mg/dL Above high normal 03/24/2025 65 - 99 [facility] ISTAT Ionized Calcium 1.22 mmol/L 03/24/2025 1.17 - 1.33 [facility] ISTAT Hematocrit 36.0 % Below low normal 03/24/2025 39 - 54 [facility]CT Angle, Heparinized 70.0 degrees 03/24/2025 53 - 72 [facility]CT Max Amplitude,Heparinize d 69.3 mm 03/24/2025 50 - 70 [facility] Reaction Time,Heparinized 4.8 minutes Below low normal 03/24/2025 5 - 10 [facility]CT Max Amplitude 65.8 mm 03/24/2025 50 - 70 [facility]CT Fibrin Function,Heparinized 1.4 minutes 03/24/2025 1 - 3 [facility]CT Fibrin Function 1.5 minutes 03/24/2025 1 - 3 H [facility]CT Reaction Time 4.2 minutes Below low normal 03/24/2025 5 - 10 HHCCT %Lysis 30 min,Heparinized 0.6 % 03/24/2025 0 - 8 H[facility]CT Angle 68.0 degrees 03/24/2025 53 - 72 HHCCT %Lysis 30 min 0.1 % 03/24/2025 0 - 8 [facility]CT Anticoagulant Information not given 03/24/2025 HHCCT POC Glucose 122.0 mg/dL Above high normal 03/24/2025 65 - 99 HHCCT POC Glucose 107.0 mg/dL Above high normal 01/27/2025 65 - 99 HHCCT GFR/BSA.pred SerPlBld WIB-JWE-YcPKvl >90.0 01/27/2025 59 - HHCCT Creat SerPl-mCnc 0.8 mg/dL 01/27/2025 0.5 - 1.3 HH CCT BUN SerPl-mCnc 15.0 mg/dL 01/27/2025 8 - [address] Hgb Bld-mCnc 13.5 g/dL 01/27/2025 13 - 17.7 HHCCT Hct VFr Bld Auto 40.7 % 01/27/2025 39 - 54 HH CCT POC Glucose 138.0 mg/dL Above high normal 01/27/2025 65 - 99 HHCCT ALT SerPl-cCnc 11.0 U/L Normal 01/21/2025 9 - 46 [facility] T Bilirub SerPl-mCnc 0.7 mg/dL Normal 01/21/2025 0.2 - 1.2 [facility] Albumin/Glob SerPl 1.5 (calc) Normal 01/21/2025 1 - 2.5 [facility] Potassium SerPl-sCnc 4.5 mmol/L Normal 01/21/2025 3.5 - 5 .3 [facility] Chloride SerPl-sCnc 107.0 mmol/L Normal 01/21/2025 98 - 1 10 [facility] Sodium SerPl-sCnc 140.0 mmol/L Normal 01/21/2025 135 - 14 6 [facility] eGFRcr SerPlBld CKD-EPI 2020 94.0 mL/min/1.73m2 Normal 01/21/2025 - [facility] Calcium SerPl-mCnc 9.2 mg/dL Normal 01/21/2025 8.6 - 10.3 [facility] Albumin SerPl-mCnc 4.0 g/dL Normal 01/21/2025 3.6 - 5.1 [facility] BUN SerPl-mCnc 13.0 mg/dL Normal 01/21/2025 7 - [address] Prot SerPl-mCnc 6.6 g/dL Normal 01/21/2025 6.1 - 8.[address] ALP SerPl-cCnc 35.0 U/L Normal 01/21/2025 35 - 144 [facility] BUN/Creat SerPl SEE NOTE: 01/21/2025 6 - [address] Glucose SerPl-mCnc 104.0 mg/dL Normal 01/21/2025 65 - 139 [facility] Globulin Ser Calc-mCnc 2.6 g/dL (calc) Normal 01/21/2025 1.9 - 3.7 [facility] AST SerPl-cCnc 14.0 U/L Normal 01/21/2025 10 - 35 [facility] T Creat SerPl-mCnc 0.78 mg/dL Normal 01/21/2025 0.7 - 1.28 [facility] CO2 SerPl-sCnc 28.0 mmol/L Normal 01/21/2025 20 - 32 QU EST RBC Auto 92.1 fL Normal 01/21/2025 80 - 100 [facility] MCHC RBC Auto-EntMCnc 32.8 g/dL Normal 01/21/2025 32 - 36 [facility] Platelet # Bld Auto 169.0 Thousand/uL Normal 01/21/2025 1 40 - 400 [facility] WBC # Bld Auto 8.1 Thousand/uL Normal 01/21/2025 3.8 - 10 .8 [facility] RBC # Bld Auto 4.67 Million/uL Normal 01/21/2025 4.2 - 5. 8 [facility] PMV Bld Gurwinder-Hailey 12.4 fL Normal 01/21/2025 7.5 - 12.5 [facility] MCH RBC Qn Auto 30.2 pg Normal 01/21/2025 27 - [address] Hct VFr Bld Auto 43.0 % Normal 01/21/2025 38.5 - 50 QU EST RDW RBC Auto 12.5 % Normal 01/21/2025 11 - 15 [facility] Hgb Bld-mCnc 14.1 g/dL Normal 01/21/2025 13.2 - 17.1 Q[facility] T History of Medication Use Medication Directions Dispensed Refills Start Date End Date Stat us perflutren lipid microsphere (DEFINITY) 1.3 mL in sodium chloride (NS) 0.9 % 10 mL 0.5-8 mL, Intravenous, Once in imaging, other, Starting on 05/02/25 at 1304, For 1 dose, Document total dose administered per policy 05/02/2025 5 completed linagliptin (TRADJENTA) 5 MG Tab Take 1 tablet (5 mg total) by mouth daily. 04/01/2025 active acetaminophen (TYLENOL) 325 MG tablet Take 2 tablets (650 mg total) by mouth 4 times daily (every 6 hours) as needed for moderate pain. 03/31/2025 active amiODARONE (PACERONE) 200 MG tablet Take 2 tablets (400 mg total) by mouth this evening on 03/31/25 and then continue to take 1 tablet (200 mg total) by mouth daily starting on Friday04/01/25 03/31/2025 active apixaban (ELIQUIS) 5 MG tablet Take 1 tablet (5 mg total) by mouth every 12 (twelve) hours around the clock. 03/31/2025 active aspirin enteric coated (ECOTRIN LOW STRENGTH) 81 MG EC tablet Take 1 tablet (81 mg total) by mouth daily. 03/31/2025 active metFORMIN (GLUCOPHAGE) 1000 MG tablet Take 1 tablet (1,000 mg total) by mouth 2 (two) times a day with breakfast and dinner. 03/31/2025 active metoPROLOL TARTRATE (LOPRESSOR) 25 MG tablet Take 1 tablet (25 mg total) by mouth every 12 (twelve) hours around the clock. 03/31/2025 active senna (SENOKOT) 8.6 MG Tab tablet Take 2 tablets by mouth 2 (two) times a day as needed for constipation. 03/31/2025 active metoPROLOL SUCCINATE (TOPROL-XL) 25 MG 24 hr tablet Take 1 tablet (25 mg total) by mouth daily. 12/29/2024 active dorzolamide (TRUSOPT) 2 % ophthalmic solution INSTILL 1 DROP INTO BOTH EYES TWICE A DAY DIRECTED 12/15/2023 active Rocklatan 0.02-0.005 % Solution INSTILL 1 DROP INTO BOTH EYES EVERY NIGHT AT BEDTIME DIRECTED 11/03/2023 active clopidogrel (PLAVIX) 75 MG tablet Take 1 tablet (75 mg total) by mouth daily. 10/31/2022 active aspirin 81 MG chewable tablet Chew 1 tablet (81 mg total) daily. Do not start before October 31, 2022. 10/31/2022 active acetaminophen (TYLENOL) 325 MG tablet Take 3 tablets (975 mg total) by mouth 4 times daily (every 6 hours) as needed for mild pain, moderate pain, fever or headaches. 10/30/2022 5 active atorvastatin (LIPITOR) 80 MG tablet Take 1 tablet (80 mg total) by mouth nightly. 10/30/2022 3 active timolol (TIMOPTIC) 0.5 % ophthalmic solution Administer 1 drop to both eyes 2 (two) times a day. 10/30/2022 3 active tafluprost (ZIOPTAN) 0.0015 % Solution INSTILL 1 DROP INTO BOTH EYES AT BEDTIME DIRECTED 10/07/2022 active dorzolamide-timolol (COSOPT) 22.3-6.8 MG/ML ophthalmic solution 1 drop into affected eye active latanoprost (XALATAN) 0.005 % ophthalmic solution 1 drop into affected eye in the evening active metFORMIN (GLUCOPHAGE) 500 MG tablet 2 (two) times a day with meals. active metFORMIN (GLUCOPHAGE) 500 MG tablet Take 2 tablets (1,000 mg total) by mouth 2 (two) times a day with meals. active multivitamin Tab tablet Take 1 tablet by mouth daily. active Allergies Allergen Reaction Severity Comment Documented Date Source Statu s BRIMONIDINE TARTRATE-TIMOLOL OTHER (SEE COMMENTS) 11/18/2022 [facility] Problems Problem Status Onset Date Problem Type Date of Resolution Source Diabetes mellitus due to underlying condition with hyperglycemia, without long-term current use of insulin active 2023-12-30 ProblemAct H[facility] T2DM (type 2 diabetes mellitus) active ProblemAct HHCCT Aortic root dilatation active 2025-02-24 ProblemAct [facility] Stroke determined by clinical assessment active 2022-10-25 ProblemAct [facility] Aortic aneurysm, intrathoracic active 2025-03-24 ProblemAct [facility] Carotid stenosis, left active 2022-12-02 ProblemAct [facility] Shortness of breath active EncounterDiagnosisAc t HHCCT Nonrheumatic aortic valve stenosis active EncounterDiagnosisAct [facility] T Encounters Encounter Type Encounter Reason Primary Diagnosis Location Date Ambulatory Shortness of breath [facility] 05/02/2025 Ambulatory 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 [facility] 04/15/2025 Ambulatory Presence of prosthet ic heart valve Presence of prosthetic heart valve [facility] 04/07/2025 Inpatient 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 [facility] 03/24/2025 Ambulatory [facility] 03/02/2025 Ambulatory 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 [facility] 02/24/2025 Ambulatory 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 [facility] 02/08/2025 Ambulatory Ischemic cardiomyopathy Ischemic cardiomyopathy [facility] 01/27/2025 Ambulatory 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 [facility] 01/19/2025 Ambulatory Nonrheumatic aortic (valve) stenosis Nonrheumatic aortic (valve) stenosis [facility] 12/29/2024 Ambulatory Follow-up Follow-up [facility] 12/03/2024 Ambulatory Occlusion and stenos is of left carotid artery Occlusion and stenosis of left carotid artery [facility] 12/03/2024 Ambulatory 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 [facility] 12/30/2023 Ambulatory Occlusion and stenos is of left carotid artery Occlusion and stenosis of left carotid artery [facility] 11/17/2023 Ambulatory Occlusion and stenos is of left carotid artery Occlusion and stenosis of left carotid artery [facility] 11/17/2023 Ambulatory Occlusion and stenos is of left carotid artery Occlusion and stenosis of left carotid artery [facility] 08/08/2023 Ambulatory Occlusion and stenos is of left carotid artery Occlusion and stenosis of left carotid artery [facility] 07/09/2023 Ambulatory Follow-up Follow-up [facility] 05/19/2023 Ambulatory Occlusion and stenos is of left carotid artery Occlusion and stenosis of left carotid artery [facility] 05/19/2023 Ambulatory Unspecified sequ elae of cerebral infarction [facility] 12/24/2022 Ambulatory Occlusion and stenosis of left carotid artery [facility] 12/10/2022 Ambulatory Occlusion and stenosis of left carotid artery [facility] 12/02/2022 Ambulatory Occlusion and stenosis of left carotid artery [facility] 12/02/2022 Inpatient Cerebral infarct ion, unspecified [facility] 10/25/2022 Ambulatory [facility] 10/25/2022 Ambulatory [facility] 10/25/2022 Care Team Organization Name Specialty Phone Email Start Date End Da te [facility] Primary Care 12/03/2024 [facility] ALYCIA MICHEL Primary Care 12/02/2022 [facility]NOTE 3] Primary Care 10/25/2022 10/26/19 [facility] ALYCIA MICHEL Primary Care 10/25/20222022 [facility] Primary Care 10/25/2022
--- OUTSIDE RECORDS SUMMARY | 2025-05-06 13:46 | XMS_ITS | Encounter Summary ---
Author Organization [facility] Address [address] [place] [address] Care Team Providers Care Jack Prizer Name Role Phone Gurjit Gloria MD Primary Care Provider [phone] Paige Colbert MD Unavailable [phone] Grace Lo Unavailable [phone] Annie Macdonald MD Unavailable Reason for Visit * Reason Comments Medication Refill Medication refill/Pl avix 75mg/ Encounter Details Date Type Department Care Team (Late st Contact Info) Description 03/18/2023 Telephone [facility] Vascular & Endovascular Surgery [place] [address] [facility] [address] [place] [address] Fabian Galindo MD [address] [facility] [address] [place], [place] [phone] Medication Refill (Medication refill/Plavix 75mg/ ) Social [...] place to sleep or slept in a snf (including now)? No 10/28/2022 Sex and Gender [...] Rosales RN * Telephone Encounter - Ashvin Liam - 03/18/2023 9:37 AM EDTSummary: Medication refill/Plavix 75mg/ Patient called in and is requesting a medication refill on plavix 75mg. Before his request is completed he would like to confirm that wants him to continue the medication documented in this encounter Plan of Treatment Upcoming Encounters Date Type Department Care Team (Late st Contact Info) Description 09/09/2025 2:40 PM EST Office Visit [facility] [place] [address] [place] [phone] Paige Colbert MD [address] [place] [address] 12/02/2025 10:00 AM EDT Ancillary Procedure [facility] Vascular & Endovascular Surgery [address] 2nd Floor [address] [place] [phone] Fabian Galindo MD [address] [place] [phone] 12/02/2025 10:30 AM EDT Office Visit [facility] Vascular & Endovascular Surgery [address] [place] [phone] Fabian Galindo MD [address] [place] [address] documented as of this encounter Visit Diagnoses Not on filedocumented in this encounter Care Teams Jack Prizer Relationship Specialty Start Date End Date Gurjit Gloria MD [address] [place] [address] Dr Cornelius [address] [place] [phone] PCP - General Internal Medicine 10/25/22 Paige Colbert MD [address] [place] [address] Primary Campus Monitor Cardiovascular Disease 12/04/22 Grace Lo PA [address] [place] [address] Physician Loss Prevention And Safety Manager Cardiovascular Disease 01/19/25 Annie Macdonald MD [address] [address] Consulting Provider Surgery, Cardiac 02/02/25 documented as of this encounter
--- OUTSIDE RECORDS SUMMARY | 2025-05-06 13:46 | XMS_ITS | Encounter Summary ---
Author Organization [facility] Address [address] [place] [address] Care Team Providers Care Residential Real Estate Assistant Name Role Phone Gurjit Gloria MD Primary Care Provider [phone] Paige Colbert MD Unavailable [phone] Grace Lo Unavailable [phone] Annie Macdonald MD Unavailable Reason for Referral * Cardiovascular Test (Routine) - Closed Specialty Diagnoses / Procedures Referred By Debra madrigal Referred To Contact Diagnoses Shortness of breath Procedures Echocardiogram (TTE) Limited (Contrast PRN) Annie Macdonald MD [address] [place] [address] Phone: tel: fax: Referral ID Status Reason Start Date Expiration Date Visits Re quested Visits Authorized [id number] Closed 04/01/2025 04/02/2026 1 1 Encounter Details Date Type Department Care Team (Late st Contact Info) Description 04/01/2025 Telephone [facility] Cardiothoracic Surgery [place] [address] [phone] Annie Macdonald MD [address] [place], [place] [phone] Social History Tobacco Use Types Packs/Day Years Used Date Smoking Tobacco: Never Smokeless Tobacco: Never Alcohol Use Standard Drinks/Week Comments Never 0 (1 standard drink = 0.6 oz pur e alcohol) [facility] Utilities Answer Date Recorded In the past 12 months has th e electric, gas, oil, or water company threatened to shut off services in your [...] any time in the past 12 m onths, were you homeless or living in a fdc (including now)? No 03/25/2025 Sex and Gender Information Value Date Recorded Sex Assigned at Male 10/26/2022 1:24 PM EDT Legal Sex Male 4:00 PM EDT Gender Identity Male 10/26/2022 1:24 PM EDT Sexual Orientation Heterosexual (straight) 10/26 1:24 PM EDT documented as of this encounter Miscellaneous Notes * Telephone Encounter - Janak Hill - 05/02/2025 3:04 PM EDT Is Precertification required: NPR PER CALL TO INS * Telephone Encounter - Janak Hill - 04/06/2025 7:53 AM EDTSummary: echo appointment Echo schedule for 05/02/2025 @1:00pm arrival 12:30pm Location: [address] [place] [address] register room 128. * Telephone Encounter - Vanda Oshea RN - 04/01/2025 9:18 AM EDT PER I ANTICOAGULATION AFTER CARDIAC SURGERY PROTOCOL, NEEDS ECHO 2-3 WEEKS POST OP-NO SOONER [facility] documented in this encounter Plan of Treatment Upcoming Encounters Date Type Department Care Team (Late st Contact Info) Description 09/09/2025 2:40 PM EST Office Visit [facility] Heart & Vascular [place] [address] [address] Paige Colbert MD [address] [place] [address] 12/02/2025 10:00 AM EDT Ancillary Procedure [facility] Vascular & Endovascular Surgery [address] Floor [address] [place] [address] Fabian Galindo MD 85 [facility] [address] [place] [address] 12/02/2025 10:30 AM EDT Office Visit [facility] Vascular & Endovascular Surgery [address] Floor [address] [place] [phone] Fabian Galindo MD 85 [facility] [address] [place] [address] documented as of this encounter Results * ECHOCARDIOGRAM LIMITED WITH [...] this encounter Visit Diagnoses Diagnosis Shortness of breath- Primary Shortness of breath documented in this encounter Care Teams Residential Real Estate Assistant Relationship Specialty Start Date End Date Gurjit Gloria MD [address] [place] [address] [place] [address] PCP - General Internal Medicine 10/25/22 Paige Colbert MD [address] [place] [address] Primary Lease Purchase Truck Driver Cardiovascular Disease 12/04/22 Grace Lo PA [address] [place] [address] Physician Slitter Processed Film Cardiovascular Disease 01/19/25 Annie Macdonald MD [address] [place] [address] Consulting Provider Surgery, Cardiac 02/02/25 documented as of this encounter
--- OUTSIDE RECORDS SUMMARY | 2025-05-06 13:46 | XMS_ITS | Encounter Summary ---
Author Organization [facility] Address [address] [place] [address] Care Team Providers Care Head Usher Name Role Phone Gurjit Gloria MD Primary Care Provider [phone] Paige Colbert MD Unavailable [phone] Grace Lo Unavailable [phone] Annie Macdonald MD Unavailable Encounter Details Date Type Department Care Team (Late st Contact Info) Description 04/06/2025 Telephone [facility] Cardiothoracic Surgery [address] [phone] Annie Macdonald MD [address] [place] [address] Social History Tobacco Use Types Packs/Day Years Used Date Smoking Tobacco: Never Smokeless Tobacco: Never Alcohol Use Standard Drinks/Week Comments Never 0 (1 standard drink = 0.6 oz pur e alcohol) [facility] Utilities Answer Date Recorded In the past 12 months has [email or web address], gas, oil, or water [employer] threatened to shut off services in your [...] health care facility (including now)? No 10/28/2022 Housing Stability Vital Sign Answer Adam e Recorded In the last 12 months, was t here a time when you were not able to pay the mortgage or rent on time? No 03/25/2025 In the past 12 months, how m any times have you moved where you were living? 0 03/25/2025 At any time in the past 12 m [facility], were you homeless or living in a [place] facility (including now)? No 03/25/2025 Sex and Gender Information Value Date Recorded Sex Assigned at Male 10/26/2022 1:24 PM EDT Legal Sex Male 4:00 PM EDT Gender Identity Male 10/26/2022 1:24 PM EDT Sexual Orientation Heterosexual (straight) 10/26 1:24 PM EDT documented as of this encounter Miscellaneous Notes * Telephone Encounter - Bea Baird APRN - 04/06/2025 1:18 PM EDT Noted * Telephone Encounter - Bea Baird APRN - 04/06/2025 12:[address] a referral * Telephone Encounter - Katy Carlos - 04/06/2025 9:56 AM EDT Pt's called in that they have not heard about the PT,OT services that they were told that theywould heard about upon discharge. She left a number of [phone] Thank you documented in this encounter Plan of Treatment Upcoming Encounters Date Type Department Care Team (Late st Contact Info) Description 09/09/2025 2:40 PM EST Office Visit [facility] Heart & Vascular [place] [address] [phone] Paige Colbert MD [address] [place] [address] 12/02/2025 10:00 AM EDT Ancillary Procedure [facility] Vascular & Endovascular Surgery [address] Floor [address] [place] [phone] Fabian Galindo MD [address] [place] [address] 12/02/2025 10:30 AM EDT Office Visit [facility] Vascular & Endovascular Surgery [address] 2[address] Floor [address] [place] [phone] Fabian Galindo MD [address] [place] [phone] documented as of this encounter Visit Diagnoses Not on filedocumented in this encounter Care Teams Head Usher Relationship Specialty Start Date End Date Gurjit Gloria MD [address] [place] [address] Dr [address] [place] [address], [place] [address] PCP - General Internal Medicine 10/25/22 Paige Colbert MD [address] [place] [address] Primary Hall Manager Cardiovascular Disease 12/04/22 Grace Lo PA [address] [place] [address] Physician Maintenance Helper Utility Engineer Cardiovascular Disease 01/19/25 Annie Macdonald MD 85 [facility] [address] [place] [address] Consulting Provider Surgery, Cardiac 02/02/25 documented as of this encounter
== END 2025-05-06 11:22 | disposition home or self-care (01) ==
LOC: HO.LNP 11:21
PROVIDERS: Visit Provider Internal Medicine
DX: Z00.00 Encounter for general adult medical examination without abnormal findings (principal); E11.40 Type 2 diabetes mellitus with diabetic neuropathy, unspecified; E78.6 Lipoprotein deficiency; R97.20 Elevated prostate specific antigen [PSA]; Z12.5 Encounter for screening for malignant neoplasm of prostate
CPT/HCPCS: 80053; 80061; 83036; 84153; 85025

== ENCOUNTER 2025-05-13 11:14 | Outpatient (REF) | payer OTHER, MEDICARE, SELFPAY ==
--- OUTSIDE RECORDS SUMMARY | 2024-05-04 03:15 | XMS_ITS ---
Author Organization Gurjit Gloria MD Address [address] [place], [place] [id number] Care Team Providers Care Plastic Machine Operator Name Role Phone Gurjit Gloria Primary Care Provider [phone] Results Component Value Reference Range Notes Complete Blood Count Auto Di ff Reviewed date:05/04/2024 08:43:48 PM Interpretation: Performing Lab:[facility], [address] [place] [phone] Notes/Report: White Blood Count 7.6 4.8-10.8 X10*3/uL [...] Abs Auto 0.000 0.0-0.012 X10*3/uL Comprehensive [place]. Panel Fa st Reviewed date:05/04/2024 08:44:07 PM Interpretation: Performing Lab:[facility], [address] [place] [phone] Notes/Report: Sodium 142 135-145 mmol/L Potassium 4.3 3.3-5.1 mmol/L Chloride 110 96-108 mmol/L Carbon Dioxide 26 22-29 mmol/L Anion Gap 10 12-20 Blood Urea Nitrogen 15 9-16 mg/dL Creatinine 0.88 0.5-1.4 mg/dL Estimated Glomerular Filt Rate > 60 NOTE: For -Yemeni individuals, multiply the result by 1.210. Chronic [...] Panel Reviewed date:05/04/2024 08:34:21 PM Interpretation: Performing Lab:[address] [phone] Notes/Report: Triglycerides 88 <150 mg/dL Desirable Triglyceride: [...] (Free>4and<10) Reviewed date:05/04/2024 08:35:01 PM Interpretation: Performing Lab:[address] [phone] Notes/Report: PSA,Total (Free>4and<10) 1.07 0.00-4.00 ng/mL A [...] A1c Reviewed date:05/04/2024 08:35:20 PM Interpretation: Performing Lab:[address] [phone] Notes/Report: Hemoglobin A1c % 6.2 <6.0 % [...] average glucose, using the formula of the C9Y-Czbfzeg Average Glucose study (ADAG), Diabetes Care, Vol.31,#8, Feb. 2007 REASON FOR VISIT yearly fasting labs Immunizations Vaccine Route Administration Date Status Comme nts Influenza High Dose IM Intramuscular 05/04/2024 Administer ed Encounters Encounter Location Date Provider Diagnosis Gurjit Gloria MD [address] [place] [phone] 05/04/2024 Gurjit Gloria Blood tests for rout [...] Details Provider Name:Gurjit almazan, 05/26/2025 09:15:00 AM, [address] [place] [address], [address], [phone], Provider Name:Gurjit almazan, 10/20/2025 07:45:00 AM, [address] [place] [address], [phone], Provider Name:Gurjit almazan, 10/27/2025 10:15:00 AM, [address] [place] [address], [phone], Provider Name:Gurjit kiddr, 05/09/2026 07:30:00 AM, [address], [address], [place], [place], [phone], Provider Name:Gurjit Suggs ier, 05/16/2026 10:30:00 AM, [address], [address], [place], [phone], Progress Notes * Howard MUNIZ FDOB:[birth year] (73 yo M)Acc No.[id number]:05/04/2024 Progress Note Patient: Howard Hicks Provider: Jannet Gloria MD :1950 A ge:73 Y S ex:Male Date:05/04/2024 Address:[address] [place] [address] [id number] Subjective: * Chief Complaints: * Y early [...] Count Auto Diff L AB: Comprehensive [place]. Panel Fast L AB: Lipid Panel L AB: PSA,Total (Free>4and<10) L AB: Hemoglobin A1c 3. L ow HDL (under 40) L AB: Microalbumin, Random L AB: UA ClnCatch+Micro w/rflx Cult L AB: Complete Blood Count Auto Diff L AB: Comprehensive [place]. Panel Fast L AB: Lipid Panel L AB: PSA,Total (Free>4and<10) L AB: Hemoglobin A1c 4. R ising PSA level L AB: Microalbumin, Random L AB: UA ClnCatch+Micro w/rflx Cult L AB: Complete Blood Count Auto Diff L AB: Comprehensive [place]. Panel Fast L AB: Lipid Panel L AB: PSA,Total (Free>4and<10) L AB: Hemoglobin A1c 5. A rteriosclerotic coronary artery disease L AB: Microalbumin, Random L AB: UA ClnCatch+Micro w/rflx Cult L AB: Complete Blood Count Auto Diff L AB: Comprehensive [place]. Panel Fast L AB: Lipid Panel L AB: PSA,Total (Free>4and<10) L AB: Hemoglobin A1c * Immunizations: Influenza High Dose : 0.5 mL (Dose No:1) (Route: Intramuscular) given by Ela Graham on Left Deltoid * Procedure Codes: 9 0662 FLU VACC PRSV FREE INC [id number] IMMUNIZATION [id number] VENIPUNCT, ROUTINE* * * Sign off status: Completed true * Provider: Jannet Gloria MD Date: Generated for Janel del cid/Judd/Wilma on: 12:51 PM EDT
--- OUTSIDE RECORDS SUMMARY | 2024-05-11 05:30 | XMS_ITS ---
Author Organization Gurjit Gloria MD Address [address] [place], [place] [phone] Care Team Providers Care Staple Cutter Name Role Phone Gurjit Gloria Primary Care Provider Allergies Allergen (clinical drug ingredient) Drug/Non Drug Allergy documented on EMR Reaction Allergy Type Onset Date Status brimonidine / timolol Combigan blood shot eyes Drug Allergy Active Results Component Value Reference Range Notes Microalbumin, Random Reviewed date:05/11/2024 04:23:31 PM Interpretation: Performing Lab:[facility], [address] [place] [phone] Notes/Report: Creatinine Urine 63.33 Microalbumin Urine < 5.0 Microalbum/Creatinine Ratio Ur TNP <30 ug/mg cr Unable to calculate albumin/creatinine ratio due to low microalbumin or creatinine result. UA ClnCatch+Micro w/rflx Cul t Reviewed date:05/11/2024 12:37:07 PM Interpretation: Performing Lab:[facility], [address] [place] [phone] Notes/Report: Urine, Clean Catch Color Urine Yellow Appearance Urine Clear PH 6.0 5.0-9.0 Glucose Urine UA Negative Negative mg/dL Urine Blood Negative Negative Specific [place] - Urine 1.010 1.005-1.025 Urine Protein Negative [...] Date Provider Diagnosis Gurjit Gloria MD [address] [place] [address] Drive [address] [place], [place] [phone] 05/11/2024 Gurjit Gloria Type 2 diabetes mellitus [...] Moderate aortic stenosis (ICD-10 - I35.0) sees online content editor in [facility] 05/11/2024 Cerebrovascular accident (CVA) due to [...] Moderate aortic stenosis sees cardiologi st in [facility] Cerebrovascular accident (CV A) due to occlusion of right carotid artery doing well with good recovery. sees the surgeon Low HDL (under 40) stable, will continu e current regiment Colon cancer screening guaiac negative Depression screening negative screen Next Appt Details Follow Up: 6 Months, Reason: Provider Name:Gurjit almazan, 05/26/2025 09:15:00 AM, [address] [place] [address], [address], [place], [place], [phone], Provider Name:Gurjit almazan, 10/20/2025 07:45:00 AM, [address] [place] [address], [address], [place], [place], [phone], Provider Name:Gurjit almazan, 10/27/2025 10:15:00 AM, [address] [place] [address], [address], [place], [place], [phone], Provider Name:Gurjit Suggs martir, 05/09/2026 07:30:00 AM, [address] [facility], [address], [place], [phone], Provider Name:Gurjit Suggs martir, 05/16/2026 10:30:00 AM, [address] [facility], [address], [place], [phone], Progress Notes * Howard MUNIZ FDOB:[birth year] (73 yo M)Acc No.[id number]:05/11/2024 Progress Notes Patient: Howard Hicks Provider: Jannet Gloria MD :1950 A ge:73 Y S ex:Male Date:05/11/2024 Address:[address] [place], [place] [phone] Subjective: * Chief Complaints: * A nnual [...] Pets: bird. no Travel outside of the [place]. * Medications: T akingZioptan 0.0015 % [...] Auto 0.000 0.0-0.012 - X10*3/uL L ab:Comprehensive [place]. Panel Fast (Order Date - 05/04/2024) (Collection [...] 4. M oderate aortic stenosis Notes: sees online content editor in [place] 5. C erebrovascular accident (CVA) [...] Date: Generated for Janel del cid/Judd/Carlositting on: 12:49 PM EDT History and Physical Notes * [...] Total Score: 0 Interpretation and Intervention Depression Oferene ge Findings: Negative Follow-Up for Depression: : review [...]
--- OUTSIDE RECORDS SUMMARY | 2024-10-26 03:45 | XMS_ITS ---
Author Organization Gurjit Gloria MD Address [address] [place], [place] [phone] Care Team Providers Care Extension Service Specialist In Charge Name Role Phone Gurjit Gloria Primary Care Provider Results Component Value Reference Range Notes Liver Panel Reviewed date:10/27/2024 11:50:46 AM Interpretation: Performing Lab:[address] [phone] Notes/Report: Bilirubin Total 1.0 0.0-1.0 mg/dL Bilirubin Direct 0.5 0.0-0.5 mg/dL Aspartate Amino Transferase 21 5-37 U/L Alanine Aminotransferase 12 0-40 U/L Total Protein 6.7 6.5-8.0 g/dL Albumin Level 3.9 3.5-5.0 g/dL Alkaline Phosphatase 39 39-117 U/L Glucose Fasting Reviewed date:10/27/2024 11:49:29 AM Interpretation: Performing Lab:[address] [phone] Notes/Report: Glucose Fasting 141 60-99 mg/dL A fasting glucose of 126 mg/dl or greater on more than one occasion is considered diagnostic of diabetes. Lipid Panel with Reflex Reviewed date:10/27/2024 11:51:08 AM Interpretation: Performing Lab:[facility], [address] [place] [phone] Notes/Report: Triglycerides 141 <150 mg/dL Desirable Triglyceride: [...] A1c Reviewed date:10/26/2024 01:06:24 PM Interpretation: Performing Lab:[facility], [address] [place] [phone] Notes/Report: Hemoglobin A1c % 6.2 <6.0 % [...] average glucose, using the formula of the [id number]-Pqlshbq Average Glucose study (ADAG), Diabetes Care, Vol.31,#8, Feb. 2007 REASON FOR VISIT fasting lipids Encounters Encounter Location Date Provider Diagnosis Gurjit Gloria MD [address] [place] [address] [address] [place], [place] [phone] 10/26/2024 Gurjit Gloria Type 2 diabetes mellitus [...] 09:15:00 AM, [address], [address], [place], [phone], Provider Name:Gurjit Suggs ier, 10/20/2025 07:45:00 AM, [address], [address], [place], [phone], Provider Name:Gurjit Suggs ier, 10/27/2025 10:15:00 AM, [address], [address], [place], [phone], Provider Name:Gurjit Suggs ier, 05/09/2026 07:30:00 AM, [address], Suite [facility], [place], [phone], Provider Name:Gurjit Suggs ier, 05/16/2026 10:30:00 AM, [address] [place] [address], Suite [facility], [place], [place], [phone], Progress Notes * GEOVANYHoward FDOB:[birth year] (74 yo M)Acc No.[id number]:10/26/2024 Progress Note Patient: Howard BECK Provider: Jannet Gloria MD :1950 A ge:74 Y S ex:Male Date:10/26/2024 Address:[address] [place], [place] [phone] Subjective: * Chief Complaints: * 1 . [...] Generated for Janel del cid/Judd/Carlositting on: 1 12:50 PM EDT
--- OUTSIDE RECORDS SUMMARY | 2024-11-02 05:00 | XMS_ITS ---
Author Organization Gurjit Gloria MD Address [address] [place], [place] [phone] Care Team Providers Care Assembler Deck And Hull Name Role Phone Gurjit Gloria Primary Care [...] Location Date Provider Diagnosis Gurjit Gloria MD [address] [place] [phone] 11/02/2024 Gurjit Gloria Type 2 diabetes mellitus [...] Details Provider Name:Gurjit almazan, 05/26/2025 09:15:00 AM, [address] [place] [address], [phone], Provider Name:Gurjit almazan, 10/20/2025 07:45:00 AM, [address] [place] [address], [phone], Provider Name:Gurjit almazan, 10/27/2025 10:15:00 AM, [address] [place] [address], [phone], Provider Name:Gurjit almazan, 05/09/2026 07:30:00 AM, [address] [place] [address], [phone], Provider Name:Gurjit almazan, 05/16/2026 10:30:00 AM, [address] [place] [address], [phone], Progress Notes * Howard MUNIZ FDOB:[birth year] (74 yo M)Acc No.[id number]:11/02/2024 Progress Notes Patient: Howard BECK Provider: Jannet Gloria MD :1950 A ge:74 Y S ex:Male Date:11/02/2024 Address:[address] [place], [place] [address] Subjective: * Chief Complaints: * 6 month [...] 11/02/2024 Generated for Janel del cid/Judd/eTransmitting on: 1 12:50 PM EDT History and Physical Notes * [...]
--- OUTSIDE RECORDS SUMMARY | 2025-03-31 10:02 | XMS_ITS ---
Author Organization Gurjit Gloria MD Address [address] [place] [phone] Care Team Providers Care Dry Press Operator Helper Name Role Phone Gurjit Gloria Primary Care Provider REASON FOR VISIT schedule f/u Encounters Encounter Location Date Provider Diagnosis Gurjit Gloria MD [address] [facility] [address] [place] [phone] 03/31/2025 Gurjit Gloria Plan Of Treatment Next Appt Details Provider Name:Gurjit almazan, 05/26/2025 09:15:00 AM, [address] [place] [address], [address], [phone], Provider Name:Gurjit Suggs ier, 10/20/2025 07:45:00 AM, [address] [place] [address], [address], [phone], Provider Name:Gurjit kiddr, 10/27/2025 10:15:00 AM, [address] [place] [address], [address], [phone], Provider Name:Gurjit almazan, 05/09/2026 07:30:00 AM, [address] [place] [address], [address], [phone], Provider Name:Gurjit almazan, 05/16/2026 10:30:00 AM, [address], [address], [place], [place], [phone], Progress Notes * Howard MUNIZ FDOB:[birth year] (74 yo M)Acc No.[id number]:03/31/2025 Patient: Howard BECK :1950 A ge:74 Y S ex:Male Address:[address] [place] [address] * true * Date: Generated for Janel del cid/Judd/eTransmitting on: 12:50 PM EDT
--- OUTSIDE RECORDS SUMMARY | 2025-04-04 05:16 | XMS_ITS ---
Author Organization Gurjit Gloria MD Address [address] [place] [phone] Care Team Providers Care Desk Officer Name Role Phone Gurjit Gloria Primary Care Provider REASON FOR VISIT Discharge summary rec'd Encounters Encounter Location Date Provider Diagnosis Gurjit Gloria MD 10 [facility] [address] [place] [phone] 04/04/2025 Gurjit Gloria Plan Of Treatment Next Appt Details Provider Name:Gurjit almazan, 05/26/2025 09:15:00 AM, [address] [place] [address], [address], [phone], Provider Name:Gurjit uSggs ier, 10/20/2025 07:45:00 AM, [address] [place] [address], [address], [phone], Provider Name:Gurjit Suggs ier, 10/27/2025 10:15:00 AM, [address] [place] [address], [address], [phone], Provider Name:Gurjit almazan, 05/09/2026 07:30:00 AM, [address] [place] [address], [address], [phone], Provider Name:Gurjit almazan, 05/16/2026 10:30:00 AM, [address], [address], [place], [place], [phone], Progress Notes * Howard MUNIZ FDOB:[birth year] (74 yo M)Acc No.[id number]:04/04/2025 Patient: Howard BECK :1950 A ge:74 Y S ex:Male Address:[address] [place] [address] * true * Date: Generated for Janel del cid/Judd/eTransmitting on: 12:50 PM EDT
--- OUTSIDE RECORDS SUMMARY | 2025-04-12 09:45 | XMS_ITS ---
Author Organization Gurjit Gloria MD Address [address] [place], [place] [id number] Care Team Providers Care Lead Cargo Mover Name Role Phone Gurjit Gloria Primary Care [...] MD [address] [place], [place] [phone] 04/12/2025 Gurjit Choinicholascruz Plan Of Treatment Next Appt Details Provider Name:Gurjit Suggs ier, 05/26/2025 09:15:00 AM, [address], [address], [place], [phone], Provider Name:Gurjit Suggs ier, 10/20/2025 07:45:00 AM, [address] [facility], [address], [place], [phone], Provider Name:Gurjit Suggs ier, 10/27/2025 10:15:00 AM, [address], [address], [place], [place], [phone], Provider Name:Gurjit Suggs ier, 05/09/2026 07:30:00 AM, [address] [place] [address], [address] [facility], [place], [phone], Provider Name:Gurjit Suggs ier, 05/16/2026 10:30:00 AM, [address] [place] [address], [address] [facility], [place], [place], [phone], Progress Notes * Howard MUNIZ FDOB:[birth year] (74 yo M)Acc No.[id number]:04/12/2025 Patient: Howard BECK Provider: Jannet Gloria MD :1950 A ge:74 Y S ex:Male Date:04/12/2025 Address:[address] [place], [place] [id number] Subjective: * Chief Complaints: * 1 . [...] 04/12/2025 Generated for Janel del cid/Judd/Sherrysmitting on: 1 12:51 PM EDT History and Physical Notes * HPI (History of Present Illness) Category Sub-Category Detail Notes Category Not es Symptom(s) patient is a 74 yo male here in follow up to recent cardiac surgery
--- OUTSIDE RECORDS SUMMARY | 2025-04-28 09:09 | XMS_ITS ---
Author Organization Gurjit Gloria MD Address [address] [place], [place] [phone] Care Team Providers Care Concrete Rubber Name Role Phone Gurjit Gloria Primary Care Provider [phone] REASON FOR VISIT rectal bleeding Encounters Encounter Location Date Provider Diagnosis Gurjit Gloria MD 10 [facility] [address] [place] [phone] 04/28/2025 Gurjit Gloria Plan Of Treatment Next Appt Details Provider Name:Gurjit almazan, 05/26/2025 09:15:00 AM, [address] [place] [address], [address], [phone], Provider Name:Gurjit kiddr, 10/20/2025 07:45:00 AM, [address] [place] [address], [address], [phone], Provider Name:Gurjit almazan, 10/27/2025 10:15:00 AM, [address] [place] [address], [phone], Provider Name:Gurjit almazan, 05/09/2026 07:30:00 AM, [address] [place] [address], [phone], Provider Name:Gurjit almazan, 05/16/2026 10:30:00 AM, [address] [facility], [address], [place], [place], [phone], Progress Notes * Howard MUNIZ FDOB:[birth year] (74 yo M)Acc No.[id number]:04/28/2025 Patient: Howard BECK :1950 A ge:74 Y S ex:Male Address:[address] [place] [address] * true * Date: Generated for Janel del cid/Judd/eTransmitting on: 12:51 PM EDT
--- OUTSIDE RECORDS SUMMARY | 2025-05-06 04:00 | XMS_ITS ---
Author Organization Gurjit Gloria MD Address [address] [place], [place] [phone] Care Team Providers Care Anode Adjuster Name Role Phone Gurjit Gloria Primary Care Provider Results Component Value Reference Range Notes Complete Blood Count Auto Di ff Reviewed date:05/06/2025 12:20:57 PM Interpretation: Performing Lab:[facility], [address] [place] [phone] Notes/Report: White Blood Count 6.5 4.8-10.8 X10*3/uL [...] Panel Reviewed date:05/06/2025 04:45:00 PM Interpretation: Performing Lab:[facility], [address] [place] [phone] Notes/Report: Triglycerides 94 <150 mg/dL Desirable Triglyceride: [...] (Free>4and<10) Reviewed date:05/06/2025 01:44:03 PM Interpretation: Performing Lab:[address] [phone] Notes/Report: PSA,Total (Free>4and<10) 1.17 0.00-4.00 ng/mL A [...] A1c Reviewed date:05/06/2025 12:20:17 PM Interpretation: Performing Lab:[facility], [address] [place] [phone] Notes/Report: Hemoglobin A1c % 5.8 <6.0 % [...] average glucose, using the formula of the D7I-Xsfuwte Average Glucose study (ADAG), Diabetes Care, Vol.31,#8, Feb. 2007 REASON FOR VISIT yearly fasting labs Immunizations Vaccine Route Administration Date Status Comme nts Influenza High Dose IM Intramuscular 05/06/2025 Administer ed Encounters Encounter Location Date Provider Diagnosis Gurjit Gloria MD [address] [place] [address] [address] [place], [place] [phone] 05/06/2025 Gurjit Gloria Blood tests for routine [...] Pending Test Test Name Order Date Comprehensive [place]. Panel Fast Microalbumin, Random 05/06/2025 UA ClnCatch+Micro w/rflx Cult 05/06/2025 Next Appt Details Provider Name:Gurjit Suggs ier, 05/26/2025 09:15:00 AM, [address] [facility], [address], [place], [place], [phone], Provider Name:Gurjit Suggs ier, 10/20/2025 07:45:00 AM, [address] [facility], Suite [facility], [place], [place], [phone], Provider Name:Gurjit Suggs ier, 10/27/2025 10:15:00 AM, [address] [place] [address], Suite [facility], [place], [place], [phone], Provider Name:Gurjit Suggs ier, 05/09/2026 07:30:00 AM, [address] [place] [address], Suite [facility], [place], [place], [phone], Provider Name:Gurjit Suggs ier, 05/16/2026 10:30:00 AM, [address] [place] [address], Suite [facility], [place], [place], [phone], Progress Notes * Howard MUNIZ FDOB:[birth year] (74 yo M)Acc No.[id number]:05/06/2025 Progress Note Patient: Howard BECK Provider: Jannet Gloria MD :1950 A ge:74 Y S ex:Male Date:05/06/2025 Address:[address] [place], [place] [phone] Subjective: * Chief Complaints: * 1 . [...] mellitus with diabetic neuropathy L AB: Comprehensive [place]. Panel Fast L AB: Microalbumin, Random L [...] ow HDL (under 40) L AB: Comprehensive [place]. Panel Fast L AB: Microalbumin, Random L [...] R ising PSA level L AB: Comprehensive [place]. Panel Fast L AB: Microalbumin, Random L [...] * Procedure Codes: 3 6415 VENIPUNCT, ROUTINE*, 81992 FLU VACC PRSV FREE INC ANTIG, [address] IMMUNIZATION ADMIN * * The named appointment provid er may or may not be the originator of this progress note, and it is not deemed complete until electronically signed by the appointment provider. Sign off status: Pending * Provider: Jannet Gloria MD Date: Generated for Janel del cid/Judd/Wilma on: 12:51 PM EDT
--- OUTSIDE RECORDS SUMMARY | 2025-05-13 05:30 | XMS_ITS ---
Author Organization Gurjit Gloria MD Address [address] [place], [place] [id number] Care Team Providers Care Carbonizer Name Role Phone Gurjit Gloria Primary Care Provider Allergies Allergen (clinical drug ingredient) Drug/Non Drug Allergy documented on EMR Reaction Allergy Type Onset Date Status brimonidine / timolol Combigan blood shot eyes Drug Allergy Active Results Component Value Reference Range Notes Microalbumin, Random Reviewed date:05/13/2025 12:39:09 PM Interpretation: Performing Lab:[facility], [address] [place] [phone] Notes/Report: Creatinine Urine 91.35 Microalbumin Urine 7.0 Microalbum/Creatinine Ratio Ur 7.6 <30 ug/mg cr Albumin/Creatinine Ratio Reference Ranges: Normal: < 30 ug/mg creatinine Microalbuminuria: 30 - 300 ug/mg creatinine Clinical Albuminuria: > 300 ug/mg creatinine UA ClnCatch+Micro w/rflx Cul t Reviewed date:05/13/2025 12:37:52 PM Interpretation: Performing Lab:[facility], [address] [place] [phone] Notes/Report: Urine, Clean Catch Color Urine Yellow Appearance Urine Clear PH 6.0 5.0-9.0 Glucose Urine UA Negative Negative mg/dL Urine Blood Negative Negative Specific [place] - Urine 1.015 1.005-1.025 Urine Protein Negative [...] Carmel Rodriguez 1 10:32:08 AM >referral info faxedJennifer Annette 05/13/2025 11:33:17 AM > patient is aware [...] History of heart valve repair with prosthesis (90958391572927 8) 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 Vital Signs Height 70 in 05/13/2025 Weight 156 lbs 05/13/2025 BMI 22.38 kg/m2 05/13/2025 weight is down 23 pounds sin 11-02-24 Encounters Encounter Location Date Provider Diagnosis Gurjit Gloria MD [address] [place], [place] [phone] 05/13/2025 Gurjit Gloria Adult general medica l [...] Notes Adult general medical examination labs r sushantwed and discussed with patient, pending labs Type [...] Follow Up: 2 Weeks, Reason: Provider Name:Gurjit kiddr, 05/26/2025 09:15:00 AM, [address] [place] [address], [address], [phone], Provider Name:Gurjit kiddr, 10/20/2025 07:45:00 AM, [address] [place] [address], [address], [phone], Provider Name:Gurjit kiddr, 10/27/2025 10:15:00 AM, [address] [place] [address], [phone], Provider Name:Gurjit kiddr, 05/09/2026 07:30:00 AM, [address] [place] [address], [phone], Provider Name:Gurjit kiddr, 05/16/2026 10:30:00 AM, [address] [place] [address], [phone], Progress Notes * Howard MUNIZ FDOB:[birth year] (74 yo M)Acc No.[id number]:05/13/2025 Progress Notes Patient: Howard BECK Provider: Jannet Gloria MD :1950 A ge:74 Y S ex:Male Date:05/13/2025 Address:[address] [place] [address] [id number] Subjective: * Chief Complaints: * 1 . [...] of concern. D enies P hotosensitivity. R aarsh d enies. N eurologic: Dizziness d enies. [...] mg/dL L ab:Lipid Panel (Order Date - 05/06/2025) (Collection Date & [...] mL L ab:Comprehensive Met. Panel (Order Date - 05/06/2025) (Collection Date & [...] his surgeon 7. C olon cancer screening Notes: guaiac positive 8. D epression screening Notes: negative screen * Preventive Medicine: Diabetes Care Plan: P [...] Date: Generated for Janel del cid/Judd/Carlositting on: 12:50 PM EDT History and Physical Notes [...]
[2025-05-13 11:28] LABS: Appearance Urine Clear; Glucose Urine UA Negative (Negative); PH 6.0 (5.0-9.0); Specific Gravity - Urine 1.015 (1.005-1.025)
[2025-05-13 12:14] LABS: Microalbum/Creatinine Ratio Ur 7.6 ug/mg cr (<30)
--- OUTSIDE RECORDS SUMMARY | 2025-05-13 12:50 | XMS_ITS | Patient Health Record ---
Author Organization [facility] Address [address] [place] [address] Care Team Providers Care Environmental Scientist Name Role Phone Juani HEREDIA, Gurjit Primary Care Provider Raji Loya Jr Unavailable [phone] Allergies Allergen (clinical drug ingredient) Drug/Non Drug [...] HCl 500 MG TAKE 1 TABLET BY [facility] TWICE A DAY WITH MEALS Oral Once [...] Status Risk Notes Problem Colon cancer screening (859594780) Colon cancer screening (Z12.11) Active confirmed Problem Abnormal feces (157132839) Abnormal findings in stool (R19.5) Active confirmed Problem Long-term current use of drug therapy (603763275) penitentiary (current) use of oral hypoglycemic drugs (Z79.84) Active confirmed Plan Of Treatment Future Test Test Name Order Date COLONOSCOPY 04/03/2017 COLONOSCOPY 08/08/2021 Next Appt Details Provider Name:Raji billy Jr, 05/16/2025 01:15:00 PM, [address] [place] [address], [address], [place], [phone], Insurance Providers Payer Name Payer Address Payer Phone Subscriber Number Group Number Insured Name Patient Relationship to Insured Coverage Start Date Coverage End Date [facility] [address] [place] [phone] [id number] JEFF ARMENTA Self - patient is the insured MEDICARE OF [place] [address] [place], [place] [phone] [id number] JEFF ARMENTA Self - patient is the insured Medical (General) History Medical History History ICD Code diabetes mellitus diabetic neuropathy glaucoma Elevated cholesterol Surgical History Surgery Date(Month/Year) Left index finger tendon repair 1979 Rotator cuff surgery, or left
--- OUTSIDE RECORDS SUMMARY | 2025-05-13 12:51 | XMS_ITS | Patient Health Record ---
Author Organization Gurjit Gloria MD Address [address] [place], [place] [id number] Care Team Providers Care Trust Manager Assistant Name Role Phone Gurjit Gloria Primary Care Provider Allergies Allergen (clinical drug ingredient) Drug/Non Drug Allergy documented on EMR Reaction Allergy Type Onset Date Status brimonidine / timolol Combigan blood shot eyes Drug Allergy Active Results Component Value Reference Range Notes Liver Panel Reviewed date:10/27/2024 11:50:46 AM Interpretation: Performing Lab:[facility], [address] [place] [phone] Notes/Report: Bilirubin Total 1.0 0.0-1.0 mg/dL Bilirubin Direct 0.5 0.0-0.5 mg/dL Aspartate Amino Transferase 21 5-37 U/L Alanine Aminotransferase 12 0-40 U/L Total Protein 6.7 6.5-8.0 g/dL Albumin Level 3.9 3.5-5.0 g/dL Alkaline Phosphatase 39 39-117 U/L Glucose Fasting Reviewed date:10/27/2024 11:49:29 AM Interpretation: Performing Lab:[facility], [address] [place] [phone] Notes/Report: Glucose Fasting 141 60-99 mg/dL A fasting glucose of 126 mg/dl or greater on more than one occasion is considered diagnostic of diabetes. Lipid Panel with Reflex Reviewed date:10/27/2024 11:51:08 AM Interpretation: Performing Lab:[facility], [address] [place] [phone] Notes/Report: Triglycerides 141 <150 mg/dL Desirable Triglyceride: [...] A1c Reviewed date:10/26/2024 01:06:24 PM Interpretation: Performing Lab:[facility], [address] [place] [phone] Notes/Report: Hemoglobin A1c % 6.2 <6.0 % [...] average glucose, using the formula of the G6P-Lnahzxe Average Glucose study (ADAG), Diabetes Care, Vol.31,#8, Feb. 2007 Complete Blood Count Auto Di ff Reviewed date:05/06/2025 12:20:57 PM Interpretation: Performing Lab:[facility], [address] [place] [phone] Notes/Report: White Blood Count 6.5 4.8-10.8 X10*3/uL [...] Panel Reviewed date:05/06/2025 04:45:00 PM Interpretation: Performing Lab:[facility], [address] [place] [phone] Notes/Report: Triglycerides 94 <150 mg/dL Desirable Triglyceride: [...] (Free>4and<10) Reviewed date:05/06/2025 01:44:03 PM Interpretation: Performing Lab:[address] [phone] Notes/Report: PSA,Total (Free>4and<10) 1.17 0.00-4.00 ng/mL A [...] A1c Reviewed date:05/06/2025 12:20:17 PM Interpretation: Performing Lab:[address] [phone] Notes/Report: Hemoglobin A1c % 5.8 <6.0 % [...] average glucose, using the formula of the E1P-Yzttgwp Average Glucose study (ADAG), Diabetes Care, Vol.31,#8, Feb. 2007 Microalbumin, Random Reviewed date:05/13/2025 12:39:09 PM Interpretation: Performing Lab:[address] [phone] Notes/Report: Creatinine Urine 91.35 Microalbumin Urine 7.0 Microalbum/Creatinine Ratio Ur 7.6 <30 ug/mg cr Albumin/Creatinine Ratio Reference Ranges: Normal: < 30 ug/mg creatinine Microalbuminuria: 30 - 300 ug/mg creatinine Clinical Albuminuria: > 300 ug/mg creatinine UA ClnCatch+Micro w/rflx Cul t Reviewed date:05/13/2025 12:37:52 PM Interpretation: Performing Lab:[address] [phone] Notes/Report: Urine, Clean Catch Color Urine Yellow Appearance Urine Clear PH 6.0 5.0-9.0 Glucose Urine UA Negative Negative mg/dL Urine Blood Negative Negative Specific [place] - Urine 1.015 1.005-1.025 Urine Protein Negative Neg-Trace mg/dL Urine Ketones Negative Negative mg/dL Nitrite Urine Negative Negative Leukocyte Esterase Urine Negative Negative RBC Urine 0-2 0-2 /HPF WBC Urine 0-5 0-5 /HPF Squamous Epithelial Cell Urine 0-2 0-2 /HPF Bacteria Urine None Seen None Seen Hyaline Casts Urine 0-2 0-2 /LPF Hold Gold Reviewed date:10/26/2024 01:05:01 PM Interpretation: Performing Lab:[address] [phone] Notes/Report: Sarita Bean See Note Specimen held untested for 24 hours; Call to request Chemistry testing. Comprehensive Met. Panel Reviewed date:05/06/2025 04:54:17 PM Interpretation: Performing Lab:[address] [phone] Notes/Report: Sodium 139 135-145 mmol/L Potassium 4.5 [...] REVIEW Reviewed date:05/06/2025 12:19:43 PM Interpretation: Performing Lab:[facility], [address] [place] [phone] Notes/Report: SLIDE REVIEW VERIFIED Reason For Referral Reason guaiac + stool [...] Referral Priority Routine Referral Appointment Date 05/16/2025 Medications Medication SIG (Take, Route, Frequency, Duration) Notes Start Date End Date Status Cephalexin 500 MG 1 capsule Orally meghan ry 6 hrs for 10 day(s) 05/13/2025 Active Amiodarone HCl 200 MG 1 tablet Orally On ce a day Active metFORMIN HCl 500 MG TAKE 2 TABLETS BY M OUTH TWICE A DAY Active Senna 8.6 MG 2 tablets at bedtime as needed Orally Once a day Active Zioptan 0.0015 % 1 drop into affected eye in the evening Ophthalmic Once a day Not-Taking Atorvastatin Calcium 80 MG [...] affected eye Ophthalmic Twice a day Active Aspir-Low 81 MG 1 tablet Orally Once a day Active Immunizations Vaccine Route [...] Problem Status W/U Status Risk Notes Problem 728454152 Neuropathy (G62.9) Active confirmed Problem 815858143 Tubular adenoma (D36.9) Active confirmed Problem 46939558 Type 2 diabetes mellitus with diabetic neuropathy (E11.40) Active confirmed Problem 769403099 Low HDL (under 4 0) (E78.6) Active confirmed Problem Ophthalmic migraine (95736879) 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) Active confirmed Problem 40394627 Coronary artery disease involving [place] coronary artery of [place] heart without angina pectoris (I25.10) Active confirmed Problem 422630357 Seborrheic keratosis (L82.1) Active confirmed Problem 029607670 Incoordination (R27.9) Active confirmed Problem 604889742 Rising PSA level (R97.20) Active confirmed Problem 853306192 Moderate aortic stenosis (I35.0) Active confirmed Problem 186183534 Lesion of left ulnar nerve (G56.22) Active confirmed Problem 61914962 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 Problem History of heart valve repair with prosthesis ([id number]) 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 Problem [id number] 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) Active confirmed Problem 204264118820740 Occlusion of rig ht carotid artery (I65.21) Active confirmed Problem 87222282 Arteriosclerotic coronary artery disease (I25.10) Active confirmed Vital Signs Blood pressure diastolic 66 mm Hg 11/02/2024 Height 70 in 05/13/2025 weight is down 23 pounds since 11-02-24 Blood pressure systolic 104 mm Hg 11/02/2024 Weight 156 lbs 05/13/2025 weight is down 23 pounds since 11-02-24 BMI 22.38 kg/m2 05/13/2025 weight is down 23 pounds since 11-02-24 Encounters Encounter Location Date Provider Diagnosis Gurjit Gloria MD [address] [place] [id number] 10/26/2024 Gurjit Gloria Type 2 diabetes mellitus with diabetic neuropathy E11.40 and Arteriosclerotic coronary artery disease I25.10 Gurjit Gloria MD [address] [place] [id number] 05/06/2025 Gurjit Gloria Blood tests for rout ine general physical examination Z00.00 ; Encounter for administration of vaccine Z23 ; Type 2 diabetes mellitus with diabetic neuropathy E11.40 ; Low HDL (under 40) E78.6 and Rising PSA level R97.20 Gurjit Gloria MD [address] [place] [address] [id number] 05/13/2025 Gurjit Gloria Adult general medica l examination Z00.00 ; Type 2 diabetes mellitus with diabetic neuropathy E11.40 ; Arteriosclerotic coronary artery disease I25.10 ; Aortic valve replaced Z95.2 ; Guaiac + stool R19.5 ; Wound infection after surgery T81.49XA ; Colon cancer screening Z12.11 and Depression screening Z13.31 Gurjit Gloria MD [address] [place] [id number] 11/02/2024 Gurjit Gloria Type 2 diabetes mellitus with diabetic neuropathy E11.40 and Arteriosclerotic coronary artery disease I25.10 Gurjit Gloria MD [address] [place] [id number] 03/31/2025 Gurjit Gloria MD [address] [place] [address] [id number] 04/04/2025 Gurjit Gloria MD [address] [place] [id number] 04/28/2025 Gurjit Gloria Assessments Encounter Date Diagnosis (ICD Code) Assessment Notes Treatment Notes Treatment Clinical Notes Section Notes 10/26/2024 Type 2 diabetes mellitus with diabetic neuropathy (ICD-10 - E11.40) 05/06/2025 Blood tests for routine general physical examination (ICD-10 - Z00.00) 05/06/2025 Encounter for administration of vaccine (ICD-10 - Z23) 05/13/2025 Adult general medical examination (ICD-10 - Z00.00) labs reviewed and discussed with patient, pending labs 05/13/2025 Type 2 diabetes mellitus with diabetic neuropathy (ICD-10 - E11.40) doing better than in past, will continue current regiment 11/02/2024 Type 2 diabetes mellitus with diabetic neuropathy (ICD-10 - E11.40) is stable and having good a1c's, will continue current regiment 10/26/2024 Arteriosclerotic coronary artery disease (ICD-10 - I25.10) 05/06/2025 Type 2 diabetes mellitus with diabetic neuropathy (ICD-10 - E11.40) 05/13/2025 Arteriosclerotic coronary artery disease (ICD-10 - I25.10) followed by cardiology 11/02/2024 Arteriosclerotic coronary artery disease (ICD-10 - I25.10) stable, will continue current regiment 05/06/2025 Low HDL (under 40) (ICD-10 - E78.6) 05/13/2025 Aortic valve replaced (ICD-10 - Z95.2) doing well 05/06/2025 Rising PSA level (ICD-10 - R97.20) 05/13/2025 Guaiac + stool (ICD-10 - R19.5) referal to dr peters 05/13/2025 Wound infection after surgery (ICD-10 - T81.49XA) he is going to notify his surgeon 05/13/2025 Colon cancer screening (ICD-10 - Z12.11) guaiac positive 05/13/2025 Depression screening (ICD-10 - Z13.31) negative screen Plan Of Treatment Pending Test Test Name Order Date Electrocardiogram (EKG) 03/06/2017 Electrocardiogram (EKG) 02/20/2016 CT BRAIN W&WO CONTRAST 10/17/2022 ECHO 10/26/2020 ECHO 01/25/2021 Comprehensive [place]. Panel Fast Microalbumin, Random 05/06/2025 UA ClnCatch+Micro w/rflx Cult 05/06/2025 Next Appt Details Provider Name:Gurjit kiddr, 05/26/2025 09:15:00 AM, [address] [place] [address], [address], [phone], Provider Name:Gurjit Suggs ier, 10/20/2025 07:45:00 AM, [address] [place] [address], [address], [phone], Provider Name:Gurjit Suggs ier, 10/27/2025 10:15:00 AM, [address] [place] [address], [address], [phone], Provider Name:Gurjit Suggs ier, 05/09/2026 07:30:00 AM, [address] [place] [address], [address], [phone], Provider Name:Gurjit Suggs ier, 05/16/2026 10:30:00 AM, [address] [place] [address], [address], [phone], Insurance Providers Payer Name Payer Address Payer Phone Subscriber Number Group Number Insured Name Patient Relationship to Insured Coverage Start Date Coverage End Date [address] [facility] [place] [phone] [id number] Howard Muniz Self - patient is the insured MEDICARE NH[employer] [address] [place] [address] [id number] Howard Muniz Self - patient is the insured Medical (General) History Medical History History ICD Code prostate biopsy 2002 psa was 4.6 and inf lammation found refuses colonoscopy 2012; re fused 2013; refused 07/22/15refused 2016 aware of risk with mother and father; colonoscopy done 04/11/[address] Peters; next colonoscopy due 03/2020 Asthmatic bronchitis refuses to be on statins after discussio n as to the need abnormal ecg which goes over 15 years an d had a negative stress test
--- OUTSIDE RECORDS SUMMARY | 2025-05-13 12:51 | XMS_ITS | Clinical Summary ---
Author Organization [facility] Address [address] [place] [address] Care Team Providers Care Ms Access Database Developer Name Role Phone Alycia Michel MD Primary Care Provider [phone] Paige Colbert MD Unavailable [phone] Grace Lo Unavailable [phone] Annie Macdonald MD Unavailable Allergies Active Allergy Reactions Criticality Noted Date Comments Brimonidine Tartrate-Timolol Other (See Comments) 11/18/2022 Medications dorzolamide-chano olol (COSOPT) 22.3-6.8 MG/ML ophthalmic solution 2 (two) times a day. Active atorvastatin (LIPITOR) 80 MG tabletIndicatio ns:Stroke determined by clinical assessment ([facility]) Take 1 tablet (80 mg total) [...] - 05/02/2025 11:59 PM EDT Hospital Encounter [facility] Heart & Vascular [place] at [facility] - Echocardiography Laboratory [address] [place] [address] Annie Macdonald MD Discharge Disposition: Home or Self Care 05/02/2025 Travel 04/29/2025 Telephone [facility] Vascular [address] [address] Paige Colbert MD 04/28/2025 Telephone [facility] Vascular [address] [address] Paige Colbert MD Medical Complaint 04/28/2025 Orders Only [facility] Cardiothoracic [address] [address] Annie Macdonald MD S/P CABG (coronary artery bypass graft) (Primary Dx); S/P AVR 04/28/2025 Telephone [facility] Cardiooracic [address] [address] Annie Macdonald MD 04/15/2025 2:00 PM EDT Office Visit [address] [address] Grace Lo PA Coronary artery disease due to lipid rich plaque (Primary Dx); S/P AVR (aortic valve replacement); Nonrheumatic aortic valve stenosis; Dyslipidemia; Hypotension, unspecified hypotension type 04/15/2025 Travel 04/07/2025 9:30 AM EDT Office Visit [facility] Cardiothoracic Surgery [address] [address] Bea Baird APRN S/P AVR (aortic valve replacement) (Primary Dx); S/P CABG x 1 04/07/2025 Orders Only [facility] Cardiothoracic Surgery [address] [address] Bea Baird, CONSTRUCTION TECHNOLOGY INSTRUCTOR S/P AVR (Primary Dx); S/P CABG (coronary artery bypass graft) 04/07/2025 Telephone [facility] Cardiothoracic Surgery [address] [address] Bea Baird, CONSTRUCTION TECHNOLOGY INSTRUCTOR Referral 04/07/2025 Orders Only [facility] Cardiothoracic Surgery [address] [address] Annie Macdonald MD S/P CABG (coronary artery bypass graft) (Primary Dx); S/P AVR 04/07/2025 Travel 04/06/2025 Orders Only [facility] Cardiothoracic Surgery [address] [address] Annie Macdonald MD S/P CABG (coronary artery bypass graft) (Primary Dx); S/P AVR 04/06/2025 Telephone [facility] Cardiooracic Surgery [address] [address] Annie Macdonald MD 04/01/2025 Telephone [facility] Cardiothoracic Surgery [address] [address] Annie Macdonald MD 03/29/2025 8:49 AM EDT Anesthesia Event [facility] Heart & Vascular [place] at [facility] - Echocardiography Laboratory [address] [place] [address] Alexis Overton MD 03/24/2025 8:30 AM EDT - 03/24/2025 4:30 PM EDT Surgery [facility] Perioperative Surgical Services [address] [place] [address] Annie Macdonald MD [place] REPLACEMENT AORTIC VALVE WITH 29 mm INSPIRUS VALVE 03/24/2025 8:30 AM EDT Anesthesia Event [facility] Perioperative Surgical Services [address] [place] [address] Jermaine Jimenez DO Luong, Lucas M, DO 03/24/2025 6:35 AM EDT - 03/31/2025 12:46 PM EDT Hospital Encounter [facility] [address] [place] [address] Annie Macdonald MD S/P CABG (coronary artery bypass graft) (Primary Dx) Discharge Disposition: Home with Health Care Services 03/24/2025 Travel 03/03/2025 Telephone [facility] Cardiothoracic Surgery [address] [phone] Annie Macdonald MD 03/02/2025 Documentation [facility] Cardiothoracic Surgery [address] [address] Edie Gavin, [place] Pre op education session 03/02/2025 Travel 02/24/2025 9:40 AM EDT Office Visit [facility] Heart & Vascular [place] [address] [address] Paige Colbert MD Coronary artery disease due to lipid rich plaque (Primary Dx); Aortic root dilatation; S/P carotid endarterectomy; Ischemic cardiomyopathy ; Carotid stenosis, left; Nonrheumatic aortic valve stenosis; Mixed hyperlipidemia ; PAD (peripheral artery disease) 02/24/2025 Telephone [facility] Cardiothoracic Surgery [address] [address] Bea Baird, ABIGAIL 02/24/2025 Telephone [facility] Cardiothoracic Surgery [address] [address] Annie Macdonald MD 02/24/2025 Travel 02/21/2025 Telephone [facility] Cardiothoracic Surgery [address] [phone] Annie Macdonald MD 02/18/2025 Documentation [facility] Cardiothoracic Surgery [address] [place] [address] Trisha Velásquez RN Pre-Op Medication Instructions from Last 3 Months Family History Medical [...] = 0.6 oz pur e alcohol) [facility] Utilities Answer Date Recorded In the [...] money to buy more. Never true 03/25/20 Within the past 12 months, t he [...] place to sleep or slept in a assisted (including now)? No 10/28/2022 Housing Stability Vital Sign Answer Adam e Recorded In the last 12 months, was t here a time when you were not able to pay the mortgage or rent on time? No 03/25/2025 In the past 12 months, how m any times have you moved where you were living? 0 03/25/2025 At any time in the past 12 m [facility], were you homeless or living in a assisted (including now)? No 03/25/2025 Sex and Gender [...] Description 09/09/2025 2:40 PM EST Office Visit [facility] Heart & Vascular [place] [address] [address] Paige Colbert MD [address] [place] [address] 12/02/2025 10:00 AM EDT Ancillary Procedure [facility] Vascular & Endovascular Surgery [address] [place] [phone] Fabian Galindo MD [address] [phone] 12/02/2025 10:30 AM EDT Office Visit [facility] Vascular & Endovascular Surgery [address] [place] [phone] Fabian Galindo MD [address] [phone] Health Maintenance Due Date Last Done Comments [...] , 04/25/2022, Additional history exists COVID-19 Vaccine (2024- season) 2025 07/31/2021, 11/14/2020 Hemoglobin A1C 09/22/2025 03/25/2025, 10/26/2022 Creatinine with GFR 03/31/2026 03/31/2025, 03/30/2025, 03/29/2025, Additional history exists Advance Care Planning Completed 04/01/2025 Hepatitis B Vaccines Aged Out No long er eligible based on patient's age to complete this topic Medical Devices Implanted Type Area Lithographic Platemaker Device Identifier Shelf Expiration Date Model / Serial / Lot E0.8p8 Patch Vasc 8x.8cm Xenosure Bvn Pericard Tissue Sterl - [id number] Implanted:Qty : 1 on 10/29/2022 by Fabian Galindo MD at [facility] Tissue Left: Neck [facility] [id number] 05/10/2028 E0.8P8 / 0000 / [id number] Valve Aortic Inspiris 29mm Resilia - [id number] Implanted:Qty : 1 on 03/24/2025 by Annie Macdonald MD at [facility] Valve N/A: Heart [employer] [id number] 10/06/2029 [id number] / [id number] / Procedures Procedure Name Priority Date/Time Associated [...] THROMBOELASTOGRAPH (TEG) Routine 025 8:40 AM EDT [place] NDSC SURG W/VIDEO-ASSISTED HARVEST VEIN CABG 03/24/2025 8:11 AM EDT Ascending aortic aneurysm, unspecified whether ruptured Coronary artery disease involving [place] coronary artery of [place] heart, unspecified whether angina present [place] CORONARY ARTERY BYP W/VEIN & ARTERY GRAFT 1 VEIN 03/24/2025 8:11 AM EDT Ascending aortic aneurysm, unspecified whether ruptured Coronary artery disease involving [place] coronary artery of [place] heart, unspecified whether angina present [place] REPLACEMENT AORTIC VALVE 03/24/2025 8:11 AM EDT Ascending aortic aneurysm, unspecified whether ruptured Coronary artery disease involving [place] coronary artery of [place] heart, unspecified whether angina present TRANSESOPHAGEAL ECHO-ANESTHESIA [...] CONTRAST Routine 10:50 AM EDT 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 Ventricular rate 77 BPM EKG [facility] Atrial rate 77 BPM EKG [facility] P-R interval 226 ms EKG [facility] QRS duration 142 ms EKG [facility] Q-T interval 452 ms EKG [facility] QTC calculation (Bazett) 511 ms EKG [facility] P axis 2 degrees EKG [facility] R axis -76 degrees EKG [facility] T axis -9 degrees EKG [facility] 04/15/2025 1:50 PM EDT Narrative EKG [...] Lo Erin () on 05/03/2025 1:23:19 PM us Grace DASILVA ECG ORDERABLES Final Result EKG [facility] * (ABNORMAL) POCT Glucose, Fingerstick (03/31/2025 8:05 AM EDT) Only the most recent of42 resultswithin the time period is included. POC Glucose 127(H) 65 - 99 mg/dL 03/31/2025 8:19 AM EDT Blood specimen / Unknown 03/31/2025 8:05 AM EDT 03/31/2025 8:19 AM EDT us Annie Macdonald MD POINT OF CARE TEST ORDERABLES Fi nal Result HOSPITAL LAB See Below * Phosphorus (03/31/2025 6:14 AM EDT) Phosphorus 3.2 2.7 - 4.5 mg/dL 03/31/2025 8:21 AM EDT [facility] Blood Blood specimen / Unknown 03/31/2025 6:14 AM EDT 03/31/2025 7:44 AM EDT [facility] ORDERABLES Final R esult Performing Organization Address City/[facility]/[place] [address], [place] [address] * Magnesium (03/31/2025 6:14 AM EDT) Only the most recent of7 resultswithin the time period is included. Magnesium 2.0 1.6 - 2.7 mg/dL 03/31/2025 8:21 AM T [facility] Blood Blood specimen / Unknown 03/31/2025 6:14 AM EDT 03/31/2025 7:44 AM EDT Tarsha [facility] LAB BLOOD ORDERABLES Final R [facility] Performing Organization Address [facility] [place] [address], [place] [address] * (ABNORMAL) Basic Metabolic Panel (03/31/2025 6:14 AM EDT) Only the most recent of9 resultswithin the time period is included. Glucose 105(H) 65 - 99 mg/dL 03/31/2025 8:21 AM [facility] Comment:Fasting: <100 mg/dL, Non-Fasting: <200 mg/dL (ADA 2004) Blood Urea Nitrogen (BUN) 16 8 - 21 mg/dL 03/31/2025 8:21 AM [facility] Creatinine 0.75 0.50 - 1.30 mg/dL 03/31/2025 8:21 AM [facility] eGFR >90 >59 03/31/2025 8:21 AM [facility] Comment:CKD-EPI (2020) in mL /min/1.73 sq meters. Sodium 140 136 - 145 mmol/L 03/31/2025 8:21 AM [facility] Potassium 4.1 3.4 - 5.3 mmol/L 03/31/2025 8:21 AM [facility] Chloride 105 98 - 107 mmol/L 03/31/2025 8:21 AM EDT [facility] CO2 21(L) 22 - 33 mmol/L 03/31/2025 8:21 AM EDT [facility] Anion Gap 14 7 - 17 03/31/2025 8:21 AM EDT [facility] Calcium 8.4(L) 8.7 - 10.5 mg/dL 03/31/2025 8:21 AM EDT [facility] BUN/Creatinine Ratio 21 10.0 - 25.0 Ratio 03/31/2025 8:21 AM EDT [facility] Blood Blood specimen / Unknown 03/31/2025 6:14 AM EDT 03/31/2025 7:44 AM EDT Tarshagia Michelle CONSTRUCTION TECHNOLOGY INSTRUCTOR LAB BLOOD ORDERABLES Final R esult Performing Organization Address City/State/[facility] Co de Phone Number [address] [address], [address] [address] * XR Chest 1 view-Portable (03/30/2025 5:12 [...] are unchanged. No evidence of pulmonary edema. us Tarsha Michelle APRN IMG DIAGNOSTIC IMAGING ORDER ADRIEN Final Result * (ABNORMAL) COMPLETE BLOOD COUNT, WITHOUT DIFFERENTIAL (03/30/2025 6:00 AM EDT) Only the most recent of7 resultswithin the time period is included. White Blood Cell Count 9.0 4.0 - 11.0 Thou/uL 03/30/2025 8:16 AM [facility] Platelet Count 206 150 - 450 Thou/uL 03/30/2025 8:16 AM [facility] Hemoglobin 10.1(L) 13.0 - 17.7 g/dL 03/30/2025 8:16 AM [facility] Hematocrit 31.2(L) 39.0 - 54.0 % 03/30/2025 8:16 AM [facility] Red Blood Cell Count 3.41(L) 4.50 - 6.20 Mil/uL 03/30/2025 8:16 AM [facility] MCV 92 80 - 100 fL 03/30/2025 8:16 AM [facility] MCH 29.6 27.0 - 31.0 pg 03/30/2025 8:16 AM [facility] MCHC 32.4 30.0 - 36.0 g/dL 03/30/2025 8:16 AM [facility] RDW 13.2 11.5 - 14.5 % 03/30/2025 8:16 AM [facility] MPV 11.7 7.5 - 12.5 fL 03/30/2025 8:16 AM [facility] Blood Blood specimen / Unknown 03/30/2025 6:00 AM EDT 03/30/2025 8:09 AM EDT Aundrea Garcia PA-C LAB BLOOD ORDERABLES Final Result [address] [address], [address] [address] * VAS VENOUS DUPLEX ARM (DVT)-RIGHT (03/29/2025 3:47 PM EDT) Anatomical Region Laterality Modality Ultrasound 03/29/2025 3:00 PM EDT Narrative 03/29/2025 5:34 PM EDT Table formatting from the original result was not included. Department: [facility] Vascular Lab Patient: [id number] (JEFF MUNIZ) Patient Location: [place] [address] [facility] CPT Code: 01692 ICD-9: Referring Physician: AUNDREA RIVERA Impression Right [...] Note Teresa Bailey MD - 03/29/2025 Department: [facility] Vascular Lab Patient: [id number] (JEFF MUNIZ) Patient Location: [place] [address] [facility] CPT Code: 77760 ICD-9: Referring Physician: AUNDREA Dorado Right upper extremity venous duplex ultrasound exam [...] 2025-03-29 05:34:13 PM End of Report Aundrea Jose [facility] LAB ORDERABLES Fi nal Result * [...] inserted atraumatically into the esophagus by the phosphorus processing supervisor. With the patient in a supine position [...] to previous study on 12/29/2024, s/p AVR-CABG.. Beatriz Méndez PA-C CV ECHO ORDERABLES Final [...] PA-C LAB BLOOD ORDERABLES Final Res ult Performing Organization Address City/[facility]/ZIP Co de Phone Number [address] [address], [address] [address] * (ABNORMAL) Hemoglobin A1c with Estimated Average Glucose (Early AM) (03/25/2025 12:38 AM EDT) Hemoglobin A1C 6.5(H) <5.7 % 03/25/2025 1:37 AM EDT [facility] Comment: A1c% Interpretation 5.7 - 6.0 Increase risk of diabetes 6.1 - 6.4 Higher risk of diabetes > or = 6.5 Consistent with diabetes Diabetes Care, 33(Supp 1):S1-S61, 2010 Estimated Average Glucose 140 mg/dL 03/25/2025 1:37 AM EDT [facility] Blood Blood specimen / Unknown 03/25/2025 12:38 AM EDT 03/25/2025 12:54 AM EDT Everardo Ruiz DO LAB BLOOD ORDERABLES Final Resu lt Performing Organization Address [facility]/[place] [address], [address] [address] * (ABNORMAL) Blood Gas, Arterial (STAT) (03/24/2025 [...] ORDERABLES Final Resul t Performing Organization Address City/[facility]/[place] [address], [place] [address] * (ABNORMAL) Hematocrit (03/24/2025 6:59 PM EDT) Only the most recent of2 resultswithin the time period is included. Hematocrit 38.2(L) 39.0 - 54.0 % 03/24/2025 7:56 PM EDT [facility] Blood Blood specimen / Unknown 03/24/2025 6:59 PM EDT 03/24/2025 7:39 PM EDT Sary Steele PA-C LAB BLOOD ORDERABLES Final Result Performing Organization Address City/[facility]/[place] [address], [place] [address] * (ABNORMAL) ISTAT Hemoglobin (03/24/2025 1:44 PM EDT) Only the most recent of8 resultswithin the time period is included. Hemoglobin, I-STAT 10.2(L) 13.0 - 17.7 gm/dL 03/24/2025 7:01 PM EDT Blood specimen / Unknown 03/24/2025 1:44 PM EDT 03/24/2025 7:00 PM EDT us Annie Macdonald MD POCT ORDERABLES - DEVICE Final R esult Performing Organization Address [facility] LAB See Below * (ABNORMAL) ISTAT Hematocrit (03/24/2025 1:44 PM EDT) Only the most recent of8 resultswithin the time period is included. Hematocrit, I-STAT 30.0(L) 39.0 - 54.0 % 03/24/2025 7:01 PM EDT Blood specimen / Unknown 03/24/2025 1:44 PM EDT 03/24/2025 7:00 PM EDT us Annie Macdonald MD POCT ORDERABLES - DEVICE Final R esult Performing Organization Address [facility] LAB See Below * (ABNORMAL) ISTAT Calcium, Ionized (ICA) (03/24/2025 1:44 PM EDT) Only the most recent of8 resultswithin the time period is included. Ionized Calcium, I-STAT 1.13(L) 1.17 - 1.33 mmol/L 03/24/2025 7:01 PM EDT Blood specimen / Unknown 03/24/2025 1:44 PM EDT 03/24/2025 7:00 PM EDT us Annie Macdonald MD POINT OF CARE TEST ORDERABLES Fi nal Result Performing Organization Address [facility] LAB See Below * ISTAT Potassium (K) (03/24/2025 1:44 PM EDT) Only the most recent of8 resultswithin the time period is included. Potassium, I-STAT 3.9 3.4 - 5.3 mmol/L 03/24/2025 7:01 PM EDT Blood specimen / Unknown 03/24/2025 1:44 PM EDT 03/24/2025 7:00 PM EDT us Annie Macdonald MD POINT OF CARE TEST ORDERABLES Fi nal Result Performing Organization Address [facility] LAB See Below * ISTAT Sodium (Na) (03/24/2025 1:44 PM EDT) Only the most recent of8 resultswithin the time period is included. Sodium, I-STAT 143 136 - 145 mmol/L 03/24/2025 7:01 PM EDT Blood specimen / Unknown 03/24/2025 1:44 PM EDT 03/24/2025 7:00 PM EDT us Annie Macdonald MD POINT OF CARE TEST ORDERABLES Fi nal Result Performing Organization Address [facility] LAB See Below * (ABNORMAL) ISTAT Glucose (03/24/2025 1:44 PM EDT) Only the most recent of8 resultswithin the time period is included. Glucose, I-STAT 103(H) 65 - 99 mg/dL 03/24/2025 7:01 PM EDT Blood specimen / Unknown 03/24/2025 1:44 PM EDT 03/24/2025 7:00 PM EDT Result Michelle Macdonald MD POCT ORDERABLES - DEVICE Final R esult Performing Organization Address [facility] LAB See Below * (ABNORMAL) ISTAT Arterial [...] DEVICE Final R esult Performing Organization Address [facility] Phone Number [facility] LAB See Below * ISTAT Activated [...] DEVICE Final R esult Performing Organization Address [facility] Phone Number [facility] LAB See Below * Thromboelastograph (TEG) [...] ORDERABLES Final Resul t Performing Organization Address City/[facility] [place] [address], [place] [address] * (ABNORMAL) Platelet Count (03/24/2025 12:24 PM EDT) Platelet Count 132(L) 150 - 450 Thou/uL 03/24/2025 12:49 PM EDT [facility] Comment: Test ordered from operating room Called to LR/TRS 1306 Blood specimen / Unknown 03/24/2025 12:24 PM EDT 03/24/2025 12:42 PM EDT us Annie Macdonald MD LAB BLOOD ORDERABLES Final Resul t Performing Organization Address City/[facility]/[place] [address], [place] [address] * ANES LINE - CENTRAL, DOUBLE LUMEN [...] and undamaged No complications Additional Comments: 9 Maltese double lumen MAC catheter placed with double lumen slick. Jermaine Jimenez DO [place] ANESTHESIA Final Result * ANES ROSALIA (03/24/2025 12:15 PM EDT) Dimitry Yates DO - 03/24/2025 12:15 PM EDT Dimitry Greenwood DO 03/24/2025 12:16 PM Anesthesia Procedure Note - Transesophageal Echocardiogram (ROSALIA) Procedure Order: Transesophageal Echo-Anesthesia [id number] Patient Name: Jeff Muniz : 1950 Patient [...] doppler guidance. Images were stored appropriately on linux server administrator. Jermaine Jimenez DO [place] ANESTHESIA Final Result * ANES LINE - ARTERIAL (03/24/2025 12:15 PM EDT) Narrative Dimitry Greenwood DO - 03/24/2025 12:15 PM EDT Dimitry [...] Post-procedure: stablization device applied Jermaine Jimenez DO [place] ANESTHESIA Final Result * ANES INTUBATION (03/24/2025 [...] Complications: no complications us Jermaine Jimenez DO [place] ANESTHESIA Final Result * Transesophageal Echo-Anesthesia (03/24/2025 [...] EDT) ABO/Rh A POSITIVE 03/24/2025 9:09 AM [facility] Antibody Screen NEGATIVE 03/24/2025 9:09 AM [facility] Specimen Expiration 03/27/2025 03/24/2025 9:09 AM [facility] Unit Number [id number] 03/24/2025 9:28 AM [facility] Blood Component Type LEUKOREDUCED RED CELLS 03/24/2025 9:28 AM [facility] Unit Division 00 03/24/2025 9:28 AM EDT [facility] Unit Status REL FROM ALLOC 9:51 PM EDT [facility] Transfusion Status OK TO TRANSFUSE 03/24/2025 9:28 AM EDT [facility] Crossmatch Result Electronically Compatible 03/24/2025 9:28 AM EDT [facility] Unit Number [id number] 03/24/2025 9:28 AM EDT [facility] Blood Component Type LEUKOREDUCED RED CELLS 03/24/2025 9:28 AM EDT [facility] Unit Division 00 03/24/2025 9:28 AM EDT [facility] Unit Status REL FROM ALLOC 9:51 PM EDT [facility] Transfusion Status OK TO TRANSFUSE 03/24/2025 9:28 AM EDT [facility] Crossmatch Result Electronically Compatible 03/24/2025 9:28 AM EDT [facility] Blood Blood specimen / Unknown 03/24/2025 7:40 AM EDT 03/24/2025 7:59 AM EDT Comment:Blood Mark DASILVA BLOOD BANK TEST ORDERABLES F inal Result Performing Organization Address City/[facility] Co de Phone Number HOSPITAL LAB See Below [address] [address] * Prepare RBC's:Prepare in: Units; Number of Units: 2; Transfusion Indications: Hemoglobin less than 7 gm/dl or HCT less than 21% (03/24/2025 7:13 AM EDT) Units Ordered 2 03/24/2025 7:13 AM EDT 03/24/2025 7:13 AM EDT 03/24/2025 9:27 AM EDT Mark DASILVA BLOOD BANK PRODUCT ORDERABLE S Final Result HOSPITAL LAB See Below * Pathology (03/24/2025 12:00 AM EDT) Report [facility] [id number] CLIA ID [id number] [address] [place] [id number] 20 Surgical Pathology Report PATIENT NAME: JEFF MUNIZ REC NUMBER: [id number] (AGE): 1950 (Age: 74) SPECIMEN NUMBER: [id number] DATE OBTAINED: 03/24/2025 DIAGNOSIS AORTIC VALVE LEAFLETS RESECTION: 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 id/03/31/2025 Electronically Signed Out GITA ZULETA MD COMMENT [id number] Clinical Information and History: Aortic valve stenosis TRT 11:19 A TIF 12:54 A Tissue(s) Submitted: A: AORTIC VALVE LEAFLETS #[id number] Gross Description: Specimen A is received in formalin labeled per the requisition as aortic valve leaflets and consists of 3 panhcal-white crescent-shaped valvular tissues ranging from 2.7 x 1.3 x 0.3 cm to 3.0 x 1.5 x 0.2 cm. The leaflets have a reconstructed circumference of 8.7 cm. The surfaces are predominantly panchal-white, smooth, and are remarkable for yellow-white calcifications, some of which abut the valvular free edge. There are no mass lesions or vegetations seen. Automatic Pilot Mechanic sections are submitted in A1. [facility] 03/24/2025 03/24/2025 1:5 7 PM EDT Comment:AORTIC VALVE LEAFLET S #[id number] us Annie Macdonald MD PATHOLOGY/CYTOLOGY ORDERABLES Fi [...] your patient to us, Caity Muñoz MD [id number] (Electronically Signed - 02/23/2025 15:31) Copy: ALYCIA MICHEL MD [address] [place], [place] [address] PATIENT , Narrative 02/23/2025 3:31 PM EDT [...] of iterative reconstruction technique DLP: 139.40mGycm FINDINGS: AIRPLANE CAPTAIN: Unremarkable LUNGS: The lungs are clear with [...] of iterative reconstruction technique DLP: 139.40mGycm FINDINGS: AIRPLANE CAPTAIN: Unremarkable LUNGS: The lungs are clear with [...] Muñoz MD 02/23/2025 03:31 PM EDT RPWorkstation: [id number] Thank you for referring your patient to us, Caity Muñoz MD [phone] (Electronically Signed - 02/23/2025 15:31) Copy: ALYCIA MICHEL MD [address] [place] [address] PATIENT , us Bea Baird CONSTRUCTION TECHNOLOGY INSTRUCTOR IMG CT ORDERABLES Final Resul t * (ABNORMAL) Lipid Panel (10/26/2022 7:09 AM EDT) Cholesterol, Total 96 <200 mg/dL 2022 8:59 AM [facility] Triglycerides 158(H) <150 mg/dL 10/26/2022 8:59 AM [facility] Cholesterol, HDL 27(L) >39 mg/dL 10/27/19 8:59 AM [facility] Estimated LDL 37 <130 mg/dL 10/26/2022 8:59 AM [facility] Comment: NCEP Guidelines: < 100 mg/dL Optimal 100 - 129 mg/dL Near Optimal/Above Optimal 130 - 159 mg/dL Borderline High 160 - 189 mg/dL High >/= 190 mg/dL Very High Cholesterol/HDL Ratio 3.6 0.0 - 5.0 Ratio 10/26/2022 8:59 AM [facility] Comment: Relative Risk Ratio - Male Ratio - Female 0.5 3.4 3.3 1.0 5.0 4.4 2.0 9.6 7.1 3.0 23.4 11.0 Blood specimen (specimen) (Plasma/Serum) 10/26/2022 7:09 AM EDT 10/26/2022 8:26 AM EDT us Corwinlouise Verma DO LAB BLOOD ORDERABLES Final Resu lt HOSPITAL LAB See Below [facility] [address] [place] [address] from Last 3 Months or Most Recently Relevant to Health Maintenance Insurance MEDICARE PART A & B [facility] Advance Directives Documents on File Type Date Recorded Patient Automatic Pilot Mechanic Expl anation Power of Internal Medicine Doctor-Scan 04/01/2025 12:38 PM 03/24/2025 HH Advance Directive-Scan [...] Child, Parent, Adult Sibling, Grandparent) Care Teams Ms Access Database Developer Relationship Specialty Start Date End Date Alycia Michel MD [address] [place] [address] [place] [address] PCP - General Internal Medicine 10/25/22 Paige Colbert MD [address] [place] [address] Primary Optical Lab Technician Cardiovascular Disease 12/04/22 Grace Lo PA [address] [place] [address] Physician Informatics Application Analyst Cardiovascular Disease 01/19/25 Annie Macdonald MD [address] [place] [address] Consulting Provider Surgery, Cardiac 02/02/25
--- OUTSIDE RECORDS SUMMARY | 2025-05-13 12:52 | XMS_ITS | Encounter Summary ---
Author Organization [facility] Address [address] [place] [address] Care Team Providers Care Five Piece Expansion Maker Hand Name Role Phone Gurjit Gloria MD Primary Care Provider [phone] Paige Colbert MD Unavailable [phone] Grace Lo Unavailable [phone] Annie Macdonald MD Unavailable Encounter Details Date Type Department Care Team (Late st Contact Info) Description 04/06/2025 Telephone [facility] Cardiothoracic Surgery [address] [phone] Annie Macdonald MD [address] [place] [address] Social History Tobacco Use Types Packs/Day Years Used Date Smoking Tobacco: Never Smokeless Tobacco: Never Alcohol Use Standard Drinks/Week Comments Never 0 (1 standard drink = 0.6 oz pur e alcohol) [facility] Utilities Answer Date Recorded In the past 12 months has [employer], gas, oil, or water [employer] threatened to shut off services in your [...] place to sleep or slept in a prison (including now)? No 10/28/2022 Housing Stability Vital Sign Answer Adam e Recorded In the last 12 months, was t here a time when you were not able to pay the mortgage or rent on time? No 03/25/2025 In the past 12 months, how m any times have you moved where you were living? 0 03/25/2025 At any time in the past 12 m [facility], were you homeless or living in a prison (including now)? No 03/25/2025 Sex and Gender [...] upon discharge. She left a number of [phone] Thank you documented in this encounter Plan of Treatment Upcoming Encounters Date Type Department Care Team (Late st Contact Info) Description 09/09/2025 2:40 PM EST Office Visit [facility] Heart & Vascular [place] [address] [phone] Paige Colbert MD [address] [place] [address] 12/02/2025 10:00 AM EDT Ancillary Procedure [facility] Vascular & Endovascular Surgery [address] 2[address] Floor [address] [place] [phone] Fabian Galindo MD [address] [place] [address] 12/02/2025 10:30 AM EDT Office Visit [facility] Vascular & Endovascular Surgery [address] 2[address] [place] [phone] Fabian Galindo MD [address] [place] [address] documented as of this encounter Visit Diagnoses Not on filedocumented in this encounter Care Teams Five Piece Expansion Maker Hand Relationship Specialty Start Date End Date Gurjit Gloria MD [address] [place] [address] Dr Cornelius [address] [place] [address], [place] [address] PCP - General Internal Medicine 10/25/22 aPige Colbert MD [address] [place] [address] Primary Powerhouse Laborer Cardiovascular Disease 12/04/22 Grace Lo PA [address] [place] [address] Physician Rendering Equipment Tender Cardiovascular Disease 01/19/25 Annie Macdonald MD 85 [facility] [address] [place] [address] Consulting Provider Surgery, Cardiac 02/02/25 documented as of this encounter
--- OUTSIDE RECORDS SUMMARY | 2025-05-13 12:52 | XMS_ITS | Encounter Summary ---
Author Organization [facility] Address [address] [place] [address] Care Team Providers Care Can Maker Name Role Phone Gurjit Gloria MD Primary Care Provider [phone] Paige Colbetr MD Unavailable [phone] Grace Lo Unavailable [phone] Annie Macdonald MD Unavailable Reason for Visit * Reason Comments Medication Refill Medication refill/Pl avix 75mg/ Encounter Details Date Type Department Care Team (Late st Contact Info) Description 03/18/2023 Telephone [facility] Vascular & Endovascular Surgery [place] [address] [facility] [address] [place] [address] Fabian Galindo MD 85 [facility] [address] [place], [place] [phone] Medication Refill (Medication refill/Plavix 75mg/ ) Social [...] place to sleep or slept in a skilled nursing (including now)? No 10/28/2022 Sex and Gender [...] Description 09/09/2025 2:40 PM EST Office Visit [facility] Heart & Vascular [place] [address] [place] [phone] Paige Colbert MD [address] [place] [address] 12/02/2025 10:00 AM EDT Ancillary Procedure [facility] Vascular & Endovascular Surgery [address] 2[address] [place] [phone] Fabian Galindo MD [address] [place] [phone] 12/02/2025 10:30 AM EDT Office Visit [facility] Vascular & Endovascular Surgery [address] [place] [phone] Fabian Galindo MD [address] [place] [address] documented as of this encounter Visit Diagnoses Not on filedocumented in this encounter Care Teams Can Maker Relationship Specialty Start Date End Date Gurjit Gloria MD [address] [place] [address] Dr Cornelius [address] [place] [address] PCP - General Internal Medicine 10/25/22 Paige Colbert MD [address] [place] [address] Primary Marketing Editor Cardiovascular Disease 12/04/22 Grace Lo PA [address] [place] [address] Physician Metal Tester Cardiovascular Disease 01/19/25 Annie Macdonald MD [address] [address] Consulting Provider Surgery, Cardiac 02/02/25 documented as of this encounter
== END 2025-05-13 11:15 | disposition home or self-care (01) ==
LOC: HO.LNP 11:14
PROVIDERS: Visit Provider Internal Medicine
DX: Z00.00 Encounter for general adult medical examination without abnormal findings (principal); E11.40 Type 2 diabetes mellitus with diabetic neuropathy, unspecified
CPT/HCPCS: 81001; 82043; 82570

== ENCOUNTER 2025-06-07 07:57 | Day surgery (SDC) | payer OTHER, MEDICARE, SELFPAY ==
--- OUTSIDE RECORDS SUMMARY | 2024-05-04 02:15 | XMS_ITS ---
Author Organization Gurjit Gloria MD Address [address] [place], [place] [id number] Care Team Providers Care Bread Racker Name Role Phone Gurjit Gloria Primary Care Provider Results Component Value Reference Range Notes Complete Blood Count Auto Di ff Reviewed date:05/04/2024 08:43:48 PM Interpretation: Performing Lab:[facility], [address] [place] [phone] Notes/Report: White Blood Count 7.6 4.8-10.8 X10*3/uL Red Blood Count 4.67 4.60-5.80 X10*6/uL Hemoglobin 14.0 14.0-18.0 g/dl Hematocrit 42.6 42.0-52.0 % Mean Corpuscular Volume 91.2 80.0-98.0 fL Mean Corpuscular Hemoglobin 30.0 27.0-33.0 pg Mean Corpuscular HGB Conc 32.9 31.0-36.0 g/dl Red Cell Distribution Width 13.4 11.0-16.0 % Platelet Count 174 160-400 X10*3/uL Mean Platelet Volume 12.3 9.4-12.4 fL Neutrophils Percent Auto 58.7 45-73 % Imm Gran Pct Auto 0.4 0.0-0.4 % Lymphocytes Percent Auto 27.8 20-40 % Monocytes Percent Auto 8.6 2-11 % Eosinophils Percent Auto 3.4 0-4 % Basophils Percent Auto 1.1 0-2 % NRBC Pct Auto 0.0 0.0-0.2 /100WBC Neutrophils Absolute Auto 4.5 2.0-8.3 x10*3/u L Imm Gran Abs Auto 0.03 0.00-0.03 X10*3/uL Lymphocytes Absolute Auto 2.1 1.2-4.9 X10*3/u L Monocytes Absolute Auto 0.7 0.1-1.2 X10*3/uL Eosinophils Absolute Auto 0.3 0.0-0.4 X10*3/u L Basophils Absolute Auto 0.1 0.0-0.2 X10*3/uL NRBC Abs Auto 0.000 0.0-0.012 X10*3/uL Comprehensive [place]. Panel Fa st Reviewed date:05/04/2024 08:44:07 PM Interpretation: Performing Lab:[facility], [address] [place] [phone] Notes/Report: Sodium 142 135-145 mmol/L Potassium 4.3 3.3-5.1 mmol/L Chloride 110 96-108 mmol/L Carbon Dioxide 26 22-29 mmol/L Anion Gap 10 12-20 Blood Urea Nitrogen 15 9-16 mg/dL Creatinine 0.88 0.5-1.4 mg/dL Estimated Glomerular Filt Rate > 60 NOTE: For -Malian individuals, multiply the result by 1.210. Chronic Kidney Disease: Estimated GFR < 60 mL/min/1.73m2 Severe Kidney Disease: Estimated GFR < 15 mL/min/1.73m2 Glucose Fasting 135 60-99 mg/dL A fasting glucose of 126 mg/dl or greater on more than one occasion is considered diagnostic of diabetes. Calcium 9.2 8.4-10.2 mg/dL Bilirubin Total 0.7 0.0-1.0 mg/dL Aspartate Amino Transferase 22 5-37 U/L Alanine Aminotransferase 12 0-40 U/L Total Protein 6.5 6.5-8.0 g/dL Albumin Level 3.8 3.5-5.0 g/dL Alkaline Phosphatase 35 39-117 U/L Lipid Panel Reviewed date:05/04/2024 08:34:21 PM Interpretation: Performing Lab:[address] [phone] Notes/Report: Triglycerides 88 <150 mg/dL Desirable Triglyceride: less than 150 mg/dL Borderline High Triglyceride 150-199 mg/dL High Triglyceride: 200-499 mg/dL Very High Triglyceride: greater than or equal to 5OO mg/dL Cholesterol 92 <200 mg/dL Desirable Cholesterol: less than 200 mg/dL Borderline High Cholesterol: 200-239 mg/dL High Cholesterol: greater than 239 mg/dL LDL Cholesterol Calculated 43 <100 mg/dL Desirable LDL: less than 100 mg/dL Near Optimal/Above Optimal LDL: 110-129 mg/dL Borderline High LDL: 130-159 mg/dL High LDL: 160-189 mg/dL Very High LDL: greater than or equal to 190 mg/dL HDL Cholesterol 32 >40 mg/dL Desirable HDL: greater than 40 mg/dL Note: This HDL assay may give artificially low results in patients with liver disease. PSA,Total (Free>4and<10) Reviewed date:05/04/2024 08:35:01 PM Interpretation: Performing Lab:[address] [phone] Notes/Report: PSA,Total (Free>4and<10) 1.07 0.00-4.00 ng/mL A Free PSA was not performed: The percentage of Free PSA can be used to enhance the differentiation of prostate cancer from benign prostatic disease in subjects whose PSA levels are between 4.0 and 10.0 ng/mL. For subjects whose PSA levels are below 4.0 or above 10.0 ng/mL, the risk of prostate cancer is determined on the basis of the PSA alone. Therefore the % Free PSA is recommended only for those subjects whose PSA levels are between 4.0 and 10.0 ng/mL. PSA methodology: Acevedo Alinity i Chemiluminescent Microparticle Immunoassay (CMIA) Hemoglobin A1c Reviewed date:05/04/2024 08:35:20 PM Interpretation: Performing Lab:[address] [phone] Notes/Report: Hemoglobin A1c % 6.2 <6.0 % Hemoglobin A1C Reference Range Adults: 4.8 - 6.0 % Non diabetic: < 6.0 % Goal: < 7.0 % Additional Action Suggested: > 8.0 % Note: Hemoglobin A1c results are invalid for patients with abnormal amounts of HbF. Blood transfusions may impact the HbA1c concentration in the patient sample. Estimated Average Glucose 131 eAG = Estimated average glucose which is %A1C expressed as average glucose, using the formula of the W0J-Urkyjgl Average Glucose study (ADAG), Diabetes Care, Vol.31,#8, Feb. 2007 REASON FOR VISIT yearly fasting labs Immunizations Vaccine Route Administration Date Status Comme nts Influenza High Dose IM Intramuscular 05/04/2024 Administer ed Encounters Encounter Location Date Provider Diagnosis Gurjit Gloria MD [address] [place] [phone] 05/04/2024 Gurjit Gloria Blood tests for rout ine general physical examination Z00.00 ; Encounter for immunization Z23 ; Type 2 diabetes mellitus with diabetic neuropathy E11.40 ; Low HDL (under 40) E78.6 ; Rising PSA level R97.20 and Arteriosclerotic coronary artery disease I25.10 Assessments Encounter Date Diagnosis (ICD Code) Assessment Notes Treatment Notes Treatment Clinical Notes Section Notes 05/04/2024 Blood tests for routine general physical examination (ICD-10 - Z00.00) 05/04/2024 Encounter for immunization (ICD-10 - Z23) 05/04/2024 Type 2 diabetes mellitus with diabetic neuropathy (ICD-10 - E11.40) 05/04/2024 Low HDL (under 40) (ICD-10 - E78.6) 05/04/2024 Rising PSA level (ICD-10 - R97.20) 05/04/2024 Arteriosclerotic coronary artery disease (ICD-10 - I25.10) Plan Of Treatment Next Appt Details Provider Name:Gurjit almazan, 05/26/2025 09:15:00 AM, [address] [place] [address], [address], [phone], Provider Name:Gurjit almazan, 10/20/2025 07:45:00 AM, [address] [place] [address], [phone], Provider Name:Gurjit almazan, 10/27/2025 10:15:00 AM, [address] [place] [address], [phone], Provider Name:Gurjit kiddr, 05/09/2026 07:30:00 AM, [address], [address], [place], [place], [phone], Provider Name:Gurjit Suggs ier, 05/16/2026 10:30:00 AM, [address], [address], [place], [phone], Progress Notes * Howard MUNIZ FDOB:[birth year] (73 yo M)Acc No.[id number]:05/04/2024 Progress Note Patient: Howard Hicks Provider: Jannet Gloria MD :1950 A ge:73 Y S ex:Male Date:05/04/2024 Address:[address] [place] [address] [id number] Subjective: * Chief Complaints: * Y early fasting labs * Medical History: * Surgical History: * Hospitalization/Major Diagno stic Procedure: * Medications: Objective: Assessment: * Assessment: 1. E ncounter for immunization - Z23 (Primary) 2 . B lood tests for routine general physical examination - Z00.00 3 . T ype 2 diabetes mellitus with diabetic neuropathy - E11.40?4. L ow HDL (under 40) - E78.6 5 . R ising PSA level - R97.20 6 . A rteriosclerotic coronary artery disease - I25.10 Plan: * Treatment: 2. T ype 2 diabetes mellitus with diabetic neuropathy L AB: Microalbumin, Random L AB: UA ClnCatch+Micro w/rflx Cult L AB: Complete Blood Count Auto Diff L AB: Comprehensive [place]. Panel Fast L AB: Lipid Panel L AB: PSA,Total (Free>4and<10) L AB: Hemoglobin A1c 3. L ow HDL (under 40) L AB: Microalbumin, Random L AB: UA ClnCatch+Micro w/rflx Cult L AB: Complete Blood Count Auto Diff L AB: Comprehensive [place]. Panel Fast L AB: Lipid Panel L AB: PSA,Total (Free>4and<10) L AB: Hemoglobin A1c 4. R ising PSA level L AB: Microalbumin, Random L AB: UA ClnCatch+Micro w/rflx Cult L AB: Complete Blood Count Auto Diff L AB: Comprehensive [place]. Panel Fast L AB: Lipid Panel L AB: PSA,Total (Free>4and<10) L AB: Hemoglobin A1c 5. A rteriosclerotic coronary artery disease L AB: Microalbumin, Random L AB: UA ClnCatch+Micro w/rflx Cult L AB: Complete Blood Count Auto Diff L AB: Comprehensive [place]. Panel Fast L AB: Lipid Panel L AB: PSA,Total (Free>4and<10) L AB: Hemoglobin A1c * Immunizations: Influenza High Dose : 0.5 mL (Dose No:1) (Route: Intramuscular) given by Ela Graham on Left Deltoid * Procedure Codes: 9 0662 FLU VACC PRSV FREE INC [id number] IMMUNIZATION [id number] VENIPUNCT, ROUTINE* * * Sign off status: Completed true * Provider: Jannet Gloria MD Date: Generated for Janel del cid/Judd/Sherrysmitting on: 07/16/2024 04:23 PM EST
--- OUTSIDE RECORDS SUMMARY | 2024-05-11 04:30 | XMS_ITS ---
Author Organization Gurjit Gloria MD Address [address] [place], [place] [id number] Care Team Providers Care Flight Manager Name Role Phone Gurjit Gloria Primary Care Provider [phone] Allergies Allergen (clinical drug ingredient) Drug/Non Drug Allergy documented on EMR Reaction Allergy Type Onset Date Status brimonidine / timolol Combigan blood shot eyes Drug Allergy Active Results Component Value Reference Range Notes Microalbumin, Random Reviewed date:05/11/2024 04:23:31 PM Interpretation: Performing Lab:[facility], [address] [place] [phone] Notes/Report: Creatinine Urine 63.33 Microalbumin Urine < 5.0 Microalbum/Creatinine Ratio Ur TNP <30 ug/mg cr Unable to calculate albumin/creatinine ratio due to low microalbumin or creatinine result. UA ClnCatch+Micro w/rflx Cul t Reviewed date:05/11/2024 12:37:07 PM Interpretation: Performing Lab:[facility], [address] [place] [phone] Notes/Report: Urine, Clean Catch Color Urine Yellow Appearance Urine Clear PH 6.0 5.0-9.0 Glucose Urine UA Negative Negative mg/dL Urine Blood Negative Negative Specific [place] - Urine 1.010 1.005-1.025 Urine Protein Negative Neg-Trace mg/dL Urine Ketones Negative Negative mg/dL Nitrite Urine Negative Negative Leukocyte Esterase Urine Negative Negative RBC Urine 0-2 0-2 /HPF WBC Urine 0-5 0-5 /HPF Squamous Epithelial Cell Urine 0-2 0-2 /HPF Bacteria Urine None Seen None Seen Hyaline Casts Urine 0-2 0-2 /LPF REASON FOR VISIT annual visit Medications Medication SIG (Take, Route, Frequency, Duration) Notes Start Date End Date Status Ventolin HFA * 108 (90 Base) MCG/ACT 2 puffs as needed Inhalation every 4 hrs for 30 day(s) 09/23/2014 Not-Taking Dorzolamide HCl-Timolol Mal 22.3-6.8 MG/ML 1 drop into affected eye Ophthalmic Twice a day Active Latanoprost 0.005 % 1 drop into affected eye in the evening Ophthalmic Once a day Active Aspir-Low 81 MG 1 tablet Orally Once a day Active Zioptan 0.0015 % 1 drop into affected eye in the evening Ophthalmic Once a day Active Dorzolamide-Timolol [address] 1 drop in both eyes twice a day Not-Taking Atorvastatin Calcium 80 MG TAKE 1 TABLET BY MOUTH EVERY DAY FOR 90 DAYS Active metFORMIN HCl 500 MG TAKE 2 TABLETS BY M OUTH TWICE A DAY Active Social History Tobacco Use: Social History Observation Description Date Details (start date - stop date) Never Smoker NA - NA Tobacco Use/Smoking Question Answer Notes Patient is a nonsmoker Additional Findings: Tobacco Non-User Cu rrent non-smoker, currently using no form of tobacco Alcohol Screen Question Answer Notes Did you have a drink containing alcohol in the p ast year? No Points 0 Interpretation Negative Vital Signs Blood pressure systolic 90 mm Hg 05/11/20 24 Blood pressure diastolic 60 mm Hg 024 Height 70 in 05/11/2024 Encounters Encounter Location Date Provider Diagnosis Gurjit Gloria MD [address] [place] [address] Drive [address] [place], [place] [phone] 05/11/2024 Gurjit Gloria Type 2 diabetes mellitus with diabetic neuropathy E11.40 ; Annual physical exam Z00.00 ; Rising PSA level R97.20 ; Moderate aortic stenosis I35.0 ; Cerebrovascular accident (CVA) due to occlusion of right carotid artery I63.231 ; Low HDL (under 40) E78.6 ; Colon cancer screening Z12.11 and Depression screening Z13.31 Assessments Encounter Date Diagnosis (ICD Code) Assessment Notes Treatment Notes Treatment Clinical Notes Section Notes 05/11/2024 Type 2 diabetes mellitus with diabetic neuropathy (ICD-10 - E11.40) doing well with good a1c, will continue currentregiment 05/11/2024 Annual physical exam (ICD-10 - Z00.00) labs reviewed and discussed with patient 05/11/2024 Rising PSA level (ICD-10 - R97.20) is good at present, will continue to monitor 05/11/2024 Moderate aortic stenosis (ICD-10 - I35.0) sees italian lecturer in [facility] 05/11/2024 Cerebrovascular accident (CVA) due to occlusion of right carotid artery (ICD-10 - I63.231) doing well with good recovery. sees the surgeon 05/11/2024 Low HDL (under 40) (ICD-10 - E78.6) stable, will continue current regiment 05/11/2024 Colon cancer screening (ICD-10 - Z12.11) guaiac negative 05/11/2024 Depression screening (ICD-10 - Z13.31) negative screen Plan Of Treatment Medication Medication Name Sig Start Date Stop Date Notes Atorvastatin Calcium 80 MG TAKE 1 TABLET BY MOUTH EVERY DAY FOR 90 DAYS metFORMIN HCl 500 MG TAKE 2 TABLETS BY M OUTH TWICE A DAY Treatment Notes Assessment Notes Type 2 diabetes mellitus wit h diabetic neuropathy doing well with good a1c, will continue currentregiment Annual physical exam labs reviewed and d iscussed with patient Rising PSA level is good at present, will continue to monitor Moderate aortic stenosis sees cardiologi st in [facility] Cerebrovascular accident (CV A) due to occlusion of right carotid artery doing well with good recovery. sees the surgeon Low HDL (under 40) stable, will continu e current regiment Colon cancer screening guaiac negative Depression screening negative screen Next Appt Details Follow Up: 6 Months, Reason: Provider Name:Gurjit almazan, 05/26/2025 09:15:00 AM, [address] [place] [address], [address], [place], [place], [phone], Provider Name:Gurjit almazan, 10/20/2025 07:45:00 AM, [address] [place] [address], [address], [place], [place], [phone], Provider Name:Gurjit almazan, 10/27/2025 10:15:00 AM, [address] [place] [address], [address], [place], [place], [phone], Provider Name:Gurjit Suggs martir, 05/09/2026 07:30:00 AM, [address] [facility], [address], [place], [phone], Provider Name:Gurjit Suggs martir, 05/16/2026 10:30:00 AM, [address] [facility], [address], [place], [phone], Progress Notes * Howard MUNIZ FDOB:[birth year] (73 yo M)Acc No.[id number]:05/11/2024 Progress Notes Patient: Howard Hicks Provider: Jannet Gloria MD :1950 A ge:73 Y S ex:Male Date:05/11/2024 Address:[address] [place], [place] [phone] Subjective: * Chief Complaints: * A nnual visit * HPI: D epression Screening: PHQ-9 L ittle interest or pleasure in doing things N ot at all, F eeling down, depressed, or hopeless N ot at all, T rouble falling or staying asleep, or sleeping too much N ot at all, F eeling tired or having little energy N ot at all, P oor appetite or overeating N ot at all, F eeling bad about yourself or that you are a failure, or have let yourself or your family down N ot at all, T rouble concentrating on things, such as reading the newspaper or watching television N ot at all, M oving or speaking so slowly that other people could have noticed; or the opposite, being so fidgety or restless that you have been moving around a lot more than usual N ot at all, T houghts that you would be better off or of hurting yourself in some way N ot at all, T otal Score 0 . I nterpretation and Intervention D epression Screening Findings N egative, F ollow-Up for Depression : review of PHQ-9 found negative result, no follow-up needed. C ommunication Needs: Communication Needs D oes the patient have a hearing impairment N o, D oes the patient have a vision impairment? Y es, I f yes, what is the vision impairment? G lasses, D oes the patient have a cognition impairment? N o. F all Risk: History H ave you had any falls with injury in the past year? N o, H ave you had two or more falls in the past year? N o. S KENZIE Questions: SDOH Questions I n the past year have you been worried about losing housing? N o, I n the past year have you or any family members you live with been unable to get any of the following when it was really needed? Check all that apply: N one. S ymptom(s): patient is a 73 yo male here for annual follow up with review of recent labs and follow up of chronic issues. . still left leg doesn't work well. balance still off. is year and half since stroke. * ROS: G eneral/Constitutional: Change in appetite d enies. C hills d enies. F ever d enies. O phthalmologic: Blurred vision d enies. D ischarge d enies. P ain d enies. E NT: Decreased hearing d enies. S ore throat d enies.?Swollen glands d enies. E ndocrine: Cold intolerance d enies. E xcessive thirst d enies. H eat intolerance d enies. W eight loss d enies. R espiratory: Cough d enies. S hortness of breath at rest d enies. S hortness of breath with exertion d enies. W heezing d enies. C ardiovascular: Chest pain at rest d enies. C hest pain with exertion?denies. I rregular heartbeat d enies. S hortness of breath d enies. ? G astrointestinal: Abdominal pain d enies. C hange in bowel habits d enies. D iarrhea d enies. N ausea d enies. R ectal bleeding d enies. V omiting d enies . G enitourinary: Blood in urine d enies. D ifficulty urinating d enies. F requent urination d enies. M usculoskeletal: Painful joints d enies. W eakness d enies. ? S kin: Dry skin d enies. I tching d enies. D enies?Mole(s), changes in moles, new moles or any lesions of concern. D enies P hotosensitivity. R arash d enies. N eurologic: Dizziness d enies. F ainting d enies. H eadache?denies. * Medical History: * Surgical History: * Hospitalization/Major Diagno stic Procedure: * Family History: F ather: , colon cancer, diagnosed with Cancer. M other: , colon cancer, diagnosed with Cancer. 1 son(s) , 1 daughter(s) . . Father- unknown Mother- unknown, Denies mental health/substance abuse family history, Denies mental health/substance abuse family history, Denies mental health Father was an alcoholic. * Social History: T obacco Use: T obacco Use/Smoking P atient is a n onsmoker, A dditional Findings: Tobacco Non-User C urrent non-smoker, currently using no form of tobacco. D rugs/Alcohol: A lcohol Screen D id you have a drink containing alcohol in the past year? N o, P oints 0 , I nterpretation N egative. M iscellaneous: C affeine: yes, iced tea. Children: yes. no Community involvements. Exercise: yes, yard work. Housing: owning. Living with: spouse, and one adult child. Marital status: . Occupation: retired. Pets: bird. no Travel outside of the [place]. * Medications: T akingZioptan 0.0015 % Solution [...] Verified] Objective: * Vitals: H t: 70, BP:90/60. * P ast Orders: L ab:Complete Blood Count Auto Diff (Order Date - 05/04/2024) (Collection Date - 05/04/2024) Value Reference Range White Blood Count 7.6 4.8-10.8 - X10*3/uL Red Blood Count 4.67 4.60-5.80 - X10*6/uL Hemoglobin 14.0 14.0-18.0 - g/dl Hematocrit 42.6 42.0-52.0 - % Mean Corpuscular Volume 91.2 80.0-98.0 - fL Mean Corpuscular Hemoglobin 30.0 27.0-33.0 - pg Mean Corpuscular HGB Conc 32.9 31.0-36.0 - g/ dl Red Cell Distribution Width 13.4 11.0-16.0 - % Platelet Count 174 160-400 - X10*3/uL Mean Platelet Volume 12.3 9.4-12.4 - fL Neutrophils Percent Auto 58.7 45-73 - % Imm Gran Pct Auto 0.4 0.0-0.4 - % Lymphocytes Percent Auto 27.8 20-40 - % Monocytes Percent Auto 8.6 2-11 - % Eosinophils Percent Auto 3.4 0-4 - % Basophils Percent Auto 1.1 0-2 - % NRBC Pct Auto 0.0 0.0-0.2 - /100WBC Neutrophils Absolute Auto 4.5 2.0-8.3 - x10* 3/uL Imm Gran Abs Auto 0.03 0.00-0.03 - X10*3/uL Lymphocytes Absolute Auto 2.1 1.2-4.9 - X10* 3/uL Monocytes Absolute Auto 0.7 0.1-1.2 - X10*3/ uL Eosinophils Absolute Auto 0.3 0.0-0.4 - X10* 3/uL Basophils Absolute Auto 0.1 0.0-0.2 - X10*3/ uL NRBC Abs Auto 0.000 0.0-0.012 - X10*3/uL L ab:Comprehensive [place]. Panel Fast (Order Date - 05/04/2024) (Collection Date - 05/04/2024) Value Reference Range Sodium 142 135-145 - mmol/L Bilirubin Total 0.7 0.0-1.0 - mg/dL Aspartate Amino Transferase 22 5-37 - U/L Alanine Aminotransferase 12 0-40 - U/L Total Protein 6.5 6.5-8.0 - g/dL Albumin Level 3.8 3.5-5.0 - g/dL Alkaline Phosphatase 35 L 39-117 - U/L Potassium 4.3 3.3-5.1 - mmol/L Chloride 110 H 96-108 - mmol/L Carbon Dioxide 26 22-29 - mmol/L Anion Gap 10 L 12-20 - Blood Urea Nitrogen 15 9-16 - mg/dL Creatinine 0.88 0.5-1.4 - mg/dL Estimated Glomerular Filt Rate > 60 - Glucose Fasting 135 H 60-99 - mg/dL Calcium 9.2 8.4-10.2 - mg/dL L ab:Lipid Panel (Order Date - 05/04/2024) (Collection Date - 05/04/2024) Value Reference Range Triglycerides 88 <150 - mg/dL Cholesterol 92 <200 - mg/dL LDL Cholesterol Calculated 43 <100 - mg/dL HDL Cholesterol 32 L >40 - mg/dL L ab:PSA,Total (Free>4and<10) (Order Date - 05/04/2024) (Collection Date - 05/04/2024) Value Reference Range PSA,Total (Free>4and<10) 1.07 0.00-4.00 - ng/ mL L ab:Hemoglobin A1c (Order Date - 05/04/2024) (Collection Date - 05/04/2024) Value Reference Range Hemoglobin A1c % 6.2 H <6.0 - % Estimated Average Glucose 131 - mg/dL * Examination: G eneral Examination: GENERAL APPEARANCE: w ell developed, well nourished, in no acute distress. HEAD: n ormocephalic, atraumatic. EYES: p upils equal, round, reactive to light and accommodation, sclera non-icteric. EARS: n ormal. ORAL CAVITY: m ucosa moist. THROAT: c lear. NECK/THYROID: n graciela supple, full range of motion, no cervical lymphadenopathy, no bruits. SKIN: w arm and dry, no suspicious lesions. HEART: r egular rate and rhythm, S1, S2 normal, , abnormal 2/6 PATY heard over the entire precordium. LUNGS: c lear to auscultation bilaterally. ABDOMEN: s oft, nontender, nondistended, bowel sounds present, normal, no organomegaly , no masses palpable. RECTAL EXAM: n ormal tone, no external hemorrhoids, no masses palpable, prostate normal, stool guaiac negative. MALE GENITOURINARY: a bnormal left testical atrophied. EXTREMITIES: n o clubbing, cyanosis, or edema. NEUROLOGIC: n onfocal, motor strength normal upper and lower extremities, sensory exam intact. PODIATRIC: d iminished pinprick, normal pulse, normal light touch. FOOT EXAM: . Assessment: * Assessment: 1. A nnual physical exam - Z00.00 (Primary) 2 . T ype 2 diabetes mellitus with diabetic neuropathy - E11.40 3 . R ising PSA level - R97.20 4 . M oderate aortic stenosis - I35.0 5 . C erebrovascular accident (CVA) due to occlusion of right carotid artery - I63.231?6. L ow HDL (under 40) - E78.6 7 . C olon cancer screening - Z12.11 8 . D epression screening - Z13.31 Plan: * Treatment: 2. T ype 2 diabetes mellitus with diabetic neuropathy Continue metFORMIN HCl Tablet, 500 MG, TAKE 2 TABLETS BY MOUTH TWICE A DAY. L AB: Microalbumin, Random L AB: UA ClnCatch+Micro w/rflx Cult Notes: doing well with good a1c, will continue currentregiment 3. R ising PSA level Notes: is good at present, will continue to monitor 4. M oderate aortic stenosis Notes: sees italian lecturer in conn 5. C erebrovascular accident (CVA) due to occlusion of right carotid artery Notes: doing well with good recovery. sees the surgeon 6. L ow HDL (under 40) Continue Atorvastatin Calcium Tablet, 80 MG, TAKE 1 TABLET BY MOUTH EVERY DAY FOR 90 DAYS. ? Notes: stable, will continue current regiment 7. C olon cancer screening Notes: guaiac negative 8. D epression screening Notes: negative screen * Procedure Codes: * Preventive Medicine: Counseling: C are goal follow-up plan: C ounseling for abnormal BMI provided?Yes, Amy mendieta Normal BMI Follow-up Jannet vinson encouragement to exercise. Diabetes Care Plan: P atient Lifestyle Goals N eeds to maintain diet control.?Treatment Goals A 1C< 7. B arriers N o specific barriers, doing well. S elf-Managment Plan I ncrease light exercise to 3 times a week for 30 minutes. * Follow Up: 6 Months * * Sign off status: Completed true * Provider: Jannet Gloria MD Date: Generated for Janel del cid/Judd/Carlositting on: 07/16/2024 04:23 PM EST History and Physical Notes * HPI (History of Present Illness) Category Sub-Category Detail Notes Category Not es Symptom(s) patient is a 73 yo male here for annual follow up with review of recent labs and follow up of chronic issues. . still left leg doesn't work well. balance still off. is year and half since stroke Depression Screening PHQ-9 Little inte rest or pleasure in doing things: Not at all Feeling down, depressed, or hopeless: No t at all Trouble falling or staying asleep, or sl eeping too much: Not at all Feeling tired or having little energy: N ot at all Poor appetite or overeating: Not at all Feeling bad about yourself o r that you are a failure, or have let yourself or your family down: Not at all Trouble concentrating on thi ngs, such as reading the newspaper or watching television: Not at all Moving or speaking so slowly that other people could have noticed; or the opposite, being so fidgety or restless that you have been moving around a lot more than usual: Not at all Thoughts that you would be b aquilino off or of hurting yourself in some way: Not at all Total Score: 0 Interpretation and Intervention Depression Omer carolina Findings: Negative Follow-Up for Depression: : review of PH Q-9 found negative result, no follow-up needed SDOH Questions SDOH Questions In the past year have you been worried about losing housing?: No In the past year have you or any family members you live with been unable to get any of the following when it was really needed? Check all that apply:: None Fall Risk History Have you had any falls with injury i n the past year?: No Have you had two or more falls in the year?: No Communication Needs Communication Needs Does the patient have a hearing impairment: No Does the patient have a vision impairmen t?: Yes If yes, what is the vision impairment?: Glasses Does the patient have a cognition impair ment?: No Examination Category Sub-Category Detail Notes Category Not es General Examination GENERAL APPEARANCE: well dev eloped, well nourished, in no acute distress HEAD: normocephalic, atrau matic EYES: pupils equal, round, reactive to light and accommodation, sclera non-icteric EARS: normal THROAT: clear NECK/THYROID: neck supple, full ra nge of motion, no cervical lymphadenopathy, no bruits HEART: regular rate and rhy thm, S1, S2 normal, , abnormal 2/6 PATY heard over the entire precordium LUNGS: clear to auscultatio n bilaterally ABDOMEN: soft, nontender, non distended, bowel sounds present, normal, no organomegaly , no masses palpable NEUROLOGIC: nonfocal, motor stre ngth normal upper and lower extremities, sensory exam intact SKIN: warm and dry, no yuni picious lesions EXTREMITIES: no clubbing, cyanosi s, or edema MALE GENITOURINARY: abnormal left testic al atrophied RECTAL EXAM: normal tone, no exte rnal hemorrhoids, no masses palpable, prostate normal, stool guaiac negative ORAL CAVITY: mucosa moist FOOT EXAM: Date: 05/11/2024 diminished pinp terrell. normal pulse. normal light touch. PODIATRIC: diminished pinprick, normal pulse, normal light touch
--- OUTSIDE RECORDS SUMMARY | 2024-10-26 02:45 | XMS_ITS ---
Author Organization Gurjit Gloria MD Address [address] [place], [place] [id number] Care Team Providers Care Deckhand Clam Dredge Name Role Phone Gurjit Gloria Primary Care Provider Results Component Value Reference Range Notes Liver Panel Reviewed date:10/27/2024 11:50:46 AM Interpretation: Performing Lab:[address] [phone] Notes/Report: Bilirubin Total 1.0 0.0-1.0 mg/dL Bilirubin Direct 0.5 0.0-0.5 mg/dL Aspartate Amino Transferase 21 5-37 U/L Alanine Aminotransferase 12 0-40 U/L Total Protein 6.7 6.5-8.0 g/dL Albumin Level 3.9 3.5-5.0 g/dL Alkaline Phosphatase 39 39-117 U/L Glucose Fasting Reviewed date:10/27/2024 11:49:29 AM Interpretation: Performing Lab:[address] [phone] Notes/Report: Glucose Fasting 141 60-99 mg/dL A fasting glucose of 126 mg/dl or greater on more than one occasion is considered diagnostic of diabetes. Lipid Panel with Reflex Reviewed date:10/27/2024 11:51:08 AM Interpretation: Performing Lab:[facility], [address] [place] [phone] Notes/Report: Triglycerides 141 <150 mg/dL Desirable Triglyceride: less than 150 mg/dL Borderline High Triglyceride 150-199 mg/dL High Triglyceride: 200-499 mg/dL Very High Triglyceride: greater than or equal to 5OO mg/dL Cholesterol 107 <200 mg/dL Desirable Cholesterol: less than 200 mg/dL Borderline High Cholesterol: 200-239 mg/dL High Cholesterol: greater than 239 mg/dL LDL Cholesterol Calculated 50 <100 mg/dL Desirable LDL: less than 100 mg/dL Near Optimal/Above Optimal LDL: 110-129 mg/dL Borderline High LDL: 130-159 mg/dL High LDL: 160-189 mg/dL Very High LDL: greater than or equal to 190 mg/dL HDL Cholesterol 29 >40 mg/dL Desirable HDL: greater than 40 mg/dL Note: This HDL assay may give artificially low results in patients with liver disease. Hemoglobin A1c Reviewed date:10/26/2024 01:06:24 PM Interpretation: Performing Lab:[facility], [address] [place] [phone] Notes/Report: Hemoglobin A1c % 6.2 <6.0 % [...] average glucose, using the formula of the A2F-Srkbdyc Average Glucose study (ADAG), Diabetes Care, Vol.31,#8, Feb. 2007 REASON FOR VISIT fasting lipids Encounters Encounter Location Date Provider Diagnosis Gurjit Gloria MD [address] [place] [address] [address] [place], [place] [phone] 10/26/2024 Gurjit Gloria Type 2 diabetes mellitus with diabetic neuropathy E11.40 and Arteriosclerotic coronary artery disease I25.10 Assessments Encounter Date Diagnosis (ICD Code) Assessment Notes Treatment Notes Treatment Clinical Notes Section Notes 10/26/2024 Type 2 diabetes mellitus with diabetic neuropathy (ICD-10 - E11.40) 10/26/2024 Arteriosclerotic coronary artery disease (ICD-10 - I25.10) Plan Of Treatment Next Appt Details Provider Name:Gurjit Suggs ier, 05/26/2025 09:15:00 AM, [address], [address], [place], [phone], Provider Name:Gurjit Suggs ier, 10/20/2025 07:45:00 AM, [address], [address], [place], [phone], Provider Name:Gurjit Suggs ier, 10/27/2025 10:15:00 AM, [address], [address], [place], [phone], Provider Name:Gurjit Suggs ier, 05/09/2026 07:30:00 AM, [address], Suite [facility], [place], [phone], Provider Name:Gurjit Suggs ier, 05/16/2026 10:30:00 AM, [address] [place] [address], Suite [facility], [place], [place], [phone], Progress Notes * GEOVANYHoward FDOB:[birth year] (74 yo M)Acc No.[id number]:10/26/2024 Progress Note Patient: Howard BECK Provider: Jannet Gloria MD :1950 A ge:74 Y S ex:Male Date:10/26/2024 Address:[address] [place], [place] [phone] Subjective: * Chief Complaints: * 1 . Fasting lipids. * Medical History: Objective: * Vitals: Assessment: * Assessment: 1. T ype 2 diabetes mellitus with diabetic neuropathy - E11.40 (Primary) 2 .?Arteriosclerotic coronary artery disease - I25.10 Plan: * Treatment: 2. A rteriosclerotic coronary artery disease L AB: Liver Panel (Collection Date & Time - 10/26/2024 07:45 AM) L AB: Glucose Fasting (Collection Date & Time - 10/26/2024 07:45 AM) L AB: Lipid Panel with Reflex (Collection Date & Time - 10/26/2024 07:45 AM) L AB: Hemoglobin A1c (Collection Date & Time - 10/26/2024 07:45 AM) * Procedure Codes: 3 6415 VENIPUNCT, ROUTINE* * * The named appointment provid er may or may not be the originator of this progress note, and it is not deemed complete until electronically signed by the appointment provider. Sign off status: Pending * Provider: Jannet Gloria MD Date: 0 10/26/2024 Generated for Janel del cid/Judd/Carlositting on: 1 07/16/2024 04:23 PM EST
--- OUTSIDE RECORDS SUMMARY | 2024-11-02 04:00 | XMS_ITS ---
Author Organization Gurjit Gloria MD Address [address] [place], [place] [phone] Care Team Providers Care Cupola Tapper Name Role Phone Gurjit Gloria Primary Care Provider [phone] Allergies Allergen (clinical drug ingredient) Drug/Non Drug Allergy documented on EMR Reaction Allergy Type Onset Date Status brimonidine / timolol Combigan blood shot eyes Drug Allergy Active REASON FOR VISIT 6 month Medications Medication SIG (Take, Route, Frequency, Duration) Notes Start Date End Date Status metFORMIN HCl 500 MG TAKE 2 TABLETS BY M OUTH TWICE A DAY Active Aspir-Low 81 MG 1 tablet Orally Once a day Active Atorvastatin Calcium 80 MG TAKE 1 TABLET BY MOUTH EVERY DAY Active Dorzolamide-Timolol [address] 1 drop in both eyes twice a day Not-Taking Ventolin HFA * 108 (90 Base) MCG/ACT [...] the evening Ophthalmic Once a day Active Vital Signs Blood pressure systolic 104 mm Hg 11/03/19 25 Blood pressure diastolic 66 mm Hg 025 Height 70 in 11/02/2024 Weight 179 lbs 11/02/2024 BMI 25.68 kg/m2 11/02/2024 Encounters Encounter Location Date Provider Diagnosis Gurjit Gloria MD [address] [place] [phone] 11/02/2024 Gurjit Gloria Type 2 diabetes mellitus with diabetic neuropathy E11.40 and Arteriosclerotic coronary artery disease I25.10 Assessments Encounter Date Diagnosis (ICD Code) Assessment Notes Treatment Notes Treatment Clinical Notes Section Notes 11/02/2024 Type 2 diabetes mellitus with diabetic neuropathy (ICD-10 - E11.40) is stable and having good a1c's, will continue current regiment 11/02/2024 Arteriosclerotic coronary artery disease (ICD-10 - I25.10) stable, will continue current regiment Plan Of Treatment Medication Medication Name Sig Start Date Stop Date Notes metFORMIN HCl 500 MG TAKE 2 TABLETS BY M OUTH TWICE A DAY Atorvastatin Calcium 80 MG TAKE 1 TABLET BY MOUTH EVERY DAY Treatment Notes Assessment Notes Type 2 diabetes mellitus wit h diabetic neuropathy is stable and having good a1c's, will continue current regiment Arteriosclerotic coronary artery disease stable, will continue current regiment Next Appt Details Provider Name:Gurjit almazan, 05/26/2025 09:15:00 AM, [address] [place] [address], [phone], Provider Name:Gurjit almazan, 10/20/2025 07:45:00 AM, [address] [place] [address], [phone], Provider Name:Gurjit almazan, 10/27/2025 10:15:00 AM, [address] [place] [address], [phone], Provider Name:Gurjit almazan, 05/09/2026 07:30:00 AM, [address] [place] [address], [phone], Provider Name:Gurjit almazan, 05/16/2026 10:30:00 AM, [address] [place] [address], [phone], Progress Notes * Howard MUNIZ FDOB:[birth year] (74 yo M)Acc No.[id number]:11/02/2024 Progress Notes Patient: Howard BECK Provider: Jannet Gloria MD :1950 A ge:74 Y S ex:Male Date:11/02/2024 Address:[address] [place], [place] [id number] Subjective: * Chief Complaints: * 6 month * HPI: S ymptom(s): patient os a 74 yo male here for 6 month follow up visit/ balance is still off. * ROS: G eneral/Constitutional: Denies C hills. D enies F atigue. D enies F ever. D enies H eadache. E NT: Denies S ore throat. E ndocrine: Denies D ifficulty sleeping. D enies D izziness.?Denies E xcessive sweating. D enies E xcessive thirst. D enies F requent urination. R espiratory: Denies C ough. D enies S hortness of breath at rest. D enies S hortness of breath with exertion. G astrointestinal: Denies D iarrhea. D enies N ausea. * Medical History: * Surgical History: * Hospitalization/Major Diagno stic Procedure: * Medications: T akingZioptan 0.0015 % Solution 1 drop into affected eye in the evening Ophthalmic Once a day Dorzolamide HCl-Timolol Mal 22.3-6.8 MG/ML Solution 1 drop into affected eye Ophthalmic Twice a day Latanoprost 0.005 % Solution 1 drop into affected eye in the evening Ophthalmic Once a day Aspir-Low 81 MG Tablet Delayed Release 1 tablet Orally Once a day metFORMIN HCl 500 MG Tablet TAKE 2 TABLETS BY MOUTH TWICE A DAY Atorvastatin Calcium 80 MG Tablet TAKE 1 TABLET BY MOUTH EVERY DAY Taking Zioptan 0.0015 % Solution 1 drop into affected eye in the evening Ophthalmic Once a day Taking Dorzolamide HCl-Timolol Mal 22.3-6.8 MG/ML Solution 1 drop into affected eye Ophthalmic Twice a day Taking Latanoprost 0.005 % Solution 1 drop into affected eye in the evening Ophthalmic Once a day Taking Aspir-Low 81 MG Tablet Delayed Release 1 tablet Orally Once a day Taking metFORMIN HCl 500 MG Tablet TAKE 2 TABLETS BY MOUTH TWICE A DAY Taking Atorvastatin Calcium 80 MG Tablet TAKE 1 TABLET BY MOUTH EVERY DAY Not-Taking/PRNDorzolamide-Timolol drops [address] 1 drop in both eyes twice a day Ventolin HFA * 108 (90 Base) MCG/ACT Aerosol Solution 2 puffs as needed Inhalation every 4 hrs Medication List reviewed and reconciled with the patientNot- Taking/PRN Dorzolamide-Timolol drops [address] 1 drop in both eyes twice a day Not- Taking/PRN Ventolin HFA * 108 (90 Base) MCG/ACT Aerosol Solution 2 puffs as needed Inhalation every 4 hrs Medication List reviewed and reconciled with the patient * Allergies: C ombigan: blood shot eyes - Side Effectsyes[Allergies Verified] Objective: * Vitals: H t: 70, Wt: 179, BMI:25.68, BP:104/66, Wt-k.19. * P ast Orders: L ab:Liver Panel (Order Date 10/26/2024) (Collection Date & Time - 10/26/2024 07:45 AM) Value Reference Range Bilirubin Total 1.0 0.0-1.0 - mg/dL Bilirubin Direct 0.5 0.0-0.5 - mg/dL Aspartate Amino Transferase 21 5-37 - U/L Alanine Aminotransferase 12 0-40 - U/L Total Protein 6.7 6.5-8.0 - g/dL Albumin Level 3.9 3.5-5.0 - g/dL Alkaline Phosphatase 39 39-117 - U/L L ab:Glucose Fasting (Order Date - 10/26/2024) (Collection Date & Time - 10/26/2024 07:45 AM) Value Reference Range Glucose Fasting 141 H 60-99 - mg/dL L ab:Lipid Panel with Reflex (Order Date 10/26/2024) (Collection Date & Time - 10/26/2024 07:45 AM) Value Reference Range Triglycerides 141 <150 - mg/dL Cholesterol 107 <200 - mg/dL LDL Cholesterol Calculated 50 <100 - mg/dL HDL Cholesterol 29 L >40 - mg/dL L ab:Hemoglobin A1c (Order Date - 10/26/2024) (Collection Date & Time - 10/26/2024 07:45 AM) Value Reference Range Hemoglobin A1c % 6.2 H <6.0 - % Estimated Average Glucose 131 - mg/dL * Examination: G eneral Examination: GENERAL APPEARANCE: a lert, well hydrated, in no distress.? HEAD: n ormocephalic. SKIN: g ood turgor. HEART: g rade 2/6 systolic murmur at left sternal border.? LUNGS: n o wheezes, rales, rhonchi, good air movement, clear to auscultation bilaterally. Assessment: * Assessment: 1. T ype 2 diabetes mellitus with diabetic neuropathy - E11.40 (Primary) 2 .?Arteriosclerotic coronary artery disease - I25.10 Plan: * Treatment: 2. A rteriosclerotic coronary artery disease Continue Atorvastatin Calcium Tablet, 80 MG, TAKE 1 TABLET BY MOUTH EVERY DAY. Notes: stable, will continue current regiment * Procedure Codes: * * Sign off status: Completed true * Provider: Jannet Gloria MD Date: 0 11/02/2024 Generated for Janel del cid/Judd/eTransmitting on: 07/16/2024 04:22 PM EST History and Physical Notes * HPI (History of Present Illness) Category Sub-Category Detail Notes Category Not es Symptom(s) patient os a 74 yo male here for 6 month follow up visit/ balance is still off Examination Category Sub-Category Detail Notes Category Not es General Examination GENERAL APPEARANCE: alert, w ell hydrated, in no distress HEAD: normocephalic HEART: grade 2/6 systolic m urmur at left sternal border LUNGS: no wheezes, rales, r honchi, good air movement, clear to auscultation bilaterally SKIN: good turgor
--- OUTSIDE RECORDS SUMMARY | 2025-03-31 09:02 | XMS_ITS ---
Author Organization Gurjit Gloria MD Address [address] [place] [phone] Care Team Providers Care Pediatric Care Coordinator Name Role Phone Gurjit Gloria Primary Care Provider REASON FOR VISIT schedule f/u Encounters Encounter Location Date Provider Diagnosis Gurjit Gloria MD [facility] [address] [place] [phone] 03/31/2025 Gurjit Gloria Plan Of Treatment Next Appt Details Provider Name:Gurjit almazan, 05/26/2025 09:15:00 AM, [address] [place] [address], [address], [phone], Provider Name:Gurjit Suggs ier, 10/20/2025 07:45:00 AM, [address] [place] [address], [address], [phone], Provider Name:Gurjit kiddr, 10/27/2025 10:15:00 AM, [address] [place] [address], [address], [phone], Provider Name:Gurjit almazan, 05/09/2026 07:30:00 AM, [address] [place] [address], [address], [phone], Provider Name:Gurjit almazan, 05/16/2026 10:30:00 AM, [address], [address], [place], [place], [phone], Progress Notes * Howard MUNIZ FDOB:[birth year] (74 yo M)Acc No.[id number]:03/31/2025 Patient: Howard BECK :1950 A ge:74 Y S ex:Male Address:[address] [place] [address] * true * Date: Generated for Janel del cid/Judd/Sherrysmitting on: 07/16/2024 04:23 PM EST
--- OUTSIDE RECORDS SUMMARY | 2025-04-04 04:16 | XMS_ITS ---
Author Organization Gurjit Gloria MD Address [address] [place] [phone] Care Team Providers Care Ecommerce Analyst Name Role Phone Gurjit Gloria Primary Care Provider [phone] REASON FOR VISIT Discharge summary rec'd Encounters Encounter Location Date Provider Diagnosis Gurjit Gloria MD 10 [facility] [address] [place] [phone] 04/04/2025 Gurjit Gloria Plan Of Treatment Next Appt Details Provider Name:Gurjit almazan, 05/26/2025 09:15:00 AM, [address] [place] [address], [address], [phone], Provider Name:Gurjit Suggs ier, 10/20/2025 07:45:00 AM, [address] [place] [address], [address], [phone], Provider Name:Gurjit Suggs ier, 10/27/2025 10:15:00 AM, [address] [place] [address], [address], [phone], Provider Name:Gurjit almazan, 05/09/2026 07:30:00 AM, [address] [place] [address], [address], [phone], Provider Name:Gurjit almazan, 05/16/2026 10:30:00 AM, [address] [address], [address], [place], [place], [phone], Progress Notes * Howard MUNIZ FDOB:[birth year] (74 yo M)Acc No.[id number]:04/04/2025 Patient: Howard BECK :1950 A ge:74 Y S ex:Male Address:[address] [place] [id number] * true * Date: Generated for Janel del cid/Judd/Sherrysmitting on: 07/16/2024 04:22 PM EST
--- OUTSIDE RECORDS SUMMARY | 2025-04-12 08:45 | XMS_ITS ---
Author Organization Gurjit Gloria MD Address [address] [place], [place] [phone] Care Team Providers Care Real Estate Agent/Broker Name Role Phone Gurjit Gloria Primary Care Provider Allergies Allergen (clinical drug ingredient) Drug/Non Drug Allergy documented on EMR Reaction Allergy Type Onset Date Status brimonidine / timolol Combigan blood shot eyes Drug Allergy Active REASON FOR VISIT follow up cardiac surgery Medications Medication SIG (Take, Route, Frequency, Duration) Notes Start Date End Date Status Dorzolamide-Timolol [address] 1 drop in both eyes twice a day Not-Taking Aspir-Low 81 MG 1 tablet Orally Once a day Active Latanoprost 0.005 % 1 drop into affected eye in the evening Ophthalmic Once a day Active Dorzolamide HCl-Timolol Mal 22.3-6.8 MG/ML 1 drop into affected eye Ophthalmic Twice a day Active Zioptan 0.0015 % 1 drop into affected eye in the evening Ophthalmic Once a day Active Atorvastatin Calcium 80 MG TAKE 1 TABLET BY MOUTH EVERY DAY Active metFORMIN HCl 500 MG TAKE 2 TABLETS BY M OUTH TWICE A DAY Active Ventolin HFA * 108 (90 Base) MCG/ACT 2 puffs as needed Inhalation every 4 hrs for 30 day(s) 09/23/2014 Not-Taking Encounters Encounter Location Date Provider Diagnosis Gurjit Gloria MD [address] [place], [place] [phone] 04/12/2025 Gurjit Choinicholascruz Plan Of Treatment Next Appt Details Provider Name:Gurjit Suggs ier, 05/26/2025 09:15:00 AM, [address], [address], [place], [phone], Provider Name:Gurjit Suggs ier, 10/20/2025 07:45:00 AM, [address] [facility], [address], [place], [phone], Provider Name:Gurjit Suggs ier, 10/27/2025 10:15:00 AM, [address], [address], [place], [place], [phone], Provider Name:Gurjit Suggs ier, 05/09/2026 07:30:00 AM, [address] [place] [address], [address] [facility], [place], [phone], Provider Name:Gurjit Suggs ier, 05/16/2026 10:30:00 AM, [address] [place] [address], [address] [facility], [place], [place], [phone], Progress Notes * Howard MUNIZ FDOB:[birth year] (74 yo M)Acc No.[id number]:04/12/2025 Patient: Howard BECK Provider: Jannet Gloria MD :1950 A ge:74 Y S ex:Male Date:04/12/2025 Address:[address] [place], [place] [phone] Subjective: * Chief Complaints: * 1 . Follow up cardiac surgery. * HPI: S ymptom(s): patient is a 74 yo male here in follow up to recent cardiac surgery. * ROS: G eneral/Constitutional: Denies C hills. D enies F atigue. D enies F ever. D enies H eadache. E NT: Denies S ore throat. R espiratory: Denies C ough. D enies S hortness of breath at rest. D enies S hortness of breath with exertion. G astrointestinal: Denies D iarrhea. D enies N ausea. * Medical History: P rostate biopsy 2002 psa was 4.6 and inflammation found, refuses colonoscopy 2012; refused 2013; refused 07/22/15refused 2016 aware of risk with mother and father; colonoscopy done 04/11/[address] Mcclendon; next colonoscopy due 03/2020, Asthmatic bronchitis, Refuses to be on statins after discussion as to the need, Abnormal ecg which goes over 15 years and had a negative stress test. * Medications: T aking Zioptan 0.0015 % Solution 1 drop into affected eye in the evening Ophthalmic Once a day , Taking Dorzolamide HCl-Timolol Mal 22.3-6.8 MG/ML Solution 1 drop into affected eye Ophthalmic Twice a day , Taking Latanoprost 0.005 % Solution 1 drop into affected eye in the evening Ophthalmic Once a day , Taking Aspir-Low 81 MG Tablet Delayed Release 1 tablet Orally Once a day , Taking metFORMIN HCl 500 MG Tablet TAKE 2 TABLETS BY MOUTH TWICE A DAY , Taking Atorvastatin Calcium 80 MG Tablet TAKE 1 TABLET BY MOUTH EVERY DAY , Not-Taking/PRN Dorzolamide-Timolol drops [address] 1 drop in both eyes twice a day , Not-Taking/PRN Ventolin HFA * 108 (90 Base) MCG/ACT Aerosol Solution 2 puffs as needed Inhalation every 4 hrs * Allergies: C ombigan: blood shot eyes - Side Effects. Objective: * Vitals: Assessment: Plan: * Treatment: * * The named appointment provid er may or may not be the originator of this progress note, and it is not deemed complete until electronically signed by the appointment provider. Sign off status: Pending * Provider: Jannet Gloria MD Date: 0 04/12/2025 Generated for Janel del cid/Judd/Sherrysmitting on: 07/16/2024 04:22 PM EST History and Physical Notes * HPI (History of Present Illness) Category Sub-Category Detail Notes Category Not es Symptom(s) patient is a 74 yo male here in follow up to recent cardiac surgery
--- OUTSIDE RECORDS SUMMARY | 2025-04-28 08:09 | XMS_ITS ---
Author Organization Gurjit Gloria MD Address [address] [place], [place] [phone] Care Team Providers Care Director Of Strategic Initiatives Name Role Phone Gurjit Gloria Primary Care Provider REASON FOR VISIT rectal bleeding Encounters Encounter Location Date Provider Diagnosis Gurjit Gloria MD 10 [facility] [address] [place] [phone] 04/28/2025 Gurjit Gloria Plan Of Treatment Next Appt Details Provider Name:Gurjit almazan, 05/26/2025 09:15:00 AM, [address] [place] [address], [address], [phone], Provider Name:Gurjit almazan, 10/20/2025 07:45:00 AM, [address] [place] [address], [address], [phone], Provider Name:Gurjit almazan, 10/27/2025 10:15:00 AM, [address] [place] [address], [phone], Provider Name:Gurjit almazan, 05/09/2026 07:30:00 AM, [address] [place] [address], [phone], Provider Name:Gurjit almazan, 05/16/2026 10:30:00 AM, [address], [address], [place], [place], [phone], Progress Notes * Howard MUNIZ FDOB:[birth year] (74 yo M)Acc No.[id number]:04/28/2025 Patient: Howard BECK :1950 A ge:74 Y S ex:Male Address:[address] [place] [address] [place] [address] * true * Date: Generated for Janel del cid/Judd/eTransmitting on: 07/16/2024 04:22 PM EST
--- OUTSIDE RECORDS SUMMARY | 2025-05-06 03:00 | XMS_ITS ---
Author Organization Gurjit Gloria MD Address [address] [place], [place] [id number] Care Team Providers Care Material Processor Name Role Phone Gurjit Gloria Primary Care Provider Results Component Value Reference Range Notes Complete Blood Count Auto Di ff Reviewed date:05/06/2025 12:20:57 PM Interpretation: Performing Lab:[facility], [address] [place] [phone] Notes/Report: White Blood Count 6.5 4.8-10.8 X10*3/uL Red Blood Count 4.45 4.60-5.80 X10*6/uL Hemoglobin 12.4 14.0-18.0 g/dl Hematocrit 40.3 42.0-52.0 % Mean Corpuscular Volume 90.6 80.0-98.0 fL Mean Corpuscular Hemoglobin 27.9 27.0-33.0 pg Mean Corpuscular HGB Conc 30.8 31.0-36.0 g/dl Red Cell Distribution Width 14.8 11.0-16.0 % Platelet Count 157 160-400 X10*3/uL Mean Platelet Volume 12.9 9.4-12.4 fL Neutrophils Percent Auto 64.2 45-73 % Imm Gran Pct Auto 0.5 0.0-0.4 % Lymphocytes Percent Auto 21.0 20-40 % Monocytes Percent Auto 10.2 2-11 % Eosinophils Percent Auto 3.2 0-4 % Basophils Percent Auto 0.9 0-2 % NRBC Pct Auto 0.0 0.0-0.2 /100WBC Neutrophils Absolute Auto 4.2 2.0-8.3 x10*3/u L Imm Gran Abs Auto 0.03 0.00-0.03 X10*3/uL Lymphocytes Absolute Auto 1.4 1.2-4.9 X10*3/u L Monocytes Absolute Auto 0.7 0.1-1.2 X10*3/uL Eosinophils Absolute Auto 0.2 0.0-0.4 X10*3/u L Basophils Absolute Auto 0.1 0.0-0.2 X10*3/uL NRBC Abs Auto 0.000 0.0-0.012 X10*3/uL White Blood Count 6.5 4.8-10.8 X10*3/uL Red Blood Count 4.45 4.60-5.80 X10*6/uL Hemoglobin 12.4 14.0-18.0 g/dl Hematocrit 40.3 42.0-52.0 % Mean Corpuscular Volume 90.6 80.0-98.0 fL Mean Corpuscular Hemoglobin 27.9 27.0-33.0 pg Mean Corpuscular HGB Conc 30.8 31.0-36.0 g/dl Red Cell Distribution Width 14.8 11.0-16.0 % Platelet Count 157 160-400 X10*3/uL Mean Platelet Volume 12.9 9.4-12.4 fL Neutrophils Percent Auto 64.2 45-73 % Imm Gran Pct Auto 0.5 0.0-0.4 % Lymphocytes Percent Auto 21.0 20-40 % Monocytes Percent Auto 10.2 2-11 % Eosinophils Percent Auto 3.2 0-4 % Basophils Percent Auto 0.9 0-2 % NRBC Pct Auto 0.0 0.0-0.2 /100WBC Neutrophils Absolute Auto 4.2 2.0-8.3 x10*3/u L Imm Gran Abs Auto 0.03 0.00-0.03 X10*3/uL Lymphocytes Absolute Auto 1.4 1.2-4.9 X10*3/u L Monocytes Absolute Auto 0.7 0.1-1.2 X10*3/uL Eosinophils Absolute Auto 0.2 0.0-0.4 X10*3/u L Basophils Absolute Auto 0.1 0.0-0.2 X10*3/uL NRBC Abs Auto 0.000 0.0-0.012 X10*3/uL CORRECTED REPORT CORRECTED REPORT Lipid Panel Reviewed date:05/06/2025 04:45:00 PM Interpretation: Performing Lab:[facility], [address] [place] [phone] Notes/Report: Triglycerides 94 <150 mg/dL Desirable Triglyceride: less than 150 mg/dL Borderline High Triglyceride 150-199 mg/dL High Triglyceride: 200-499 mg/dL Very High Triglyceride: greater than or equal to 5OO mg/dL Cholesterol 113 <200 mg/dL Desirable Cholesterol: less than 200 mg/dL Borderline High Cholesterol: 200-239 mg/dL High Cholesterol: greater than 239 mg/dL LDL Cholesterol Calculated 67 <100 mg/dL Desirable LDL: less than 100 mg/dL Near Optimal/Above Optimal LDL: 110-129 mg/dL Borderline High LDL: 130-159 mg/dL High LDL: 160-189 mg/dL Very High LDL: greater than or equal to 190 mg/dL HDL Cholesterol 28 >40 mg/dL Desirable HDL: greater than 40 mg/dL Note: This HDL assay may give artificially low results in patients with liver disease. PSA,Total (Free>4and<10) Reviewed date:05/06/2025 01:44:03 PM Interpretation: Performing Lab:[address] [phone] Notes/Report: PSA,Total (Free>4and<10) 1.17 0.00-4.00 ng/mL A Free PSA was not [...] Chemiluminescent Microparticle Immunoassay (CMIA) Hemoglobin A1c Reviewed date:05/06/2025 12:20:17 PM Interpretation: Performing Lab:[facility], [address] [place] [phone] Notes/Report: Hemoglobin A1c % 5.8 <6.0 % Hemoglobin A1C Reference Range Adults: 4.8 - 6.0 % Non diabetic: < 6.0 % Goal: < 7.0 % Additional Action Suggested: > 8.0 % Note: Hemoglobin A1c results are invalid for patients with abnormal amounts of HbF. Blood transfusions may impact the HbA1c concentration in the patient sample. Estimated Average Glucose 120 eAG = Estimated average glucose which is %A1C expressed as average glucose, using the formula of the J9O-Xcigpzo Average Glucose study (ADAG), Diabetes Care, Vol.31,#8, Feb. 2007 REASON FOR VISIT yearly fasting labs Immunizations Vaccine Route Administration Date Status Comme nts Influenza High Dose IM Intramuscular 05/06/2025 Administer ed Encounters Encounter Location Date Provider Diagnosis Gurjit Gloria MD [address] [place] [address] [address] [place], [place] [phone] 05/06/2025 Gurjit Gloria Blood tests for routine general physical examination Z00.00 ; Encounter for administration of vaccine Z23 ; Type 2 diabetes mellitus with diabetic neuropathy E11.40 ; Low HDL (under 40) E78.6 and Rising PSA level R97.20 Assessments Encounter Date Diagnosis (ICD Code) Assessment Notes Treatment Notes Treatment Clinical Notes Section Notes 05/06/2025 Blood tests for routine general physical examination (ICD-10 - Z00.00) 05/06/2025 Encounter for administration of vaccine (ICD-10 - Z23) 05/06/2025 Type 2 diabetes mellitus with diabetic neuropathy (ICD-10 - E11.40) 05/06/2025 Low HDL (under 40) (ICD-10 - E78.6) 05/06/2025 Rising PSA level (ICD-10 - R97.20) Plan Of Treatment Pending Test Test Name Order Date Comprehensive [place]. Panel Fast Microalbumin, Random 05/06/2025 UA ClnCatch+Micro w/rflx Cult 05/06/2025 Next Appt Details Provider Name:Gurjit Suggs ier, 05/26/2025 09:15:00 AM, [address] [facility], [address], [place], [place], [phone], Provider Name:Gurjit Suggs ier, 10/20/2025 07:45:00 AM, [address] [facility], Suite [facility], [place], [place], [phone], Provider Name:Gurjit Suggs ier, 10/27/2025 10:15:00 AM, [address] [place] [address], Suite [facility], [place], [place], [phone], Provider Name:Gurjit Suggs ier, 05/09/2026 07:30:00 AM, [address] [place] [address], Suite [facility], [place], [place], [phone], Provider Name:Gurjit Suggs ier, 05/16/2026 10:30:00 AM, [address] [place] [address], Suite [facility], [place], [place], [phone], Progress Notes * Howard MNUIZ FDOB:[birth year] (74 yo M)Acc No.[id number]:05/06/2025 Progress Note Patient: Howard BECK Provider: Jannet Gloria MD :1950 A ge:74 Y S ex:Male Date:05/06/2025 Address:[address] [place], [place] [phone] Subjective: * Chief Complaints: * 1 . Yearly fasting labs. * Medical History: Objective: * Vitals: Assessment: * Assessment: 1. B lood tests for routine general physical examination - Z00.00 (Primary) 2 .?Encounter for administration of vaccine - Z23 3 . T ype 2 diabetes mellitus with diabetic neuropathy - E11.40 4 . L ow HDL (under 40) - E78.6 5. R ising PSA level - R97.20 Plan: * Treatment: 2. T ype 2 diabetes mellitus with diabetic neuropathy L AB: Comprehensive [place]. Panel Fast L AB: Microalbumin, Random L AB: UA ClnCatch+Micro w/rflx Cult L AB: Complete Blood Count Auto Diff (Collection Date & Time - 05/06/2025 08:00 AM) L AB: Lipid Panel (Collection Date & Time - 05/06/2025 08:00 AM) L AB: PSA,Total (Free>4and<10) (Collection Date & Time - 05/06/2025 08:00 AM) L AB: Hemoglobin A1c (Collection Date & Time - 05/06/2025 08:00 AM) 3. L ow HDL (under 40) L AB: Comprehensive [place]. Panel Fast L AB: Microalbumin, Random L AB: UA ClnCatch+Micro w/rflx Cult L AB: Complete Blood Count Auto Diff (Collection Date & Time - 05/06/2025 08:00 AM) L AB: Lipid Panel (Collection Date & Time - 05/06/2025 08:00 AM) L AB: PSA,Total (Free>4and<10) (Collection Date & Time - 05/06/2025 08:00 AM) L AB: Hemoglobin A1c (Collection Date & Time - 05/06/2025 08:00 AM) 4. R ising PSA level L AB: Comprehensive [place]. Panel Fast L AB: Microalbumin, Random L AB: UA ClnCatch+Micro w/rflx Cult L AB: Complete Blood Count Auto Diff (Collection Date & Time - 05/06/2025 08:00 AM) L AB: Lipid Panel (Collection Date & Time - 05/06/2025 08:00 AM) L AB: PSA,Total (Free>4and<10) (Collection Date & Time - 05/06/2025 08:00 AM) L AB: Hemoglobin A1c (Collection Date & Time - 05/06/2025 08:00 AM) * Immunizations: Influenza High Dose : 0.5 mL (Dose No:1) (Route: Intramuscular) given by Ela Graham , Office Staff on Left Deltoid * Procedure Codes: 3 6415 VENIPUNCT, ROUTINE*, 54445 FLU VACC PRSV FREE INC ANTIG, 18142 IMMUNIZATION ADMIN * * The named appointment provid er may or may not be the originator of this progress note, and it is not deemed complete until electronically signed by the appointment provider. Sign off status: Pending * Provider: Jannet Gloria MD Date: Generated for Janel del cid/Judd/Wilma on: 07/16/2024 04:22 PM EST
--- OUTSIDE RECORDS SUMMARY | 2025-05-13 04:30 | XMS_ITS ---
Author Organization Gurjit Gloria MD Address [address] [place], [place] [id number] Care Team Providers Care Battery Filler Name Role Phone Gurjit Gloria Primary Care Provider [phone] Allergies Allergen (clinical drug ingredient) Drug/Non Drug Allergy documented on EMR Reaction Allergy Type Onset Date Status brimonidine / timolol Combigan blood shot eyes Drug Allergy Active Results Component Value Reference Range Notes Occult Blood, Stool, Guaiac Reviewed date:05/13/2025 02:58:44 PM Interpretation:Positive Performing Lab: Notes/Report: Positive Occult Blood, Stool, Guaiac POS Microalbumin, Random Reviewed date:05/13/2025 12:39:09 PM Interpretation: Performing Lab:[facility], [address] [place] [phone] Notes/Report: Creatinine Urine 91.35 Microalbumin Urine 7.0 Microalbum/Creatinine Ratio Ur 7.6 <30 ug/mg cr Albumin/Creatinine Ratio Reference Ranges: Normal: < 30 ug/mg creatinine Microalbuminuria: 30 - 300 ug/mg creatinine Clinical Albuminuria: > 300 ug/mg creatinine UA ClnCatch+Micro w/rflx Cul t Reviewed date:05/13/2025 12:37:52 PM Interpretation: Performing Lab:[address] [phone] Notes/Report: Urine, Clean Catch Color Urine Yellow Appearance Urine Clear PH 6.0 5.0-9.0 Glucose Urine UA Negative Negative mg/dL Urine Blood Negative Negative Specific Malcom - Urine 1.015 1.005-1.025 Urine Protein Negative Neg-Trace mg/dL Urine Ketones Negative Negative mg/dL Nitrite Urine Negative Negative Leukocyte Esterase Urine Negative Negative RBC Urine 0-2 0-2 /HPF WBC Urine 0-5 0-5 /HPF Squamous Epithelial Cell Urine 0-2 0-2 /HPF Bacteria Urine None Seen None Seen Hyaline Casts Urine 0-2 0-2 /LPF Reason For Referral Reason guaiac + stool Diagnosis 1 Guaiac + stool (R19. 5) Referral Organization Gurjit Gloria MD Referring Provider First Name Gurjit Referring Provider Last Name Juani Referring Provider Speciality Internal M edicine Referred Provider Raji Peters Referred Provider Specialty Gastroentero logy General Notes Carmel Rodriguez 1 10:32:08 AM >referral info faxed, Carmel Rodriguez 05/13/2025 11:33:17 AM > patient is aware of appt Referral Priority Routine Referral Appointment Date 05/16/2025 REASON FOR VISIT annual visit Medications Medication SIG (Take, Route, Frequency, Duration) Notes Start Date End Date Status Cephalexin 500 MG 1 capsule Orally meghan ry 6 hrs for 10 day(s) 05/13/2025 Active Senna 8.6 MG 2 tablets at bedtime as needed Orally Once a day Active Atorvastatin Calcium 80 MG TAKE 1 TABLET BY MOUTH EVERY DAY Active Metoprolol Tartrate 25 MG 1/2 tablet wit h food Orally Twice a day Active Tradjenta 5 MG 1 tablet Orally Once a day Active Amiodarone HCl 200 MG 1 tablet Orally On ce a day Active metFORMIN HCl 500 MG TAKE 2 TABLETS BY M OUTH TWICE A DAY Active Zioptan 0.0015 % 1 drop into affected eye in the evening Ophthalmic Once a day Not-Taking Aspir-Low 81 MG 1 tablet Orally Once a day Active Eliquis 5 MG as directed Orally twice a day Active Rocklatan 0.02-0.005 % 1 drop into affec antoni eye Ophthalmic Once a day Active Dorzolamide HCl-Timolol Mal 22.3-6.8 MG/ML 1 drop into affected eye Ophthalmic Twice a day Active Social History Tobacco Use: Social History [...] Problem Status W/U Status Risk Notes Problem History of heart valve repair with prosthesis (55497121620185 8) 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 Vital Signs Height 70 in 05/13/2025 Weight 156 lbs 05/13/2025 BMI 22.38 kg/m2 05/13/2025 weight is down 23 pounds sin ce 11-02-24 Encounters Encounter Location Date Provider Diagnosis Gurjit Gloria MD [address] [place] [address] [place] [phone] 05/13/2025 Gurjit Gloria Adult general medica l examination Z00.00 ; Type 2 diabetes mellitus with diabetic neuropathy E11.40 ; Arteriosclerotic coronary artery disease I25.10 ; Aortic valve replaced Z95.2 ; Guaiac + stool R19.5 ; Wound infection after surgery T81.49XA ; Colon cancer screening Z12.11 and Depression screening Z13.31 Assessments Encounter Date Diagnosis (ICD Code) Assessment Notes Treatment Notes Treatment Clinical Notes Section Notes 05/13/2025 Adult general medical examination (ICD-10 - Z00.00) labs reviewed and discussed with patient, pending labs 05/13/2025 Type 2 diabetes mellitus with diabetic neuropathy (ICD-10 - E11.40) doing better than in past, will continue current regiment 05/13/2025 Arteriosclerotic coronary artery disease (ICD-10 - I25.10) followed by cardiology 05/13/2025 Aortic valve replaced (ICD-10 - Z95.2) doing well 05/13/2025 Guaiac + stool (ICD-10 - R19.5) referal to dr peters 05/13/2025 Wound infection after surgery (ICD-10 - T81.49XA) he is going to notify his surgeon 05/13/2025 Colon cancer screening (ICD-10 - Z12.11) guaiac positive 05/13/2025 Depression screening (ICD-10 - Z13.31) negative screen Plan Of Treatment Medication Medication Name Sig Start Date Stop Date Notes Cephalexin 500 MG 1 capsule Orally meghan ry 6 hrs for 10 day(s) 05/13/2025 Atorvastatin Calcium 80 MG TAKE 1 TABLET BY MOUTH EVERY DAY Amiodarone HCl 200 MG 1 tablet Orally Once a day metFORMIN HCl 500 MG TAKE 2 TABLETS BY M OUTH TWICE A DAY Treatment Notes Assessment Notes Adult general medical examination labs r eviewed and discussed with patient, pending labs Type 2 diabetes mellitus wit h diabetic neuropathy doing better than in past, will continue current regiment Arteriosclerotic coronary artery disease followed by cardiology Aortic valve replaced doing well Guaiac + stool referal to dr james mar Wound infection after surgery he is wilder g to notify his surgeon Colon cancer screening guaiac positive Depression screening negative screen Referrals Referral Date Details 05/13/2025 05/13/2025, guaiac + stool, Raji Peters Next Appt Details Follow Up: 2 Weeks, Reason: Provider Name:Gurjit almazan, 05/26/2025 09:15:00 AM, [address] [place] [address], [address], [phone], Provider Name:Gurjit almazan, 10/20/2025 07:45:00 AM, [address] [place] [address], [phone], Provider Name:Gurjit almazan, 10/27/2025 10:15:00 AM, [address] [place] [address], [phone], Provider Name:Gurjit almazan, 05/09/2026 07:30:00 AM, [address] [place] [address], [phone], Provider Name:Gurjit almazan, 05/16/2026 10:30:00 AM, [address] [place] [address], [phone], Progress Notes * Howard MUNIZ FDOB:[birth year] (74 yo M)Acc No.[id number]:05/13/2025 Progress Notes Patient: Howard BECK F Provider: Jannet Gloria MD :1950 A ge:74 Y S ex:Male Date:05/13/2025 Address:[id number] Subjective: * Chief Complaints: * 1 . Annual visit. * HPI: D epression Screening: PHQ-9 L [...] N one. S ymptom(s): patient is a 74 yo male here or annual visit with review of recent labs and follow up of chronic issues/ still having drainage from his incision. had echo last week and was told they said there was weakness in heart muscle r ecently had heart surgery. had valve replaced. had open surgery.was done 03/24. * ROS: G eneral/Constitutional: Change in appetite [...] d enies. H eadache?denies. * Medical History: P rostate biopsy 2002 psa was 4.6 and inflammation found, refuses colonoscopy 2012; refused 2013; refused 07/22/15refused 2016 aware of risk with mother and father; colonoscopy done 04/11/[address] Peters; next colonoscopy due 03/2020, Asthmatic bronchitis, Refuses to be on statins after discussion as to the need, Abnormal ecg which goes over 15 years and had a negative stress test. * Family History: F ather: , colon [...] C affeine: yes, iced tea. Children: yes. Community involvements: no. Exercise: yes, yard work. Housing: owning. Living with: spouse, and one adult child. Marital status: . Occupation: retired. Pets: bird. * Medications: T aking Senna 8.6 MG Tablet 2 tablets at bedtime as needed Orally Once a day , Taking Metoprolol Tartrate 25 MG Tablet 1/2 tablet with food Orally Twice a day , Taking Amiodarone HCl 200 MG Tablet 1 tablet Orally Once a day , Taking Tradjenta 5 MG Tablet 1 tablet Orally Once a day , Taking Eliquis 5 MG Tablet as directed Orally twice a day , Taking Rocklatan 0.02-0.005 % Solution 1 drop into affected eye Ophthalmic Once a day , Taking Dorzolamide HCl-Timolol Mal 22.3-6.8 MG/ML Solution 1 drop into affected eye Ophthalmic Twice a day , Taking Aspir-Low 81 MG Tablet Delayed Release 1 tablet Orally Once a day , Taking metFORMIN HCl 500 MG Tablet TAKE 2 TABLETS BY MOUTH TWICE A DAY , Taking Atorvastatin Calcium 80 MG Tablet TAKE 1 TABLET BY MOUTH EVERY DAY , Not-Taking/PRN Zioptan 0.0015 % Solution 1 drop into affected eye in the evening Ophthalmic Once a day , Discontinued Latanoprost 0.005 % Solution 1 drop into affected eye in the evening Ophthalmic Once a day , Medication List reviewed and reconciled with the patient * Allergies: C ombigan: blood shot eyes - Side Effects. Objective: * Vitals: H t: 70, Wt: 156, BMI:22.38, Wt-k.76. weight is down 23 pounds since 11-02-24. * P ast Orders: L ab:Complete Blood Count Auto Diff (Order Date - 05/06/2025) (Collection Date & Time - 05/06/2025 08:00 AM) Value Reference Range White Blood Count 6.5 4.8-10.8 - X10*3/uL Red Blood Count 4.45 L 4.60-5.80 - X10*6/uL Hemoglobin 12.4 L 14.0-18.0 - g/dl Hematocrit 40.3 L 42.0-52.0 - % Mean Corpuscular Volume 90.6 80.0-98.0 - fL Mean Corpuscular Hemoglobin 27.9 27.0-33.0 - pg Mean Corpuscular HGB Conc 30.8 L 31.0-36.0 - g/ dl Red Cell Distribution Width 14.8 11.0-16.0 - % Platelet Count 157 L 160-400 - X10*3/uL Mean Platelet Volume 12.9 H 9.4-12.4 - fL Neutrophils Percent Auto 64.2 45-73 - % Imm Gran Pct Auto 0.5 H 0.0-0.4 - % Lymphocytes Percent Auto 21.0 20-40 - % Monocytes Percent Auto 10.2 2-11 - % Eosinophils Percent Auto 3.2 0-4 - % Basophils Percent Auto 0.9 0-2 - % NRBC Pct Auto 0.0 0.0-0.2 - /100WBC Neutrophils Absolute Auto 4.2 2.0-8.3 - x10* 3/uL Imm Gran Abs Auto 0.03 0.00-0.03 - X10*3/uL Lymphocytes Absolute Auto 1.4 1.2-4.9 - X10* 3/uL Monocytes Absolute Auto 0.7 0.1-1.2 - X10*3/ uL Eosinophils Absolute Auto 0.2 0.0-0.4 - X10* 3/uL Basophils Absolute Auto 0.1 0.0-0.2 - X10*3/ uL NRBC Abs Auto 0.000 0.0-0.012 - X10*3/uL L ab:Hemoglobin A1c (Order Date - 05/06/2025) (Collection Date & Time - 05/06/2025 08:00 AM) Value Reference Range Hemoglobin A1c % 5.8 <6.0 - % Estimated Average Glucose 120 - mg/dL L ab:Lipid Panel (Order Date 05/06/2025) (Collection Date & Time - 05/06/2025 08:00 AM) Value Reference Range Triglycerides 94 <150 - mg/dL Cholesterol 113 <200 - mg/dL LDL Cholesterol Calculated 67 <100 - mg/dL HDL Cholesterol 28 L >40 - mg/dL L ab:PSA,Total (Free>4and<10) (Order Date - 05/06/2025) (Collection Date & Time - 05/06/2025 08:00 AM) Value Reference Range PSA,Total (Free>4and<10) 1.17 0.00-4.00 - ng/ mL L ab:Comprehensive Met. Panel (Order Date 05/06/2025) (Collection Date & Time - 05/06/2025 08:00 AM) Value Reference Range Sodium 139 135-145 - mmol/L Bilirubin Total 0.5 0.0-1.0 - mg/dL Aspartate Amino Transferase 27 5-37 - U/L Alanine Aminotransferase 7 0-40 - U/L Total Protein 6.9 6.5-8.0 - g/dL Albumin Level 3.5 3.5-5.0 - g/dL Alkaline Phosphatase 52 39-117 - U/L Potassium 4.5 3.3-5.1 - mmol/L Chloride 109 H 96-108 - mmol/L Carbon Dioxide 22 22-29 - mmol/L Anion Gap 13 12-20 - Blood Urea Nitrogen 16 9-16 - mg/dL Creatinine 0.90 0.5-1.4 - mg/dL Estimated Glomerular Filt Rate > 60 - Glucose Random 130 H 60-115 - mg/dL Calcium 8.9 8.4-10.2 - mg/dL * Examination: G eneral Examination: [...] SKIN: w arm and dry, no suspicious lesions, abnormal with drainage from the cardiac surgery wound. HEART: r egular rate and rhythm, S1, S2 normal, no murmurs.? LUNGS: c lear to auscultation bilaterally. ABDOMEN: s oft, nontender, nondistended, bowel sounds present, normal, no organomegaly , no masses palpable. RECTAL EXAM: n ormal tone, no external hemorrhoids, no masses palpable, prostate normal, stool guaiac , abnormal posive. MALE GENITOURINARY: u ncircumcised left testicle not palpable. EXTREMITIES: n o clubbing, cyanosis, or edema. NEUROLOGIC: n onfocal, motor strength normal upper and lower extremities, sensory exam intact. PODIATRIC: n o pulses, no light touch, no pinprick. FOOT EXAM: . Assessment: * Assessment: 1. A dult general medical examination - Z00.00 (Primary) 2 . T ype 2 diabetes mellitus with diabetic neuropathy - E11.40 3 . A rteriosclerotic coronary artery disease - I25.10 4 . A ortic valve replaced - Z95.2 5 . G uaiac + stool - R19.5 6 . W ound infection after surgery - T81.49XA 7 . C olon cancer screening - Z12.11 8 . D epression screening - Z13.31 Plan: * Treatment: 2. T ype 2 diabetes mellitus with diabetic neuropathy Continue metFORMIN HCl Tablet, 500 MG, TAKE 2 TABLETS BY MOUTH TWICE A DAY. L AB: Microalbumin, Random (Collection Date & Time - 05/13/2025 09:30 AM) L AB: UA ClnCatch+Micro w/rflx Cult (Collection Date & Time - 05/13/2025 09:30 AM) Notes: doing better than in past, will continue current regiment 3. A rteriosclerotic coronary artery disease Continue Amiodarone HCl Tablet, 200 MG, 1 tablet, Orally, Once a day; C ontinue Atorvastatin Calcium Tablet, 80 MG, TAKE 1 TABLET BY MOUTH EVERY DAY. Notes: followed by cardiology 4. A ortic valve replaced Notes: doing well 5. G uaiac + stool Notes: referal to dr peters Referral To:[facility] Reason:guaiac + stool 6. W ound infection after surgery Start Cephalexin Capsule, 500 MG, 1 capsule, Orally, every 6 hrs, 10 day(s), 40. Notes: he is going to notify his surgeon 7. C olon cancer screening L AB: Occult Blood, Stool, Guaiac (Collection Date & Time - 05/13/2025) P ositive Value Reference Range O ccult Blood, Stool, Guaiac POS Notes: guaiac positive??8.?Depression screening? Notes: negative screen?? * Procedure Codes: 8 2270 TEST FOR BLOOD, FECES * Preventive Medicine: Diabetes Care Plan: P atient Lifestyle Goals N eeds to maintain diet control.?Treatment Goals A 1C< 7. B arriers N o specific barriers, doing well. S elf-Managment Plan I ncrease light exercise to 3 times a week for 30 minutes. E xpected Outcome maintaining stable blood sugar levels within a target range, ultimately aiming to live a full and active life despite having diabetes. * Follow Up: 2 Weeks * * The named appointment provid er [...] patient is a 74 yo male here or annual visit with review of recent labs and follow up of chronic issues/ still having drainage from his incision. had echo last week and was told they said there was weakness in heart muscle recently had heart surgery. had valve replaced. had open surgery.was done 03/24 Depression Screening PHQ-9 Little inte rest or [...] rate and rhy thm, S1, S2 normal, no murmurs LUNGS: clear to auscultatio n bilaterally ABDOMEN: soft, nontender, non distended, bowel sounds present, normal, no organomegaly , no masses palpable NEUROLOGIC: nonfocal, motor stre ngth normal upper and lower extremities, sensory exam intact SKIN: warm and dry, no yuni picious lesions, abnormal with drainage from the cardiac surgery wound EXTREMITIES: no clubbing, cyanosi s, or edema MALE GENITOURINARY: uncircumcised left t esticle not palpable RECTAL EXAM: normal tone, no exte rnal hemorrhoids, no masses palpable, prostate normal, stool guaiac , abnormal posive ORAL CAVITY: mucosa moist FOOT EXAM: Date: 05/13/2025 no pulses no li ght touch or pinprick PODIATRIC: no pulses, no light touch, no pinprick Consultation Request Notes Referral Date Referring Provider Referred Provider Not es 05/13/2025 Gurjit Gloria Bernard guaiac + stool
--- OUTSIDE RECORDS SUMMARY | 2025-05-16 16:22 | XMS_ITS | Patient Health Record ---
Author Organization Gurjit Gloria MD Address [address] [place], [place] [phone] Care Team Providers Care Electrical Superintendent Name Role Phone Gurjit Gloria Primary Care Provider [phone] Allergies Allergen (clinical drug ingredient) Drug/Non Drug Allergy documented on EMR Reaction Allergy Type Onset Date Status brimonidine / timolol Combigan blood shot eyes Drug Allergy Active Results Component Value Reference Range Notes Liver Panel Reviewed date:10/27/2024 11:50:46 AM Interpretation: Performing Lab:[facility], [address] [place] [phone] Notes/Report: Bilirubin Total 1.0 0.0-1.0 mg/dL Bilirubin Direct 0.5 0.0-0.5 mg/dL Aspartate Amino Transferase 21 5-37 U/L Alanine Aminotransferase 12 0-40 U/L Total Protein 6.7 6.5-8.0 g/dL Albumin Level 3.9 3.5-5.0 g/dL Alkaline Phosphatase 39 39-117 U/L Glucose Fasting Reviewed date:10/27/2024 11:49:29 AM Interpretation: Performing Lab:[facility], [address] [place] [phone] Notes/Report: Glucose Fasting 141 60-99 mg/dL A fasting glucose of 126 mg/dl or greater on more than one occasion is considered diagnostic of diabetes. Lipid Panel with Reflex Reviewed date:10/27/2024 11:51:08 AM Interpretation: Performing Lab:[facility], [address] [place] [phone] Notes/Report: Triglycerides 141 <150 mg/dL Desirable Triglyceride: [...] A1c Reviewed date:10/26/2024 01:06:24 PM Interpretation: Performing Lab:[facility], [address] [place] [phone] Notes/Report: Hemoglobin A1c % 6.2 <6.0 % [...] average glucose, using the formula of the D5Z-Gyozfxa Average Glucose study (ADAG), Diabetes Care, Vol.31,#8, Feb. 2007 Complete Blood Count Auto Di ff Reviewed date:05/06/2025 12:20:57 PM Interpretation: Performing Lab:[facility], [address] [place] [phone] Notes/Report: White Blood Count 6.5 4.8-10.8 X10*3/uL [...] Panel Reviewed date:05/06/2025 04:45:00 PM Interpretation: Performing Lab:[facility], [address] [place] [phone] Notes/Report: Triglycerides 94 <150 mg/dL Desirable Triglyceride: [...] PM Interpretation: Performing Lab:[facility], [address] [place] [phone] Notes/Report: PSA,Total (Free>4and<10) 1.17 0.00-4.00 ng/mL A [...] PM Interpretation: Performing Lab:[facility], [address] [place] [phone] Notes/Report: Hemoglobin A1c % 5.8 <6.0 % [...] average glucose, using the formula of the D7T-Tkfczyr Average Glucose study (ADAG), Diabetes Care, Vol.31,#8, Feb. 2007 Occult Blood, Stool, Guaiac Reviewed date:05/13/2025 02:58:44 PM Interpretation:Positive Performing Lab: Notes/Report: Positive Occult Blood, Stool, Guaiac POS Microalbumin, Random Reviewed date:05/13/2025 12:39:09 PM Interpretation: Performing Lab:[facility], [address] [place] [phone] Notes/Report: Creatinine Urine 91.35 Microalbumin Urine 7.0 Microalbum/Creatinine Ratio Ur 7.6 <30 ug/mg cr Albumin/Creatinine Ratio Reference Ranges: Normal: < 30 ug/mg creatinine Microalbuminuria: 30 - 300 ug/mg creatinine Clinical Albuminuria: > 300 ug/mg creatinine UA ClnCatch+Micro w/rflx Cul t Reviewed date:05/13/2025 12:37:52 PM Interpretation: Performing Lab:[facility], [address] [place] [phone] Notes/Report: Urine, Clean Catch Color Urine Yellow Appearance Urine Clear PH 6.0 5.0-9.0 Glucose Urine UA Negative Negative mg/dL Urine Blood Negative Negative Specific [place] - Urine 1.015 1.005-1.025 Urine Protein Negative Neg-Trace mg/dL Urine Ketones Negative Negative mg/dL Nitrite Urine Negative Negative Leukocyte Esterase Urine Negative Negative RBC Urine 0-2 0-2 /HPF WBC Urine 0-5 0-5 /HPF Squamous Epithelial Cell Urine 0-2 0-2 /HPF Bacteria Urine None Seen None Seen Hyaline Casts Urine 0-2 0-2 /LPF Hold Gold Reviewed date:10/26/2024 01:05:01 PM Interpretation: Performing Lab:[facility], [address] [place] [phone] Notes/Report: Sarita Bean See Note Specimen held untested for 24 hours; Call to request Chemistry testing. Comprehensive Met. Panel Reviewed date:05/06/2025 04:54:17 PM Interpretation: Performing Lab:[facility], [address] [place] [phone] Notes/Report: Sodium 139 135-145 mmol/L Potassium 4.5 [...] REVIEW Reviewed date:05/06/2025 12:19:43 PM Interpretation: Performing Lab:[facility], [address] [place] [phone] Notes/Report: SLIDE REVIEW VERIFIED Reason For Referral [...] Problem Status W/U Status Risk Notes Problem 596796908 Neuropathy (G62.9) Active confirmed Problem 580873045 Tubular adenoma (D36.9) Active confirmed Problem 99332215 Type 2 diabetes mellitus with diabetic neuropathy (E11.40) Active confirmed Problem 755507266 Low HDL (under 4 0) (E78.6) Active confirmed Problem Ophthalmic migraine (03008866) 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) Active confirmed Problem 62348303 Coronary artery disease involving hopland coronary artery of hopland heart without angina pectoris (I25.10) Active confirmed Problem 944533356 Seborrheic keratosis (L82.1) Active confirmed Problem 391497880 Incoordination (R27.9) Active confirmed Problem 816710731 Rising PSA level (R97.20) Active confirmed Problem 948655131 Moderate aortic stenosis (I35.0) Active confirmed Problem 291064290 Lesion of left ulnar nerve (G56.22) Active confirmed Problem 68149928 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 Problem History of heart valve repair with prosthesis (380648344566211) 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 Problem 90582208716049508 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) Active confirmed Problem 734684552353676 Occlusion of rig ht carotid artery (I65.21) Active confirmed Problem 44902021 Arteriosclerotic coronary artery disease (I25.10) Active confirmed [...] Location Date Provider Diagnosis Gurjit Gloria MD [address] [place] [address] Drive [address] [place] [id number] 10/26/2024 Gurjit Gloria Type 2 diabetes mellitus with diabetic neuropathy E11.40 and Arteriosclerotic coronary artery disease I25.10 Gurjit Gloria MD [address] [place] [id number] 05/06/2025 Gurjit Gloria Blood tests for rout ine general physical examination Z00.00 ; Encounter for administration of vaccine Z23 ; Type 2 diabetes mellitus with diabetic neuropathy E11.40 ; Low HDL (under 40) E78.6 and Rising PSA level R97.20 Gurjit Gloria MD [address] [place] [address] Drive [address] [place] [id number] 05/13/2025 Gurjit Gloria Adult general medica l examination Z00.00 ; Type 2 diabetes mellitus with diabetic neuropathy E11.40 ; Arteriosclerotic coronary artery disease I25.10 ; Aortic valve replaced Z95.2 ; Guaiac + stool R19.5 ; Wound infection after surgery T81.49XA ; Colon cancer screening Z12.11 and Depression screening Z13.31 Gurjit Gloria MD [address] [place] [id number] 11/02/2024 Gurjit Gloria Type 2 diabetes mellitus with diabetic neuropathy E11.40 and Arteriosclerotic coronary artery disease I25.10 Gurjit Gloria MD [address] [place] [id number] 03/31/2025 Gurjit Gloria MD [address] [place] [id number] 04/04/2025 Gurjit Gloria MD [address] [place] [id number] 04/28/2025 Gurjit Gloria Assessments Encounter Date Diagnosis [...] CONTRAST 10/17/2022 ECHO 10/26/2020 ECHO 01/25/2021 Comprehensive [place]. Panel Fast Microalbumin, Random 05/06/2025 UA ClnCatch+Micro w/rflx Cult 05/06/2025 Next Appt Details Provider Name:Gurjit almazan, 05/26/2025 09:15:00 AM, [address] [place] [address], [address], [phone], Provider Name:Gurjit almazan, 10/20/2025 07:45:00 AM, [address] [place] [address], [address], [phone], Provider Name:Gurjit kiddr, 10/27/2025 10:15:00 AM, [address] [place] [address], [address], [phone], Provider Name:Gurjit kiddr, 05/09/2026 07:30:00 AM, [address] [place] [address], [phone], Provider Name:Gurjit kiddr, 05/16/2026 10:30:00 AM, [address] [place] [address], [address], [phone], Insurance Providers Payer Name Payer Address Payer Phone Subscriber Number Group Number Insured Name Patient Relationship to Insured Coverage Start Date Coverage End Date [facility] [address] [facility] [place] [phone] [id number] Flavio IrvinHoward Self - patient is the insured MEDICARE [employer] [address] [place] [address] [id number] Howard Muniz Self - patient is the [...]
--- OUTSIDE RECORDS SUMMARY | 2025-05-16 16:23 | XMS_ITS | Patient Health Record ---
Author Organization [facility] Address [address] [place] [address] Care Team Providers Care Artifacts Conservator Name Role Phone Juani HEREDIA, Gurjit Primary Care Provider Raji Loya Jr Unavailable Allergies Allergen (clinical drug ingredient) Drug/Non Drug Allergy documented on EMR Reaction Allergy Type Onset Date Status seasonal (uncoded) Unknown Allergy A ctive Reason For Referral No Information Medications Medication SIG (Take, Route, Frequency, Duration) Notes Start Date End Date Status Amiodarone HCl 200 MG 1 tablet Orally On ce a day Active metFORMIN HCl 1000 MG 1 tablet with a me al Orally Once a day Active Latanoprost 0.005 % INSTILL 1 DROP INTO BOTH EYES AT BEDTIME DIRECTED Ophthalmic Once a day Active Dorzolamide HCl-Timolol Mal 22.3-6.8 MG/ML Ophthalmic; Duration: 90 Active Metoprolol Tartrate 25 MG 1 tablet with food Orally Twice a day Active MiraLax (colon prep) 17 GM/SCOOP mixed with Gatorade or Crystal Light Orally begin at 5:00 p.m. the day before the procedure; Duration: 1 day 08/08/2021 Not-Taking linaGLIPtin 5 MG 1 tablet Orally Once a day Active Aspirin 81 MG 1 tablet Orally Once a day Active Eliquis 5 MG as directed Orally Active Rocklatan 0.02-0.005 % 1 drop into affec antoni eye Ophthalmic Once a day Active Atorvastatin Calcium 80 MG 1 tablet Orally Once a day; Duration: 90 days Active Multivitamin Active Colyte with Flavor Packs 240 GM As directed Orally Over the specified time.; Duration: 1 day(s) Not-Taking Senna 8.6 MG 2 tablets at bedtime as needed Orally Once a day Active Zioptan 0.0015 % Ophthalmic; Duration : 30 Not-Taking Immunizations Vaccine Route Administration Date Status Comme nts Influenza Unknown 05/30/2021 Administered Influenza Unknown 05/16/2024 Administered Social History Tobacco Use: Social History Observation Description Date Details (start date - stop date) Never Smoker NA - NA Tobacco Use/Smoking Question Answer Notes Patient is a nonsmoker AUDIT-C (Standard) Question Answer Notes Did you have a drink containing alcohol in the p ast year? No Points 0 Interpretation Negative Problems Problem Type SNOMED Code ICD Code Onset Dates Problem Status W/U Status Risk Notes Problem Colon cancer screening (905892361) Colon cancer screening (Z12.11) Active confirmed Problem Abnormal feces (462530658) Other fecal abnormalities (R19.5) Active confirmed Problem Long-term current use of drug therapy (851595347) long term care phlebotomist (current) use of oral hypoglycemic drugs (Z79.84) Active confirmed Vital Signs Temperature 96.7 degrees Fahrenheit 05/16/2025 Blood pressure diastolic 01 mm Hg 05/16/2025 Height 71 in 05/16/2025 Blood pressure systolic 001 mm Hg 05/16/2025 Weight 158.6 lbs 05/16/2025 BMI 22.12 kg/m2 05/16/2025 Encounters Encounter Location Date Provider Diagnosis [facility] [address] [place] [phone] 05/16/2025 Raji Mcclendon Jr Other fecal abnormalities R19.5 Assessments Encounter Date Diagnosis (ICD Code) Assessment Notes Treatment Notes Treatment Clinical Notes Section Notes 05/16/2025 Other fecal abnormalities (ICD-10 - R19.5) We discussed possible causes for Hemoccult positive stool including upper GI and lower GI sources. Further evaluation with upper endoscopy and colonoscopy will be arranged. He is advised to stop aspirin 1 week before the procedure, Eliquis 3 days before the procedure, and metformin the day before the procedure. He understands risks and benefits of both procedures and agrees to proceed. This will be scheduled at his convenience. Plan Of Treatment Future Test Test Name Order Date COLONOSCOPY 04/03/2017 COLONOSCOPY 08/08/2021 UPPER GI ENDOSCOPY 05/16/2025 COLONOSCOPY 05/16/2025 Next Appt Details Provider Name:Raji billy Jr, 06/07/2025 12:40:00 PM, [address] [place] [address] , [place], [place], [phone], Insurance Providers Payer Name Payer Address Payer Phone Subscriber Number Group Number Insured Name Patient Relationship to Insured Coverage Start Date Coverage End Date [facility] [address] [place] [phone] [id number] JEFF ARMENTA Self - patient is the insured MEDICARE OF [place] [address] [place] [address] [id number] JEFF ARMENTA Self - patient is the insured Medical (General) History Medical History History ICD Code diabetes mellitus diabetic neuropathy glaucoma Elevated cholesterol Surgical History Surgery Date(Month/Year) Open heart surgery 03/24/2025 Rotator cuff surgery, or left Left index finger tendon repair 1979 Hospitalization History Reason Date(Month/Year) Blocked carotid artery Open heart surgery 03/2025
[2025-06-06 10:13] VITALS: BMI 23.3
--- NOTE | 2025-06-06 10:25 | HO.ANESPROP2 ---
Documented by User: Tamia Dejesus NP 06/06/25 10:57 HPI - Anesthesia Eval Consult details Narrative: 74 yr old male for upper EGD, colonoscopy s/p CABG x1, bioAVR for severe aortic stenosis, both 03/2025 at [facility] Saw LORRIE miller 06/03/25 for follow up, post op course complicated by afib, discharged on eliquis & amiodorone; has been doing cardiac rehab, performing >4 METS of activity. Cleared to undergo colonoscopy, continuing to hold eliquis but was instructed to restart ASA 81 mg. Cards plans to have him follow up in 2 weeks to titrate his GDMT and do 30 day monito. [facility] Active Problems Active Problems: All Active Problems (Updated 06/06/25 @ 06:46 by Diane Garcia RN) Carotid artery stenosis (Acute) Acute CVA (cerebrovascular accident) (Acute) Stiffness of left shoulder joint (Acute) Rotator cuff arthropathy of left shoulder (Acute) Past Medical History Medical History History of transcatheter aortic valve replacement (TAVR) (~03/24/25) COVID-19 vaccine series completed Glaucoma Elevated cholesterol Diabetic neuropathy Diabetes Family History Family history of problems with anesthesia: No Surgical History Surgical History Hx of rotator cuff surgery Hx of CABG (~03/24/25) H/O colonoscopy Hx of hand surgery History of Problems with Anesthesia: No Social History Social History Are you a primary customer care professional to a significant other at home: No Do you presently have visiting nurse or other home services: No Patient Tobacco Use Status: Never used Tobacco Current occupational status: retired Current occupation: rt hand / Meds Allergies Allergy/AdvReac Type Severity Reaction Status Date / Time No Known Allergies Allergy Verified 09/13/21 09:09 Home Medications ?Medication ?Instructions ?Recorded ?Confirmed ?Last Taken ?Type metformin 500 mg tablet 1,000 mg PO BID 09/13/21 06/06/25 Unknown History Held on 10/25/22. Instructions: Resume on 10/27/22. Received IV contrast. Held for 48 hours dorzolamide 22.3 mg-timolol 6.8 1 p ophthalmic (eye) BID 11/05/21 06/06/25 Unknown History mg/mL eye drops tafluprost (PF) 0.0015 % eye drops 1 drp ophthalmic (eye) BEDTIME 11/05/21 06/06/25 Unknown History in a dropperette (Zioptan (PF)) amiodarone 200 mg tablet 200 mg PO DAILY 06/06/25 06/06/25 Unknown History apixaban 5 mg tablet (Eliquis) 5 mg PO Q12H 06/06/25 06/06/25 Unknown History aspirin 81 mg tablet,delayed 81 mg PO DAILY 06/06/25 06/06/25 Unknown History release linagliptin 5 mg tablet 5 mg PO DAILY 06/06/25 06/06/25 Unknown History metoprolol tartrate 25 mg tablet 25 mg PO Q12H 06/06/25 06/06/25 Unknown History multivitamin 1 tab PO DAILY 06/06/25 06/06/25 Unknown History netarsudil 0.02 %-latanoprost 1 drp ophthalmic (eye) QPM 06/06/25 06/06/25 Unknown History 0.005 % eye drops (Rocklatan) sennosides 8.6 mg capsule (senna) 17.2 mg PO DAILY PRN Constipation 06/06/25 06/06/25 Unknown History Exam Height,Weight and Vital Signs: Height 5 ft 11 in Weight 75.75 kg Pertinent Lab Results Pertinent Lab Results: Laboratory Tests 05/06/25 08:00 WBC 6.5 RBC 4.45 L Hgb 12.4 L Hct 40.3 L Plt Count 157 L Sodium 139 Potassium 4.5 BUN 16 Creatinine 0.90 Narrative Narrative: ECHO 05/02/25 This was a limited study Left ventricular systolic function is moderately decreased. The quantitative EF by 2D Jenkins biplane is 37%. Right ventricular systolic function is normal. A normally functioning 20 mm INspiris biopprosthetic valve is in place across the aortic annulus. The calculated valve area is 2.5cm, mean gradient on 3 mmHg. Aortic root is moderately dilated at ? cm Compared to previous study on 03/29/25 a ROSALIA systolic function as declined. EKG 06/03/25 Normal Sinus, rate 72 RBBB left anterior fasicular block Assessment and Plan Final Anesthetic Review Family History of Problems with Anesthesia: No History of Problems with Anesthesia: No Documented by User: Rachelle Adamson MD 06/07/25 11:04 PMFSH Past Medical History Medical History History of transcatheter aortic valve replacement (TAVR) (~03/24/25) COVID-19 vaccine series completed Glaucoma Elevated cholesterol Diabetic neuropathy Diabetes Surgical History Surgical History Hx of rotator cuff surgery Hx of CABG (~03/24/25) H/O colonoscopy Hx of hand surgery Social History Social History Are you a primary customer care professional to a significant other at home: No Do you presently have visiting nurse or other home services: No Patient Tobacco Use Status: Never used Tobacco Current occupational status: retired Current occupation: rt hand / Meds Allergies Allergy/AdvReac Type Severity Reaction Status Date / Time No Known Allergies Allergy Verified 09/13/21 09:09 Home Medications ?Medication ?Instructions ?Recorded ?Confirmed ?Last Taken ?Type metformin 500 mg tablet 1,000 mg PO BID 09/13/21 06/06/25 Unknown History Held on 10/25/22. Instructions: Resume on 10/27/22. Received IV contrast. Held for 48 hours dorzolamide 22.3 mg-timolol 6.8 1 drp ophthalmic (eye) BID 11/05/21 06/06/25 Unknown History mg/mL eye drops tafluprost (PF) 0.0015 % eye drops 1 drp ophthalmic (eye) BEDTIME 11/05/21 06/06/25 Unknown History in a dropperette (Zioptan (PF)) amiodarone 200 mg tablet 200 mg PO DAILY 06/06/25 06/06/25 Unknown History apixaban 5 mg tablet (Eliquis) 5 mg PO Q12H 06/06/25 06/06/25 Unknown History aspirin 81 mg tablet,delayed 81 mg PO DAILY 06/06/25 06/06/25 Unknown History release linagliptin 5 mg tablet 5 mg PO DAILY 06/06/25 06/06/25 Unknown History metoprolol tartrate 25 mg tablet 25 mg PO Q12H 06/06/25 06/06/25 Unknown History multivitamin 1 tab PO DAILY 06/06/25 06/06/25 Unknown History netarsudil 0.02 %-latanoprost 1 drp ophthalmic (eye) QPM 06/06/25 06/06/25 Unknown History 0.005 % eye drops (Rocklatan) sennosides 8.6 mg capsule (senna) 17.2 mg PO DAILY PRN Constipation 06/06/25 06/06/25 Unknown History Exam Airway Mallampati Class: III TM Dist: >3cm Neck ROM: Full Loose/Missing/Broken Teeth: No Heart: RRR Lungs: CTA Assessment and Plan Assessment Anesthesia Assessment: Anesthesia Plan Discussed and Chart Reviewed Final Anesthetic Review NPO: Yes ASA Class: III Final Preanesthetic Review: Meds/Allgs Chart Reviewed, Consent Obtained/Reviewed and Anes Risks/Benef Reviewed Patient Risk: Intermediate Procedure Risk: Intermediate Anesthetic Plan Anesthetic Plan: MAC: Disposition: Standard PACU
[2025-06-07 09:20] VITALS: BMI 22.4
[2025-06-07] MEDS: Lactated Ringers 1,000 ML 50 ML IVCONT (09:35)
[2025-06-07 09:41] LABS: Glucose, Whole Blood 133 mg/dL (60-115)
[2025-06-07 09:45] VITALS: BP 147/80; PULSE 85; RESP 16; TEMP 36.4; O2SAT 99
--- NOTE | 2025-06-07 11:00 | MHC.SHP ---
Pre-Procedural Eval Section A - 24 Hr Update-Section A only Date of Service: 06/07/25 The patient is an INPATIENT: No Changes since office visit: No Cold of Flu in the past 2 weeks, No New Medical Problems, No Changes in Medication and No Patient answered all questions The patient has been examined within 24 hours of the surgical procedure. The History & Physical has been completed within 30 days and I have reviewed it.: Yes Section B - Complete if H&P > 30 days Chief Complaint: Other fecal abnormalities Allergies: Allergies Allergy/AdvReac Type Severity Reaction Status Date / Time No Known Allergies Allergy Verified 09/13/21 09:09 Plan I have reviewed the history and physical and performed a pertinent physical examination on my patient. No changes have occurred unless specified. Time Spent With Patient Time: Total time managing care of this patient today ____ minutes.
[2025-06-07 11:45] VITALS: BP 92/59; PULSE 73; RESP 18; TEMP 36.4; O2SAT 96
[2025-06-07 12:00] VITALS: BP 100/53; PULSE 79; RESP 16; TEMP 37.2; O2SAT 98
--- NOTE | 2025-06-07 13:16 | OP_ITS ---
DATE OF SERVICE: 06/07/2025 SURGEON: Raji Mcclendon MD INDICATIONS: Abnormal findings in stool. PREOPERATIVE DIAGNOSIS: POSTOPERATIVE DIAGNOSIS: PROCEDURE PERFORMED: Upper endoscopy with biopsy, colonoscopy to the cecum. ESTIMATED BLOOD LOSS: COMPLICATIONS: ANESTHESIA: Monitored anesthesia care. ASSISTANTS: SPECIMENS: DESCRIPTION OF PROCEDURE: A history and physical was performed. The risks and benefits of the procedure were explained to the patient. Informed consent was obtained. The patient was placed in the left lateral decubitus position. The Olympus video gastroscope was introduced into the esophagus, stomach, and duodenum. Examination was performed. The scope was removed. He was repositioned for colonoscopy. A digital rectal exam was performed and was found to be normal. The prostate was enlarged. The Olympus pediatric video colonoscope was introduced into the rectum and advanced to the cecum. The cecum was identified by transillumination, palpation, and identification of ileocecal valve. Examination was performed. The scope was removed. He tolerated both procedures well and was returned to the recovery area in stable condition. FINDINGS: Upper endoscopy: 1. Esophagus: The esophagus was normal. There was an irregular EG junction, which was biopsied. 2. Stomach: The stomach showed no evidence of masses, ulcers, or polyps. Antral biopsies were obtained. 3. 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 Colonoscopy: The terminal ileum was not examined. The visualized colonic mucosa was normal. There was a moderate amount of liquid stool and some formed stool present, which was washed and suctioned as best possible, but did limited examination for detection of small polyps. No polyps were identified. There was mild sigmoid diverticulosis. Retroflexed examination was normal. IMPRESSION: 1. Normal upper endoscopy. 2. Normal colonoscopy. RECOMMENDATION: 1. Follow up as needed. 2. Repeat colonoscopy is recommended in 10 years for average-risk individuals. This is optional based on age. MD GURPREET Armendariz/DAVISL / [phone]
== END 2025-06-07 12:26 | disposition home or self-care (01) ==
PROVIDERS: PCP Internal Medicine; Visit Provider Internal Medicine Gastroenterology
PROC: (CPT 45378; principal; 2025-06-07 11:10)
DX: R19.5 Other fecal abnormalities (principal); K57.10 Diverticulosis of small intestine without perforation or abscess without bleeding; Z80.0 Family history of malignant neoplasm of digestive organs; E11.40 Type 2 diabetes mellitus with diabetic neuropathy, unspecified; K57.30 Diverticulosis of large intestine without perforation or abscess without bleeding; K20.90 Esophagitis, unspecified without bleeding
CPT/HCPCS: 45378; 43239; 82947; 88305; 88313; 88342; J2003; J2704